=== PATIENT | female | born 1930 | race Caucasian/White ===

== ENCOUNTER 2019-03-13 03:08 | Emergency (ER) | payer MEDICARE, OTHER ==
[~2019-03-13] VITALS: Ht 165.1 cm; Wt 61.2 kg
[2019-03-13] MEDS ORDERED: PLAVIX75 MG ORAL ×2 (03:18→03:19)
[2019-03-13] MEDS ORDERED: ARICEPT10 MG ORAL (03:18)
[2019-03-13] MEDS ORDERED: AMLODIPINE BESY10 MG ORAL (03:18)
[2019-03-13] MEDS ORDERED: KLOR-CON 88 MEQ ORAL (03:19)
[2019-03-13] MEDS ORDERED: VITAMIN B-12500 MCG ORAL (03:19)
[2019-03-13] MEDS ORDERED: PANTOPRAZOLE SO40 MG ORAL (03:19)
[2019-03-13] MEDS ORDERED: PRAMIPEXOLE D0.25 MG ORAL (03:19)
[2019-03-13] MEDS ORDERED: DEPAKOTE250 MG PO (03:19)
[2019-03-13] MEDS ORDERED: ACIDOPHILUS1 EAC6 PO (03:19)
[2019-03-13] MEDS ORDERED: SYNTHROID25 MCG ORAL (03:19)
[2019-03-13] MEDS ORDERED: FUROSEMIDE20 M1 ORAL (03:19)
[2019-03-13] MEDS ORDERED: NAMENDA10 MG ORAL (03:19)
[2019-03-13] MEDS ORDERED: ROPINIROLE HCL2 MG PO (03:21)
[2019-03-13] MEDS ORDERED: ZOLPIDEM TARTRA10 MG ORAL (03:21)
[2019-03-13] MEDS ORDERED: VESICARE5 MG ORAL (03:21)
[2019-03-13] MEDS ORDERED: ACETAMINOPHEN325 M1 ORAL (03:21)
[2019-03-13] MEDS ORDERED: PROZAC20 MG ORAL (03:21)
[2019-03-13 03:25] VITALS: BP 150/80
[2019-03-13] MEDS ORDERED: Acetaminophen 500mg (ES) tab ORAL ONE (03:30)
--- NOTE | 2019-03-13 03:32 | Emergency Room Report ---
History of Present Illness General Chief Complaint: Multiple Trauma/Fall Source: Patient Present Illness HPI This is an 88-year-old female with multiple medical problems including CVA. She is unsteady on her feet. She presents with chief complaint of head injury. She says [facility] to go to [facility]. She slipped and fell forward hitting her face on the ground. She was wearing her glasses. She sustained a laceration to the right upper eyebrow. Also a laceration to the right upper lip and the right lower lip. No loss of consciousness. Pain is 7 out of 10. Denies any other complaint. Allergies: Coded Allergies: ASPIRIN (Verified Allergy, Unknown, 03/13/19) MORPHINE (Verified Allergy, Unknown, 03/13/19) TETANUS TOXOID, ADSORBED (Verified Allergy, Unknown, 03/13/19) Patient History Past Medical History: see triage record, old chart reviewed, HTN, CVA/TIA Past Surgical History: other Pertinent Family History: none Social History: Denies: smoking Now: No Immunizations: UTD Reviewed Nursing Documentation: PMH: Agreed; PSxH: Agreed Nursing Documentation-PMH Past Medical History: No History, Except For Hx Hypertension: Yes - ANEMIA, HYPERLIPIDEMIA, HYPOKALEMIA Hx COPD: Yes Hx Gastrointestinal Problems: Yes - GERD Review of Systems Eye: Denies: eye pain, blurred vision ENT: Denies: ear pain, nose congestion, throat swelling Respiratory: Denies: cough, shortness of breath Cardiovascular: Denies: chest pain, palpitations Gastrointestinal: Denies: abdominal pain, diarrhea, nausea, vomiting Musculoskeletal: Denies: back pain, joint pain Skin: Denies: rash Neurological: Denies: headache, numbness Endocrine: Denies: increased thirst, increased urine Hematologic/Lymphatic: Denies: easy bruising All Other Systems: negative except mentioned in HPI Physical Exam Vital Signs Date Time Temp Pulse Resp B/P (MAP) Pulse Ox O2 Delivery O2 Flow Rate FiO2 03/13/19 03:08 98.2 72 18 150/80 (103) 99 Vitals with high blood pressure Sp02 EP Interpretation: reviewed, normal General Appearance: well appearing, no apparent distress, alert Head: normocephalic, other - 2cm laceration to the right upper eyebrow. Well approximated. Eyes: bilateral eye PERRL, bilateral eye EOMI ENT: hearing grossly normal, normal pharynx, other - 1 cm laceration in the right upper lip. Well approximated. No foreign body. Not through and through. 3 mm laceration to the right lower lip. Well approximated. Not through and through. Neck: full range of motion, supple, no meningismus Respiratory: chest non-tender, lungs clear, normal breath sounds Cardiovascular #1: regular rate, rhythm, no murmur Gastrointestinal: normal bowel sounds, non tender, no mass, no organomegaly, no bruit, non-distended Musculoskeletal: back normal, gait/station normal, normal range of motion Psychiatric: mood/affect normal Procedures Laceration/Wound Repair Laceration/Wound Repair : Consent: Verbal Wound Location: face Wound's Depth, Shape: linear, contused tissue Wound Length (cm): 4 Wound Explored: clean Wound Repaired With: Dermabond Patient Tolerated: Well Complications: None Medical Decision Making Diagnostic Impression: Primary Impression: Head injury, acute Qualified Codes: S09.90XA - Unspecified injury of head, initial encounter Additional Impression: Facial laceration Qualified Codes: S01.81XA - Laceration without foreign body of other part of head, initial encounter ER Course Patient presents with head injury and laceration to the face. No evidence of any bleed. No fracture. Will discharge home. CT/MRI/US Diagnostic Results CT/MRI/US Diagnostic Results : Imaging Test Ordered: CT head Impression Negative per radiologist Last Vital Signs Date Time Temp Pulse Resp B/P (MAP) Pulse Ox O2 Delivery O2 Flow Rate FiO2 03/13/19 03:25 72 18 03/13/19 03:08 98.2 150/80 (103) 99 Status: improved Disposition: XFER SNF Condition: Stable Additional Instructions: Follow-up with your doctor in 7 days. Return if symptoms worsen. Sreedhar Graff MD Mar 13, 2019 03:32
--- NOTE | 2019-03-13 04:21 | Diagnostic Imaging Report ---
Indications: Fall, trauma Technique: Spiral acquisitions obtained through the brain. Angled axial and coronal 5 x 5 mm slices were reconstructed. Total dose length product 1436.13 mGycm. CTDI vol(s) 70.38 mGy. Dose reduction achieved using automated exposure control Comparison: None. Findings: There is some image degradation due to motion artifact. No acute intracranial hemorrhage or edema. No mass effect or midline shift. Normal for age ventricles and extra axial CSF spaces. There is minimal periventricular deep white matter low-attenuation consistent with chronic microvascular ischemic changes. 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 The mastoids are clear. Visualized orbits and sinuses are unremarkable. Impression: Mild senescent changes Somewhat limited exam Negative for acute intracranial bleed or mass effect This agrees with the preliminary interpretation provided overnight by [facility]. The CT scanner at [facility] is accredited by the [employer] and the scans are performed using protocols designed to limit radiation exposure to as low as reasonably achievable to attain images of sufficient resolution adequate for diagnostic evaluation.
[2019-03-13 05:06] VITALS: BP 129/76
== END 2019-03-13 05:16 ==
LOC: EDBD 03:08 → EMR 03:31
DX: S01.81XA Laceration without foreign body of other part of head, initial encounter (principal); S09.90XA Unspecified injury of head, initial encounter; E78.5 Hyperlipidemia, unspecified; J44.9 Chronic obstructive pulmonary disease, unspecified; K21.9 Gastro-esophageal reflux disease without esophagitis; I10 Essential (primary) hypertension; Z86.73 Personal history of transient ischemic attack (TIA), and cerebral infarction without residual deficits; Z88.6 Allergy status to analgesic agent; Z88.7 Allergy status to serum and vaccine; W01.0XXA Fall on same level from slipping, tripping and stumbling without subsequent striking against object, initial encounter; Y92.129 Unspecified place in nursing home as the place of occurrence of the external cause
CPT/HCPCS: 70450; 99284

== ENCOUNTER 2019-04-02 19:55 | Emergency (ER) | payer MEDICARE ==
[~2019-04-02] VITALS: Ht 165.1 cm; Wt 72.6 kg
[~2019-04-02 19:55] MED LIST: ACETAMINOPHEN325 M1 ORAL; ACIDOPHILUS1 EAC6 PO; AMLODIPINE BESY10 MG ORAL; ARICEPT10 MG ORAL; DEPAKOTE250 MG PO; FUROSEMIDE20 M1 ORAL; KLOR-CON 88 MEQ ORAL; NAMENDA10 MG ORAL; PANTOPRAZOLE SO40 MG ORAL; PLAVIX75 MG ORAL; PRAMIPEXOLE D0.25 MG ORAL; PROZAC20 MG ORAL; ROPINIROLE HCL2 MG PO; SYNTHROID25 MCG ORAL; VESICARE5 MG ORAL; VITAMIN B-12500 MCG ORAL; ZOLPIDEM TARTRA10 MG ORAL
--- NOTE | 2019-04-02 19:58 | NUR ---
ED Nurse Note: pt brought in by [facility] for cough for the last 2 days. pt was [facility]. pt is alert x3. ambulatory . VSS
[2019-04-02 19:59] VITALS: BP 112/64
[2019-04-02] MEDS ORDERED: Albuterol ud Inhalation HHN ONE ×2 (20:00→21:30)
[2019-04-02] MEDS ORDERED: Solu-MEDROL 125mg Inj IVP ONE (20:00)
[2019-04-02] MEDS ORDERED: Ipratropium 0.02% Inh Soln 2.5ml UD HHN ONE (20:00)
--- NOTE | 2019-04-02 20:30 | NUR ---
ED Nurse Note: urine and blood sample sent down to lab
[2019-04-02] MEDS: Sodium Chloride 550 ML IV SCH ×3 (20:36→23:52)
[2019-04-02 20:59] LABS: BASOPHILS % (AUTO) 2.4 % (0.0-2.0); HEMATOCRIT 39.1 % (37.0-47.0); HEMOGLOBIN 12.8 G/DL (12.0-16.0); LYMPHOCYTES % (AUTO) 12.8 % (20.0-45.0); MEAN CORPUSCULAR VOLUME 98 FL (80-99); MONOCYTES % (AUTO) 16.7 % (1.0-10.0); NEUTROPHILS % (AUTO) 66.2 % (45.0-75.0); PLATELET COUNT 188 K/UL (150-450); RED BLOOD COUNT 3.98 M/UL (4.20-5.40); RED CELL DISTRIBUTION WIDTH 12.7 % (11.6-14.8); WHITE BLOOD COUNT 5.2 K/UL (4.8-10.8)
[2019-04-02 21:13] LABS: ANION GAP 8 mmol/L (5-15); BLOOD UREA NITROGEN 21 mg/dL (7-18); CARBON DIOXIDE 28 MMOL/L (21-32); CHLORIDE 106 MMOL/L (98-107); POTASSIUM 3.6 MMOL/L (3.5-5.1); SODIUM 142 MMOL/L (136-145)
[2019-04-02 21:24] LABS: ALANINE AMINOTRANSFERASE 17 U/L (12-78); ALBUMIN 3.3 G/DL (3.4-5.0); ALKALINE PHOSPHATASE 84 U/L (46-116); ASPARTATE AMINO TRANSFERASE 16 U/L (15-37); BILIRUBIN,TOTAL 0.2 MG/DL (0.2-1.0); CREATINE KINASE 74 U/L (26-308)
[2019-04-02 21:29] LABS: APPEARANCE,URINE CLEAR; BILIRUBIN, URINE NEGATIVE (NEGATIVE); COLOR,URINE PALE YELLOW; GLUCOSE, URINE (UA) NEGATIVE (NEGATIVE); KETONES,URINE 1+ (NEGATIVE); LEUKOCYTE ESTERASE ,URINE 1+ (NEGATIVE); NITRITE,URINE NEGATIVE (NEGATIVE); PH,URINE 5 (4.5-8.0); PROTEIN,URINE 1+ (NEGATIVE); UROBILINOGEN,URINE NORMAL MG/DL (0.0-1.0)
[2019-04-02] MEDS ORDERED: Omnipaue 350mg/ml 100ml vial INJ PRN (21:30)
[2019-04-02] MEDS ORDERED: guaiFENesin w/Codeine 5ml Liq ud ORAL PRN (21:30)
[2019-04-02] MEDS ORDERED: Piperacillin/Tazobactam 3.375 GM in NS 110 ML IVPB ONE (21:30)
--- NOTE | 2019-04-02 21:32 | Emergency Room Report ---
History of Present Illness General Chief Complaint: Upper Respiratory Illness Source: Patient, Medical Record (Jemal Greene MD) Present Illness HPI Patient presents with dyspnea and cough. She also is complaining about chest pain radiating to her back. When she had this before she had pneumonia. She denies fevers or chills or productive cough at this time. There are times after cough that she cannot get her breath. She denies any vomiting. There is no diarrhea. Patient is never had pain radiating to her back like this in the past. Is not exertional. She denies asthma in the past and denies previous smoking although in her records there is a history of COPD. Seen here 03/13/19 post fall with facial laceration. (Jemal Greene MD) Allergies: Coded Allergies: ASPIRIN (Verified Allergy, Unknown, 03/13/19) MORPHINE (Verified Allergy, Unknown, 03/13/19) TETANUS TOXOID, ADSORBED (Verified Allergy, Unknown, 03/13/19) Uncoded Allergies: CODINE FROM ASPIRIN (Allergy, Unknown, 04/02/19) TETANOTOXOIDS (Allergy, Unknown, 04/02/19) Patient History Past Medical History: see triage record, old chart reviewed Social History: Denies: smoking Social History Narrative [facility] facility Last Menstrual Period: na Now: No Reviewed Nursing Documentation: PMH: Agreed; PSxH: Agreed (Jemal Greene MD) Nursing Documentation-PMH Past Medical History: No History, Except For Hx Hypertension: Yes - ANEMIA, HYPERLIPIDEMIA, HYPOKALEMIA Hx COPD: Yes Hx Gastrointestinal Problems: Yes - GERD (Jemal Greene MD) Review of Systems All Other Systems: negative except mentioned in HPI (Jemal Greene MD) Physical Exam Vital Signs Date Time Temp Pulse Resp B/P (MAP) Pulse Ox O2 Delivery O2 Flow Rate FiO2 04/02/19 19:50 98.8 79 18 104/64 (77) 94 Room Air 04/02/19 20:08 21 Sp02 EP Interpretation: reviewed, normal General Appearance: well appearing, no apparent distress, GCS 15 Head: normocephalic Eyes: bilateral eye normal inspection, bilateral eye PERRL, bilateral eye EOMI ENT: moist mucus membranes Neck: supple Respiratory: wheezing, expiration Cardiovascular #1: regular rate, rhythm Cardiovascular #2: 2+ radial (R) Gastrointestinal: normal inspection, normal bowel sounds, non tender, no mass, non-distended Musculoskeletal: back normal, normal range of motion, no calf tenderness Neurologic: alert, motor strength/tone normal, sensory intact, oriented - X2 Psychiatric: mood/affect normal Skin: no rash, other - Jimbo (Jemal Greene MD) Medical Decision Making Diagnostic Impression: Primary Impression: COPD exacerbation Additional Impressions: Dyspnea Qualified Codes: R06.09 - Other forms of dyspnea Elevated lactic acid level ER Course Patient presents with with chest pain. Differential includes acute myocardial infarction, COPD exacerbation, pneumonia, chest wall pain, osteoarthritis amongst others. Evaluation with EKG, chest x-ray labs. Patient treated with Solu-Medrol, breathing treatments and analgesia. 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 Chest x-ray with ectatic aorta no infiltrates. Normal CBC. BUN elevated. Glucose minimally elevated. BNP minimally elevated. Urinalysis clear. Because of the ectatic aorta and the history of back pain and has a CT angiogram of the chest ordered. Patient improved with breathing treatments but still has some expiratory wheezes. Albuterol repeated. Also Robitussin with codeine ordered. Because of a positive lactic acid a bolus of normal saline and Zosyn is ordered. Repeat lactic acid normal. Discussed with Dr. Jane. Await CTA. Calling [employer] for reading 22:55 No dissection. Discussed findings with patient. Patient's respiratory status improved. She is apprised of diagnosis of COPD which is in the medical record. Signed out to Dr. Jorge for final disposition. Laboratory Tests Test 04/02/19 20:20 04/02/19 20:55 White Blood Count 5.2 K/UL (4.8-10.8) Red Blood Count 3.98 M/UL (4.20-5.40) L Hemoglobin 12.8 G/DL (12.0-16.0) Hematocrit 39.1 % (37.0-47.0) Mean Corpuscular Volume 98 FL (80-99) Mean Corpuscular Hemoglobin 32.2 PG (27.0-31.0) H Mean Corpuscular Hemoglobin Concent 32.7 G/DL (32.0-36.0) Red Cell Distribution Width 12.7 % (11.6-14.8) Platelet Count 188 K/UL (150-450) Mean Platelet Volume 6.0 FL (6.5-10.1) L Neutrophils (%) (Auto) 66.2 % (45.0-75.0) Lymphocytes (%) (Auto) 12.8 % (20.0-45.0) L Monocytes (%) (Auto) 16.7 % (1.0-10.0) H Eosinophils (%) (Auto) 2.0 % (0.0-3.0) Basophils (%) (Auto) 2.4 % (0.0-2.0) H Prothrombin Time 11.1 SEC (9.30-11.50) Prothrombin Time INR 1.0 (0.9-1.1) PTT 24 SEC (23-33) Sodium Level 142 MMOL/L (136-145) Potassium Level 3.6 MMOL/L (3.5-5.1) Chloride Level 106 MMOL/L (98-107) Carbon Dioxide Level 28 MMOL/L (21-32) Anion Gap 8 mmol/L (5-15) Blood Urea Nitrogen 21 mg/dL (7-18) H Creatinine 1.0 MG/DL (0.55-1.30) Estimate Glomerular Filtration Rate mL/min (>60) Glucose Level 112 MG/DL (74-106) H Lactic Acid Level 2.50 mmol/L (0.4-2.0) H Calcium Level 9.0 MG/DL (8.5-10.1) Total Bilirubin 0.2 MG/DL (0.2-1.0) Aspartate Amino Transferase (AST) 16 U/L (15-37) Alanine Aminotransferase (ALT) 17 U/L (12-78) Alkaline Phosphatase 84 U/L (46-116) Total Creatine Kinase 74 U/L (26-308) Troponin I 0.007 ng/mL (0.000-0.056) Pro-B-Type Natriuretic Peptide 274 pg/mL (0-125) H Total Protein 6.7 G/DL (6.4-8.2) Albumin 3.3 G/DL (3.4-5.0) L Globulin 3.4 g/dL Albumin/Globulin Ratio 1.0 (1.0-2.7) Urine Color Pale yellow Urine Appearance Clear Urine pH 5 (4.5-8.0) Urine Specific Toutle 1.015 (1.005-1.035) Urine Protein 1+ (NEGATIVE) H Urine Glucose (UA) Negative (NEGATIVE) Urine Ketones 1+ (NEGATIVE) H Urine Blood Negative (NEGATIVE) Urine Nitrite Negative (NEGATIVE) Urine Bilirubin Negative (NEGATIVE) Urine Urobilinogen Normal MG/DL (0.0-1.0) Urine Leukocyte Esterase 1+ (NEGATIVE) H Urine RBC 0-2 /HPF (0 - 2) Urine WBC 2-4 /HPF (0 - 2) Urine Squamous Epithelial Cells Few /LPF (NONE/OCC) Urine Bacteria Few /HPF (NONE) Urine Yeast Few /HPF (NONE) H (Jemal Greene MD) ER Course [facility] the patient [facility] transfer to [facility]. Patient is currently improved. CT of the chest showed no evidence of aortic dissection. Patient be transferred for further treatments. (Stan Jorge MD) EKG Diagnostic Results Rate: normal Rhythm: NSR ST Segments: no acute changes (Jemal Greene MD) Rhythm Strip Diag. Results EP Interpretation: yes Rhythm: NSR, other - PVCs and rate of 79 (Jemal Greene MD) Chest X-Ray Diagnostic Results Chest X-Ray Diagnostic Results : Chest X-Ray Ordered: Yes # of Views/Limited/Complete: 1 View Indication: Other EP Interpretation: Yes Interpretation: no consolidation, no effusion, no pneumothorax, other - Ectatic aorta Impression: Other Electronically Signed by: Electronically signed by Jemal Greene MD (Jemal Greene MD) CT/MRI/US Diagnostic Results CT/MRI/US Diagnostic Results : Imaging Test Ordered: CT angiogram chest and abdomen Impression No dissection. See radiology report. (Jemal Greene MD) Last Vital Signs Date Time Temp Pulse Resp B/P (MAP) Pulse Ox O2 Delivery O2 Flow Rate FiO2 04/03/19 01:42 98.4 79 19 105/70 97 Room Air 04/02/19 22:31 21 Status: improved (Jemal Greene MD) Disposition: PLACE IN OBSERVATION Condition: Serious Referrals: Earle Whaley DO (PCP) Jemal Greene MD Apr 02, 2019 21:32 Stan Jorge MD Apr 03, 2019 00:10
[2019-04-02 22:05] VITALS: BP 108/70
--- NOTE | 2019-04-02 22:05 | NUR ---
ED Nurse Note: left for ct
--- NOTE | 2019-04-02 22:17 | NUR ---
ED Nurse Note: returbed back from CT
--- NOTE | 2019-04-02 22:54 | NUR ---
ED Nurse Note: 2nd lactic sent to lab
--- NOTE | 2019-04-02 23:10 | Diagnostic Imaging Report ---
Indication: Chest and abdominal pain Technique: Continuous helical transaxial imaging of the chest, abdomen and pelvis was obtained from the thoracic inlet to the pubic symphysis during rapid intravenous contrast administration. Arterial phase of enhancement obtained. Coronal 2-D reformats were also obtained and maximum intensity projection images in multiple planes. Study obtained in a Siemens sensation [address] Total Dose length Product (DLP): [address] Dose Index Volume (CTDIvol): 51.4 mGy Comparison: None Findings: CT CHEST: There is suboptimal opacification of the pulmonary artery. There is no filling defect appreciated. The pulmonary artery is mildly enlarged. The aorta is diffusely enlarged and tortuous with mural calcium. There is no dissection or aneurysm. The heart is prominent in size. No adenopathy seen. No pleural effusion identified. There is a cystic lesion measuring about 4.8 cm in the right upper lobe. There are few other smaller cystic lesions present in the right upper lobe as well. These are probably postinflammatory or pneumatoceles. There is mild bronchiectasis involving the lower lobes. Some linear densities likely represent mild fibrosis. There is a proximally 1 cm exophytic enhancing nodule projecting off the lower aspect of the thyroid gland. This resides just posterior to the sternum and may be difficult to see by ultrasound. CTA abdomen pelvis: There is low attenuation of the liver. The spleen is prominent in size measuring about 13 cm. The abdominal aorta is diffusely ectatic due to atherosclerotic disease. There is slight fusiform dilatation or aneurysm of the lower abdominal aorta having a maximum diameter of about 4.0 cm. Some calcification at the origins of the celiac artery and SMA demonstrated. These do not appear significant. Similarly the renal arteries show some arterial vascular calcium. The right side of the abdominal wall is not completely imaged on this study. There is suggestion of an umbilical hernia. Uterus is present and atrophic. There is no free fluid. Bowel gas pattern is nonobstructive. This partial resection of the the right hemicolon noted with suture line demonstrated. The appendix is absent. Hiatal hernia noted. There is prominence of the left adrenal gland. Gallbladder is not seen. Suture line noted in the area of the stomach consistent with previous surgery. Not clear the nature of the surgery. Pancreas is grossly unremarkable. There is narrowing of intervertebral discs and accompanying endplate osteophyte formation. Hypertrophied facet joints also demonstrated. IMPRESSION: Suboptimal opacification of the pulmonary artery. No obvious pulmonary embolus. No evidence of aortic dissection. Moderate atherosclerotic disease of the thoracic and abdominal aorta. 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 Prominence of the left adrenal gland nonspecific. Hepatosplenomegaly. Fatty infiltration of the liver noted. Degenerative changes of the spine. Hiatal hernia Suggestion of umbilical hernia containing fat. Bullous type changes in the right upper lobe noted focally likely postinflammatory pneumatoceles. Chronic lung disease at both lung bases with bronchiectasis and mild scarring. Thyroid nodule substernal in location may be difficult to see by ultrasound. [facility] has communicated the preliminary results to the Emergency Department. Their findings are largely concordant with this report. The CT scanner at [facility] is accredited by the [employer] and the scans are performed using dose optimization techniques as appropriate to a performed exam including Automatic Exposure control.
[2019-04-03 00:16] VITALS: BP 100/73
--- NOTE | 2019-04-03 01:08 | NUR ---
ED Nurse Note: pt in bed awake, No acute distress is noted VSS
--- NOTE | 2019-04-03 01:14 | NUR ---
ED Nurse Note: [facility]
[2019-04-03 01:42] VITALS: BP 105/70
--- NOTE | 2019-04-03 01:42 | NUR ---
ER DISCHARGE NOTE: [facility] arrived. pt was then transported to [facility] via [facility] in stable condition. Report given to Ambulance personnel. Pt VSS
--- NOTE | 2019-04-03 11:43 | Diagnostic Imaging Report ---
Indication: Dyspnea Comparison: None A single view chest radiograph was obtained. Findings: The heart is enlarged. The aorta is ectatic and tortuous likely accounting for a convex density over the left hilar region with the pulmonary artery contour still noted separate from this and not silhouetted out (Hilum overlay). The lungs are essentially clear. Bones are osteopenic. IMPRESSION: No acute cardiopulmonary disease. Moderate atherosclerotic disease of aorta. Cardiomegaly
--- NOTE | 2019-04-04 15:06 | Cardiology Report ---
APPROVED REPORT EKG Measurement Heart [id number] Sinus rhythm with occasional premature ventricular complexes Right bundle branch block Left anterior fascicular block Bifascicular block Abnormal ECG
== END 2019-04-03 01:42 | disposition short-term general hospital (02) ==
LOC: EDBD 19:55 → EMR 20:03
DX: J44.1 Chronic obstructive pulmonary disease with (acute) exacerbation (principal); R74.0 Nonspecific elevation of levels of transaminase and lactic acid dehydrogenase [LDH]; R06.09 Other forms of dyspnea; I77.819 Aortic ectasia, unspecified site; R07.9 Chest pain, unspecified; M54.9 Dorsalgia, unspecified; E78.5 Hyperlipidemia, unspecified; K21.9 Gastro-esophageal reflux disease without esophagitis; Z88.6 Allergy status to analgesic agent; Z88.7 Allergy status to serum and vaccine
CPT/HCPCS: 36415; 71045; 71275; 74174; 80053; 81003; 82550; 83605; 83880; 84484; 85025; 85610; 85730; 87040; 87086; 93005; 94640; 96361; 96365; 96375; 99284; J2543; J2930; J7040; Q9967

== ENCOUNTER 2019-08-28 19:42 | Inpatient (IN) | payer MEDICARE, MEDICAID ==
[~2019-08-28] VITALS: Ht 152.4 cm; Wt 112.5 kg
--- NOTE | 2019-08-28 20:15 | NUR ---
ED Nurse Note: Recieved pt BIBA from SNF with c/o right leg pain and swelling for about 1 month, leg is very red and swollen, pulses are present and has chronic deformity from old fracture, pt is awake, alert and oriented x 4, pain at 6/10 to area, no chest pain, sob, or labored breathing and pt denies any other complaitns or discomforts.
[2019-08-28 21:08] LABS: ANION GAP 9 mmol/L (5-15); BLOOD UREA NITROGEN 19 mg/dL (7-18); CALCIUM 9.5 MG/DL (8.5-10.1); CARBON DIOXIDE 26 MMOL/L (21-32); CHLORIDE 105 MMOL/L (98-107); CREATININE 0.8 MG/DL (0.55-1.30); POTASSIUM 4.3 MMOL/L (3.5-5.1); SODIUM 140 MMOL/L (136-145)
[2019-08-28 21:18] LABS: ALANINE AMINOTRANSFERASE 19 U/L (12-78); ALBUMIN 3.5 G/DL (3.4-5.0); ALKALINE PHOSPHATASE 91 U/L (46-116); ASPARTATE AMINO TRANSFERASE 19 U/L (15-37); BILIRUBIN,TOTAL 0.2 MG/DL (0.2-1.0)
[2019-08-28 21:30] VITALS: BP 136/61
[2019-08-28] MEDS ORDERED: Piperacillin/Tazobactam 3.375 GM in NS 110 ML IVPB ONE (21:30)
--- NOTE | 2019-08-28 21:35 | NUR ---
ED Nurse Note: Pt continues to rest in bed, awake and alert, denies any changes or increased distress, saline lock intact and patent, pt denies need for pain meds, waiting for room placement for hospital admission, will continue to closely monitor.
[2019-08-28 21:45] LABS: BASOPHILS % (AUTO) 0.5 % (0.0-2.0); EOSINOPHILS % (AUTO) 1.3 % (0.0-3.0); HEMATOCRIT 37.7 % (37.0-47.0); HEMOGLOBIN 12.4 G/DL (12.0-16.0); LYMPHOCYTES % (AUTO) 14.2 % (20.0-45.0); MEAN CORPUSCULAR VOLUME 93 FL (80-99); MONOCYTES % (AUTO) 7.2 % (1.0-10.0); NEUTROPHILS % (AUTO) 76.8 % (45.0-75.0); PLATELET COUNT 240 K/UL (150-450); RED BLOOD COUNT 4.06 M/UL (4.20-5.40); RED CELL DISTRIBUTION WIDTH 13.2 % (11.6-14.8); WHITE BLOOD COUNT 9.3 K/UL (4.8-10.8)
--- NOTE | 2019-08-28 21:53 | Diagnostic Imaging Report ---
Indication: Right leg pain Technique: Grayscale and duplex images of the right lower extremity veins Comparison: Findings: On the right, grayscale and duplex images demonstrate no evidence of intraluminal thrombus. Normal phasic Doppler waveforms, demonstrating normal augmentation response and no evidence of valvular insufficiency. Greater saphenous vein(s) and tibial veins are patent. Normal compressibility. There is edema of the subcutaneous fat distally Impression: Negative for evidence of lower extremity deep venous thrombosis on the right As agrees stat [facility]
--- NOTE | 2019-08-28 21:58 | Emergency Room Report ---
History of Present Illness General Chief Complaint: Lower Extremity Injury Source: Patient, Medical Record, EMS Present Illness HPI -year-old female presents ED for evaluation of right leg swelling. Noted by nursing staff today to be red and swollen. Patient is hemiplegic. Patient denies pain. Denies fevers or chills. Denies chest pain. No other aggravating relieving factors. Denies any other associated symptoms Allergies: Coded Allergies: ASPIRIN (Verified Allergy, Unknown, 03/13/19) MORPHINE (Verified Allergy, Unknown, 03/13/19) TETANUS TOXOID, ADSORBED (Verified Allergy, Unknown, 03/13/19) Uncoded Allergies: CODINE FROM ASPIRIN (Allergy, Unknown, 04/02/19) TETANOTOXOIDS (Allergy, Unknown, 04/02/19) Patient History Past Medical History: COPD, GERD, other - hemiplegia Past Surgical History: none Pertinent Family History: none Social History: Denies: smoking, alcohol use, drug use Now: No Immunizations: UTD Reviewed Nursing Documentation: PMH: Agreed; PSxH: Agreed Nursing Documentation-PMH Hx Cardiac Problems: Yes - PNA, MUSCLE WEAKNESS, HEMIPLEGIA, HYPOTHYROIDISM, CHF Hx Hypertension: Yes - ANEMIA, HYPERLIPIDEMIA, HYPOKALEMIA Hx COPD: Yes Hx Gastrointestinal Problems: Yes - GERD Review of Systems All Other Systems: negative except mentioned in HPI Physical Exam Vital Signs Date Time Temp Pulse Resp B/P (MAP) Pulse Ox O2 Delivery O2 Flow Rate FiO2 08/28/19 19:47 98.1 78 18 130/68 (88) 94 Room Air Sp02 EP Interpretation: reviewed, normal General Appearance: no apparent distress, alert, GCS 15, non-toxic, obese Head: normocephalic, atraumatic Eyes: bilateral eye normal inspection, bilateral eye PERRL ENT: hearing grossly normal, normal pharynx, no angioedema, normal voice Neck: full range of motion, supple/symm/no masses Respiratory: chest non-tender, lungs clear, normal breath sounds, speaking full sentences Cardiovascular #1: regular rate, rhythm, no edema Cardiovascular #2: 2+ carotid (R), 2+ carotid (L), 2+ radial (R), 2+ radial (L) , 2+ dorsalis pedis (R), 2+ dorsalis pedis (L) Gastrointestinal: normal bowel sounds, non tender, soft, non-distended, no guarding, no rebound Rectal: deferred Genitourinary: normal inspection, no CVA tenderness Musculoskeletal: back normal, swelling - RLE erythema/induration. no discharge Neurologic: alert, motor strength/tone normal, oriented x3, sensory intact, responsive, speech normal Psychiatric: judgement/insight normal, memory normal, mood/affect normal, no suicidal/homicidal ideation Reflexes: 3+ bicep (R), 3+ bicep (L), 3+ tricep (R), 3+ tricep (L), 3+ knee (R) , 3+ knee (L) Skin: other - see nursing skin notes Lymphatic: no adenopathy Medical Decision Making Diagnostic Impression: Primary Impression: Cellulitis of right lower extremity ER Course Hospital Course 89-year-old female presents to ED with redness, swelling to RLE Differential diagnoses include: Cellulitis, DVT, abscess, rash. Clinical course Patient placed on stretcher. After initial history and physical I ordered labs , blood Cx, UA, IVFs, doppler US of LLE labs reviewed - leukocytosis, Hb/Hct stable, no electrolyte abnormalities. Doppler US - no evidence of DVT, edema noted CXR - no focal consolidation antibiotics given. Case discussed with Dr Whaley and he agreed to accept the patient to his service for further care and support Diagnosis - cellulitis of right lower extremity Patient admitted to floor in serious condition Labs Test 08/28/19 20:15 White Blood Count 9.3 K/UL (4.8-10.8) Red Blood Count 4.06 M/UL (4.20-5.40) Hemoglobin 12.4 G/DL (12.0-16.0) Hematocrit 37.7 % (37.0-47.0) Mean Corpuscular Volume 93 FL (80-99) Mean Corpuscular Hemoglobin 30.5 PG (27.0-31.0) Mean Corpuscular Hemoglobin Concent 32.8 G/DL (32.0-36.0) Red Cell Distribution Width 13.2 % (11.6-14.8) Platelet Count 240 K/UL (150-450) Mean Platelet Volume 5.3 FL (6.5-10.1) Neutrophils (%) (Auto) 76.8 % (45.0-75.0) Lymphocytes (%) (Auto) 14.2 % (20.0-45.0) Monocytes (%) (Auto) 7.2 % (1.0-10.0) Eosinophils (%) (Auto) 1.3 % (0.0-3.0) Basophils (%) (Auto) 0.5 % (0.0-2.0) Sodium Level 140 MMOL/L (136-145) Potassium Level 4.3 MMOL/L (3.5-5.1) Chloride Level 105 MMOL/L (98-107) Carbon Dioxide Level 26 MMOL/L (21-32) Anion Gap 9 mmol/L (5-15) Blood Urea Nitrogen 19 mg/dL (7-18) Creatinine 0.8 MG/DL (0.55-1.30) Estimat Glomerular Filtration Rate > 60 mL/min (>60) Glucose Level 112 MG/DL (74-106) Calcium Level 9.5 MG/DL (8.5-10.1) Total Bilirubin 0.2 MG/DL (0.2-1.0) Aspartate Amino Transf (AST/SGOT) 19 U/L (15-37) Alanine Aminotransferase (ALT/SGPT) 19 U/L (12-78) Alkaline Phosphatase 91 U/L (46-116) Pro-B-Type Natriuretic Peptide 184 pg/mL (0-125) Total Protein 7.1 G/DL (6.4-8.2) Albumin 3.5 G/DL (3.4-5.0) Globulin 3.6 g/dL Albumin/Globulin Ratio 1.0 (1.0-2.7) Chest X-Ray Diagnostic Results Chest X-Ray Diagnostic Results : Chest X-Ray Ordered: Yes # of Views/Limited/Complete: 1 View Indication: Other EP Interpretation: Yes Interpretation: no consolidation, no effusion, no pneumothorax, no acute cardiopulmonary disease Impression: No acute disease Electronically Signed by: Electronically signed by Gustavo Araya MD CT/MRI/US Diagnostic Results CT/MRI/US Diagnostic Results : Imaging Test Ordered: Venous Duplex RLE Impression no evidence of DVT. edema noted Last Vital Signs Date Time Temp Pulse Resp B/P (MAP) Pulse Ox O2 Delivery O2 Flow Rate FiO2 08/28/19 19:47 98.1 78 18 130/68 (88) 94 Room Air Status: improved Disposition: ADMITTED INPATIENT Condition: Serious Referrals: Earle Whaley DO (PCP) Gustavo Araya MD Aug 28, 2019 21:58
--- NOTE | 2019-08-28 22:15 | NUR ---
ED Nurse Note: Pt has room for admission, report called to [place],RN on floor, pt in bed awake and alert, no changes or increased distress noted, pt denies pain med need, saline lock intact and patent, belongings list completed and with pt, pt being taken to unit via gurney with [facility] during pt tranwsport to floor bed.
--- NOTE | 2019-08-28 22:30 | NUR ---
NURSE NOTES: PATIENT WAS SAFELY TRANSFERRED TO UNIT VIA GURNEY. RECEIVED REPORT FROM DANILO COMER. PATIENT IS AWAKE, AAOX4, ON ROOM AIR, NO ACUTE DISTRESS NOTED. BELONGING LIST REVIEWED AND SIGNED WITH PATIENT. PATIENT IS A FALL RISK DUE TO HISTORY OF FALL. NO ROOM AVAILABLE NEAR NURSES STATION, COMMUNICATED WITH STAFF TO ASSIST WITH FREQUENT ROUNDING. ORIENTED PATIENT TO ROOM, CALL LIGHT IS WITHIN REACH, PATIENT RETURNED CALL LIGHT DEMONSTRATION. IV ON LEFT HAND INTACT AND PATENT. EDEMA NOTED ON BILATERAL LOWER EXTREMITY. RIGHT LEG IS RED AND SWOLLEN. PATIENT DENIES PAIN AT THE MOMENT. BED IS LOCKED AND LOW, BED ALARMS ACTIVE ON ZONE 1, SIDE RAILS UP X2. WILL CONTINUE TO MONITOR.
--- NOTE | 2019-08-28 23:00 | NUR ---
NURSE NOTES: CALL AND LEFT MESSAGE WITH DR. CARMONA FOR ADMISSION ORDERS.
[2019-08-29 04:00] VITALS: BP 149/81
[2019-08-29] MEDS: D5 1/2NS 1,000 ML IV SCH ×2 (06:56→23:06)
[2019-08-29] MEDS: Levothyroxine 25mcg tab ORAL SCH (07:03)
--- NOTE | 2019-08-29 07:15 | NUR ---
HAND-OFF: Report given to DANILO MENDEZ.
--- NOTE | 2019-08-29 07:52 | NUR ---
NURSE NOTES: Patient awake, alert x4; on room air, no sing of distress and shortness of breath; IV Left-Hand 22G D51/2NS 60cc; Commode at the bed side and within reach; patient's own walker at the bed side, within reach; side rails up x2, breaks engaged, bed at lowest position; call light within reach; will keep monitoring.
[2019-08-29 08:00] VITALS: BP 139/83
[2019-08-29 08:41] LABS: BASOPHILS % (AUTO) 0.7 % (0.0-2.0); EOSINOPHILS % (AUTO) 2.3 % (0.0-3.0); HEMOGLOBIN 11.6 G/DL (12.0-16.0); LYMPHOCYTES % (AUTO) 16.9 % (20.0-45.0); MEAN CORPUSCULAR VOLUME 94 FL (80-99); MONOCYTES % (AUTO) 6.1 % (1.0-10.0); NEUTROPHILS % (AUTO) 74.1 % (45.0-75.0); PLATELET COUNT 211 K/UL (150-450); RED BLOOD COUNT 3.74 M/UL (4.20-5.40); RED CELL DISTRIBUTION WIDTH 13.3 % (11.6-14.8); WHITE BLOOD COUNT 7.3 K/UL (4.8-10.8)
[2019-08-29 08:57] LABS: ANION GAP 12 mmol/L (5-15); BLOOD UREA NITROGEN 16 mg/dL (7-18); CALCIUM 9.4 MG/DL (8.5-10.1); CARBON DIOXIDE 24 MMOL/L (21-32); CHLORIDE 105 MMOL/L (98-107); CREATININE 0.8 MG/DL (0.55-1.30); POTASSIUM 3.8 MMOL/L (3.5-5.1); SODIUM 141 MMOL/L (136-145)
[2019-08-29] MEDS ORDERED: Pramipexole 0.5mg tab ORAL SCH (09:00)
[2019-08-29] MEDS: Heparin 5000 units/ml inj SUBQ SCH ×2 (09:12→21:42)
[2019-08-29] MEDS: Donepezil 10mg tab ORAL SCH (09:13)
[2019-08-29] MEDS: Vitamin B-12 500mcg tab ORAL SCH (09:13)
[2019-08-29] MEDS: Memantine 10mg tab ORAL SCH (09:14)
--- NOTE | 2019-08-29 09:25 | Diagnostic Imaging Report ---
Indication: Shortness of breath Technique: One view of the chest Comparison: 04/02/2019 Findings: Lungs and pleural spaces are clear. The heart size is normal. Soft tissue protruding to the left of the mediastinum is confirmed on prior CT angiogram of 04/02/2019 to represent a very tortuous aorta. There is no significant interim change Impression: No acute process
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
--- NOTE | 2019-08-29 11:39 | NUR ---
P.T Note: P.T evaluation completed. Pt is alert, O X 4 , peasant and cooperative. Pt reports c/o R Lower leg pain however agreeable to participate in P.T evaluation. Pt is currently functioning at baseline where skilled P.T service is not warranted at this time. Pt is independent/supervision for bed mobilities, transfers and gait ambulation within room distances using the FWW. Educated patient on importance of OOB activities VS bedrest during stay. Pt verbalized understanding. Recommend DC to prior living arrangement when medically stable. DC P.T services. Thank you for this referral.
[2019-08-29 12:00] VITALS: BP 136/77
[2019-08-29] MEDS: ceFAZolin sod 1 GM in D5W 55 ML IVPB SCH (14:55)
[2019-08-29] MEDS ORDERED: ceFAZolin sod 1 GM in D5W 55 ML IVPB SCH (15:00)
--- NOTE | 2019-08-29 15:00 | NUR ---
*-* INSURANCE *-* ALL CLINICALS HAVE BEEN FAXED TO: [employer] [facility] P: [phone] F: [phone] (FAX CLINICALS TO [employer] AND TO [employer] FAX [phone])
[2019-08-29 16:00] VITALS: BP 128/65
--- NOTE | 2019-08-29 16:00 | History and Physical Report ---
DATE OF ADMISSION: 08/28/2019 APPROXIMATE TIME SEEN: 8 a.m. CONSULTANTS: 1. Song Lobato M.D. 2. Jeannette Velasquez M.D. CHIEF COMPLAINT: Right lower extremity cellulitis. BRIEF HISTORY: The patient is an 89-year-old female from [facility], presents with right lower extremity cellulitis. It has been getting worse for the past month. Apparently it became swollen and painful and red and hot and came to [facility], diagnosed as above, admitted to medical floor for further treatment. Currently, calm, sitting in bed, slight right leg pain, no complaint. REVIEW OF SYSTEMS: No chest pain. No shortness of breath. No nausea, vomiting, or diarrhea. PAST MEDICAL HISTORY: Includes COPD, weakness, CVA with left hemiparesis, CHF, hypertension, hyperlipidemia, hypothyroid, anemia, GERD, Parkinson, Alzheimer's. PAST SURGICAL HISTORY: None. MEDICATIONS: Heparin, Norvasc, Plavix, Depakote, Aricept, Prozac, Lasix, Namenda, Mirapex, Vesicare, Synthroid, Tylenol, Zofran, and Zosyn. ALLERGIES: Aspirin, codeine, morphine, . SOCIAL HISTORY: No smoking. No alcohol. No intravenous drug abuse. FAMILY HISTORY: Noncontributory. PHYSICAL EXAMINATION: GENERAL: Calm in bed, oriented x2, in no acute distress. VITAL SIGNS: Temperature is 97 degrees, pulse 71, respiratory rate 17, blood pressure 149/81. CARDIOVASCULAR: No murmur. LUNGS: Distant and clear. ABDOMEN: Bowel sound positive. Nontender. Nondistended. EXTREMITIES: No cyanosis, clubbing, 1+ edema. Right leg up to mid castillo redness, slightly swollen. No open wound. NEUROLOGIC: The patient moves all extremities, slightly weak. LABORATORY AND DIAGNOSTIC DATA: Hemoglobin and hematocrit of 11.6 and 35, otherwise CBC is normal. BMP, yesterday BUN 19, glucose 112. BNP is 184. ASSESSMENT: 1. Right lower extremity cellulitis. 2. COPD. 3. Anemia. 4. Weakness. 5. CVA with left-sided hemiparesis. 6. CHF. 7. Hypertension. 8. Hyperlipidemia. 9. Hypothyroid . 10. Anemia. 11. GERD. 12. Parkinson. 13. Alzheimer's. PLAN: 1. PT/OT, dietary follow. 2. Wound care. 3. Antibiotic per Infectious Diseases. 4. Blood pressure and pain control. 5. Dietary followup. 6. Resume home medications. 7. CBC and BMP in the morning. Earle Whaley D.O. DR: Jossie JOB#: [id number] CC:
--- NOTE | 2019-08-29 18:44 | NUR ---
NURSE NOTES: Patient's IV is out, four different nurse's tried to get an IV on patient; however patient could let other staff to try an IV on her; Charge nurse Jemal is aware;
--- NOTE | 2019-08-29 19:33 | NUR ---
HAND-OFF: Report given to DANILO Liu.
[2019-08-29 20:00] VITALS: BP 120/59
--- NOTE | 2019-08-29 20:12 | NUR ---
NURSE NOTES: PATIENT IS AWAKE, AAOX4, ON ROOM AIR, NO ACUTE DISTRESS NOTED. PATIENT IS A FALL RISK DUE TO HISTORY OF FALL. NO ROOM AVAILABLE NEAR NURSES STATION, COMMUNICATED WITH STAFF TO ASSIST WITH FREQUENT ROUNDING. CALL LIGHT IS WITHIN REACH, PATIENT RETURNED CALL LIGHT DEMONSTRATION. COMMODE AT BEDSIDE. IV ON LEFT HAND NOTED LEAKING, WILL START NEW IV. EDEMA NOTED ON BILATERAL LOWER EXTREMITY. RIGHT LEG IS RED AND SWOLLEN. PATIENT DENIES PAIN AT THE MOMENT. BED IS LOCKED AND LOW, BED ALARMS ACTIVE ON ZONE 1, SIDE RAILS UP X2. WILL CONTINUE TO MONITOR.
[2019-08-29] MEDS ORDERED: OXYBUTYNIN CHLOR5 M1 ORAL (20:17)
[2019-08-29] MEDS ORDERED: FUROSEMIDE40 MG ORAL (20:17)
[2019-08-29] MEDS ORDERED: ZOLPIDEM TART12.5 MG ORAL (20:17)
[2019-08-29] MEDS ORDERED: NITRO0.4 SL (20:17)
[2019-08-29] MEDS ORDERED: DOCUSATE SODIU100 MG ORAL (20:17)
[2019-08-29] MEDS ORDERED: ZINC SULFATE220 M1 ORAL (20:17)
[2019-08-29] MEDS ORDERED: GUAIFENESI100 MG/5 M ORAL (20:17)
[2019-08-29] MEDS ORDERED: VITAMIN C500 M1 ORAL (20:17)
[2019-08-29] MEDS ORDERED: FLUOXETINE HCL10 MG ORAL (20:17)
[2019-08-29] MEDS ORDERED: ATORVASTATIN CA10 MG ORAL (20:17)
--- NOTE | 2019-08-29 20:25 | NUR ---
CASE MANAGEMENT: REVIEW 89 YEAR OLD FEMALE BIBA FROM [facility] CC: RIGHT LOWER LEG SWELLING . REDNESS . PAIN 6/10 SI: RIGHT LOWER EXTREMITY CELLULITIS T 98.1 HR 78 RR 18 BP 130/68 SAT 94% ROOM AIR NEUT 76.8 LYMPH 14.2 BNP 184 VENOUS DUPLEX -- NEGATIVE FOR DVT ON THE RIGHT IS: NS IVF BOLUS X1 ZOSYN IV X1 PATIENT ADMITTED TO MED/SURG UNIT 08/28/2019 DCP: PATIENT IS FROM [facility]
[2019-08-29] MEDS: Zolpidem 5mg tab ORAL PRN (21:43)
[2019-08-30] VITALS: BP 122/70
[2019-08-30] MEDS: ceFAZolin sod 1 GM in D5W 55 ML IVPB SCH ×2 (02:17→16:15)
[2019-08-30 04:00] VITALS: BP 119/78
[2019-08-30 06:15] LABS: ANION GAP 13 mmol/L (5-15); BLOOD UREA NITROGEN 17 mg/dL (7-18); CALCIUM 9.2 MG/DL (8.5-10.1); CARBON DIOXIDE 23 MMOL/L (21-32); CHLORIDE 106 MMOL/L (98-107); CREATININE 0.8 MG/DL (0.55-1.30); POTASSIUM 4.3 MMOL/L (3.5-5.1); SODIUM 142 MMOL/L (136-145)
[2019-08-30 06:16] LABS: BASOPHILS % (AUTO) 1.5 % (0.0-2.0); EOSINOPHILS % (AUTO) 2.2 % (0.0-3.0); HEMATOCRIT 35.7 % (37.0-47.0); HEMOGLOBIN 11.6 G/DL (12.0-16.0); LYMPHOCYTES % (AUTO) 16.5 % (20.0-45.0); MEAN CORPUSCULAR VOLUME 95 FL (80-99); MONOCYTES % (AUTO) 6.2 % (1.0-10.0); NEUTROPHILS % (AUTO) 73.6 % (45.0-75.0); PLATELET COUNT 198 K/UL (150-450); RED BLOOD COUNT 3.77 M/UL (4.20-5.40); RED CELL DISTRIBUTION WIDTH 13.8 % (11.6-14.8); WHITE BLOOD COUNT 6.8 K/UL (4.8-10.8)
[2019-08-30] MEDS: Levothyroxine 25mcg tab ORAL SCH (06:45)
--- NOTE | 2019-08-30 07:22 | NUR ---
HAND-OFF: Report given to DANILO MENDEZ.
--- NOTE | 2019-08-30 07:37 | NUR ---
NURSE NOTES: Patient awake, alert x4; on room air, no sing of distress and shortness of breath; no sing of chest pain; IV Right-Hand 24G D51/2NS 60cc running; bed side Commode within reach; side rails up x2, breaks engaged, bed at lowest position; call light within reach; will keep monitoring.
[2019-08-30 08:00] VITALS: BP 116/84
[2019-08-30] MEDS: Vitamin B-12 500mcg tab ORAL SCH (08:53)
[2019-08-30] MEDS: Memantine 10mg tab ORAL SCH (08:53)
[2019-08-30] MEDS: Donepezil 10mg tab ORAL SCH (08:54)
[2019-08-30] MEDS: Heparin 5000 units/ml inj SUBQ SCH ×2 (08:55→20:19)
--- NOTE | 2019-08-30 11:04 | Infectious Diseases Prog Note ---
Assessment/Plan Assessment/Plan Assessment: R leg cellulitis, in the setting of chronic edema/venous stasis -Bcx NTD Afebrile No leukocytosis COPD GERD hemiplegia hypothyroidism CHF anemia HLD Plan: -Cont Ancef #2 for cellulitis -08/28 SP Christianesyn x1 -f/u cx -Monitor CBC/CMP, temperatures Thank you for this consultation. Will continue to follow along with you. Discussed with RN Subjective Allergies: Coded Allergies: ASPIRIN (Verified Allergy, Unknown, 03/13/19) MORPHINE (Verified Allergy, Unknown, 03/13/19) TETANUS TOXOID, ADSORBED (Verified Allergy, Unknown, 03/13/19) Uncoded Allergies: CODINE FROM ASPIRIN (Allergy, Unknown, 04/02/19) TETANOTOXOIDS (Allergy, Unknown, 04/02/19) Subjective afebrile no leukocytosis Bcx NTD Objective Vital Signs Last 24 Hour Vital Signs Date Time Temp Pulse Resp B/P (MAP) Pulse Ox O2 Delivery O2 Flow Rate FiO2 08/30/19 08:54 74 116/84 08/30/19 08:00 97.4 74 20 116/84 (95) 94 08/30/19 04:00 97.7 75 18 119/78 (92) 95 08/30/19 00:00 97.8 94 18 122/70 (87) 95 08/29/19 21:00 Room Air 08/29/19 20:00 98.1 75 18 120/59 (79) 95 08/29/19 16:00 97.6 72 19 128/65 (86) 96 08/29/19 12:00 98.8 73 19 136/77 (96) 96 Height (Feet): 5 Height (Inches): 0.00 Weight (Pounds): 248 Objective General Appearance: no apparent distress, alert, obese Head: normocephalic, atraumatic Eyes: bilateral eye normal inspection, bilateral eye PERRL ENT: hearing grossly normal, normal pharynx, no angioedema, normal voice Neck: full range of motion, supple/symm/no masses Respiratory: chest non-tender, lungs clear, normal breath sounds, speaking full sentences Cardiovascular: regular rate, rhythm, no edema) Gastrointestinal: normal bowel sounds, non tender, soft, non-distended, no guarding, no rebound Musculoskeletal: back normal, swelling - RLE erythema/induration. no discharge Skin: other - see nursing skin notes Lymphatic: no adenopathy Microbiology Date/Time Source Procedure Growth Status 08/28/19 20:20 Blood Blood Culture - Preliminary NO GROWTH AFTER 24 HOURS Resulted 08/28/19 20:10 Blood Blood Culture - Preliminary NO GROWTH AFTER 24 HOURS Resulted 08/28/19 21:45 Rectum Received Laboratory Tests Test 08/30/19 05:15 White Blood Count 6.8 K/UL (4.8-10.8) Red Blood Count 3.77 M/UL (4.20-5.40) L Hemoglobin 11.6 G/DL (12.0-16.0) L Hematocrit 35.7 % (37.0-47.0) L Mean Corpuscular Volume 95 FL (80-99) Mean Corpuscular Hemoglobin 30.8 PG (27.0-31.0) Mean Corpuscular Hemoglobin Concent 32.5 G/DL (32.0-36.0) Red Cell Distribution Width 13.8 % (11.6-14.8) Platelet Count 198 K/UL (150-450) Mean Platelet Volume 4.8 FL (6.5-10.1) L Neutrophils (%) (Auto) 73.6 % (45.0-75.0) Lymphocytes (%) (Auto) 16.5 % (20.0-45.0) L Monocytes (%) (Auto) 6.2 % (1.0-10.0) Eosinophils (%) (Auto) 2.2 % (0.0-3.0) Basophils (%) (Auto) 1.5 % (0.0-2.0) Sodium Level 142 MMOL/L (136-145) Potassium Level 4.3 MMOL/L (3.5-5.1) Chloride Level 106 MMOL/L (98-107) Carbon Dioxide Level 23 MMOL/L (21-32) Anion Gap 13 mmol/L (5-15) Blood Urea Nitrogen 17 mg/dL (7-18) Creatinine 0.8 MG/DL (0.55-1.30) Estimat Glomerular Filtration Rate > 60 mL/min (>60) Glucose Level 118 MG/DL (74-106) H Calcium Level 9.2 MG/DL (8.5-10.1) Current Medications Medications (Trade) Dose Ordered Sig/Jerome Route PRN Reason Start Time Stop Time Status Last Admin Dose Admin Acetaminophen (Tylenol) 325 mg Q4H PRN ORAL For Pain 08/29/19 06:15 09/28/19 06:14 08/30/19 04:06 Amlodipine Besylate (Norvasc) 10 mg DAILY ORAL 08/29/19 09:00 09/28/19 08:59 08/30/19 08:54 Cefazolin Sodium 1 gm/Dextrose 55 ml @ 110 mls/hr Q12H IVPB 08/29/19 15:00 09/05/19 14:59 08/30/19 02:17 Clopidogrel Bisulfate (Plavix) 75 mg DAILY ORAL 08/29/19 09:00 09/28/19 08:59 08/30/19 08:54 Cyanocobalamin (Vitamin B-12) 1,000 mcg DAILY ORAL 08/29/19 09:00 09/28/19 08:59 08/30/19 08:53 Dextrose/Sodium Chloride 1,000 ml @ 60 mls/hr [id number] IV 08/29/19 06:15 09/28/19 06:14 08/29/19 23:06 Divalproex Sodium (Depakote) 250 mg Q12HR ORAL 08/29/19 09:00 09/28/19 08:59 08/30/19 08:52 Donepezil HCl (Aricept) 10 mg DAILY ORAL 08/29/19 09:00 09/28/19 08:59 08/30/19 08:54 Fluoxetine HCl (PROzac) 20 mg DAILY ORAL 08/29/19 09:00 09/28/19 08:59 08/30/19 08:54 Furosemide (Lasix) 20 mg DAILY ORAL 08/29/19 09:00 09/28/19 08:59 08/30/19 08:53 Heparin Sodium (Porcine) (Heparin 5000 units/ml) 5,000 units EVERY 12 HOURS SUBQ 08/29/19 09:00 09/28/19 08:59 08/30/19 08:55 Levothyroxine Sodium (Synthroid) 25 mcg 0630 ORAL 08/29/19 06:30 09/28/19 06:29 08/30/19 06:45 Memantine (Namenda) 10 mg DAILY ORAL 08/29/19 09:00 09/28/19 08:59 08/30/19 08:53 Ondansetron HCl (Zofran) 4 mg Q6HR PRN IVP Nausea & Vomiting 08/28/19 22:15 Pantoprazole (Protonix) 40 mg DAILY ORAL 08/29/19 09:00 09/28/19 08:59 08/30/19 08:54 Pramipexole (Mirapex) 0.5 mg THREE TIMES A DAY ORAL 08/29/19 09:00 09/28/19 08:59 08/30/19 08:53 Ropinirole HCl (Requip) 2 mg TID ORAL 08/29/19 09:00 09/28/19 08:59 08/30/19 08:53 Solifenacin (Vesicare) 5 mg DAILY ORAL 08/29/19 09:00 09/28/19 08:59 08/30/19 08:54 Zolpidem Tartrate (Ambien) 5 mg BEDTIME PRN ORAL Insomnia 08/29/19 06:15 09/05/19 06:14 08/29/19 21:43 Sandy Colin M.D. Aug 30, 2019 11:04
[2019-08-30 12:00] VITALS: BP 143/98
--- NOTE | 2019-08-30 14:05 | General Progress Note ---
Assessment/Plan Problem List: (1) COPD (chronic obstructive pulmonary disease) ICD Codes: J44.9 - Chronic obstructive pulmonary disease, unspecified SNOMED: 27033458 (2) Weak ICD Codes: R53.1 - Weakness SNOMED: 66964675 (3) CVA (cerebral vascular accident) ICD Codes: I63.9 - Cerebral infarction, unspecified SNOMED: 468990757 (4) HTN (hypertension) ICD Codes: I10 - Essential (primary) hypertension SNOMED: 75973833 (5) GERD (gastroesophageal reflux disease) ICD Codes: K21.9 - Gastro-esophageal reflux disease without esophagitis SNOMED: 845706080 (6) Parkinson disease ICD Codes: G20 - Parkinson's disease SNOMED: 15791104 (7) Alzheimer disease ICD Codes: G30.9 - Alzheimer's disease, unspecified; F02.80 - Dementia in other diseases classified elsewhere without behavioral disturbance SNOMED: 99743290 (8) Cellulitis of right lower extremity ICD Codes: L03.115 - Cellulitis of right lower limb SNOMED: 155565206 Status: unchanged Assessment/Plan: pt diet wound care abx heme eval cbc bmp am Subjective Constitutional: Reports: weakness Allergies: Coded Allergies: ASPIRIN (Verified Allergy, Unknown, 03/13/19) MORPHINE (Verified Allergy, Unknown, 03/13/19) TETANUS TOXOID, ADSORBED (Verified Allergy, Unknown, 03/13/19) Uncoded Allergies: CODINE FROM ASPIRIN (Allergy, Unknown, 04/02/19) TETANOTOXOIDS (Allergy, Unknown, 04/02/19) All Systems: reviewed and negative except above Subjective calm in bed Objective Last 24 Hour Vital Signs Date Time Temp Pulse Resp B/P (MAP) Pulse Ox O2 Delivery O2 Flow Rate FiO2 08/30/19 12:00 97.5 85 20 143/98 (113) 95 08/30/19 09:00 Room Air 08/30/19 08:54 74 116/84 08/30/19 08:00 97.4 74 20 116/84 (95) 94 08/30/19 04:00 97.7 75 18 119/78 (92) 95 08/30/19 00:00 97.8 94 18 122/70 (87) 95 08/29/19 21:00 Room Air 08/29/19 20:00 98.1 75 18 120/59 (79) 95 08/29/19 16:00 97.6 72 19 128/65 (86) 96 Intake and Output 08/29/19 08/30/19 19:00 07:00 Intake Total 1310 ml 1310 ml Output Total 500 ml Balance 1310 ml 810 ml Intake Oral 720 ml 480 ml IV Total 590 ml 830 ml Output Urine Total 500 ml # Voids 5 3 # Bowel Movements 1 1 Laboratory Tests 08/30/19 05:15: White Blood Count 6.8, Red Blood Count 3.77L, Hemoglobin 11.6L, Hematocrit 35.7L , Mean Corpuscular Volume 95, Mean Corpuscular Hemoglobin 30.8, Mean Corpuscular Hemoglobin Concent 32.5, Red Cell Distribution Width 13.8, Platelet Count 198, Mean Platelet Volume 4.8L, Neutrophils (%) (Auto) 73.6, Lymphocytes ( %) (Auto) 16.5L, Monocytes (%) (Auto) 6.2, Eosinophils (%) (Auto) 2.2, Basophils (%) (Auto) 1.5, Sodium Level 142, Potassium Level 4.3, Chloride Level 106, Carbon Dioxide Level 23, Anion Gap 13, Blood Urea Nitrogen 17, Creatinine 0.8, Estimat Glomerular Filtration Rate > 60, Glucose Level 118H, Calcium Level 9.2 Height (Feet): 5 Height (Inches): 0.00 Weight (Pounds): 248 General Appearance: alert EENT: normal ENT inspection Neck: normal alignment Cardiovascular: normal peripheral pulses, normal rate, regular rhythm Respiratory/Chest: chest wall non-tender, lungs clear, normal breath sounds Abdomen: normal bowel sounds, non tender, soft Extremities: normal inspection Edema: 1+ Arm (L), 1+ Arm (R), 1+ Leg (L), 1+ Leg (R), 1+ Pedal (L), 1+ Pedal ( R), 1+ Generalized Neurologic: responsive, motor weakness Skin: normal pigmentation, warm/dry Objective r foot sl red swollen, left wrist sl bruized 2' x 2' Earle Whaley ChiMaryDelmy Aug 30, 2019 14:05
[2019-08-30] MEDS: D5 1/2NS 1,000 ML IV SCH (15:35)
[2019-08-30 16:00] VITALS: BP 126/76
--- NOTE | 2019-08-30 16:16 | NUR ---
CASE MANAGEMENT:NOTE PATIENT HAS BEEN REFERRED TO ASHLEY APONTE P: [phone] F: [phone] EMAIL: [email or web address]
--- NOTE | 2019-08-30 16:18 | NUR ---
*-* INSURANCE *-* ALL CLINICALS HAVE BEEN FAXED TO: XIMENA DICKINSON P: [phone] F: [phone] (FAX CLINICALS TO [employer] AND TO [facility] [employer] FAX [phone])
--- NOTE | 2019-08-30 16:20 | NUR ---
CASE MANAGEMENT:REVIEW SI;RLE CELLULITIS. HTN. COPD. 98.1 94 20 143/98 94% ON RA NO LABS AVAILABLE IS;CEFAZOLIN IV Q12 HRS PROTONIX PO QD IVF D5NS @ 60 ML/HR LASIX PO QD DEPAKOTE PO Q12 HRS MED SURG STATUS DCP;FROM BEATRI[facility] SINCLAIR
[2019-08-30] MEDS: Pramipexole 0.5mg tab ORAL SCH (17:40)
--- NOTE | 2019-08-30 19:37 | NUR ---
NURSE NOTES: PATIENT IS AWAKE, AAOX4, ON ROOM AIR, NO ACUTE DISTRESS NOTED. PATIENT IS A FALL RISK DUE TO HISTORY OF FALL. NO ROOM AVAILABLE NEAR NURSES STATION, COMMUNICATED WITH STAFF TO ASSIST WITH FREQUENT ROUNDING. CALL LIGHT IS WITHIN REACH, PATIENT RETURNED CALL LIGHT DEMONSTRATION. COMMODE AT BEDSIDE. IV ON RIGHT HAND INTACT AND PATENT. EDEMA NOTED ON BILATERAL LOWER EXTREMITY. RIGHT LEG IS RED AND SWOLLEN. PATIENT DENIES PAIN AT THE MOMENT. BED IS LOCKED AND LOW, BED ALARMS ACTIVE ON ZONE 1, SIDE RAILS UP X2. WILL CONTINUE TO MONITOR.
[2019-08-30 20:00] VITALS: BP 130/66
[2019-08-30] MEDS: Zolpidem 5mg tab ORAL PRN (20:13)
[2019-08-31] VITALS: BP 134/69
[2019-08-31] MEDS: ceFAZolin sod 1 GM in D5W 55 ML IVPB SCH ×2 (03:53→14:36)
[2019-08-31] MEDS: D5 1/2NS 1,000 ML IV SCH (03:53)
[2019-08-31 04:00] VITALS: BP 142/80
[2019-08-31] MEDS: Levothyroxine 25mcg tab ORAL SCH (05:42)
--- NOTE | 2019-08-31 07:08 | NUR ---
HAND-OFF: Report given to DANILO MENDEZ.
[2019-08-31 07:26] LABS: BASOPHILS % (AUTO) 0.7 % (0.0-2.0); EOSINOPHILS % (AUTO) 2.9 % (0.0-3.0); HEMATOCRIT 33.2 % (37.0-47.0); LYMPHOCYTES % (AUTO) 20.3 % (20.0-45.0); MEAN CORPUSCULAR VOLUME 93 FL (80-99); NEUTROPHILS % (AUTO) 67.1 % (45.0-75.0); PLATELET COUNT 211 K/UL (150-450); RED BLOOD COUNT 3.57 M/UL (4.20-5.40); RED CELL DISTRIBUTION WIDTH 13.6 % (11.6-14.8)
--- NOTE | 2019-08-31 07:51 | NUR ---
NURSE NOTES: Patient alert x4; on room air, no sign of distress and shortness of breath; no sing of chest pain; IV Right-Hand 24G D51/2NS 60cc running; bed side Commode within reach; Right Lower foot cellulitis; side rails up x2, breaks engaged, bed at lowest position; call light within reach; will keep monitoring.
[2019-08-31 07:56] LABS: ANION GAP 13 mmol/L (5-15); BLOOD UREA NITROGEN 12 mg/dL (7-18); CALCIUM 8.8 MG/DL (8.5-10.1); CARBON DIOXIDE 23 MMOL/L (21-32); CHLORIDE 105 MMOL/L (98-107); CREATININE 0.7 MG/DL (0.55-1.30); POTASSIUM 3.7 MMOL/L (3.5-5.1); SODIUM 141 MMOL/L (136-145)
[2019-08-31 08:00] VITALS: BP 140/68
[2019-08-31] MEDS: Memantine 10mg tab ORAL SCH (08:56)
[2019-08-31] MEDS: Donepezil 10mg tab ORAL SCH (08:56)
[2019-08-31] MEDS: Pramipexole 0.5mg tab ORAL SCH ×3 (08:57→17:11)
[2019-08-31] MEDS: Vitamin B-12 500mcg tab ORAL SCH (08:57)
[2019-08-31] MEDS: Heparin 5000 units/ml inj SUBQ SCH ×2 (08:59→20:30)
--- NOTE | 2019-08-31 09:08 | NUR ---
NURSE NOTES: Patient complaining of some kind of allergic and MD Whaley gave the order; order carried out as order given; will keep monitoring.
--- NOTE | 2019-08-31 09:27 | General Progress Note ---
Assessment/Plan Problem List: (1) COPD (chronic obstructive pulmonary disease) ICD Codes: J44.9 - Chronic obstructive pulmonary disease, unspecified SNOMED: 08152744 (2) Weak ICD Codes: R53.1 - Weakness SNOMED: 97240446 (3) CVA (cerebral vascular accident) ICD Codes: I63.9 - Cerebral infarction, unspecified SNOMED: 726311572 (4) HTN (hypertension) ICD Codes: I10 - Essential (primary) hypertension SNOMED: 00555921 (5) GERD (gastroesophageal reflux disease) ICD Codes: K21.9 - Gastro-esophageal reflux disease without esophagitis SNOMED: 028592409 (6) Parkinson disease ICD Codes: G20 - Parkinson's disease SNOMED: 82846947 (7) Alzheimer disease ICD Codes: G30.9 - Alzheimer's disease, unspecified; F02.80 - Dementia in other diseases classified elsewhere without behavioral disturbance SNOMED: 93224239 (8) Cellulitis of right lower extremity ICD Codes: L03.115 - Cellulitis of right lower limb SNOMED: 656896324 Status: stable, progressing Assessment/Plan: pt diet wound care abx heme eval cbc bmp am aru eval transfer Subjective Constitutional: Reports: weakness Allergies: Coded Allergies: ASPIRIN (Verified Allergy, Unknown, 03/13/19) MORPHINE (Verified Allergy, Unknown, 03/13/19) TETANUS TOXOID, ADSORBED (Verified Allergy, Unknown, 03/13/19) Uncoded Allergies: CODINE FROM ASPIRIN (Allergy, Unknown, 04/02/19) TETANOTOXOIDS (Allergy, Unknown, 04/02/19) All Systems: reviewed and negative except above Subjective calm in bed Objective Last 24 Hour Vital Signs Date Time Temp Pulse Resp B/P (MAP) Pulse Ox O2 Delivery O2 Flow Rate FiO2 08/31/19 08:56 90 140/68 08/31/19 08:00 98.1 90 20 140/68 (92) 98 08/31/19 04:00 97.3 69 20 142/80 (100) 96 08/31/19 00:00 98.4 70 20 134/69 (90) 94 08/30/19 21:00 Room Air 08/30/19 20:00 98.4 71 19 130/66 (87) 95 08/30/19 16:00 97.6 74 20 126/76 (93) 95 08/30/19 12:00 97.5 85 20 143/98 (113) 95 Intake and Output 08/30/19 08/31/19 19:00 07:00 Intake Total 1370 ml 1083 ml Output Total 750 ml Balance 1370 ml 333 ml Intake Oral 720 ml IV Total 650 ml 1083 ml Output Urine Total 750 ml # Voids 3 # Bowel Movements 1 Laboratory Tests 08/31/19 06:15: White Blood Count 6.0, Red Blood Count 3.57L, Hemoglobin 11.0L, Hematocrit 33.2L , Mean Corpuscular Volume 93, Mean Corpuscular Hemoglobin 30.9, Mean Corpuscular Hemoglobin Concent 33.2, Red Cell Distribution Width 13.6, Platelet Count 211, Mean Platelet Volume 5.3L, Neutrophils (%) (Auto) 67.1, Lymphocytes ( %) (Auto) 20.3, Monocytes (%) (Auto) 9.0, Eosinophils (%) (Auto) 2.9, Basophils (%) (Auto) 0.7, Sodium Level 141, Potassium Level 3.7, Chloride Level 105, Carbon Dioxide Level 23, Anion Gap 13, Blood Urea Nitrogen 12, Creatinine 0.7, Estimat Glomerular Filtration Rate > 60, Glucose Level 92, Calcium Level 8.8 Height (Feet): 5 Height (Inches): 0.00 Weight (Pounds): 248 General Appearance: alert EENT: normal ENT inspection Neck: normal alignment Cardiovascular: normal peripheral pulses, normal rate, regular rhythm Respiratory/Chest: chest wall non-tender, lungs clear, normal breath sounds Abdomen: normal bowel sounds, non tender, soft Extremities: normal inspection Edema: 1+ Arm (L), 1+ Arm (R), 1+ Leg (L), 1+ Leg (R), 1+ Pedal (L), 1+ Pedal ( R), 1+ Generalized Edema: trace edema Neurologic: responsive, motor weakness Skin: normal pigmentation, warm/dry Objective r foot sl red swollen, left wrist sl bruized 2' x 2' Earle Whaleyg DO Aug 31, 2019 09:27
[2019-08-31 12:00] VITALS: BP 147/75
--- NOTE | 2019-08-31 12:26 | Infectious Diseases Prog Note ---
Assessment/Plan Assessment/Plan Assessment: R leg cellulitis, in the setting of chronic edema/venous stasis; improving -Bcx NTD Afebrile No leukocytosis COPD GERD hemiplegia hypothyroidism CHF anemia HLD Plan: -Cont Ancef #3/ for cellulitis -upon discharge, can transition to PO Keflex 500mg qid -08/28 SP Zosyn x1 -f/u cx -Monitor CBC/CMP, temperatures Thank you for this consultation. Will continue to follow along with you. Discussed with RN Subjective Allergies: Coded Allergies: ASPIRIN (Verified Allergy, Unknown, 03/13/19) MORPHINE (Verified Allergy, Unknown, 03/13/19) TETANUS TOXOID, ADSORBED (Verified Allergy, Unknown, 03/13/19) Uncoded Allergies: CODINE FROM ASPIRIN (Allergy, Unknown, 04/02/19) TETANOTOXOIDS (Allergy, Unknown, 04/02/19) Subjective afebrile no leukocytosis Bcx NTD Objective Vital Signs Last 24 Hour Vital Signs Date Time Temp Pulse Resp B/P (MAP) Pulse Ox O2 Delivery O2 Flow Rate FiO2 08/31/19 12:00 97.1 71 20 147/75 (99) 98 08/31/19 09:00 Room Air 08/31/19 08:56 90 140/68 08/31/19 08:00 98.1 90 20 140/68 (92) 98 08/31/19 04:00 97.3 69 20 142/80 (100) 96 08/31/19 00:00 98.4 70 20 134/69 (90) 94 08/30/19 21:00 Room Air 08/30/19 20:00 98.4 71 19 130/66 (87) 95 08/30/19 16:00 97.6 74 20 126/76 (93) 95 Height (Feet): 5 Height (Inches): 0.00 Weight (Pounds): 248 Objective General Appearance: no apparent distress, alert, obese Eyes: bilateral eye normal inspection, bilateral eye PERRL Neck: full range of motion, supple/symm/no masses Respiratory: chest non-tender, lungs clear, normal breath sounds, speaking full sentences Cardiovascular: regular rate, rhythm, no edema) Gastrointestinal: normal bowel sounds, non tender, soft, non-distended, no guarding, no rebound Musculoskeletal: back normal, swelling - RLE erythema/induration. no discharge ; swelling and erythema improving Microbiology Date/Time Source Procedure Growth Status 08/28/19 20:20 Blood Blood Culture - Preliminary NO GROWTH AFTER 48 HOURS Resulted 08/28/19 20:10 Blood Blood Culture - Preliminary NO GROWTH AFTER 48 HOURS Resulted 08/28/19 21:45 Nasal Nares MRSA Culture - Final NO METHICILLIN RESISTANT STAPH AUREUS... Complete 08/28/19 21:45 Rectum - Final NO CARBAPENEM-RESISTANT ENTEROBACTERI... Complete 08/28/19 21:45 Rectum VRE Culture - Final NO VANCOMYCIN RESISTANT ENTEROCOCCUS ... Complete Laboratory Tests Test 08/31/19 06:15 White Blood Count 6.0 K/UL (4.8-10.8) Red Blood Count 3.57 M/UL (4.20-5.40) L Hemoglobin 11.0 G/DL (12.0-16.0) L Hematocrit 33.2 % (37.0-47.0) L Mean Corpuscular Volume 93 FL (80-99) Mean Corpuscular Hemoglobin 30.9 PG (27.0-31.0) Mean Corpuscular Hemoglobin Concent 33.2 G/DL (32.0-36.0) Red Cell Distribution Width 13.6 % (11.6-14.8) Platelet Count 211 K/UL (150-450) Mean Platelet Volume 5.3 FL (6.5-10.1) L Neutrophils (%) (Auto) 67.1 % (45.0-75.0) Lymphocytes (%) (Auto) 20.3 % (20.0-45.0) Monocytes (%) (Auto) 9.0 % (1.0-10.0) Eosinophils (%) (Auto) 2.9 % (0.0-3.0) Basophils (%) (Auto) 0.7 % (0.0-2.0) Sodium Level 141 MMOL/L (136-145) Potassium Level 3.7 MMOL/L (3.5-5.1) Chloride Level 105 MMOL/L (98-107) Carbon Dioxide Level 23 MMOL/L (21-32) Anion Gap 13 mmol/L (5-15) Blood Urea Nitrogen 12 mg/dL (7-18) Creatinine 0.7 MG/DL (0.55-1.30) Estimat Glomerular Filtration Rate > 60 mL/min (>60) Glucose Level 92 MG/DL (74-106) Calcium Level 8.8 MG/DL (8.5-10.1) Current Medications Medications (Trade) Dose Ordered Sig/Jerome Route PRN Reason Start Time Stop Time Status Last Admin Dose Admin Acetaminophen (Tylenol) 325 mg Q4H PRN ORAL For Pain 08/29/19 06:15 09/28/19 06:14 08/31/19 01:45 Amlodipine Besylate (Norvasc) 10 mg DAILY ORAL 08/29/19 09:00 09/28/19 08:59 08/31/19 08:56 Cefazolin Sodium 1 gm/Dextrose 55 ml @ 110 mls/hr Q12H IVPB 08/29/19 15:00 09/05/19 14:59 08/31/19 03:53 Clopidogrel Bisulfate (Plavix) 75 mg DAILY ORAL 08/29/19 09:00 09/28/19 08:59 08/31/19 08:57 Cyanocobalamin (Vitamin B-12) 1,000 mcg DAILY ORAL 08/29/19 09:00 09/28/19 08:59 08/31/19 08:57 Dextrose/Sodium Chloride 1,000 ml @ 60 mls/hr [id number] IV 08/29/19 06:15 09/28/19 06:14 08/31/19 03:53 Diphenhydramine HCl (Benadryl) 50 mg Q6H PRN ORAL Itching 08/31/19 09:15 09/30/19 09:14 08/31/19 12:19 Divalproex Sodium (Depakote) 250 mg Q12HR ORAL 08/29/19 09:00 09/28/19 08:59 08/31/19 08:56 Donepezil HCl (Aricept) 10 mg DAILY ORAL 08/29/19 09:00 09/28/19 08:59 08/31/19 08:56 Fluoxetine HCl (PROzac) 20 mg DAILY ORAL 08/29/19 09:00 09/28/19 08:59 08/31/19 08:57 Furosemide (Lasix) 20 mg DAILY ORAL 08/29/19 09:00 09/28/19 08:59 08/31/19 08:56 Heparin Sodium (Porcine) (Heparin 5000 units/ml) 5,000 units EVERY 12 HOURS SUBQ 08/29/19 09:00 09/28/19 08:59 08/31/19 08:59 Levothyroxine Sodium (Synthroid) 25 mcg 0630 ORAL 08/29/19 06:30 09/28/19 06:29 08/31/19 05:42 Memantine (Namenda) 10 mg DAILY ORAL 08/29/19 09:00 09/28/19 08:59 08/31/19 08:56 Ondansetron HCl (Zofran) 4 mg Q6HR PRN IVP Nausea & Vomiting 08/28/19 22:15 Pantoprazole (Protonix) 40 mg DAILY ORAL 08/29/19 09:00 09/28/19 08:59 08/31/19 08:56 Pramipexole (Mirapex) 0.5 mg THREE TIMES A DAY ORAL 08/30/19 18:00 09/28/19 17:59 08/31/19 12:19 Ropinirole HCl (Requip) 2 mg TID ORAL 08/29/19 09:00 09/28/19 08:59 08/31/19 12:19 Solifenacin (Vesicare) 5 mg DAILY ORAL 08/29/19 09:00 09/28/19 08:59 08/31/19 08:56 Zolpidem Tartrate (Ambien) 5 mg BEDTIME PRN ORAL Insomnia 08/29/19 06:15 09/05/19 06:14 08/30/19 20:13 Sandy Colin M.D. Aug 31, 2019 12:26
--- NOTE | 2019-08-31 14:50 | NUR ---
NURSE NOTES: MD Whaley referred patient to Epi; Patient wanna go back to [facility]; I communicated MD Whaley regarding patient's preferred discharge location. Waiting for order.
[2019-08-31 16:00] VITALS: BP 149/73
--- NOTE | 2019-08-31 16:33 | NUR ---
CASE MANAGEMENT:REVIEW SI;COPD. RLE CELLULITIS. HTN. WEAKNESS. 98.1 90 20 147/75 94% ON RA IS;CEFAZOLIN IV Q12 HRS DEPAKOTE PO Q12 HRS LASIX PO QD IVF D5NS @ 60 ML/HR MED SURG STATUS PLAN;[facility] REFERRAL DCP;FROM BEATRI[facility] SINCLAIR
--- NOTE | 2019-08-31 16:44 | NUR ---
CM DISCHARGE PLANNING PATIENT STATED TO RN SHE DOES NOT WANT TO GO TO [facility]. PREFERS TO RETURN TO [facility]. PATIENT REFERRED BACK TO [facility]. PER DANILO TRONCOSO PYROGLAZER, BED AVAILABLE AND PATIENT WILL RETURN TO [facility] SKILLED PENDING OFFICIAL DC ORDER FROM ATTENDING RN TO [facility] UPON RECEIPT OF DC ORDER
--- NOTE | 2019-08-31 16:49 | Consultation ---
History of Present Illness General Chief Complaint: Lower Extremity Injury Present Illness Allergies: Coded Allergies: ASPIRIN (Verified Allergy, Unknown, 03/13/19) MORPHINE (Verified Allergy, Unknown, 03/13/19) TETANUS TOXOID, ADSORBED (Verified Allergy, Unknown, 03/13/19) Uncoded Allergies: CODINE FROM ASPIRIN (Allergy, Unknown, 04/02/19) TETANOTOXOIDS (Allergy, Unknown, 04/02/19) Medication History Scheduled Amlodipine Besylate* (Amlodipine Besylate*), 10 MG ORAL DAILY, (Reported) Ascorbic Acid* (Vitamin C*), 500 MG ORAL DAILY, (Reported) Atorvastatin Calcium* (Lipitor*), 10 MG ORAL QHS, (Reported) Clopidogrel Bisulfate* (Plavix*), 75 MG ORAL DAILY, (Reported) Docusate Sodium* (Docusate Sodium*), 100 MG ORAL TWICE A DAY, (Reported) Donepezil Hcl* (Aricept*), 10 MG ORAL QHS, (Reported) Fluoxetine Hcl* (Fluoxetine Hcl*), 30 MG ORAL DAILY, (Reported) Furosemide* (Lasix*), 40 MG ORAL DAILY, (Reported) Guaifenesin* (Guaifenesin*), 15 ML ORAL Q6H, (Reported) Levothyroxine Sodium* (Synthroid*), 25 MCG ORAL DAILY, (Reported) Memantine Hcl* (Namenda*), 10 MG ORAL BID, (Reported) Oxybutynin Chloride (Oxybutynin Chloride), 5 MG ORAL DAILY, (Reported) Pantoprazole* (Pantoprazole*), 40 MG ORAL ACBREAKFAST, (Reported) Pramipexole* (Mirapex*), 0.5 MG ORAL Q5PM, (Reported) Ropinirole Hcl* (Ropinirole Hcl*), 2 MG PO Q12HR, (Reported) Solifenacin Succinate* (Vesicare*), 5 MG ORAL DAILY, (Reported) Zinc Sulfate (Zinc Sulfate*), 220 MG ORAL DAILY, (Reported) Scheduled PRN Acetaminophen* (Acetaminophen 325MG Tablet*), 650 MG ORAL Q4H PRN for Prn Headache/Temp > 101, (Reported) Nitroglycerin 0.4MG table* (Nitroglycerin*), 0.4 MG SL .Q5MIN X 3 DOSES PRN for CHEST PAIN, (Reported) Zolpidem Tartrate (Zolpidem Tartrate Er), 12.5 MG ORAL BEDTIME PRN for Insomnia, (Reported) Discontinued Medications Cyanocobalamin (Vitamin B-12)* (Vitamin B-12*), 1,000 MCG ORAL DAILY, (Reported) Discontinued Reason: Therapy completed Divalproex Sodium* (Depakote*), 250 MG PO Q12HR, (Reported) Discontinued Reason: Therapy completed Fluoxetine Hcl* (Prozac*), 20 MG ORAL DAILY, (Reported) Discontinued Reason: Prescription changed Furosemide* (Lasix*), 20 MG ORAL DAILY, (Reported) Discontinued Reason: Prescription changed Lactobacillus Acidophilus (Acidophilus), 1 EACH PO, (Reported) Discontinued Reason: Therapy completed Potassium Chloride (Klor-Con 8), 8 MEQ ORAL DAILY, (Reported) Discontinued Reason: Therapy completed Zolpidem Tartrate* (Zolpidem Tartrate*), 12.5 MG ORAL BEDTIME PRN for Insomnia, (Reported) Discontinued Reason: Prescription changed Patient History Healthcare decision maker Resuscitation status Do Not Resuscitate Advanced Directive on File No Physical Exam Last 24 Hour Vital Signs Date Time Temp Pulse Resp B/P (MAP) Pulse Ox O2 Delivery O2 Flow Rate FiO2 08/31/19 12:00 97.1 71 20 147/75 (99) 98 08/31/19 09:00 Room Air 08/31/19 08:56 90 140/68 08/31/19 08:00 98.1 90 20 140/68 (92) 98 08/31/19 04:00 97.3 69 20 142/80 (100) 96 08/31/19 00:00 98.4 70 20 134/69 (90) 94 08/30/19 21:00 Room Air 08/30/19 20:00 98.4 71 19 130/66 (87) 95 Intake and Output 08/30/19 08/31/19 19:00 07:00 Intake Total 1370 ml 1143 ml Output Total 750 ml Balance 1370 ml 393 ml Intake Oral 720 ml IV Total 650 ml 1143 ml Output Urine Total 750 ml # Voids 3 # Bowel Movements 1 Laboratory Tests Test 08/31/19 06:15 White Blood Count 6.0 K/UL (4.8-10.8) Red Blood Count 3.57 M/UL (4.20-5.40) L Hemoglobin 11.0 G/DL (12.0-16.0) L Hematocrit 33.2 % (37.0-47.0) L Mean Corpuscular Volume 93 FL (80-99) Mean Corpuscular Hemoglobin 30.9 PG (27.0-31.0) Mean Corpuscular Hemoglobin Concent 33.2 G/DL (32.0-36.0) Red Cell Distribution Width 13.6 % (11.6-14.8) Platelet Count 211 K/UL (150-450) Mean Platelet Volume 5.3 FL (6.5-10.1) L Neutrophils (%) (Auto) 67.1 % (45.0-75.0) Lymphocytes (%) (Auto) 20.3 % (20.0-45.0) Monocytes (%) (Auto) 9.0 % (1.0-10.0) Eosinophils (%) (Auto) 2.9 % (0.0-3.0) Basophils (%) (Auto) 0.7 % (0.0-2.0) Sodium Level 141 MMOL/L (136-145) Potassium Level 3.7 MMOL/L (3.5-5.1) Chloride Level 105 MMOL/L (98-107) Carbon Dioxide Level 23 MMOL/L (21-32) Anion Gap 13 mmol/L (5-15) Blood Urea Nitrogen 12 mg/dL (7-18) Creatinine 0.7 MG/DL (0.55-1.30) Estimat Glomerular Filtration Rate > 60 mL/min (>60) Glucose Level 92 MG/DL (74-106) Calcium Level 8.8 MG/DL (8.5-10.1) Height (Feet): 5 Height (Inches): 0.00 Weight (Pounds): 248 Medications Current Medications Medications (Trade) Dose Ordered Sig/Jerome Route PRN Reason Start Time Stop Time Status Last Admin Dose Admin Acetaminophen (Tylenol) 325 mg Q4H PRN ORAL For Pain 08/29/19 06:15 09/28/19 06:14 08/31/19 01:45 Amlodipine Besylate (Norvasc) 10 mg DAILY ORAL 08/29/19 09:00 09/28/19 08:59 08/31/19 08:56 Cefazolin Sodium 1 gm/Dextrose 55 ml @ 110 mls/hr Q12H IVPB 08/29/19 15:00 09/05/19 14:59 08/31/19 14:36 Clopidogrel Bisulfate (Plavix) 75 mg DAILY ORAL 08/29/19 09:00 09/28/19 08:59 08/31/19 08:57 Cyanocobalamin (Vitamin B-12) 1,000 mcg DAILY ORAL 08/29/19 09:00 09/28/19 08:59 08/31/19 08:57 Dextrose/Sodium Chloride 1,000 ml @ 60 mls/hr [id number] IV 08/29/19 06:15 09/28/19 06:14 08/31/19 03:53 Diphenhydramine HCl (Benadryl) 50 mg Q6H PRN ORAL Itching 08/31/19 09:15 09/30/19 09:14 08/31/19 12:19 Divalproex Sodium (Depakote) 250 mg Q12HR ORAL 08/29/19 09:00 09/28/19 08:59 08/31/19 08:56 Donepezil HCl (Aricept) 10 mg DAILY ORAL 08/29/19 09:00 09/28/19 08:59 08/31/19 08:56 Fluoxetine HCl (PROzac) 20 mg DAILY ORAL 08/29/19 09:00 09/28/19 08:59 08/31/19 08:57 Furosemide (Lasix) 20 mg DAILY ORAL 08/29/19 09:00 09/28/19 08:59 08/31/19 08:56 Heparin Sodium (Porcine) (Heparin 5000 units/ml) 5,000 units EVERY 12 HOURS SUBQ 08/29/19 09:00 09/28/19 08:59 08/31/19 08:59 Levothyroxine Sodium (Synthroid) 25 mcg 0630 ORAL 08/29/19 06:30 09/28/19 06:29 08/31/19 05:42 Memantine (Namenda) 10 mg DAILY ORAL 08/29/19 09:00 09/28/19 08:59 08/31/19 08:56 Ondansetron HCl (Zofran) 4 mg Q6HR PRN IVP Nausea & Vomiting 08/28/19 22:15 Pantoprazole (Protonix) 40 mg DAILY ORAL 08/29/19 09:00 09/28/19 08:59 08/31/19 08:56 Pramipexole (Mirapex) 0.5 mg THREE TIMES A DAY ORAL 08/30/19 18:00 09/28/19 17:59 08/31/19 12:19 Ropinirole HCl (Requip) 2 mg TID ORAL 08/29/19 09:00 09/28/19 08:59 08/31/19 12:19 Solifenacin (Vesicare) 5 mg DAILY ORAL 08/29/19 09:00 09/28/19 08:59 08/31/19 08:56 Zolpidem Tartrate (Ambien) 5 mg BEDTIME PRN ORAL Insomnia 08/29/19 06:15 09/05/19 06:14 08/30/19 20:13 Assessment/Plan Assessment/Plan: Hematology Consultation REQ MD: Kenyatta Whaley DOS: 08/31/19 RFC: R LE cellulitis, swelling/ ro lymphedema Chief Complaint: Lower Extremity Injury Present Illness 89-year-old female presents ED for evaluation of right leg swelling. Noted by nursing staff today to be red and swollen. Patient is hemiplegic. Patient denies pain. Denies fevers or chills. Denies chest pain. No other aggravating relieving factors. Denies any other associated symptoms Duplex lower ext is negative for dvt, heme was consulted for fruther evaluation and rx , has been started on abx per id Allergies: ASPIRIN (Verified Allergy, Unknown, 03/13/19) MORPHINE (Verified Allergy, Unknown, 03/13/19) TETANUS TOXOID, ADSORBED (Verified Allergy, Unknown, 03/13/19) Uncoded Allergies: CODINE FROM ASPIRIN (Allergy, Unknown, 04/02/19) TETANOTOXOIDS (Allergy, Unknown, 04/02/19) Patient History Past Medical History: COPD, GERD, other - hemiplegia Past Surgical History: cholycstectomy Pertinent Family History: none Social History: Denies: smoking, alcohol use, drug use, , 3 daughters, is a licensed psychotherapist Now: No Immunizations: UTD Reviewed Nursing Documentation: PMH: Agreed; PSxH: Agreed Nursing Documentation-PMH Hx Cardiac Problems: Yes - PNA, MUSCLE WEAKNESS, HEMIPLEGIA, HYPOTHYROIDISM, CHF Hx Hypertension: Yes - ANEMIA, HYPERLIPIDEMIA, HYPOKALEMIA Hx COPD: Yes Hx Gastrointestinal Problems: Yes - GERD ROS (review of systems): Constitutional: No fever, no chills, no night sweats, no fatigue Skin: No rashes, lumps, itchiness, dryness HEENT: No POLANCO, ear ache, visual changes, double vision, nosebleeds Breasts: No lumps, pain, discharge Pulmonary: No cough, sputum, shortness of breath, coughing up blood Cardiovascular: No chest pain, tightness, palpitations, syncope, PND GI: No nausea, vomiting, diarrhea, melena, hematochezia, change in appetite, : No dysuria, frequency, urgency, urinary incontinence, foamy urine Musculoskeletal: No joint swelling or muscle pain, trauma, back pain Neurologic: No dizziness, fainting, seizures, changes in smell or taste Psychiatric: No nervousness, stress, or depression, anxiety, hallucinations Endocrine: No weight change, heat or cold intolerance, tremor, insomnia Physical Exam: Vitals: reviewed General: NAD HEENT: nc, at Neck: supple Chest: clear breath sounds bilaterally Cardiovascular: RRR, no s3, s4 Abdomen: soft, nontender, nd Extremities: no cce, normal range of motion++ rl3 cellulitis better Neuro: alert and oriented Labs: reviewed Imaging: noted Assessment and Recs: # Anemia of chronic disease due to underlying chronic medical issues, multifactorial v Gi bleed --> Anemia workup has been ordered, rule out gi bleed --> No evidence of hemolysis is noted, peripheral smear has been reviewed. --> Hgb goal >7. Transfuse prn. --> Epogen or iron at this time is not particularly indicated --> Medications have been reviewed --> low threshold for gi evaluation in case has occult + --> hgb trend 11 # Cellulitis of right lower extremity --> duplex lower ext neg --> as per id, on abx, cef, then keflex # Azotemia --> improved on ivf # Dvt ppx ambulation Appreciate consultation and dw Brian Landin MD Aug 31, 2019 16:49
--- NOTE | 2019-08-31 17:52 | NUR ---
NURSE NOTES: Per Becca, case management, bed is available for this patient at [facility]; I communicated MD Whaley to get a discharge order to [facility]; waiting for discharge order;
--- NOTE | 2019-08-31 18:05 | NUR ---
NURSE NOTES: MD Whaley communicated back, ordering Hold Discharge and will evaluate in am.
--- NOTE | 2019-08-31 19:11 | NUR ---
HAND-OFF: Report given to DANILO Campbell.
--- NOTE | 2019-08-31 19:36 | NUR ---
NURSE NOTES: Patient awake, alert, and oriented to her own abilities. Breathing unlabored on room air without distress. Denies pain or discomfort at this time. IV noted on right hand intact. Bed placed at the lowest with alarm, brake, and siderails up for safety. Call light placed within reach. Will continue to monitor and provide care as ordered.
[2019-08-31 20:00] VITALS: BP 114/71
[2019-08-31] MEDS: Zolpidem 5mg tab ORAL PRN (20:24)
[2019-09-01] MEDS: D5 1/2NS 1,000 ML IV SCH ×2 (00:55→03:16)
[2019-09-01] MEDS: ceFAZolin sod 1 GM in D5W 55 ML IVPB SCH (03:16)
[2019-09-01] MEDS: Levothyroxine 25mcg tab ORAL SCH (06:08)
--- NOTE | 2019-09-01 06:52 | NUR ---
NURSE NOTES: Patient refused to take 0000 & 0400 vital signs. Patient requested uninterrupted sleep during the night time. Patient a/a/o x 4, breathing unlabored on room air. No episode of distress. Patient in stable condition.
[2019-09-01 07:49] LABS: ANION GAP 11 mmol/L (5-15); BLOOD UREA NITROGEN 10 mg/dL (7-18); CALCIUM 8.9 MG/DL (8.5-10.1); CARBON DIOXIDE 25 MMOL/L (21-32); CHLORIDE 106 MMOL/L (98-107); CREATININE 0.7 MG/DL (0.55-1.30); POTASSIUM 3.3 MMOL/L (3.5-5.1); SODIUM 141 MMOL/L (136-145)
--- NOTE | 2019-09-01 07:52 | NUR ---
HAND-OFF: Report given to DANILO Linda. Plan of care endorsed.
[2019-09-01 08:00] VITALS: BP 135/73
--- NOTE | 2019-09-01 08:28 | NUR ---
RD ASSESSMENT & RECOMMENDATIONS SEE CARE ACTIVITY FOR COMPLETE ASSESSMENT DAILY ESTIMATED NEEDS: Needs based on Obesity, cardiac/ 59kg 25-28 kcals/kg 2131-8308 total kcals 1-1.5 g protein/kg 59-89 g total protein 20-25 mL/kg 8668-9924 total fluid mLs NUTRITION DIAGNOSIS: Morbid obesity R/T excessive energy intake? life style? as evidenced by BMI >40. CURRENT DIET:Regular, mech soft chopped PO DIET RECOMMENDATIONS: Cardiac, texture as tolerated ADDITIONAL RECOMMENDATIONS: * Standing wt for accurate CBW * Advance texture as tolerated -> pt on mech soft chopped texture diet, denies chewing/swallowing difficulty * Monitor lytes, replete as needed (low K) * Check A1C- mildly elev FBGs
[2019-09-01 08:32] LABS: BASOPHILS % (AUTO) 0.6 % (0.0-2.0); EOSINOPHILS % (AUTO) 4.5 % (0.0-3.0); HEMATOCRIT 32.4 % (37.0-47.0); HEMOGLOBIN 10.7 G/DL (12.0-16.0); LYMPHOCYTES % (AUTO) 14.9 % (20.0-45.0); MEAN CORPUSCULAR VOLUME 94 FL (80-99); PLATELET COUNT 183 K/UL (150-450); RED BLOOD COUNT 3.44 M/UL (4.20-5.40); RED CELL DISTRIBUTION WIDTH 13.5 % (11.6-14.8); WHITE BLOOD COUNT 6.7 K/UL (4.8-10.8)
[2019-09-01] MEDS: Heparin 5000 units/ml inj SUBQ SCH ×2 (09:00→21:39)
--- NOTE | 2019-09-01 09:07 | NUR ---
NURSE NOTES: Patient is awake and alert and oriented,respirations unlabored.IV fluids infusing as ordered.patient ate breakfast,resting at this time.Bed alarm is on,call light within reach.
[2019-09-01] MEDS: Donepezil 10mg tab ORAL SCH (09:12)
[2019-09-01] MEDS: Memantine 10mg tab ORAL SCH (09:13)
[2019-09-01] MEDS: Pramipexole 0.5mg tab ORAL SCH ×3 (09:13→18:56)
[2019-09-01] MEDS: Vitamin B-12 500mcg tab ORAL SCH (09:15)
--- NOTE | 2019-09-01 09:56 | General Progress Note ---
Assessment/Plan Problem List: (1) COPD (chronic obstructive pulmonary disease) ICD Codes: J44.9 - Chronic obstructive pulmonary disease, unspecified SNOMED: 04538173 (2) Weak ICD Codes: R53.1 - Weakness SNOMED: 47000526 (3) CVA (cerebral vascular accident) ICD Codes: I63.9 - Cerebral infarction, unspecified SNOMED: 720618320 (4) HTN (hypertension) ICD Codes: I10 - Essential (primary) hypertension SNOMED: 40539652 (5) GERD (gastroesophageal reflux disease) ICD Codes: K21.9 - Gastro-esophageal reflux disease without esophagitis SNOMED: 639267046 (6) Parkinson disease ICD Codes: G20 - Parkinson's disease SNOMED: 42970681 (7) Alzheimer disease ICD Codes: G30.9 - Alzheimer's disease, unspecified; F02.80 - Dementia in other diseases classified elsewhere without behavioral disturbance SNOMED: 78332315 (8) Cellulitis of right lower extremity ICD Codes: L03.115 - Cellulitis of right lower limb SNOMED: 891202475 Status: stable, progressing Assessment/Plan: pt diet wound care abx heme eval cbc bmp am aru eval transfer Subjective Constitutional: Reports: weakness Allergies: Coded Allergies: ASPIRIN (Verified Allergy, Unknown, 03/13/19) MORPHINE (Verified Allergy, Unknown, 03/13/19) TETANUS TOXOID, ADSORBED (Verified Allergy, Unknown, 03/13/19) Uncoded Allergies: CODINE FROM ASPIRIN (Allergy, Unknown, 04/02/19) TETANOTOXOIDS (Allergy, Unknown, 04/02/19) All Systems: reviewed and negative except above Subjective calm in bed Objective Last 24 Hour Vital Signs Date Time Temp Pulse Resp B/P (MAP) Pulse Ox O2 Delivery O2 Flow Rate FiO2 09/01/19 09:14 69 153/79 08/31/19 21:00 Room Air 08/31/19 20:00 98.5 73 20 114/71 (85) 95 08/31/19 16:00 97.4 69 20 149/73 (98) 96 08/31/19 12:00 97.1 71 20 147/75 (99) 98 Intake and Output 08/31/19 09/01/19 19:00 07:00 Intake Total 1430 ml 595 ml Output Total 800 ml Balance 630 ml 595 ml Intake Oral 720 ml IV Total 710 ml 595 ml Output Urine Total 800 ml # Voids 3 3 Laboratory Tests 09/01/19 06:00: White Blood Count 6.7, Red Blood Count 3.44L, Hemoglobin 10.7L, Hematocrit 32.4L , Mean Corpuscular Volume 94, Mean Corpuscular Hemoglobin 31.2H, Mean Corpuscular Hemoglobin Concent 33.2, Red Cell Distribution Width 13.5, Platelet Count 183, Mean Platelet Volume 5.3L, Neutrophils (%) (Auto) 72.0, Lymphocytes ( %) (Auto) 14.9L, Monocytes (%) (Auto) 8.0, Eosinophils (%) (Auto) 4.5H, Basophils (%) (Auto) 0.6, Sodium Level 141, Potassium Level 3.3L, Chloride Level 106, Carbon Dioxide Level 25, Anion Gap 11, Blood Urea Nitrogen 10, Creatinine 0.7, Estimat Glomerular Filtration Rate > 60, Glucose Level 123H, Calcium Level 8.9 Height (Feet): 5 Height (Inches): 0.00 Weight (Pounds): 248 General Appearance: lethargic EENT: normal ENT inspection Neck: normal alignment Cardiovascular: normal peripheral pulses, normal rate, regular rhythm Respiratory/Chest: chest wall non-tender, lungs clear, normal breath sounds Abdomen: normal bowel sounds, non tender, soft Edema: 1+ Arm (L), 1+ Arm (R), 1+ Leg (L), 1+ Leg (R), 1+ Pedal (L), 1+ Pedal ( R), 1+ Generalized Edema: trace edema Neurologic: responsive, motor weakness Skin: normal pigmentation, warm/dry Objective r foot sl red swollen, left wrist sl bruized 2' x 2' Earle Whaley DO Sep 01, 2019 09:56
--- NOTE | 2019-09-01 11:23 | Infectious Diseases Prog Note ---
Assessment/Plan Assessment/Plan Assessment: R leg cellulitis, in the setting of chronic edema/venous stasis; improving -Bcx NTD Afebrile No leukocytosis COPD GERD hemiplegia hypothyroidism CHF anemia HLD Plan: -Cont Ancef #4/7 for cellulitis -Upon discharge, can transition to PO Keflex 500mg qid -08/28 SP Zosyn x1 -f/u cx -Monitor CBC/CMP, temperatures Thank you for this consultation. Will continue to follow along with you. Discussed with RN Subjective Allergies: Coded Allergies: ASPIRIN (Verified Allergy, Unknown, 03/13/19) MORPHINE (Verified Allergy, Unknown, 03/13/19) TETANUS TOXOID, ADSORBED (Verified Allergy, Unknown, 03/13/19) Uncoded Allergies: CODINE FROM ASPIRIN (Allergy, Unknown, 04/02/19) TETANOTOXOIDS (Allergy, Unknown, 04/02/19) Subjective Afebrile On RA Objective Vital Signs Last 24 Hour Vital Signs Date Time Temp Pulse Resp B/P (MAP) Pulse Ox O2 Delivery O2 Flow Rate FiO2 09/01/19 09:14 69 153/79 08/31/19 21:00 Room Air 08/31/19 20:00 98.5 73 20 114/71 (85) 95 08/31/19 16:00 97.4 69 20 149/73 (98) 96 08/31/19 12:00 97.1 71 20 147/75 (99) 98 Height (Feet): 5 Height (Inches): 0.00 Weight (Pounds): 248 Objective General: no apparent distress HEENT: CTAB, MMM Respiratory: chest non-tender, lungs clear, normal breath sounds, Cardiovascular: regular rate, rhythm, no edema) Gastrointestinal: normal bowel sounds, non tender, soft, non-distended Laboratory Tests Test 09/01/19 06:00 White Blood Count 6.7 K/UL (4.8-10.8) Red Blood Count 3.44 M/UL (4.20-5.40) L Hemoglobin 10.7 G/DL (12.0-16.0) L Hematocrit 32.4 % (37.0-47.0) L Mean Corpuscular Volume 94 FL (80-99) Mean Corpuscular Hemoglobin 31.2 PG (27.0-31.0) H Mean Corpuscular Hemoglobin Concent 33.2 G/DL (32.0-36.0) Red Cell Distribution Width 13.5 % (11.6-14.8) Platelet Count 183 K/UL (150-450) Mean Platelet Volume 5.3 FL (6.5-10.1) L Neutrophils (%) (Auto) 72.0 % (45.0-75.0) Lymphocytes (%) (Auto) 14.9 % (20.0-45.0) L Monocytes (%) (Auto) 8.0 % (1.0-10.0) Eosinophils (%) (Auto) 4.5 % (0.0-3.0) H Basophils (%) (Auto) 0.6 % (0.0-2.0) Sodium Level 141 MMOL/L (136-145) Potassium Level 3.3 MMOL/L (3.5-5.1) L Chloride Level 106 MMOL/L (98-107) Carbon Dioxide Level 25 MMOL/L (21-32) Anion Gap 11 mmol/L (5-15) Blood Urea Nitrogen 10 mg/dL (7-18) Creatinine 0.7 MG/DL (0.55-1.30) Estimat Glomerular Filtration Rate > 60 mL/min (>60) Glucose Level 123 MG/DL (74-106) H Calcium Level 8.9 MG/DL (8.5-10.1) Current Medications Medications (Trade) Dose Ordered Sig/Jerome Route PRN Reason Start Time Stop Time Status Last Admin Dose Admin Acetaminophen (Tylenol) 325 mg Q4H PRN ORAL For Pain 08/29/19 06:15 09/28/19 06:14 08/31/19 20:59 Amlodipine Besylate (Norvasc) 10 mg DAILY ORAL 08/29/19 09:00 09/28/19 08:59 09/01/19 09:14 Cefazolin Sodium 1 gm/Dextrose 55 ml @ 110 mls/hr Q12H IVPB 08/29/19 15:00 09/05/19 14:59 09/01/19 03:16 Clopidogrel Bisulfate (Plavix) 75 mg DAILY ORAL 08/29/19 09:00 09/28/19 08:59 09/01/19 09:14 Cyanocobalamin (Vitamin B-12) 1,000 mcg DAILY ORAL 08/29/19 09:00 09/28/19 08:59 09/01/19 09:15 Dextrose/Sodium Chloride 1,000 ml @ 60 mls/hr [id number] IV 08/29/19 06:15 09/28/19 06:14 09/01/19 03:16 Diphenhydramine HCl (Benadryl) 50 mg Q6H PRN ORAL Itching 08/31/19 09:15 09/30/19 09:14 08/31/19 12:19 Divalproex Sodium (Depakote) 250 mg Q12HR ORAL 08/29/19 09:00 09/28/19 08:59 09/01/19 09:12 Donepezil HCl (Aricept) 10 mg DAILY ORAL 08/29/19 09:00 09/28/19 08:59 09/01/19 09:12 Fluoxetine HCl (PROzac) 20 mg DAILY ORAL 08/29/19 09:00 09/28/19 08:59 09/01/19 09:14 Furosemide (Lasix) 20 mg DAILY ORAL 08/29/19 09:00 09/28/19 08:59 09/01/19 09:13 Heparin Sodium (Porcine) (Heparin 5000 units/ml) 5,000 units EVERY 12 HOURS SUBQ 08/29/19 09:00 09/28/19 08:59 08/31/19 20:30 Levothyroxine Sodium (Synthroid) 25 mcg 0630 ORAL 08/29/19 06:30 09/28/19 06:29 09/01/19 06:08 Memantine (Namenda) 10 mg DAILY ORAL 08/29/19 09:00 09/28/19 08:59 09/01/19 09:13 Ondansetron HCl (Zofran) 4 mg Q6HR PRN IVP Nausea & Vomiting 08/28/19 22:15 Pantoprazole (Protonix) 40 mg DAILY ORAL 08/29/19 09:00 09/28/19 08:59 09/01/19 09:14 Pramipexole (Mirapex) 0.5 mg THREE TIMES A DAY ORAL 08/30/19 18:00 09/28/19 17:59 09/01/19 09:13 Ropinirole HCl (Requip) 2 mg TID ORAL 08/29/19 09:00 09/28/19 08:59 09/01/19 09:15 Solifenacin (Vesicare) 5 mg DAILY ORAL 08/29/19 09:00 09/28/19 08:59 09/01/19 09:15 Zolpidem Tartrate (Ambien) 5 mg BEDTIME PRN ORAL Insomnia 08/29/19 06:15 09/05/19 06:14 08/31/19 20:24 Jemal Huerta MD Sep 01, 2019 11:23
[2019-09-01 12:00] VITALS: BP_SYST 135; BP_SYST 153; BP_DIAS 73; BP_DIAS 87
--- NOTE | 2019-09-01 13:02 | Consultation ---
History of Present Illness General Date patient seen: Sep 01, 2019 Reason for Hospitalization: Lower Extremity Injury Present Illness HPI This is a very pleasant 89-year-old female with multiple medical comorbidities who years ago had a right foot and ankle trauma with comminuted fracture and repair that has since been identified to have intermittent episodes of edema but recently noted significant erythema and swelling with tenderness. She was admitted for cellulitis wound care and management. Upon admission she was managed medically and surgery was called to evaluate for potential abscess given duration of erythema and tenderness. Patient seen, patient evaluated, chart reviewed. On examination had 2 areas of small skin breakdown that were concerns for possible underlying abscess. States no drainage. States she is much improved. States edema and swelling and cellulitis are improving. States she is been amatory for some time and knows to keep the leg elevated. Allergies: Coded Allergies: ASPIRIN (Verified Allergy, Unknown, 03/13/19) MORPHINE (Verified Allergy, Unknown, 03/13/19) TETANUS TOXOID, ADSORBED (Verified Allergy, Unknown, 03/13/19) Uncoded Allergies: CODINE FROM ASPIRIN (Allergy, Unknown, 04/02/19) TETANOTOXOIDS (Allergy, Unknown, 04/02/19) Medication History Scheduled Amlodipine Besylate* (Amlodipine Besylate*), 10 MG ORAL DAILY, (Reported) Ascorbic Acid* (Vitamin C*), 500 MG ORAL DAILY, (Reported) Atorvastatin Calcium* (Lipitor*), 10 MG ORAL QHS, (Reported) Clopidogrel Bisulfate* (Plavix*), 75 MG ORAL DAILY, (Reported) Docusate Sodium* (Docusate Sodium*), 100 MG ORAL TWICE A DAY, (Reported) Donepezil Hcl* (Aricept*), 10 MG ORAL QHS, (Reported) Fluoxetine Hcl* (Fluoxetine Hcl*), 30 MG ORAL DAILY, (Reported) Furosemide* (Lasix*), 40 MG ORAL DAILY, (Reported) Guaifenesin* (Guaifenesin*), 15 ML ORAL Q6H, (Reported) Levothyroxine Sodium* (Synthroid*), 25 MCG ORAL DAILY, (Reported) Memantine Hcl* (Namenda*), 10 MG ORAL BID, (Reported) Oxybutynin Chloride (Oxybutynin Chloride), 5 MG ORAL DAILY, (Reported) Pantoprazole* (Pantoprazole*), 40 MG ORAL ACBREAKFAST, (Reported) Pramipexole* (Mirapex*), 0.5 MG ORAL Q5PM, (Reported) Ropinirole Hcl* (Ropinirole Hcl*), 2 MG PO Q12HR, (Reported) Solifenacin Succinate* (Vesicare*), 5 MG ORAL DAILY, (Reported) Zinc Sulfate (Zinc Sulfate*), 220 MG ORAL DAILY, (Reported) Scheduled PRN Acetaminophen* (Acetaminophen 325MG Tablet*), 650 MG ORAL Q4H PRN for Prn Headache/Temp > 101, (Reported) Nitroglycerin 0.4MG table* (Nitroglycerin*), 0.4 MG SL .Q5MIN X 3 DOSES PRN for CHEST PAIN, (Reported) Zolpidem Tartrate (Zolpidem Tartrate Er), 12.5 MG ORAL BEDTIME PRN for Insomnia, (Reported) Discontinued Medications Cyanocobalamin (Vitamin B-12)* (Vitamin B-12*), 1,000 MCG ORAL DAILY, (Reported) Discontinued Reason: Therapy completed Divalproex Sodium* (Depakote*), 250 MG PO Q12HR, (Reported) Discontinued Reason: Therapy completed Fluoxetine Hcl* (Prozac*), 20 MG ORAL DAILY, (Reported) Discontinued Reason: Prescription changed Furosemide* (Lasix*), 20 MG ORAL DAILY, (Reported) Discontinued Reason: Prescription changed Lactobacillus Acidophilus (Acidophilus), 1 EACH PO, (Reported) Discontinued Reason: Therapy completed Potassium Chloride (Klor-Con 8), 8 MEQ ORAL DAILY, (Reported) Discontinued Reason: Therapy completed Zolpidem Tartrate* (Zolpidem Tartrate*), 12.5 MG ORAL BEDTIME PRN for Insomnia, (Reported) Discontinued Reason: Prescription changed Patient History History Provided By: Patient, Medical Record, PMD Healthcare decision maker Resuscitation status Do Not Resuscitate Advanced Directive on File No Past Medical/Surgical History Past Medical/Surgical History: (1) COPD (chronic obstructive pulmonary disease) (2) Alzheimer disease (3) Parkinson disease (4) Weak (5) GERD (gastroesophageal reflux disease) (6) HTN (hypertension) (7) CVA (cerebral vascular accident) (8) Cellulitis of right lower extremity Review of Systems Review of Symptoms General ROS: no weight loss or fever Psychological ROS: no depression or mood changes, no memory loss Ophthalmic ROS: no visual changes or eye irritation ENT ROS: no nasal congestion, hearing loss, dizziness Allergy and Immunology ROS: no allergic symptoms or urticaria Hematological and Lymphatic ROS: no swollen glands, unusual bleeding or bruising Endocrine ROS: no polyuria, polydipsia, weight changes, temperature intolerance Respiratory ROS: no cough, shortness of breath, or wheezing Cardiovascular ROS: no chest pain or dyspnea on exertion Gastrointestinal ROS: denies abdominal pain, bright red blood in stool. Musculoskeletal ROS: no myalgias or arthralgias Neurological ROS: no TIA or stroke symptoms Dermatological ROS: no new or changing skin lesions, rashes or pruritis Physical Exam Physical Exam General appearance: alert, cooperative, no distress, appears stated age Head: Normocephalic, without obvious abnormality, atraumatic Eyes: conjunctivae/corneas clear. PERRL, EOM's intact. Fundi benign Throat: Lips, mucosa, and tongue normal. Teeth and gums normal Neck: supple, symmetrical, trachea midline, no adenopathy, thyroid: not enlarged, symmetric, no tenderness/mass/nodules, no carotid bruit and no JVD Lungs: clear to auscultation bilaterally Heart: regular rate and rhythm, S1, S2 normal, no murmur, click, rub or gallop Abdomen: soft, non-tender. Bowel sounds normal. No masses, no organomegaly Extremities: extremities right lower extremity to the ankle with edema erythema to 2 mm areas of skin ulceration breakdown without underlying abscess fluctuance nontender comminuted fracture healed surgical incisions healed right foot laterally deviated Pulses: 2+ and symmetric Skin: Skin color, texture, turgor normal. No rashes or lesions Neurologic: Grossly normal Last 24 Hour Vital Signs Date Time Temp Pulse Resp B/P (MAP) Pulse Ox O2 Delivery O2 Flow Rate FiO2 09/01/19 09:14 69 153/79 08/31/19 21:00 Room Air 08/31/19 20:00 98.5 73 20 114/71 (85) 95 08/31/19 16:00 97.4 69 20 149/73 (98) 96 Intake and Output 08/31/19 09/01/19 19:00 07:00 Intake Total 1430 ml 595 ml Output Total 800 ml Balance 630 ml 595 ml Intake Oral 720 ml IV Total 710 ml 595 ml Output Urine Total 800 ml # Voids 3 3 Laboratory Tests Test 09/01/19 06:00 White Blood Count 6.7 K/UL (4.8-10.8) Red Blood Count 3.44 M/UL (4.20-5.40) L Hemoglobin 10.7 G/DL (12.0-16.0) L Hematocrit 32.4 % (37.0-47.0) L Mean Corpuscular Volume 94 FL (80-99) Mean Corpuscular Hemoglobin 31.2 PG (27.0-31.0) H Mean Corpuscular Hemoglobin Concent 33.2 G/DL (32.0-36.0) Red Cell Distribution Width 13.5 % (11.6-14.8) Platelet Count 183 K/UL (150-450) Mean Platelet Volume 5.3 FL (6.5-10.1) L Neutrophils (%) (Auto) 72.0 % (45.0-75.0) Lymphocytes (%) (Auto) 14.9 % (20.0-45.0) L Monocytes (%) (Auto) 8.0 % (1.0-10.0) Eosinophils (%) (Auto) 4.5 % (0.0-3.0) H Basophils (%) (Auto) 0.6 % (0.0-2.0) Sodium Level 141 MMOL/L (136-145) Potassium Level 3.3 MMOL/L (3.5-5.1) L Chloride Level 106 MMOL/L (98-107) Carbon Dioxide Level 25 MMOL/L (21-32) Anion Gap 11 mmol/L (5-15) Blood Urea Nitrogen 10 mg/dL (7-18) Creatinine 0.7 MG/DL (0.55-1.30) Estimat Glomerular Filtration Rate > 60 mL/min (>60) Glucose Level 123 MG/DL (74-106) H Calcium Level 8.9 MG/DL (8.5-10.1) Height (Feet): 5 Height (Inches): 0.00 Weight (Pounds): 248 Medications Current Medications Medications (Trade) Dose Ordered Sig/Jerome Route PRN Reason Start Time Stop Time Status Last Admin Dose Admin Acetaminophen (Tylenol) 325 mg Q4H PRN ORAL For Pain 08/29/19 06:15 09/28/19 06:14 08/31/19 20:59 Amlodipine Besylate (Norvasc) 10 mg DAILY ORAL 08/29/19 09:00 09/28/19 08:59 09/01/19 09:14 Cephalexin (Keflex) 500 mg FOUR TIMES A DAY ORAL 09/01/19 13:00 09/08/19 12:59 Clopidogrel Bisulfate (Plavix) 75 mg DAILY ORAL 08/29/19 09:00 09/28/19 08:59 09/01/19 09:14 Cyanocobalamin (Vitamin B-12) 1,000 mcg DAILY ORAL 08/29/19 09:00 09/28/19 08:59 09/01/19 09:15 Dextrose/Sodium Chloride 1,000 ml @ 60 mls/hr [id number] IV 08/29/19 06:15 09/28/19 06:14 09/01/19 03:16 Diphenhydramine HCl (Benadryl) 50 mg Q6H PRN ORAL Itching 08/31/19 09:15 09/30/19 09:14 08/31/19 12:19 Divalproex Sodium (Depakote) 250 mg Q12HR ORAL 08/29/19 09:00 09/28/19 08:59 09/01/19 09:12 Donepezil HCl (Aricept) 10 mg DAILY ORAL 08/29/19 09:00 09/28/19 08:59 09/01/19 09:12 Fluoxetine HCl (PROzac) 20 mg DAILY ORAL 08/29/19 09:00 09/28/19 08:59 09/01/19 09:14 Furosemide (Lasix) 20 mg DAILY ORAL 08/29/19 09:00 09/28/19 08:59 09/01/19 09:13 Heparin Sodium (Porcine) (Heparin 5000 units/ml) 5,000 units EVERY 12 HOURS SUBQ 08/29/19 09:00 09/28/19 08:59 08/31/19 20:30 Levothyroxine Sodium (Synthroid) 25 mcg 0630 ORAL 08/29/19 06:30 09/28/19 06:29 09/01/19 06:08 Memantine (Namenda) 10 mg DAILY ORAL 08/29/19 09:00 09/28/19 08:59 09/01/19 09:13 Ondansetron HCl (Zofran) 4 mg Q6HR PRN IVP Nausea & Vomiting 08/28/19 22:15 Pantoprazole (Protonix) 40 mg DAILY ORAL 08/29/19 09:00 09/28/19 08:59 09/01/19 09:14 Pramipexole (Mirapex) 0.5 mg THREE TIMES A DAY ORAL 08/30/19 18:00 09/28/19 17:59 09/01/19 09:13 Ropinirole HCl (Requip) 2 mg TID ORAL 08/29/19 09:00 09/28/19 08:59 09/01/19 09:15 Solifenacin (Vesicare) 5 mg DAILY ORAL 08/29/19 09:00 09/28/19 08:59 09/01/19 09:15 Zolpidem Tartrate (Ambien) 5 mg BEDTIME PRN ORAL Insomnia 08/29/19 06:15 09/05/19 06:14 08/31/19 20:24 Assessment/Plan Problem List: (1) Cellulitis of right lower extremity Assessment & Plan: extremities right lower extremity to the ankle with edema erythema to 2 mm areas of skin ulceration breakdown without underlying abscess fluctuance nontender comminuted fracture healed surgical incisions healed right foot laterally deviated On the right, grayscale and duplex images demonstrate no evidence of intraluminal thrombus. Normal phasic Doppler waveforms, demonstrating normal augmentation response and no evidence of valvular insufficiency. Greater saphenous vein(s) and tibial veins are patent. Normal compressibility. There is edema of the subcutaneous fat distally Negative for evidence of lower extremity deep venous thrombosis on the right No acute surgical intervention indicated recommended. No abscess noted. Cellulitis improving. Likely skin breakdown causing generalized is an area which is responding well to medical management. Had a long discussion with patient at the bedside regards to her care and plan. Recommend keeping leg elevated when not ambulatory. Elevate above the level of the heart. Compression stockings necessary. Moisturizer as necessary. Thank you will follow with recommendations discharge planning ICD Codes: L03.115 - Cellulitis of right lower limb SNOMED: 936962371 Thad Moore Sep 01, 2019 13:02
--- NOTE | 2019-09-01 13:15 | NUR ---
CHARGE NURSE NOTE: K3.3. notified.
[2019-09-01] MEDS: Cephalexin 500mg cap ORAL SCH ×3 (13:18→21:31)
[2019-09-01 16:00] VITALS: BP 157/81
[2019-09-01] MEDS ORDERED: Tubing IV Secondary IV ONE (16:03)
--- NOTE | 2019-09-01 18:00 | NUR ---
NURSE NOTES: Patient tolerating meals no complaints at this time.Patient taking liquids, IV heplock.
--- NOTE | 2019-09-01 19:48 | NUR ---
HAND-OFF: Report given to ARABELLAU RN.
--- NOTE | 2019-09-01 19:50 | NUR ---
NURSE NOTES: Patient awake, alert, and verbally responsive to let her needs known. Breathing unlabored on room air without distress. Denies pain or discomfort at this time. IV intact on right hand, saline locked. Bed placed at the lowest with alarm, brake, and siderails up for safety. Call light placed within reach. Will continue to monitor and provide care as ordered.
[2019-09-01 20:00] VITALS: BP 114/57
[2019-09-01] MEDS: Zolpidem 5mg tab ORAL PRN (22:11)
[2019-09-02] MEDS: Levothyroxine 25mcg tab ORAL SCH (05:58)
[2019-09-02 06:05] VITALS: BP 131/73
--- NOTE | 2019-09-02 06:05 | NUR ---
HAND-OFF: Report given to DANILO Dang. Plan of care endorsed. Addendum: 09/02/19 at 0736 by Anny Campbell RN Report given at [id number]
[2019-09-02 07:11] LABS: ANION GAP 7 mmol/L (5-15); BLOOD UREA NITROGEN 14 mg/dL (7-18); CALCIUM 8.8 MG/DL (8.5-10.1); CARBON DIOXIDE 29 MMOL/L (21-32); CHLORIDE 107 MMOL/L (98-107); CREATININE 0.7 MG/DL (0.55-1.30); SODIUM 143 MMOL/L (136-145)
[2019-09-02 07:24] LABS: BASOPHILS % (AUTO) 0.7 % (0.0-2.0); EOSINOPHILS % (AUTO) 4.1 % (0.0-3.0); HEMATOCRIT 32.4 % (37.0-47.0); HEMOGLOBIN 10.8 G/DL (12.0-16.0); LYMPHOCYTES % (AUTO) 21.2 % (20.0-45.0); MEAN CORPUSCULAR VOLUME 93 FL (80-99); MONOCYTES % (AUTO) 10.6 % (1.0-10.0); NEUTROPHILS % (AUTO) 63.5 % (45.0-75.0); PLATELET COUNT 198 K/UL (150-450); RED BLOOD COUNT 3.48 M/UL (4.20-5.40); RED CELL DISTRIBUTION WIDTH 13.7 % (11.6-14.8); WHITE BLOOD COUNT 5.6 K/UL (4.8-10.8)
--- NOTE | 2019-09-02 07:30 | NUR ---
NURSE NOTES: Patient awake, alert, and oriented x4. Able to make things known. On BSC. Breathing unlabored on room air without distress. Denies pain or discomfort at this time. IV intact on right hand, patent and intact. instructed to keep BLE elevated and with pillows lengthwise. Bed placed at the lowest with alarm, brake engaged and siderails up x3 for safety. Call light placed within reach. Will continue to monitor and provide care as ordered.
[2019-09-02 08:00] VITALS: BP 137/76
[2019-09-02] MEDS: Cephalexin 500mg cap ORAL SCH ×2 (08:29→13:18)
[2019-09-02] MEDS: Memantine 10mg tab ORAL SCH (08:30)
[2019-09-02] MEDS: Vitamin B-12 500mcg tab ORAL SCH (08:30)
[2019-09-02] MEDS: Pramipexole 0.5mg tab ORAL SCH ×2 (08:30→13:18)
[2019-09-02] MEDS: Donepezil 10mg tab ORAL SCH (08:30)
[2019-09-02] MEDS: Heparin 5000 units/ml inj SUBQ SCH (08:32)
--- NOTE | 2019-09-02 08:40 | Hematology/Onc Progress Note ---
Assessment/Plan Assessment/Plan Assessment and Recs: # Anemia of chronic disease due to underlying chronic medical issues, multifactorial v Gi bleed --> Anemia workup has been ordered, rule out gi bleed --> No evidence of hemolysis is noted, peripheral smear has been reviewed. --> Hgb goal >7. Transfuse prn. --> Epogen or iron at this time is not particularly indicated --> Medications have been reviewed --> low threshold for gi evaluation in case has occult + --> hgb trend 11-->10.8 # Cellulitis of right lower extremity --> duplex lower ext neg --> as per id, on abx, cef, then keflex --> id recs noted --> surg recs noted # Azotemia --> improved on ivf # Dvt ppx ambulation Appreciate consultation and dw Rn Subjective Constitutional: Denies: no symptoms, chills, fever, malaise, weakness, other HEENT: Denies: no symptoms, eye pain, blurred vision, tearing, double vision, ear pain, ear discharge, nose pain, nose congestion, throat pain, throat swelling, mouth pain, mouth swelling, other Cardiovascular: Denies: no symptoms, chest pain, edema, irregular heart rate, lightheadedness, palpitations, syncope, other Respiratory: Denies: no symptoms, cough, shortness of breath, SOB with excertion, SOB at rest, sputum, wheezing, other Gastrointestinal/Abdominal: Denies: no symptoms, abdomen distended, abdominal pain, black stools, tarry stools, blood in stool, constipated, diarrhea, difficulty swallowing, nausea, poor appetite, poor fluid intake, rectal bleeding , vomiting, other Genitourinary: Denies: no symptoms, burning, discharge, frequency, flank pain, hematuria, incontinence, pain, urgency, other Neurologic/Psychiatric: Denies: no symptoms, anxiety, depressed, emotional problems, headache, numbness, paresthesia, pre-existing deficit, seizure, tingling, tremors, weakness, other Endocrine: Denies: no symptoms, excessive sweating, flushing, intolerance to cold, intolerance to heat, increased hunger, increased thirst, increased urine, unexplained weight gain, unexplained weight loss, other Hematologic/Lymphatic: Denies: no symptoms, anemia, easy bleeding, easy bruising, adenopathy, other Allergies: Coded Allergies: ASPIRIN (Verified Allergy, Unknown, 03/13/19) MORPHINE (Verified Allergy, Unknown, 03/13/19) TETANUS TOXOID, ADSORBED (Verified Allergy, Unknown, 03/13/19) Uncoded Allergies: CODINE FROM ASPIRIN (Allergy, Unknown, 04/02/19) TETANOTOXOIDS (Allergy, Unknown, 04/02/19) Subjective 09/02: no major changes, awake, alert, no bleeding, cbc noted Objective Objective Current Medications Medications (Trade) Dose Ordered Sig/Jerome Route PRN Reason Start Time Stop Time Status Last Admin Dose Admin Acetaminophen (Tylenol) 325 mg Q4H PRN ORAL For Pain 08/29/19 06:15 09/28/19 06:14 09/01/19 22:11 Amlodipine Besylate (Norvasc) 10 mg DAILY ORAL 08/29/19 09:00 09/28/19 08:59 09/02/19 08:32 Cephalexin (Keflex) 500 mg FOUR TIMES A DAY ORAL 09/01/19 13:00 09/08/19 12:59 09/02/19 08:29 Clopidogrel Bisulfate (Plavix) 75 mg DAILY ORAL 08/29/19 09:00 09/28/19 08:59 09/02/19 08:30 Cyanocobalamin (Vitamin B-12) 1,000 mcg DAILY ORAL 08/29/19 09:00 09/28/19 08:59 09/02/19 08:30 Diphenhydramine HCl (Benadryl) 50 mg Q6H PRN ORAL Itching 08/31/19 09:15 09/30/19 09:14 08/31/19 12:19 Divalproex Sodium (Depakote) 250 mg Q12HR ORAL 08/29/19 09:00 09/28/19 08:59 09/02/19 08:30 Donepezil HCl (Aricept) 10 mg DAILY ORAL 08/29/19 09:00 09/28/19 08:59 09/02/19 08:30 Fluoxetine HCl (PROzac) 20 mg DAILY ORAL 08/29/19 09:00 09/28/19 08:59 09/02/19 08:29 Furosemide (Lasix) 20 mg DAILY ORAL 08/29/19 09:00 09/28/19 08:59 09/02/19 08:32 Heparin Sodium (Porcine) (Heparin 5000 units/ml) 5,000 units EVERY 12 HOURS SUBQ 08/29/19 09:00 09/28/19 08:59 09/01/19 21:39 Levothyroxine Sodium (Synthroid) 25 mcg 0630 ORAL 08/29/19 06:30 09/28/19 06:29 09/02/19 05:58 Memantine (Namenda) 10 mg DAILY ORAL 08/29/19 09:00 09/28/19 08:59 09/02/19 08:30 Ondansetron HCl (Zofran) 4 mg Q6HR PRN IVP Nausea & Vomiting 08/28/19 22:15 Pantoprazole (Protonix) 40 mg DAILY ORAL 08/29/19 09:00 09/28/19 08:59 09/02/19 08:29 Pramipexole (Mirapex) 0.5 mg THREE TIMES A DAY ORAL 08/30/19 18:00 09/28/19 17:59 09/02/19 08:30 Ropinirole HCl (Requip) 2 mg TID ORAL 08/29/19 09:00 09/28/19 08:59 09/02/19 08:30 Solifenacin (Vesicare) 5 mg DAILY ORAL 08/29/19 09:00 09/28/19 08:59 09/02/19 08:30 Zolpidem Tartrate (Ambien) 5 mg BEDTIME PRN ORAL Insomnia 08/29/19 06:15 09/05/19 06:14 09/01/19 22:11 Last 24 Hour Vital Signs Date Time Temp Pulse Resp B/P (MAP) Pulse Ox O2 Delivery O2 Flow Rate FiO2 09/02/19 08:32 75 137/76 09/02/19 08:00 96.6 75 20 137/76 (96) 97 09/02/19 06:05 97.7 71 18 131/73 (92) 96 09/01/19 21:00 Room Air 09/01/19 20:00 97.7 63 20 114/57 (76) 98 09/01/19 16:00 97.8 69 20 157/81 (106) 95 09/01/19 12:00 97.9 77 20 153/87 (109) 95 09/01/19 09:14 69 153/79 09/01/19 09:00 Room Air 09/01/19 08:00 97.8 75 20 135/73 (93) 95 08/31/19 21:00 Room Air 08/31/19 20:00 98.5 73 20 114/71 (85) 95 08/31/19 16:00 97.4 69 20 149/73 (98) 96 08/31/19 12:00 97.1 71 20 147/75 (99) 98 08/31/19 09:00 Room Air 08/31/19 08:56 90 140/68 Intake and Output 09/01/19 09/02/19 19:00 07:00 Intake Total 1080 ml 600 ml Balance 1080 ml 600 ml Intake Oral 1080 ml 600 ml # Voids 6 2 # Bowel Movements 1 Labs Test 08/31/19 06:15 09/01/19 06:00 09/02/19 05:30 White Blood Count 6.0 K/UL (4.8-10.8) 6.7 K/UL (4.8-10.8) 5.6 K/UL (4.8-10.8) Red Blood Count 3.57 M/UL (4.20-5.40) 3.44 M/UL (4.20-5.40) 3.48 M/UL (4.20-5.40) Hemoglobin 11.0 G/DL (12.0-16.0) 10.7 G/DL (12.0-16.0) 10.8 G/DL (12.0-16.0) Hematocrit 33.2 % (37.0-47.0) 32.4 % (37.0-47.0) 32.4 % (37.0-47.0) Mean Corpuscular Volume 93 FL (80-99) 94 FL (80-99) 93 FL (80-99) Mean Corpuscular Hemoglobin 30.9 PG (27.0-31.0) 31.2 PG (27.0-31.0) 30.9 PG (27.0-31.0) Mean Corpuscular Hemoglobin Concent 33.2 G/DL (32.0-36.0) 33.2 G/DL (32.0-36.0) 33.2 G/DL (32.0-36.0) Red Cell Distribution Width 13.6 % (11.6-14.8) 13.5 % (11.6-14.8) 13.7 % (11.6-14.8) Platelet Count 211 K/UL (150-450) 183 K/UL (150-450) 198 K/UL (150-450) Mean Platelet Volume 5.3 FL (6.5-10.1) 5.3 FL (6.5-10.1) 5.3 FL (6.5-10.1) Neutrophils (%) (Auto) 67.1 % (45.0-75.0) 72.0 % (45.0-75.0) 63.5 % (45.0-75.0) Lymphocytes (%) (Auto) 20.3 % (20.0-45.0) 14.9 % (20.0-45.0) 21.2 % (20.0-45.0) Monocytes (%) (Auto) 9.0 % (1.0-10.0) 8.0 % (1.0-10.0) 10.6 % (1.0-10.0) Eosinophils (%) (Auto) 2.9 % (0.0-3.0) 4.5 % (0.0-3.0) 4.1 % (0.0-3.0) Basophils (%) (Auto) 0.7 % (0.0-2.0) 0.6 % (0.0-2.0) 0.7 % (0.0-2.0) Sodium Level 141 MMOL/L (136-145) 141 MMOL/L (136-145) 143 MMOL/L (136-145) Potassium Level 3.7 MMOL/L (3.5-5.1) 3.3 MMOL/L (3.5-5.1) 4.0 MMOL/L (3.5-5.1) Chloride Level 105 MMOL/L (98-107) 106 MMOL/L (98-107) 107 MMOL/L (98-107) Carbon Dioxide Level 23 MMOL/L (21-32) 25 MMOL/L (21-32) 29 MMOL/L (21-32) Anion Gap 13 mmol/L (5-15) 11 mmol/L (5-15) 7 mmol/L (5-15) Blood Urea Nitrogen 12 mg/dL (7-18) 10 mg/dL (7-18) 14 mg/dL (7-18) Creatinine 0.7 MG/DL (0.55-1.30) 0.7 MG/DL (0.55-1.30) 0.7 MG/DL (0.55-1.30) Estimat Glomerular Filtration Rate > 60 mL/min (>60) > 60 mL/min (>60) > 60 mL/min (>60) Glucose Level 92 MG/DL (74-106) 123 MG/DL (74-106) 84 MG/DL (74-106) Calcium Level 8.8 MG/DL (8.5-10.1) 8.9 MG/DL (8.5-10.1) 8.8 MG/DL (8.5-10.1) Height (Feet): 5 Height (Inches): 0.00 Weight (Pounds): 248 Objective General: NAD HEENT: nc, at Neck: supple Chest: clear breath sounds bilaterally Cardiovascular: RRR, no s3, s4 Abdomen: soft, nontender, nd Extremities: no cce, normal range of motion++ rl3 cellulitis better Neuro: alert and oriented Brian Dyson MD Sep 02, 2019 08:40
--- NOTE | 2019-09-02 09:05 | General Progress Note ---
Assessment/Plan Problem List: (1) COPD (chronic obstructive pulmonary disease) ICD Codes: J44.9 - Chronic obstructive pulmonary disease, unspecified SNOMED: 38378432 (2) Weak ICD Codes: R53.1 - Weakness SNOMED: 14725383 (3) CVA (cerebral vascular accident) ICD Codes: I63.9 - Cerebral infarction, unspecified SNOMED: 709209143 (4) HTN (hypertension) ICD Codes: I10 - Essential (primary) hypertension SNOMED: 25170476 (5) GERD (gastroesophageal reflux disease) ICD Codes: K21.9 - Gastro-esophageal reflux disease without esophagitis SNOMED: 178345314 (6) Parkinson disease ICD Codes: G20 - Parkinson's disease SNOMED: 29273241 (7) Alzheimer disease ICD Codes: G30.9 - Alzheimer's disease, unspecified; F02.80 - Dementia in other diseases classified elsewhere without behavioral disturbance SNOMED: 31920602 (8) Cellulitis of right lower extremity ICD Codes: L03.115 - Cellulitis of right lower limb SNOMED: 943330974 Status: stable, progressing Assessment/Plan: pt diet wound care abx heme eval cbc bmp am dc to snf if clear Subjective Constitutional: Reports: weakness Allergies: Coded Allergies: ASPIRIN (Verified Allergy, Unknown, 03/13/19) MORPHINE (Verified Allergy, Unknown, 03/13/19) TETANUS TOXOID, ADSORBED (Verified Allergy, Unknown, 03/13/19) Uncoded Allergies: CODINE FROM ASPIRIN (Allergy, Unknown, 04/02/19) TETANOTOXOIDS (Allergy, Unknown, 04/02/19) All Systems: reviewed and negative except above Subjective calm in bed Objective Last 24 Hour Vital Signs Date Time Temp Pulse Resp B/P (MAP) Pulse Ox O2 Delivery O2 Flow Rate FiO2 09/02/19 08:32 75 137/76 09/02/19 08:00 96.6 75 20 137/76 (96) 97 09/02/19 06:05 97.7 71 18 131/73 (92) 96 09/01/19 21:00 Room Air 09/01/19 20:00 97.7 63 20 114/57 (76) 98 09/01/19 16:00 97.8 69 20 157/81 (106) 95 09/01/19 12:00 97.9 77 20 153/87 (109) 95 09/01/19 09:14 69 153/79 Intake and Output 09/01/19 09/02/19 19:00 07:00 Intake Total 1080 ml 600 ml Balance 1080 ml 600 ml Intake Oral 1080 ml 600 ml # Voids 6 2 # Bowel Movements 1 Laboratory Tests 09/02/19 05:30: White Blood Count 5.6, Red Blood Count 3.48L, Hemoglobin 10.8L, Hematocrit 32.4L , Mean Corpuscular Volume 93, Mean Corpuscular Hemoglobin 30.9, Mean Corpuscular Hemoglobin Concent 33.2, Red Cell Distribution Width 13.7, Platelet Count 198, Mean Platelet Volume 5.3L, Neutrophils (%) (Auto) 63.5, Lymphocytes ( %) (Auto) 21.2, Monocytes (%) (Auto) 10.6H, Eosinophils (%) (Auto) 4.1H, Basophils (%) (Auto) 0.7, Sodium Level 143, Potassium Level 4.0, Chloride Level 107, Carbon Dioxide Level 29, Anion Gap 7, Blood Urea Nitrogen 14, Creatinine 0.7, Estimat Glomerular Filtration Rate > 60, Glucose Level 84, Calcium Level 8.8 Height (Feet): 5 Height (Inches): 0.00 Weight (Pounds): 248 General Appearance: lethargic EENT: normal ENT inspection Neck: normal alignment Cardiovascular: normal peripheral pulses, normal rate, regular rhythm Respiratory/Chest: chest wall non-tender, lungs clear, normal breath sounds Abdomen: normal bowel sounds, non tender, soft Extremities: normal inspection Edema: no edema noted Arm (L), no edema noted Arm (R), no edema noted Leg (L), no edema noted Leg (R), no edema noted Pedal (L), no edema noted Pedal (R), no edema noted Generalized Neurologic: responsive, motor weakness Skin: normal pigmentation, warm/dry Objective r foot sl red swollen, left wrist sl bruized 2' x 2' Earle Whaley DO Sep 02, 2019 09:05
--- NOTE | 2019-09-02 09:59 | NUR ---
NURSE NOTES: called Dr Huerta's office and spoke with Jose Juan elizabeth; clearance for discharge. awaiting for a callback.
[2019-09-02] MEDS ORDERED: CEPHALEXIN500 MG ORAL (10:15)
[2019-09-02] MEDS ORDERED: VITAMIN B-12100 MCG ORAL (10:16)
[2019-09-02] MEDS ORDERED: BENADRYL25 MG ORAL (10:17)
[2019-09-02] MEDS ORDERED: DEPAKOTE250 MG PO (10:19)
[2019-09-02] MEDS ORDERED: ARICEPT10 MG ORAL (10:21)
[2019-09-02] MEDS ORDERED: PROZAC20 MG ORAL (10:21)
[2019-09-02] MEDS ORDERED: NAMENDA10 MG ORAL (10:23)
[2019-09-02] MEDS ORDERED: AMBIEN10 M1 ORAL (10:23)
[2019-09-02] MEDS ORDERED: FUROSEMIDE20 M1 ORAL (10:23)
--- NOTE | 2019-09-02 11:03 | NUR ---
NURSE NOTES: patient will be discharged to [facility]. spoke with the daughter, Mami for notification and report given to Tomasa @ [facility]. Verified patient's allergies. Personal belongings noted. arrange transportation @ 1330 via ambulance. will cont to monitor.
[2019-09-02 12:00] VITALS: BP 138/79
--- NOTE | 2019-09-02 13:51 | Surgery Progress Note ---
Surgery Progress Note Subjective Symptoms: improved, tolerating diet, voiding well, passing flatus Objective Last 24 Hour Vital Signs Date Time Temp Pulse Resp B/P (MAP) Pulse Ox O2 Delivery O2 Flow Rate FiO2 09/02/19 12:00 98.3 71 19 138/79 (98) 98 09/02/19 09:00 Room Air 09/02/19 08:32 75 137/76 09/02/19 08:00 96.6 75 20 137/76 (96) 97 09/02/19 06:05 97.7 71 18 131/73 (92) 96 09/01/19 21:00 Room Air 09/01/19 20:00 97.7 63 20 114/57 (76) 98 09/01/19 16:00 97.8 69 20 157/81 (106) 95 I&O Intake and Output 09/01/19 09/02/19 19:00 07:00 Intake Total 1080 ml 600 ml Balance 1080 ml 600 ml Intake Oral 1080 ml 600 ml # Voids 6 2 # Bowel Movements 1 Dressing: dry Wound: clean Cardiovascular: RSR Respiratory: clear Abdomen: soft, flat, non-tender, present bowel sounds Extremities: edema, no tenderness, no cyanosis, other Laboratory Tests Test 09/02/19 05:30 White Blood Count 5.6 K/UL (4.8-10.8) Red Blood Count 3.48 M/UL (4.20-5.40) L Hemoglobin 10.8 G/DL (12.0-16.0) L Hematocrit 32.4 % (37.0-47.0) L Mean Corpuscular Volume 93 FL (80-99) Mean Corpuscular Hemoglobin 30.9 PG (27.0-31.0) Mean Corpuscular Hemoglobin Concent 33.2 G/DL (32.0-36.0) Red Cell Distribution Width 13.7 % (11.6-14.8) Platelet Count 198 K/UL (150-450) Mean Platelet Volume 5.3 FL (6.5-10.1) L Neutrophils (%) (Auto) 63.5 % (45.0-75.0) Lymphocytes (%) (Auto) 21.2 % (20.0-45.0) Monocytes (%) (Auto) 10.6 % (1.0-10.0) H Eosinophils (%) (Auto) 4.1 % (0.0-3.0) H Basophils (%) (Auto) 0.7 % (0.0-2.0) Sodium Level 143 MMOL/L (136-145) Potassium Level 4.0 MMOL/L (3.5-5.1) Chloride Level 107 MMOL/L (98-107) Carbon Dioxide Level 29 MMOL/L (21-32) Anion Gap 7 mmol/L (5-15) Blood Urea Nitrogen 14 mg/dL (7-18) Creatinine 0.7 MG/DL (0.55-1.30) Estimat Glomerular Filtration Rate > 60 mL/min (>60) Glucose Level 84 MG/DL (74-106) Calcium Level 8.8 MG/DL (8.5-10.1) Plan Problems: (1) Cellulitis of right lower extremity Assessment & Plan: extremities right lower extremity to the ankle with edema erythema to 2 mm areas of skin ulceration breakdown without underlying abscess fluctuance nontender comminuted fracture healed surgical incisions healed right foot laterally deviated On the right, grayscale and duplex images demonstrate no evidence of intraluminal thrombus. Normal phasic Doppler waveforms, demonstrating normal augmentation response and no evidence of valvular insufficiency. Greater saphenous vein(s) and tibial veins are patent. Normal compressibility. There is edema of the subcutaneous fat distally Negative for evidence of lower extremity deep venous thrombosis on the right No acute surgical intervention indicated recommended. No abscess noted. Cellulitis improving. Likely skin breakdown causing generalized is an area which is responding well to medical management. Had a long discussion with patient at the bedside regards to her care and plan. Recommend keeping leg elevated when not ambulatory. Elevate above the level of the heart. Compression stockings necessary. Moisturizer as necessary. Thank you will follow with recommendations discharge planning Thad Moore Sep 02, 2019 13:51
--- NOTE | 2019-09-02 13:52 | NUR ---
NURSE NOTES: Discharged to [facility] via ambulance. removed IV heplock. VSS. In stable condition. No acute resp distress noted.
--- NOTE | 2019-09-03 16:33 | Diagnostic Imaging Report ---
Indication: Pain Technique: 2 views of the right ankle Comparison: none Findings: There is surgical hardware reducing old healed distal fibular and medial malleolar fractures. There is bony fusion of the distal tibia and fibula. There is marked deformity of the talus and possibly the calcaneus. There is also extensive deformity of the midfoot. No definite acute fractures. No dislocations. Extensive soft tissue calcifications are seen in the posterior medial subcutaneous fat. Impression: Postsurgical and posttraumatic changes, as described No definite acute bony trauma Marked deformity of the talus, suspect chronic Soft tissue calcifications, may indicate old thermal trauma with fat necrosis or sequela of collagen vascular disease
--- NOTE | 2019-09-03 16:37 | Discharge Summary ---
Discharge Summary Discharge Summary _ DATE OF ADMISSION: 08/28/2019 DATE OF DISCHARGE: 09/02/2019 DISCHARGED BY: REASON FOR ADMISSION: 89 years old female with past medical history of COPD, CVA with hemiplegia, venous stasis, Parkinson disease, hypothyroidism, GERD, presented with right leg swelling and redness. Patient denied pain. No fevers or chills. No chest pain. Upon evaluation vital signs were stable . Laboratory work-up revealed no leukocytosis , stable hemoglobin , hematocrit and platelet count. Stable electrolytes and renal parameters . Glucose 112. Stable LFT. Albumin 3.5. Lactic acid 1.3. pro BNP 184. Chest x-ray revealed no acute cardiopulmonary pathology. Venous duplex right lower extremity revealed no evidence of acute DVT. Patient started on antibiotics and admitted for further management. CONSULTANTS: ID specialist Dr. Colin import/export administrator/oncologist Dr. Dyson surgery Dr. Moore [facility] COURSE: Patient admitted to medical surgical floor. Patient started on empiric antibiotic as per ID specialist recommendation. Blood cultures were negative. Patient remained afebrile , no leukocytosis . Antibiotics continued as per ID recommendation. Patient was on IV antibiotic while in the hospital and was transitioned to oral antibiotics upon discharge to complete the course. Pain management was addressed as needed. DVT prophylaxis provided. SNF medication resumed. Antiplatelet therapy Plavix continued/patient allergic to aspirin . Blood pressure was managed with calcium channel alena . Maintenance dose of Lasix continued. No evidence of CHF exacerbation. Parkinson medications were continued. Potassium was replaced. Surgeon seen and evaluated patient. No evidence of abscess. Cellulitis was improving with IV antibiotics. No acute surgical intervention was recommended at this time. Hemoglobin and hematocrit were closely monitored with goal to keep hemoglobin above 7. No evidence of hemolysis noted. Hemoglobin and hematocrit remained at baseline , and prior to discharge hemoglobin 10.8, hematocrit 32.4. Fall precaution maintained. Patient was working with physical therapist. Patient clinically stabilized and was ready for discharge back to the assisted facility for continuation of care. FINAL DIAGNOSES: Right leg cellulitis Chronic edema/venous stasis COPD History of CVA with hemiplegia Parkinson disease Anemia Hyperlipidemia Hypothyroidism DISCHARGE MEDICATIONS: See Medication Reconciliation list. DISCHARGE INSTRUCTIONS: Patient was discharged to the assisted facility. Follow up with medical doctor at the facility. I have been assigned to dictate discharge summary for this account. I was not involved in the patient's management. Nita Whitley NPb 24, 2020 16:37
== END 2019-09-02 13:57 | DRG 603 ==
LOC: EDUNIT# 19:42 → EDBD 19:42 → EMR 20:00 → 4E 21:21 → EDBEDREQ 21:39
DX: L03.115 Cellulitis of right lower limb (principal); I69.354 Hemiplegia and hemiparesis following cerebral infarction affecting left non-dominant side; G20 Parkinson's disease; G30.9 Alzheimer's disease, unspecified; F02.80 Dementia in other diseases classified elsewhere, unspecified severity, without behavioral disturbance, psychotic disturbance, mood disturbance, and anxiety; I11.0 Hypertensive heart disease with heart failure; I50.9 Heart failure, unspecified; I87.8 Other specified disorders of veins; J44.9 Chronic obstructive pulmonary disease, unspecified; D64.9 Anemia, unspecified; K21.9 Gastro-esophageal reflux disease without esophagitis; E03.9 Hypothyroidism, unspecified; Z88.6 Allergy status to analgesic agent; Z88.7 Allergy status to serum and vaccine
CPT/HCPCS: 36415; 71045; 80048; 80053; 83605; 83880; 85025; 87040; 87081; 93971; 96361; 96365; 99285; J7030; J8499

== ENCOUNTER 2019-10-14 17:01 | Inpatient (IN) | payer MEDICARE, MEDICAID ==
[~2019-10-14] VITALS: Ht 167.6 cm; Wt 81.6 kg
[~2019-10-14 17:01] MED LIST changes: +AMBIEN10 M1 ORAL; +ATORVASTATIN CA10 MG ORAL; +BENADRYL25 MG ORAL; +CEPHALEXIN500 MG ORAL; +DOCUSATE SODIU100 MG ORAL; +FLUOXETINE HCL10 MG ORAL; +FUROSEMIDE40 MG ORAL; +GUAIFENESI100 MG/5 M ORAL; +NITRO0.4 SL; +OXYBUTYNIN CHLOR5 M1 ORAL; +VITAMIN B-12100 MCG ORAL; +VITAMIN C500 M1 ORAL; +ZINC SULFATE220 M1 ORAL; +ZOLPIDEM TART12.5 MG ORAL
[2019-10-14] MEDS ORDERED: ATORVASTATIN CA20 MG ORAL (17:28)
[2019-10-14] MEDS ORDERED: DOCUSATE SODIU100 M2 ORAL (17:28)
[2019-10-14] MEDS ORDERED: VITAMIN B-12500 MCG ORAL (17:32)
[2019-10-14] MEDS ORDERED: VITAMIN C500 M1 ORAL (17:32)
[2019-10-14] MEDS ORDERED: ZINC SULFATE220 M1 ORAL (17:32)
[2019-10-14 17:53] VITALS: BP 112/74
--- NOTE | 2019-10-14 17:54 | Emergency Room Report ---
History of Present Illness General Chief Complaint: Skin Rash/Abscess Source: Medical Record Present Illness HPI Disclaimer: Please note that this report is being documented using DRAGON technology. This can lead to erroneous entry secondary to incorrect interpretation by the dictating instrument. HPI: This is an 89-year-old female with multiple medical problems including cellulitis of the right lower extremity who presents with cellulitis to the right lower extremity. She is had increased redness and pain to the right lower extremity for the past few days. She denies any fevers nausea or vomiting. Pain currently 6 out of 10 worse with palpation. Patient admitted approximately 2 months ago for the same seen by infectious disease started on Ancef and discharged back to her alf facility. She denies any cough or shortness of breath. PMH: COPD, weakness, CVA with left hemiparesis, CHF, hypertension, hyperlipidemia, hypothyroid, anemia, GERD, Parkinson, Alzheimer's. PSH: Reviewed Social Hx: Patient denies any smoking drinking or illicit drug use t Allergies: Coded Allergies: ASPIRIN (Verified Allergy, Intermediate, Rash, 09/02/19) coating MORPHINE (Verified Allergy, Unknown, 10/14/19) Uncoded Allergies: TETANUS TOXOID (Allergy, Unknown, 10/14/19) COVID-19 Screening Contact w/high risk pt: No Recent Travel to affected area: No Experienced COVID-19 symptoms?: No Nursing Documentation-PMH Past Medical History: No History, Except For Hx Cardiac Problems: Yes - PNA, MUSCLE WEAKNESS, HEMIPLEGIA, HYPOTHYROIDISM, CHF Hx Hypertension: Yes - ANEMIA, HYPERLIPIDEMIA, HYPOKALEMIA Hx COPD: Yes Hx Gastrointestinal Problems: Yes - GERD Review of Systems All Other Systems: negative except mentioned in HPI Physical Exam Vital Signs Date Time Temp Pulse Resp B/P (MAP) Pulse Ox O2 Delivery O2 Flow Rate FiO2 10/14/19 17:18 98.1 74 14 112/74 (87) 95 Room Air Sp02 EP Interpretation: reviewed, normal General Appearance: well appearing, no apparent distress Head: normocephalic, atraumatic Eyes: bilateral eye PERRL, bilateral eye EOMI ENT: hearing grossly normal, moist mucus membranes Neck: full range of motion, supple Respiratory: lungs clear, normal breath sounds, no rhonchi, no respiratory distress, no retraction, no wheezing Cardiovascular #1: normal peripheral pulses, regular rate, rhythm, no murmur Gastrointestinal: non tender, soft, non-distended, no guarding Musculoskeletal: swelling - Bilateral lower extremity edema noted 3+ up to the knees Neurologic: alert, oriented x3, no focal defects Skin: warm/dry, other - Erythema and cellulitic changes noted to right lower extremity. Mild erythema of left lower extremity. No calf tenderness noted bilaterally Medical Decision Making Diagnostic Impression: Primary Impression: Cellulitis of right lower extremity ER Course MDM: This is an 89-year-old female presents with increased redness and pain to the right lower extremity. She has a history of chronic cellulitis differential diagnosis: Cellulitis, venous stasis, less likely DVT. Clinical course Patient placed on stretcher. On telemetry monitor. After initial history and physical I ordered labs, blood cultures and IV antibiotics. Previous admission was reviewed seen by infectious disease and started on Ancef. Will give Ancef today in the ER. Labs -no leukocytosis On reevaluation: Patient in no distress Diagnosis -acute on chronic right lower extremity cellulitis Patient will be admitted to the hospital for IV antibiotics. Rhythm Strip Diag. Results Rate: 75 Rhythm: NSR, no PVC's Last Vital Signs Date Time Temp Pulse Resp B/P (MAP) Pulse Ox O2 Delivery O2 Flow Rate FiO2 //20 17:18 98.1 74 14 112/74 (87) 95 Room Air Disposition: ADMITTED INPATIENT Condition: Serious Referrals: Earle Whaley DO (PCP) Bandar Ojeda M.D. Oct 14, 2019 17:54
[2019-10-14 17:55] LABS: BASOPHILS % (AUTO) 1.2 % (0.0-2.0); EOSINOPHILS % (AUTO) 1.6 % (0.0-3.0); HEMATOCRIT 38.5 % (37.0-47.0); HEMOGLOBIN 11.7 G/DL (12.0-16.0); LYMPHOCYTES % (AUTO) 15.7 % (20.0-45.0); MEAN CORPUSCULAR VOLUME 97 FL (80-99); MONOCYTES % (AUTO) 8.1 % (1.0-10.0); NEUTROPHILS % (AUTO) 73.4 % (45.0-75.0); PLATELET COUNT 227 K/UL (150-450); RED BLOOD COUNT 3.98 M/UL (4.20-5.40); RED CELL DISTRIBUTION WIDTH 14.8 % (11.6-14.8); WHITE BLOOD COUNT 7.3 K/UL (4.8-10.8)
[2019-10-14 17:59] LABS: ANION GAP 10 mmol/L (5-15); BLOOD UREA NITROGEN 16 mg/dL (7-18); CALCIUM 9.4 MG/DL (8.5-10.1); CARBON DIOXIDE 26 MMOL/L (21-32); CHLORIDE 104 MMOL/L (98-107); CREATININE 0.8 MG/DL (0.55-1.30); POTASSIUM 4.3 MMOL/L (3.5-5.1); SODIUM 140 MMOL/L (136-145)
[2019-10-14 18:04] LABS: ALANINE AMINOTRANSFERASE 21 U/L (12-78); ALBUMIN 3.4 G/DL (3.4-5.0); ALBUMIN/GLOBULIN RATIO 0.9 (1.0-2.7); ALKALINE PHOSPHATASE 91 U/L (46-116); ASPARTATE AMINO TRANSFERASE 13 U/L (15-37); BILIRUBIN,TOTAL 0.2 MG/DL (0.2-1.0)
[2019-10-14 20:00] VITALS: BP 132/78
[2019-10-14] MEDS ORDERED: DiphenhydrAMINE 25mg Tab ORAL PRN (21:00)
[2019-10-14] MEDS ORDERED: Albuterol ud Inhalation HHN PRN (21:00)
[2019-10-14 22:16] VITALS: BP 124/68
[2019-10-15] VITALS (7 sets, daily range): BP systolic 121–146; BP diastolic 54–78
[2019-10-15] MEDS ORDERED: Pramipexole 0.5mg tab ORAL SCH (06:30)
[2019-10-15] MEDS: Enoxaparin 40mg Inj SUBQ SCH (08:23)
[2019-10-15] MEDS ORDERED: Morphine Sulfate 2mg/ml Inj(IV/IM USE ONLY) IVP PRN (09:00)
--- NOTE | 2019-10-15 10:31 | Consultation ---
History of Present Illness General Chief Complaint: Skin Rash/Abscess Present Illness Allergies: Coded Allergies: ASPIRIN (Verified Allergy, Intermediate, Rash, 09/02/19) coating MORPHINE (Verified Allergy, Unknown, 10/14/19) Uncoded Allergies: TETANUS TOXOID (Allergy, Unknown, 10/14/19) Medication History Scheduled Amlodipine Besylate* (Amlodipine Besylate*), 10 MG ORAL DAILY, (Reported) Ascorbic Acid* (Vitamin C*), 500 MG ORAL DAILY, (Reported) Atorvastatin Calcium* (Atorvastatin Calcium*), 10 MG ORAL BEDTIME, (Reported) Cephalexin* (Keflex*), 500 MG ORAL FOUR TIMES A DAY, (Reported) Clopidogrel Bisulfate* (Plavix*), 75 MG ORAL DAILY, (Reported) Cyanocobalamin (Vitamin B-12), 1,000 MCG ORAL DAILY, (Reported) Cyanocobalamin (Vitamin B-12)* (Vitamin B-12*), 1,000 MCG ORAL DAILY, (Reported) Divalproex Sodium* (Depakote*), 250 MG PO Q12HR, (Reported) Docusate Sodium (Docusate Sodium), 100 MG ORAL TWICE A DAY, (Reported) Donepezil Hcl* (Aricept*), 10 MG ORAL QHS, (Reported) Donepezil Hcl* (Aricept*), 10 MG ORAL DAILY, (Reported) Fluoxetine Hcl* (Prozac*), 20 MG ORAL DAILY, (Reported) Furosemide* (Lasix*), 20 MG ORAL DAILY, (Reported) Levothyroxine Sodium* (Synthroid*), 25 MCG ORAL DAILY, (Reported) Memantine Hcl* (Namenda*), 10 MG ORAL BID, (Reported) Pantoprazole* (Pantoprazole*), 40 MG ORAL ACBREAKFAST, (Reported) Pramipexole* (Mirapex*), 0.5 MG ORAL Q5PM, (Reported) Ropinirole Hcl* (Ropinirole Hcl*), 2 MG PO Q12HR, (Reported) Solifenacin Succinate* (Vesicare*), 5 MG ORAL DAILY, (Reported) Zinc Sulfate (Zinc Sulfate*), 220 MG ORAL DAILY, (Reported) Scheduled PRN Acetaminophen* (Acetaminophen 325MG Tablet*), 650 MG ORAL Q4H PRN for Prn Headache/Temp > 101, (Reported) Diphenhydramine Hcl* (Benadryl*), 50 MG ORAL Q6H PRN for Itching, (Reported) Zolpidem Tartrate* (Ambien*), 10 MG ORAL HS PRN for Insomnia, (Reported) Patient History Healthcare decision maker Resuscitation status Full Code Advanced Directive on File No Physical Exam Last 24 Hour Vital Signs Date Time Temp Pulse Resp B/P (MAP) Pulse Ox O2 Delivery O2 Flow Rate FiO2 10/15/19 08:00 98.6 80 18 130/62 (84) 98 10/15/19 04:00 97.4 77 20 127/54 (78) 95 10/15/19 02:19 Room Air 10/15/19 00:30 97.7 76 14 126/70 96 Room Air 10/15/19 00:30 97.7 14 126/70 96 Room Air 10/15/19 00:00 97.5 75 18 140/76 (97) 95 10/14/19 22:16 97.7 75 15 124/68 97 Room Air 10/14/19 20:00 98.4 78 14 132/78 96 Room Air 10/14/19 17:53 98.1 77 14 112/74 95 Room Air 10/14/19 17:18 98.1 74 14 112/74 (87) 95 Room Air Intake and Output 10/14/19 10/15/19 19:00 07:00 Intake Total 125 ml Balance 125 ml Intake Oral 75 ml IV Total 50 ml # Voids 3 # Bowel Movements 1 Laboratory Tests Test 10/14/19 17:40 White Blood Count 7.3 K/UL (4.8-10.8) Red Blood Count 3.98 M/UL (4.20-5.40) L Hemoglobin 11.7 G/DL (12.0-16.0) L Hematocrit 38.5 % (37.0-47.0) Mean Corpuscular Volume 97 FL (80-99) Mean Corpuscular Hemoglobin 29.5 PG (27.0-31.0) Mean Corpuscular Hemoglobin Concent 30.5 G/DL (32.0-36.0) L Red Cell Distribution Width 14.8 % (11.6-14.8) Platelet Count 227 K/UL (150-450) Mean Platelet Volume 5.9 FL (6.5-10.1) L Neutrophils (%) (Auto) 73.4 % (45.0-75.0) Lymphocytes (%) (Auto) 15.7 % (20.0-45.0) L Monocytes (%) (Auto) 8.1 % (1.0-10.0) Eosinophils (%) (Auto) 1.6 % (0.0-3.0) Basophils (%) (Auto) 1.2 % (0.0-2.0) Sodium Level 140 MMOL/L (136-145) Potassium Level 4.3 MMOL/L (3.5-5.1) Chloride Level 104 MMOL/L (98-107) Carbon Dioxide Level 26 MMOL/L (21-32) Anion Gap 10 mmol/L (5-15) Blood Urea Nitrogen 16 mg/dL (7-18) Creatinine 0.8 MG/DL (0.55-1.30) Estimat Glomerular Filtration Rate > 60 mL/min (>60) Glucose Level 99 MG/DL (74-106) Calcium Level 9.4 MG/DL (8.5-10.1) Total Bilirubin 0.2 MG/DL (0.2-1.0) Aspartate Amino Transf (AST/SGOT) 13 U/L (15-37) L Alanine Aminotransferase (ALT/SGPT) 21 U/L (12-78) Alkaline Phosphatase 91 U/L (46-116) Total Protein 7.1 G/DL (6.4-8.2) Albumin 3.4 G/DL (3.4-5.0) Globulin 3.7 g/dL Albumin/Globulin Ratio 0.9 (1.0-2.7) L Microbiology Date/Time Source Procedure Growth Status 10/14/19 18:45 Rectum Received Height (Feet): 5 Height (Inches): 6.00 Weight (Pounds): 180 Medications Current Medications Medications (Trade) Dose Ordered Sig/Jerome Route PRN Reason Start Time Stop Time Status Last Admin Dose Admin Acetaminophen (Tylenol) 650 mg Q4H PRN ORAL Mild Pain (Pain Scale 1-3) 10/15/19 10:15 11/14/19 10:14 Albuterol Sulfate (Proventil) 2.5 mg Q6HR PRN HHN Shortness of Breath 10/14/19 21:00 10/19/19 20:59 Dextrose (Dextrose 50%) 25 ml Q30M PRN IV Hypoglycemia 10/14/19 21:00 01/12/20 20:59 Dextrose (Dextrose 50%) 50 ml Q30M PRN IV Hypoglycemia 10/14/19 21:00 01/12/20 20:59 Diphenhydramine HCl (Benadryl) 25 mg Q6H PRN ORAL Itching/Pruritis 10/14/19 21:00 11/13/19 20:59 10/15/19 03:28 Enoxaparin Sodium (Lovenox) 40 mg DAILY SUBQ 10/15/19 09:00 01/13/20 08:59 10/15/19 08:23 Famotidine (Pepcid I.v.) 20 mg DAILY IVP 10/15/19 09:00 11/14/19 08:59 10/15/19 08:23 Pramipexole (Mirapex) 0.5 mg DAILY@1700 ORAL 10/15/19 17:00 11/14/19 16:59 Ropinirole HCl (Requip) 2 mg BID ORAL 10/15/19 07:00 11/14/19 06:59 10/15/19 06:47 Sodium Chloride 1,000 ml @ 75 mls/hr [id number] 10/15/19 00:45 11/14/19 00:44 10/15/19 01:07 Assessment/Plan Assessment/Plan: ematology Consultation REShannan MD: Kenyatta Whaley DOS: 10/15/2019 RFC: R LE cellulitis, swelling/ ro lymphedema Chief Complaint: Lower Extremity Injury Present Illness 89-year-old female well known to me, presents ED for evaluation of right leg swelling. Noted by nursing staff today to be red and swollen. Patient is hemiplegic. Patient denies pain. Denies fevers or chills. Denies chest pain. No other aggravating relieving factors. Denies any other associated symptoms Duplex lower ext is negative for dvt, heme was consulted for fruther evaluation and rx, has been started on abx per id Allergies: ASPIRIN (Verified Allergy, Unknown, 03/13/19) MORPHINE (Verified Allergy, Unknown, 03/13/19) TETANUS TOXOID, ADSORBED (Verified Allergy, Unknown, 03/13/19) Uncoded Allergies: CODINE FROM ASPIRIN (Allergy, Unknown, 04/02/19) TETANOTOXOIDS (Allergy, Unknown, 04/02/19) Patient History Past Medical History: COPD, GERD, other - hemiplegia Past Surgical History: cholycstectomy Pertinent Family History: none Social History: Denies: smoking, alcohol use, drug use, , 3 daughters, is a licensed psychotherapist Now: No Immunizations: UTD Reviewed Nursing Documentation: PMH: Agreed; PSxH: Agreed Nursing Documentation-PMH Hx Cardiac Problems: Yes - PNA, MUSCLE WEAKNESS, HEMIPLEGIA, HYPOTHYROIDISM, CHF Hx Hypertension: Yes - ANEMIA, HYPERLIPIDEMIA, HYPOKALEMIA Hx COPD: Yes Hx Gastrointestinal Problems: Yes - GERD ROS (review of systems): Constitutional: No fever, no chills, no night sweats, no fatigue Skin: No rashes, lumps, itchiness, dryness HEENT: No POLANCO, ear ache, visual changes, double vision, nosebleeds Breasts: No lumps, pain, discharge Pulmonary: No cough, sputum, shortness of breath, coughing up blood Cardiovascular: No chest pain, tightness, palpitations, syncope, PND GI: No nausea, vomiting, diarrhea, melena, hematochezia, change in appetite, : No dysuria, frequency, urgency, urinary incontinence, foamy urine Musculoskeletal: No joint swelling or muscle pain, trauma, back pain Neurologic: No dizziness, fainting, seizures, changes in smell or taste Psychiatric: No nervousness, stress, or depression, anxiety, hallucinations Endocrine: No weight change, heat or cold intolerance, tremor, insomnia Physical Exam: Vitals: reviewed General: NAD HEENT: nc, at Neck: supple Chest: clear breath sounds bilaterally Cardiovascular: RRR, no s3, s4 Abdomen: soft, nontender, nd Extremities: no cce, normal range of motion++ rl3 cellulitis better Neuro: alert and oriented Labs: reviewed Imaging: noted Assessment and Recs: # Anemia of chronic disease due to underlying chronic medical issues, multifactorial v Gi bleed --> Anemia workup has been ordered, rule out gi bleed --> No evidence of hemolysis is noted, peripheral smear has been reviewed. --> Hgb goal >7. Transfuse prn. --> Epogen or iron at this time is not particularly indicated --> Medications have been reviewed --> low threshold for gi evaluation in case has occult + --> hgb trend 11 # Cellulitis of right lower extremity --> duplex lower ext neg --> as per id, on abx, ceftriaxone # Azotemia --> improved on ivf # Dvt ppx lovenox Appreciate consultation and dw Brian Landin MD Oct 15, 2019 10:31
--- NOTE | 2019-10-15 10:55 | Diagnostic Imaging Report ---
Indication: Right leg pain and cellulitis Technique: Grayscale and duplex images of the bilateral lower extremity veins Comparison: 08/28/2019 unilateral right leg exam Findings: Bilaterally, grayscale and duplex images demonstrate no evidence of intraluminal thrombus. Normal phasic Doppler waveforms, demonstrating normal augmentation response and no evidence of valvular insufficiency. Greater saphenous vein(s) and tibial veins are patent. Normal compressibility. No significant interim change from the prior right leg exam Impression: Negative for evidence of lower extremity deep venous thrombosis bilaterally
[2019-10-15 11:08] LABS: BASOPHILS % (AUTO) 0.7 % (0.0-2.0); EOSINOPHILS % (AUTO) 2.7 % (0.0-3.0); HEMATOCRIT 34.9 % (37.0-47.0); HEMOGLOBIN 11.5 G/DL (12.0-16.0); LYMPHOCYTES % (AUTO) 14.4 % (20.0-45.0); MEAN CORPUSCULAR VOLUME 93 FL (80-99); MONOCYTES % (AUTO) 10.3 % (1.0-10.0); PLATELET COUNT 205 K/UL (150-450); RED BLOOD COUNT 3.77 M/UL (4.20-5.40); WHITE BLOOD COUNT 7.4 K/UL (4.8-10.8)
[2019-10-15 11:10] LABS: ANION GAP 8 mmol/L (5-15); BLOOD UREA NITROGEN 13 mg/dL (7-18); CALCIUM 9.1 MG/DL (8.5-10.1); CARBON DIOXIDE 30 MMOL/L (21-32); CHLORIDE 105 MMOL/L (98-107); CREATININE 0.7 MG/DL (0.55-1.30); POTASSIUM 3.6 MMOL/L (3.5-5.1); SODIUM 142 MMOL/L (136-145)
[2019-10-15 11:24] LABS: INR 1.1 (0.9-1.1)
--- NOTE | 2019-10-15 11:29 | History and Physical Report ---
DATE OF ADMISSION: 10/14/2019 DATE AND TIME SEEN: 10/15/2019, approximate time is 9 a.m. CONSULTANTS: 1. Song Lobato M.D. 2. Brian Dyson M.D. 3. Parth Wang M.D. 4. Thad Moore M.D. CHIEF COMPLAINT: Right lower extremity cellulitis, edema, and wound. BRIEF HISTORY: This is an 89-year-old female from [facility] with four days increased right lower extremity cellulitis and wound, came up to mid castillo. Skin became swollen and the patient came to [facility], diagnosed as above, admitted to medical floor. Currently, calm in bed. Complaining 9/10 right ankle pain and otherwise no chest pain, no shortness of breath. No nausea, vomiting, or diarrhea. PAST MEDICAL HISTORY: Hypertension, obesity, COPD, neuropathy, Alzheimer's, CVA, GERD. PAST SURGICAL HISTORY: Right ankle. MEDICATIONS: Include , enoxaparin, famotidine, , albuterol, diphenhydramine, cefazolin. ALLERGIES: Morphine. SOCIAL HISTORY: No smoking. No alcohol. No intravenous drug abuse. FAMILY HISTORY: Noncontributory. PHYSICAL EXAMINATION: GENERAL: Calm in bed, oriented x2, in no acute distress. VITAL SIGNS: Temperature is 98 degrees, pulse 80, respirations 18, and blood pressure 130/62. CARDIOVASCULAR: No murmur. LUNGS: Distant and clear. ABDOMEN: Positive bowel sounds. Soft, nontender, nondistended. EXTREMITIES: No cyanosis, clubbing. A 1 to 2+ edema right lower extremity and swelling and redness up to mid castillo. NEUROLOGIC: The patient moves all extremities, slightly weak. LABORATORY DATA: Labs at this time show hematocrit and hematocrit 11/38, platelets 227,000. BMP shows AST 13, otherwise BMP is normal. ASSESSMENT: 1. Right lower extremity cellulitis, edema, wound. 2. Hypertension. 3. Obesity. 4. COPD. 5. Alzheimer's. 6. CVA. 7. GERD. 8. Neuropathy. PLAN: 1. Wound care. 2. Antibiotics per Infectious Disease. 3. Blood pressure and pain control. 4. Dietary followup. 5. Resume home medications. 6. CBC and BMP in the morning. Earle Whaley D.O. DR: MAXIMINO JOB#: [id number] CC:
--- NOTE | 2019-10-15 15:31 | Consultation ---
Consult Note Consult Note HPI: 89yo woman with PMH below presents from [facility] with RLE pain. Pt states that she had this episode a few weeks and received antibiotics. With antibiotics, her pain/redness resolved. Now presents with 3 days of RLE erythema and pain. Pt states her legs are swollen at baseline but the swellnig is slightly worse. Denies fever, chills, night sweats, cough, sob, sore throat, congestion, chest pain, diarrhea, dysuria. Pt is not aware of any sick people at her long-term. ROS: per above PMH: COPD CVA CHF HTN Dyslipidemia GERd Parkinson alzheimer's Hypothyroidism Anemia FHx: noncontributory SHx: long-term resident Meds: reviewed NKDA VS: reviewed Gen: NAD. well nourished. well hydrated HEENT: anicteric sclera. MMM. CV: RRR. S1+S2. No thrill Resp: RRR. no wheezes or crackles. unlabored. equal chest rise Abd: soft. no TTP. no rebound. no guarding. Ext: b/l chronic venous stasis changes. tenderness/warmth/erythema RLE. LLE slight erythema Neuro: AAO. follows commands. answers questios appropriately. Psych: nonlabile. no hallucinations. Labs: reviewed Imaging: reviewed Assessment: Afebrile No leukocytosis B/L cellulitis R worse than L US: no DVT COVID case at pt's long-term COPD CVA CHF HTN Dyslipidemia GERd Parkinson alzheimer's Hypothyroidism Anemia Plan: Ancef #1 f/u Bcx f/u MRSA screen obtain COVID swab isolation precaution monitor temp and CBC DW RN Thank you for this consult. [facility] will continue to follow the patient with you. Malika Donovan MD Oct 15, 2019 15:31
--- NOTE | 2019-10-15 16:04 | Consultation ---
History of Present Illness General Date patient seen: Oct 15, 2019 Present Illness Allergies: Coded Allergies: ASPIRIN (Verified Allergy, Intermediate, Rash, 09/02/19) coating MORPHINE (Verified Allergy, Unknown, 10/14/19) Uncoded Allergies: TETANUS TOXOID (Allergy, Unknown, 10/14/19) Medication History Scheduled Amlodipine Besylate* (Amlodipine Besylate*), 10 MG ORAL DAILY, (Reported) Ascorbic Acid* (Vitamin C*), 500 MG ORAL DAILY, (Reported) Atorvastatin Calcium* (Atorvastatin Calcium*), 10 MG ORAL BEDTIME, (Reported) Cephalexin* (Keflex*), 500 MG ORAL FOUR TIMES A DAY, (Reported) Clopidogrel Bisulfate* (Plavix*), 75 MG ORAL DAILY, (Reported) Cyanocobalamin (Vitamin B-12), 1,000 MCG ORAL DAILY, (Reported) Cyanocobalamin (Vitamin B-12)* (Vitamin B-12*), 1,000 MCG ORAL DAILY, (Reported) Divalproex Sodium* (Depakote*), 250 MG PO Q12HR, (Reported) Docusate Sodium (Docusate Sodium), 100 MG ORAL TWICE A DAY, (Reported) Donepezil Hcl* (Aricept*), 10 MG ORAL QHS, (Reported) Donepezil Hcl* (Aricept*), 10 MG ORAL DAILY, (Reported) Fluoxetine Hcl* (Prozac*), 20 MG ORAL DAILY, (Reported) Furosemide* (Lasix*), 20 MG ORAL DAILY, (Reported) Levothyroxine Sodium* (Synthroid*), 25 MCG ORAL DAILY, (Reported) Memantine Hcl* (Namenda*), 10 MG ORAL BID, (Reported) Pantoprazole* (Pantoprazole*), 40 MG ORAL ACBREAKFAST, (Reported) Pramipexole* (Mirapex*), 0.5 MG ORAL Q5PM, (Reported) Ropinirole Hcl* (Ropinirole Hcl*), 2 MG PO Q12HR, (Reported) Solifenacin Succinate* (Vesicare*), 5 MG ORAL DAILY, (Reported) Zinc Sulfate (Zinc Sulfate*), 220 MG ORAL DAILY, (Reported) Scheduled PRN Acetaminophen* (Acetaminophen 325MG Tablet*), 650 MG ORAL Q4H PRN for Prn Headache/Temp > 101, (Reported) Diphenhydramine Hcl* (Benadryl*), 50 MG ORAL Q6H PRN for Itching, (Reported) Zolpidem Tartrate* (Ambien*), 10 MG ORAL HS PRN for Insomnia, (Reported) Patient History Healthcare decision maker Resuscitation status Full Code Advanced Directive on File No Physical Exam Last 24 Hour Vital Signs Date Time Temp Pulse Resp B/P (MAP) Pulse Ox O2 Delivery O2 Flow Rate FiO2 10/15/19 15:01 98.4 10/15/19 12:00 98.4 73 18 146/78 (100) 99 10/15/19 09:00 Room Air 10/15/19 08:00 98.6 80 18 130/62 (84) 98 10/15/19 04:00 97.4 77 20 127/54 (78) 95 10/15/19 02:19 Room Air 10/15/19 00:30 97.7 76 14 126/70 96 Room Air 10/15/19 00:30 97.7 14 126/70 96 Room Air 10/15/19 00:00 97.5 75 18 140/76 (97) 95 10/14/19 22:16 97.7 75 15 124/68 97 Room Air 10/14/19 20:00 98.4 78 14 132/78 96 Room Air 10/14/19 17:53 98.1 77 14 112/74 95 Room Air 10/14/19 17:18 98.1 74 14 112/74 (87) 95 Room Air Intake and Output 10/14/19 10/15/19 19:00 07:00 Intake Total 200 ml Balance 200 ml Intake Oral 75 ml IV Total 125 ml # Voids 3 # Bowel Movements 1 Laboratory Tests Test 10/14/19 17:40 10/15/19 09:40 White Blood Count 7.3 K/UL (4.8-10.8) 7.4 K/UL (4.8-10.8) Red Blood Count 3.98 M/UL (4.20-5.40) L 3.77 M/UL (4.20-5.40) L Hemoglobin 11.7 G/DL (12.0-16.0) L 11.5 G/DL (12.0-16.0) L Hematocrit 38.5 % (37.0-47.0) 34.9 % (37.0-47.0) L Mean Corpuscular Volume 97 FL (80-99) 93 FL (80-99) Mean Corpuscular Hemoglobin 29.5 PG (27.0-31.0) 30.5 PG (27.0-31.0) Mean Corpuscular Hemoglobin Concent 30.5 G/DL (32.0-36.0) L 32.8 G/DL (32.0-36.0) Red Cell Distribution Width 14.8 % (11.6-14.8) 14.0 % (11.6-14.8) Platelet Count 227 K/UL (150-450) 205 K/UL (150-450) Mean Platelet Volume 5.9 FL (6.5-10.1) L 5.3 FL (6.5-10.1) L Neutrophils (%) (Auto) 73.4 % (45.0-75.0) 72.0 % (45.0-75.0) Lymphocytes (%) (Auto) 15.7 % (20.0-45.0) L 14.4 % (20.0-45.0) L Monocytes (%) (Auto) 8.1 % (1.0-10.0) 10.3 % (1.0-10.0) H Eosinophils (%) (Auto) 1.6 % (0.0-3.0) 2.7 % (0.0-3.0) Basophils (%) (Auto) 1.2 % (0.0-2.0) 0.7 % (0.0-2.0) Sodium Level 140 MMOL/L (136-145) 142 MMOL/L (136-145) Potassium Level 4.3 MMOL/L (3.5-5.1) 3.6 MMOL/L (3.5-5.1) Chloride Level 104 MMOL/L (98-107) 105 MMOL/L (98-107) Carbon Dioxide Level 26 MMOL/L (21-32) 30 MMOL/L (21-32) Anion Gap 10 mmol/L (5-15) 8 mmol/L (5-15) Blood Urea Nitrogen 16 mg/dL (7-18) 13 mg/dL (7-18) Creatinine 0.8 MG/DL (0.55-1.30) 0.7 MG/DL (0.55-1.30) Estimat Glomerular Filtration Rate > 60 mL/min (>60) > 60 mL/min (>60) Glucose Level 99 MG/DL (74-106) 85 MG/DL (74-106) Calcium Level 9.4 MG/DL (8.5-10.1) 9.1 MG/DL (8.5-10.1) Total Bilirubin 0.2 MG/DL (0.2-1.0) Aspartate Amino Transf (AST/SGOT) 13 U/L (15-37) L Alanine Aminotransferase (ALT/SGPT) 21 U/L (12-78) Alkaline Phosphatase 91 U/L (46-116) Total Protein 7.1 G/DL (6.4-8.2) Albumin 3.4 G/DL (3.4-5.0) Globulin 3.7 g/dL Albumin/Globulin Ratio 0.9 (1.0-2.7) L Prothrombin Time 11.4 SEC (9.30-11.50) Prothromb Time International Ratio 1.1 (0.9-1.1) Microbiology Date/Time Source Procedure Growth Status 10/14/19 18:45 Rectum Received Height (Feet): 5 Height (Inches): 6.00 Weight (Pounds): 180 Medications Current Medications Medications (Trade) Dose Ordered Sig/Jerome Route PRN Reason Start Time Stop Time Status Last Admin Dose Admin Acetaminophen (Tylenol) 650 mg Q4H PRN ORAL Mild Pain (Pain Scale 1-3) 10/15/19 10:15 11/14/19 10:14 10/15/19 14:31 Albuterol Sulfate (Proventil) 2.5 mg Q6HR PRN HHN Shortness of Breath 10/14/19 21:00 10/19/19 20:59 Dextrose (Dextrose 50%) 25 ml Q30M PRN IV Hypoglycemia 10/14/19 21:00 01/12/20 20:59 Dextrose (Dextrose 50%) 50 ml Q30M PRN IV Hypoglycemia 10/14/19 21:00 01/12/20 20:59 Diphenhydramine HCl (Benadryl) 25 mg Q6H PRN ORAL Itching/Pruritis 10/14/19 21:00 11/13/19 20:59 10/15/19 03:28 Enoxaparin Sodium (Lovenox) 40 mg DAILY SUBQ 10/15/19 09:00 01/13/20 08:59 10/15/19 08:23 Famotidine (Pepcid I.v.) 20 mg DAILY IVP 10/15/19 09:00 11/14/19 08:59 10/15/19 08:23 Pramipexole (Mirapex) 0.5 mg DAILY@1700 ORAL 10/15/19 17:00 11/14/19 16:59 Ropinirole HCl (Requip) 2 mg BID ORAL 10/15/19 07:00 11/14/19 06:59 10/15/19 06:47 Sodium Chloride 1,000 ml @ 75 mls/hr [id number] IVLG 10/15/19 00:45 11/14/19 00:44 10/15/19 14:30 Assessment/Plan Assessment/Plan: (1) Right LE pain (2) Cellulitis seen dictated Kwesi Betancourt Oct 15, 2019 16:04
--- NOTE | 2019-10-15 16:45 | Consultation ---
DATE OF CONSULTATION: 10/15/2019 PAIN MANAGEMENT CONSULTATION CONSULTING PHYSICIAN: Shelly Duque M.D. REFERRING PHYSICIAN: Earle Whaley D.O. PHYSICIAN CIGAR ROLLER: Chepe Bronson CHIEF COMPLAINT: Right lower extremity pain HISTORY OF PRESENT ILLNESS: This is an 89-year-old female who is being seen on the medical/surgical floor of [facility] for initial pain management consultation. The patient was admitted under the care of Dr. Whaley due to right lower extremity pain, found to have cellulitis and was started on antibiotics as per the Infectious diseases doctor due to cellulitis, has been having complaints of pain, taking Tylenol in the nursing facility, was started on morphine 2 mg IV every 4 hours as needed which the patient is allergic to and this was discontinued which was started by the aerotriangulation specialist. At this time, we were consulted so the patient would have adequate pain control while here in the hospital. PAST MEDICAL HISTORY: Hypertension, obesity, COPD, neuropathy, Alzheimer's, CVA, GERD. PAST SURGICAL HISTORY: Ankle surgery. SOCIAL HISTORY: Denies smoking tobacco, drinking alcohol, or IV drug abuse. ALLERGIES: Morphine, aspirin, tetanus toxoid. REVIEW OF SYSTEMS: Denies rash, fever, chills, sweating, dizziness, drowsiness, blurred vision, no chest pain. No nausea, vomiting, diarrhea, or blood in stool or urine. No dysuria. PHYSICAL EXAMINATION: GENERAL: Alert, awake, and oriented. VITAL SIGNS: Blood pressure 146/78, heart rate 72, oxygen saturation 99%, respiratory rate 18, temperature 98.4 degrees Fahrenheit. HEENT: PERRLA. NECK: Range of motion is full in all directions. No tenderness to paracervical muscles. No adenopathy. LUNGS: Decreased breath sounds bilaterally. HEART: Regular. ABDOMEN: Obese. BACK: Range of motion is decreased in flexion and extension. EXTREMITIES: Upper extremity range of motion is decreased due to the patient's condition. No cyanosis. No clubbing. No edema. Sensory is intact. Reflexes are not obtainable. No adenopathy. Right lower extremity redness noted. Tenderness to palpation with edema seen. ASSESSMENT AND PLAN: This is a 89-year-old female with right lower extremity pain and cellulitis. The patient will be continued on Tylenol as needed. The patient was discussed with Dr. Duque and Dr. Duque concurred. We will follow up with the patient. Thank you very much for the courtesy of this consultation. Shelly Duque M.D. ALEM Bronson DR: Ruddy JOB#: [id number] CC: MAXIM
[2019-10-15] MEDS: Pramipexole 0.5mg tab ORAL SCH (17:24)
[2019-10-15] MEDS: ceFAZolin sod 1 GM in D5W 55 ML IVPB SCH (20:16)
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
[2019-10-16 04:00] VITALS: BP 146/79
[2019-10-16] MEDS: ceFAZolin sod 1 GM in D5W 55 ML IVPB SCH ×3 (05:11→21:28)
[2019-10-16 08:00] VITALS: BP 135/69
[2019-10-16] MEDS: Enoxaparin 40mg Inj SUBQ SCH (09:17)
[2019-10-16 12:00] VITALS: BP 152/75
--- NOTE | 2019-10-16 12:26 | General Progress Note ---
Assessment/Plan Problem List: (1) COPD (chronic obstructive pulmonary disease) ICD Codes: J44.9 - Chronic obstructive pulmonary disease, unspecified SNOMED: 74863509 (2) Alzheimer disease ICD Codes: G30.9 - Alzheimer's disease, unspecified; F02.80 - Dementia in other diseases classified elsewhere without behavioral disturbance SNOMED: 05713428 (3) Weak ICD Codes: R53.1 - Weakness SNOMED: 11796429 (4) GERD (gastroesophageal reflux disease) ICD Codes: K21.9 - Gastro-esophageal reflux disease without esophagitis SNOMED: 104198766 (5) HTN (hypertension) ICD Codes: I10 - Essential (primary) hypertension SNOMED: 87157518 (6) CVA (cerebral vascular accident) ICD Codes: I63.9 - Cerebral infarction, unspecified SNOMED: 871157382 (7) Cellulitis of right lower extremity ICD Codes: L03.115 - Cellulitis of right lower limb SNOMED: 073109335 Status: unchanged Assessment/Plan: wound care abx pain control cbc bmp am Subjective Constitutional: Reports: weakness Allergies: Coded Allergies: ASPIRIN (Verified Allergy, Intermediate, Rash, 09/02/19) coating MORPHINE (Verified Allergy, Unknown, 10/14/19) Uncoded Allergies: TETANUS TOXOID (Allergy, Unknown, 10/14/19) All Systems: reviewed and negative except above Subjective sleepy calm Objective Last 24 Hour Vital Signs Date Time Temp Pulse Resp B/P (MAP) Pulse Ox O2 Delivery O2 Flow Rate FiO2 10/16/19 09:00 Room Air 10/16/19 09:00 Room Air 10/16/19 09:00 Room Air 10/16/19 08:00 96.3 74 18 135/69 (91) 95 10/16/19 04:00 97.9 70 18 146/79 (101) 92 10/15/19 20:53 Room Air 10/15/19 20:38 97.0 73 18 121/62 (81) 95 10/15/19 16:00 98.6 76 19 142/76 (98) 98 10/15/19 15:01 98.4 Intake and Output 10/15/19 10/16/19 19:00 07:00 Intake Total 1695 ml 1610 ml Balance 1695 ml 1610 ml Intake Oral 200 ml 640 ml IV Total 1495 ml 970 ml # Voids 4 4 # Bowel Movements 1 Height (Feet): 5 Height (Inches): 6.00 Weight (Pounds): 180 General Appearance: lethargic EENT: normal ENT inspection Neck: normal alignment Cardiovascular: normal rate, regular rhythm Respiratory/Chest: no respiratory distress Extremities: normal inspection Skin: normal pigmentation Earle Whaley DO Oct 16, 2019 12:26
--- NOTE | 2019-10-16 13:03 | Consultation ---
History of Present Illness General Date patient seen: Oct 16, 2019 Reason for Hospitalization: Skin Rash/Abscess Present Illness HPI 89-year-old female with multiple medical comorbidities who is a senior living resident presented to [facility] [place] [facility] for evaluation of right leg swelling. Noted by nursing staff at facility to be red and swollen. Patient is hemiplegic. Patient denies pain. Denies fevers or chills. Denies chest pain. No other aggravating relieving factors. Denies any other associated symptoms Duplex lower ext is negative for dvt, Surgery was consulted to evaluate and assist with care. patient seen, chart reviewed, patient examined. patient has been started on abx per id Allergies: Coded Allergies: ASPIRIN (Verified Allergy, Intermediate, Rash, 09/02/19) coating MORPHINE (Verified Allergy, Unknown, 10/14/19) Uncoded Allergies: TETANUS TOXOID (Allergy, Unknown, 10/14/19) COVID-19 Screening Contact w/high risk pt: No Recent Travel to affected area: No Experienced COVID-19 symptoms?: No Medication History Scheduled Amlodipine Besylate* (Amlodipine Besylate*), 10 MG ORAL DAILY, (Reported) Ascorbic Acid* (Vitamin C*), 500 MG ORAL DAILY, (Reported) Atorvastatin Calcium* (Atorvastatin Calcium*), 10 MG ORAL BEDTIME, (Reported) Cephalexin* (Keflex*), 500 MG ORAL FOUR TIMES A DAY, (Reported) Clopidogrel Bisulfate* (Plavix*), 75 MG ORAL DAILY, (Reported) Cyanocobalamin (Vitamin B-12), 1,000 MCG ORAL DAILY, (Reported) Cyanocobalamin (Vitamin B-12)* (Vitamin B-12*), 1,000 MCG ORAL DAILY, (Reported) Divalproex Sodium* (Depakote*), 250 MG PO Q12HR, (Reported) Docusate Sodium (Docusate Sodium), 100 MG ORAL TWICE A DAY, (Reported) Donepezil Hcl* (Aricept*), 10 MG ORAL QHS, (Reported) Donepezil Hcl* (Aricept*), 10 MG ORAL DAILY, (Reported) Fluoxetine Hcl* (Prozac*), 20 MG ORAL DAILY, (Reported) Furosemide* (Lasix*), 20 MG ORAL DAILY, (Reported) Levothyroxine Sodium* (Synthroid*), 25 MCG ORAL DAILY, (Reported) Memantine Hcl* (Namenda*), 10 MG ORAL BID, (Reported) Pantoprazole* (Pantoprazole*), 40 MG ORAL ACBREAKFAST, (Reported) Pramipexole* (Mirapex*), 0.5 MG ORAL Q5PM, (Reported) Ropinirole Hcl* (Ropinirole Hcl*), 2 MG PO Q12HR, (Reported) Solifenacin Succinate* (Vesicare*), 5 MG ORAL DAILY, (Reported) Zinc Sulfate (Zinc Sulfate*), 220 MG ORAL DAILY, (Reported) Scheduled PRN Acetaminophen* (Acetaminophen 325MG Tablet*), 650 MG ORAL Q4H PRN for Prn Headache/Temp > 101, (Reported) Diphenhydramine Hcl* (Benadryl*), 50 MG ORAL Q6H PRN for Itching, (Reported) Zolpidem Tartrate* (Ambien*), 10 MG ORAL HS PRN for Insomnia, (Reported) Patient History Limited by: medical condition History Provided By: Medical Record, PMD Healthcare decision maker Resuscitation status Full Code Advanced Directive on File No Past Medical/Surgical History Past Medical/Surgical History: (1) Parkinson disease (2) COPD (chronic obstructive pulmonary disease) (3) Alzheimer disease (4) Weak (5) GERD (gastroesophageal reflux disease) (6) HTN (hypertension) (7) CVA (cerebral vascular accident) (8) Cellulitis of right lower extremity Review of Systems Review of Symptoms General ROS: no weight loss or fever Psychological ROS: no depression or mood changes, no memory loss Ophthalmic ROS: no visual changes or eye irritation ENT ROS: no nasal congestion, hearing loss, dizziness Allergy and Immunology ROS: no allergic symptoms or urticaria Hematological and Lymphatic ROS: no swollen glands, unusual bleeding or bruising Endocrine ROS: no polyuria, polydipsia, weight changes, temperature intolerance Respiratory ROS: no cough, shortness of breath, or wheezing Cardiovascular ROS: no chest pain or dyspnea on exertion Gastrointestinal ROS: denies abdominal pain, bright red blood in stool. Musculoskeletal ROS: no myalgias or arthralgias Neurological ROS: no TIA or stroke symptoms Dermatological ROS: no new or changing skin lesions, rashes or pruritis Physical Exam Physical Exam General appearance: alert, cooperative, no distress, appears stated age Head: Normocephalic, without obvious abnormality, atraumatic Eyes: conjunctivae/corneas clear. PERRL, EOM's intact. Fundi benign Throat: Lips, mucosa, and tongue normal. Teeth and gums normal Neck: supple, symmetrical, trachea midline, no adenopathy, thyroid: not enlarged, symmetric, no tenderness/mass/nodules, no carotid bruit and no JVD Lungs: clear to auscultation bilaterally Heart: regular rate and rhythm, S1, S2 normal, no murmur, click, rub or gallop Abdomen: soft, non-tender. Bowel sounds normal. No masses, no organomegaly Extremities: extremities right edema no abscess Pulses: 2+ and symmetric Skin: Skin color, texture, turgor normal. No rashes or lesions Neurologic: Grossly normal Last 24 Hour Vital Signs Date Time Temp Pulse Resp B/P (MAP) Pulse Ox O2 Delivery O2 Flow Rate FiO2 10/16/19 09:00 Room Air 10/16/19 09:00 Room Air 10/16/19 09:00 Room Air 10/16/19 08:00 96.3 74 18 135/69 (91) 95 10/16/19 04:00 97.9 70 18 146/79 (101) 92 10/15/19 20:53 Room Air 10/15/19 20:38 97.0 73 18 121/62 (81) 95 10/15/19 16:00 98.6 76 19 142/76 (98) 98 10/15/19 15:01 98.4 Intake and Output 10/15/19 10/16/19 19:00 07:00 Intake Total 1695 ml 1610 ml Balance 1695 ml 1610 ml Intake Oral 200 ml 640 ml IV Total 1495 ml 970 ml # Voids 4 4 # Bowel Movements 1 Height (Feet): 5 Height (Inches): 6.00 Weight (Pounds): 180 Medications Current Medications Medications (Trade) Dose Ordered Sig/Jerome Route PRN Reason Start Time Stop Time Status Last Admin Dose Admin Acetaminophen (Tylenol) 650 mg Q4H PRN ORAL Mild Pain (Pain Scale 1-3) 10/15/19 10:15 11/14/19 10:14 10/15/19 14:31 Albuterol Sulfate (Proventil) 2.5 mg Q6HR PRN HHN Shortness of Breath 10/14/19 21:00 10/19/19 20:59 Cefazolin Sodium 1 gm/Dextrose 55 ml @ 110 mls/hr Q8HR IVPB 10/15/19 19:30 10/22/19 19:29 10/16/19 05:11 Dextrose (Dextrose 50%) 25 ml Q30M PRN IV Hypoglycemia 10/14/19 21:00 01/12/20 20:59 Dextrose (Dextrose 50%) 50 ml Q30M PRN IV Hypoglycemia 10/14/19 21:00 01/12/20 20:59 Diphenhydramine HCl (Benadryl) 25 mg Q6H PRN ORAL Itching/Pruritis 10/14/19 21:00 11/13/19 20:59 10/15/19 03:28 Enoxaparin Sodium (Lovenox) 40 mg DAILY SUBQ 10/15/19 09:00 01/13/20 08:59 10/16/19 09:17 Famotidine (Pepcid I.v.) 20 mg DAILY IVP 10/15/19 09:00 11/14/19 08:59 10/16/19 09:09 Pramipexole (Mirapex) 0.5 mg DAILY@1700 ORAL 10/15/19 17:00 11/14/19 16:59 10/15/19 17:24 Ropinirole HCl (Requip) 2 mg BID ORAL 10/15/19 07:00 11/14/19 06:59 10/16/19 09:09 Sodium Chloride 1,000 ml @ 75 mls/hr [id number] IVLG 10/15/19 00:45 11/14/19 00:44 10/16/19 01:33 Assessment/Plan Problem List: (1) Parkinson disease ICD Codes: G20 - Parkinson's disease SNOMED: 40940558 (2) COPD (chronic obstructive pulmonary disease) ICD Codes: J44.9 - Chronic obstructive pulmonary disease, unspecified SNOMED: 66942183 (3) Alzheimer disease ICD Codes: G30.9 - Alzheimer's disease, unspecified; F02.80 - Dementia in other diseases classified elsewhere without behavioral disturbance SNOMED: 55975680 (4) Weak ICD Codes: R53.1 - Weakness SNOMED: 28916912 (5) GERD (gastroesophageal reflux disease) ICD Codes: K21.9 - Gastro-esophageal reflux disease without esophagitis SNOMED: 113507115 (6) HTN (hypertension) ICD Codes: I10 - Essential (primary) hypertension SNOMED: 10296455 (7) CVA (cerebral vascular accident) ICD Codes: I63.9 - Cerebral infarction, unspecified SNOMED: 727934000 (8) Cellulitis of right lower extremity Assessment & Plan: venous duplex negative Findings: Bilaterally, grayscale and duplex images demonstrate no evidence of intraluminal thrombus. Normal phasic Doppler waveforms, demonstrating normal augmentation response and no evidence of valvular insufficiency. Greater saphenous vein(s) and tibial veins are patent. Normal compressibility. No significant interim change from the prior right leg exam Impression: Negative for evidence of lower extremity deep venous thrombosis bilaterally no abscess on exam cellulitis but no fluctuance b/l edema needs to keep elevated anfec iv as per ID, agree covid testing trend labs keep leg elevated will follow with recs than you ICD Codes: L03.115 - Cellulitis of right lower limb SNOMED: 374287138 Thad Moore Oct 16, 2019 13:02
--- NOTE | 2019-10-16 13:41 | Hematology/Onc Progress Note ---
Assessment/Plan Assessment/Plan Assessment and Recs: # Anemia of chronic disease due to underlying chronic medical issues, multifactorial v Gi bleed --> Anemia workup has been ordered, rule out gi bleed - results pending --> No evidence of hemolysis is noted, peripheral smear has been reviewed. --> Hgb goal >7. Transfuse prn. --> Epogen or iron at this time is not particularly indicated --> Medications have been reviewed --> low threshold for gi evaluation in case has occult + --> hgb trend 11 # Cellulitis of right lower extremity --> duplex lower ext neg --> as per id, on abx, ceftriaxone # Azotemia --> improved on ivf # Dvt ppx lovenox Appreciate consultation and carlos Rn Subjective Allergies: Coded Allergies: ASPIRIN (Verified Allergy, Intermediate, Rash, 09/02/19) coating MORPHINE (Verified Allergy, Unknown, 10/14/19) Uncoded Allergies: TETANUS TOXOID (Allergy, Unknown, 10/14/19) Subjective 10/15 awake, on room air, flor duplex negative, on cefazolin Objective Objective Current Medications Medications (Trade) Dose Ordered Sig/Jerome Route PRN Reason Start Time Stop Time Status Last Admin Dose Admin Acetaminophen (Tylenol) 650 mg Q4H PRN ORAL Mild Pain (Pain Scale 1-3) 10/15/19 10:15 11/14/19 10:14 10/15/19 14:31 Albuterol Sulfate (Proventil) 2.5 mg Q6HR PRN HHN Shortness of Breath 10/14/19 21:00 10/19/19 20:59 Cefazolin Sodium 1 gm/Dextrose 55 ml @ 110 mls/hr Q8HR IVPB 10/15/19 19:30 10/22/19 19:29 10/16/19 13:25 Dextrose (Dextrose 50%) 25 ml Q30M PRN IV Hypoglycemia 10/14/19 21:00 01/12/20 20:59 Dextrose (Dextrose 50%) 50 ml Q30M PRN IV Hypoglycemia 10/14/19 21:00 01/12/20 20:59 Diphenhydramine HCl (Benadryl) 25 mg Q6H PRN ORAL Itching/Pruritis 10/14/19 21:00 11/13/19 20:59 10/15/19 03:28 Enoxaparin Sodium (Lovenox) 40 mg DAILY SUBQ 10/15/19 09:00 01/13/20 08:59 10/16/19 09:17 Famotidine (Pepcid I.v.) 20 mg DAILY IVP 10/15/19 09:00 11/14/19 08:59 10/16/19 09:09 Pramipexole (Mirapex) 0.5 mg DAILY@1700 ORAL 10/15/19 17:00 11/14/19 16:59 10/15/19 17:24 Ropinirole HCl (Requip) 2 mg BID ORAL 10/15/19 07:00 11/14/19 06:59 10/16/19 09:09 Sodium Chloride 1,000 ml @ 75 mls/hr [id number] IVLG 10/15/19 00:45 11/14/19 00:44 10/16/19 01:33 Last 24 Hour Vital Signs Date Time Temp Pulse Resp B/P (MAP) Pulse Ox O2 Delivery O2 Flow Rate FiO2 10/16/19 12:00 97.7 79 18 152/75 (100) 93 10/16/19 09:00 Room Air 10/16/19 09:00 Room Air 10/16/19 09:00 Room Air 10/16/19 08:00 96.3 74 18 135/69 (91) 95 10/16/19 04:00 97.9 70 18 146/79 (101) 92 10/15/19 20:53 Room Air 10/15/19 20:38 97.0 73 18 121/62 (81) 95 10/15/19 16:00 98.6 76 19 142/76 (98) 98 10/15/19 15:01 98.4 10/15/19 12:00 98.4 73 18 146/78 (100) 99 10/15/19 09:00 Room Air 10/15/19 08:00 98.6 80 18 130/62 (84) 98 10/15/19 04:00 97.4 77 20 127/54 (78) 95 10/15/19 02:19 Room Air 10/15/19 00:30 97.7 76 14 126/70 96 Room Air 10/15/19 00:30 97.7 14 126/70 96 Room Air 10/15/19 00:00 97.5 75 18 140/76 (97) 95 10/14/19 22:16 97.7 75 15 124/68 97 Room Air 10/14/19 20:00 98.4 78 14 132/78 96 Room Air 10/14/19 17:53 98.1 77 14 112/74 95 Room Air 10/14/19 17:18 98.1 74 14 112/74 (87) 95 Room Air Intake and Output 10/15/19 10/16/19 19:00 07:00 Intake Total 1695 ml 1610 ml Balance 1695 ml 1610 ml Intake Oral 200 ml 640 ml IV Total 1495 ml 970 ml # Voids 4 4 # Bowel Movements 1 Labs Test 10/14/19 17:40 10/15/19 09:40 White Blood Count 7.3 K/UL (4.8-10.8) 7.4 K/UL (4.8-10.8) Red Blood Count 3.98 M/UL (4.20-5.40) 3.77 M/UL (4.20-5.40) Hemoglobin 11.7 G/DL (12.0-16.0) 11.5 G/DL (12.0-16.0) Hematocrit 38.5 % (37.0-47.0) 34.9 % (37.0-47.0) Mean Corpuscular Volume 97 FL (80-99) 93 FL (80-99) Mean Corpuscular Hemoglobin 29.5 PG (27.0-31.0) 30.5 PG (27.0-31.0) Mean Corpuscular Hemoglobin Concent 30.5 G/DL (32.0-36.0) 32.8 G/DL (32.0-36.0) Red Cell Distribution Width 14.8 % (11.6-14.8) 14.0 % (11.6-14.8) Platelet Count 227 K/UL (150-450) 205 K/UL (150-450) Mean Platelet Volume 5.9 FL (6.5-10.1) 5.3 FL (6.5-10.1) Neutrophils (%) (Auto) 73.4 % (45.0-75.0) 72.0 % (45.0-75.0) Lymphocytes (%) (Auto) 15.7 % (20.0-45.0) 14.4 % (20.0-45.0) Monocytes (%) (Auto) 8.1 % (1.0-10.0) 10.3 % (1.0-10.0) Eosinophils (%) (Auto) 1.6 % (0.0-3.0) 2.7 % (0.0-3.0) Basophils (%) (Auto) 1.2 % (0.0-2.0) 0.7 % (0.0-2.0) Sodium Level 140 MMOL/L (136-145) 142 MMOL/L (136-145) Potassium Level 4.3 MMOL/L (3.5-5.1) 3.6 MMOL/L (3.5-5.1) Chloride Level 104 MMOL/L (98-107) 105 MMOL/L (98-107) Carbon Dioxide Level 26 MMOL/L (21-32) 30 MMOL/L (21-32) Anion Gap 10 mmol/L (5-15) 8 mmol/L (5-15) Blood Urea Nitrogen 16 mg/dL (7-18) 13 mg/dL (7-18) Creatinine 0.8 MG/DL (0.55-1.30) 0.7 MG/DL (0.55-1.30) Estimat Glomerular Filtration Rate > 60 mL/min (>60) > 60 mL/min (>60) Glucose Level 99 MG/DL (74-106) 85 MG/DL (74-106) Calcium Level 9.4 MG/DL (8.5-10.1) 9.1 MG/DL (8.5-10.1) Total Bilirubin 0.2 MG/DL (0.2-1.0) Aspartate Amino Transf (AST/SGOT) 13 U/L (15-37) Alanine Aminotransferase (ALT/SGPT) 21 U/L (12-78) Alkaline Phosphatase 91 U/L (46-116) Total Protein 7.1 G/DL (6.4-8.2) Albumin 3.4 G/DL (3.4-5.0) Globulin 3.7 g/dL Albumin/Globulin Ratio 0.9 (1.0-2.7) Prothrombin Time 11.4 SEC (9.30-11.50) Prothromb Time International Ratio 1.1 (0.9-1.1) Height (Feet): 5 Height (Inches): 6.00 Weight (Pounds): 180 Objective ROS (review of systems): Constitutional: No fever, no chills, no night sweats, no fatigue Skin: No rashes, lumps, itchiness, dryness HEENT: No [place], ear ache, visual changes, double vision, nosebleeds Breasts: No lumps, pain, discharge Pulmonary: No cough, sputum, shortness of breath, coughing up blood Cardiovascular: No chest pain, tightness, palpitations, syncope, PND GI: No nausea, vomiting, diarrhea, melena, hematochezia, change in appetite, : No dysuria, frequency, urgency, urinary incontinence, foamy urine Musculoskeletal: No joint swelling or muscle pain, trauma, back pain Neurologic: No dizziness, fainting, seizures, changes in smell or taste Psychiatric: No nervousness, stress, or depression, anxiety, hallucinations Endocrine: No weight change, heat or cold intolerance, tremor, insomnia Physical Exam: Vitals: reviewed General: NAD HEENT: nc, at Neck: supple Chest: clear breath sounds bilaterally Cardiovascular: RRR, no s3, s4 Abdomen: soft, nontender, nd Extremities: no cce, normal range of motion++ rl3 cellulitis better Neuro: alert and oriented Brian Dyson MD Oct 16, 2019 13:41
[2019-10-16 15:51] VITALS: BP 144/83
[2019-10-16 16:00] VITALS: BP 144/83
[2019-10-16] MEDS: Pramipexole 0.5mg tab ORAL SCH (16:02)
--- NOTE | 2019-10-16 16:30 | General Progress Note ---
Assessment/Plan Assessment/Plan: (1) Right LE pain (2) Cellulitis Patient to be continued on Tylenol D/w Dr. Duque and he concurred. Subjective Date patient seen: Oct 16, 2019 Time patient seen: 03:30 - pm Constitutional: Reports: no symptoms HEENT: Reports: no symptoms Cardiovascular: Reports: no symptoms Respiratory: Reports: no symptoms Gastrointestinal/Abdominal: Reports: no symptoms Genitourinary: Reports: no symptoms Neurologic/Psychiatric: Reports: no symptoms Endocrine: Reports: no symptoms Hematologic/Lymphatic: Reports: no symptoms Allergies: Coded Allergies: ASPIRIN (Verified Allergy, Intermediate, Rash, 09/02/19) coating MORPHINE (Verified Allergy, Unknown, 10/14/19) Uncoded Allergies: TETANUS TOXOID (Allergy, Unknown, 10/14/19) Subjective Pain is tolerated on the medications. No new complaints at this time. Objective Last 24 Hour Vital Signs Date Time Temp Pulse Resp B/P (MAP) Pulse Ox O2 Delivery O2 Flow Rate FiO2 10/16/19 15:51 98.1 71 18 144/83 (103) 95 10/16/19 12:00 97.7 79 18 152/75 (100) 93 10/16/19 09:00 Room Air 10/16/19 09:00 Room Air 10/16/19 09:00 Room Air 10/16/19 08:00 96.3 74 18 135/69 (91) 95 10/16/19 04:00 97.9 70 18 146/79 (101) 92 10/15/19 20:53 Room Air 10/15/19 20:38 97.0 73 18 121/62 (81) 95 Intake and Output 10/15/19 10/16/19 19:00 07:00 Intake Total 1695 ml 1610 ml Balance 1695 ml 1610 ml Intake Oral 200 ml 640 ml IV Total 1495 ml 970 ml # Voids 4 4 # Bowel Movements 1 Height (Feet): 5 Height (Inches): 6.00 Weight (Pounds): 180 General Appearance: no apparent distress, alert EENT: PERRL/EOMI, normal ENT inspection Neck: non-tender, normal alignment Cardiovascular: normal rate, regular rhythm Respiratory/Chest: decreased breath sounds Abdomen: non tender, soft Extremities: swelling Edema: trace edema Neurologic: alert, oriented x 3 Kwesi Betancourt Oct 16, 2019 16:30
[2019-10-16] MEDS: Donepezil 5mg Tab ORAL SCH (17:32)
[2019-10-16 20:00] VITALS: BP 143/74
--- NOTE | 2019-10-16 21:29 | Infectious Diseases Prog Note ---
Assessment/Plan Assessment/Plan Afebrile No leukocytosis B/L cellulitis R worse than L US: no DVT COVID case at pt's halfway COPD CVA CHF HTN Dyslipidemia GERd Parkinson alzheimer's Hypothyroidism Anemia Plan: Ancef #2 f/u Bcx f/u MRSA screen obtain COVID swab isolation precaution monitor temp and CBC DW RN Thank you for this consult. [facility] will continue to follow the patient with you. Subjective Allergies: Coded Allergies: ASPIRIN (Verified Allergy, Intermediate, Rash, 09/02/19) coating MORPHINE (Verified Allergy, Unknown, 10/14/19) Uncoded Allergies: TETANUS TOXOID (Allergy, Unknown, 10/14/19) Subjective Afebrile. Pain and erythema better. Objective Vital Signs Last 24 Hour Vital Signs Date Time Temp Pulse Resp B/P (MAP) Pulse Ox O2 Delivery O2 Flow Rate FiO2 10/16/19 20:00 98.9 75 19 143/74 (97) 98 10/16/19 17:00 Room Air 10/16/19 15:51 98.1 71 18 144/83 (103) 95 10/16/19 12:00 97.7 79 18 152/75 (100) 93 10/16/19 09:00 Room Air 10/16/19 09:00 Room Air 10/16/19 09:00 Room Air 10/16/19 08:00 96.3 74 18 135/69 (91) 95 10/16/19 04:00 97.9 70 18 146/79 (101) 92 Height (Feet): 5 Height (Inches): 6.00 Weight (Pounds): 180 Objective Gen: NAD. well nourished. well hydrated CV: RRR. S1+S2. No thrill Resp: RRR. no wheezes or crackles. unlabored. equal chest rise Abd: soft. no TTP. no rebound. no guarding. Ext: b/l chronic venous stasis changes. tenderness/warmth/erythema RLE improved Microbiology Date/Time Source Procedure Growth Status 10/14/19 17:40 Blood Blood Culture - Preliminary NO GROWTH AFTER 24 HOURS Resulted 10/14/19 17:25 Blood Blood Culture - Preliminary NO GROWTH AFTER 24 HOURS Resulted 10/14/19 18:45 Nasal Nares MRSA Culture - Final NO METHICILLIN RESISTANT STAPH AUREUS... Complete 10/14/19 18:45 Rectum VRE Culture - Final NO VANCOMYCIN RESISTANT ENTEROCOCCUS ... Complete 10/14/19 18:45 Rectum - Final NO CARBAPENEM-RESISTANT ENTEROBACTERI... Complete Current Medications Medications (Trade) Dose Ordered Sig/Jerome Route PRN Reason Start Time Stop Time Status Last Admin Dose Admin Acetaminophen (Tylenol) 650 mg Q4H PRN ORAL Mild Pain (Pain Scale 1-3) 10/15/19 10:15 11/14/19 10:14 10/15/19 14:31 Albuterol Sulfate (Proventil) 2.5 mg Q6HR PRN HHN Shortness of Breath 10/14/19 21:00 10/19/19 20:59 Cefazolin Sodium 1 gm/Dextrose 55 ml @ 110 mls/hr Q8HR IVPB 10/15/19 19:30 10/22/19 19:29 10/16/19 13:25 Dextrose (Dextrose 50%) 25 ml Q30M PRN IV Hypoglycemia 10/14/19 21:00 01/12/20 20:59 Dextrose (Dextrose 50%) 50 ml Q30M PRN IV Hypoglycemia 10/14/19 21:00 01/12/20 20:59 Diphenhydramine HCl (Benadryl) 25 mg Q6H PRN ORAL Itching/Pruritis 10/14/19 21:00 11/13/19 20:59 10/15/19 03:28 Donepezil HCl (Aricept) 5 mg BID ORAL 10/16/19 18:00 11/15/19 17:59 10/16/19 17:32 Enoxaparin Sodium (Lovenox) 40 mg DAILY SUBQ 10/15/19 09:00 01/13/20 08:59 10/16/19 09:17 Famotidine (Pepcid I.v.) 20 mg DAILY IVP 10/15/19 09:00 11/14/19 08:59 10/16/19 09:09 Fluoxetine HCl (PROzac) 10 mg DAILY ORAL 10/17/19 09:00 11/16/19 08:59 Pramipexole (Mirapex) 0.5 mg DAILY@1700 ORAL 10/15/19 17:00 11/14/19 16:59 10/16/19 16:02 Ropinirole HCl (Requip) 2 mg BID ORAL 10/15/19 07:00 11/14/19 06:59 10/16/19 17:32 Sodium Chloride 1,000 ml @ 75 mls/hr [id number] IVLG 10/15/19 00:45 11/14/19 00:44 10/16/19 15:57 Malika Donovan MD Oct 16, 2019 21:29
[2019-10-17] VITALS: BP 134/67
[2019-10-17 04:59] VITALS: BP 124/74
[2019-10-17] MEDS: ceFAZolin sod 1 GM in D5W 55 ML IVPB SCH ×3 (05:38→21:08)
[2019-10-17 07:04] LABS: HEMOGLOBIN 12.1 G/DL (12.0-16.0); MEAN CORPUSCULAR VOLUME 92 FL (80-99); PLATELET COUNT 211 K/UL (150-450); RED BLOOD COUNT 4.01 M/UL (4.20-5.40); RED CELL DISTRIBUTION WIDTH 13.6 % (11.6-14.8); WHITE BLOOD COUNT 5.8 K/UL (4.8-10.8)
[2019-10-17 07:30] LABS: ANION GAP 7 mmol/L (5-15); BLOOD UREA NITROGEN 10 mg/dL (7-18); CALCIUM 8.9 MG/DL (8.5-10.1); CARBON DIOXIDE 29 MMOL/L (21-32); CHLORIDE 106 MMOL/L (98-107); CREATININE 0.6 MG/DL (0.55-1.30); POTASSIUM 3.3 MMOL/L (3.5-5.1); SODIUM 142 MMOL/L (136-145)
[2019-10-17 08:00] VITALS: BP 137/74
--- NOTE | 2019-10-17 08:24 | Infectious Diseases Prog Note ---
Assessment/Plan Assessment/Plan Afebrile No leukocytosis B/L cellulitis MRSA screen neg R worse than L US: no DVT COVID case at pt's fdc COPD CVA CHF HTN Dyslipidemia GERD Parkinson alzheimer's Hypothyroidism Anemia Plan: Ancef #3/7 f/u Bcx obtain COVID swab isolation precaution monitor temp and CBC DW RN Thank you for this consult. [facility] will continue to follow the patient with you. Subjective Allergies: Coded Allergies: ASPIRIN (Verified Allergy, Intermediate, Rash, 09/02/19) coating MORPHINE (Verified Allergy, Unknown, 10/14/19) Uncoded Allergies: TETANUS TOXOID (Allergy, Unknown, 10/14/19) Subjective Afebrile. no leukocytosis Leg is better Objective Vital Signs Last 24 Hour Vital Signs Date Time Temp Pulse Resp B/P (MAP) Pulse Ox O2 Delivery O2 Flow Rate FiO2 10/17/19 08:00 97.3 68 18 137/74 (95) 96 10/17/19 04:59 98.3 78 18 124/74 (91) 98 10/17/19 00:00 97.8 74 18 134/67 (89) 98 10/16/19 22:23 Room Air 10/16/19 20:00 98.9 75 19 143/74 (97) 98 10/16/19 17:00 Room Air 10/16/19 15:51 98.1 71 18 144/83 (103) 95 10/16/19 12:00 97.7 79 18 152/75 (100) 93 10/16/19 09:00 Room Air 10/16/19 09:00 Room Air 10/16/19 09:00 Room Air Height (Feet): 5 Height (Inches): 6.00 Weight (Pounds): 180 Objective Gen: NAD. well nourished. well hydrated CV: RRR. S1+S2. No thrill Resp: RRR. no wheezes or crackles. unlabored. equal chest rise Abd: soft. no TTP. no rebound. no guarding. Ext: b/l chronic venous stasis changes. tenderness/warmth/erythema RLE improving Microbiology Date/Time Source Procedure Growth Status 10/14/19 17:40 Blood Blood Culture - Preliminary NO GROWTH AFTER 48 HOURS Resulted 10/14/19 17:25 Blood Blood Culture - Preliminary NO GROWTH AFTER 48 HOURS Resulted 10/14/19 18:45 Nasal Nares MRSA Culture - Final NO METHICILLIN RESISTANT STAPH AUREUS... Complete 10/14/19 18:45 Rectum VRE Culture - Final NO VANCOMYCIN RESISTANT ENTEROCOCCUS ... Complete 10/14/19 18:45 Rectum - Final NO CARBAPENEM-RESISTANT ENTEROBACTERI... Complete Laboratory Tests Test 10/17/19 06:49 White Blood Count 5.8 K/UL (4.8-10.8) Red Blood Count 4.01 M/UL (4.20-5.40) L Hemoglobin 12.1 G/DL (12.0-16.0) Hematocrit 37.0 % (37.0-47.0) Mean Corpuscular Volume 92 FL (80-99) Mean Corpuscular Hemoglobin 30.0 PG (27.0-31.0) Mean Corpuscular Hemoglobin Concent 32.6 G/DL (32.0-36.0) Red Cell Distribution Width 13.6 % (11.6-14.8) Platelet Count 211 K/UL (150-450) Mean Platelet Volume 4.9 FL (6.5-10.1) L Neutrophils (%) (Auto) % (45.0-75.0) Lymphocytes (%) (Auto) % (20.0-45.0) Monocytes (%) (Auto) % (1.0-10.0) Eosinophils (%) (Auto) % (0.0-3.0) Basophils (%) (Auto) % (0.0-2.0) Neutrophils % (Manual) Pending Lymphocytes % (Manual) Pending Platelet Estimate Pending Platelet Morphology Pending Sodium Level 142 MMOL/L (136-145) Potassium Level 3.3 MMOL/L (3.5-5.1) L Chloride Level 106 MMOL/L (98-107) Carbon Dioxide Level 29 MMOL/L (21-32) Anion Gap 7 mmol/L (5-15) Blood Urea Nitrogen 10 mg/dL (7-18) Creatinine 0.6 MG/DL (0.55-1.30) Estimat Glomerular Filtration Rate > 60 mL/min (>60) Glucose Level 85 MG/DL (74-106) Calcium Level 8.9 MG/DL (8.5-10.1) Current Medications Medications (Trade) Dose Ordered Sig/Jerome Route PRN Reason Start Time Stop Time Status Last Admin Dose Admin Acetaminophen (Tylenol) 650 mg Q4H PRN ORAL Mild Pain (Pain Scale 1-3) 10/15/19 10:15 11/14/19 10:14 10/15/19 14:31 Albuterol Sulfate (Proventil) 2.5 mg Q6HR PRN HHN Shortness of Breath 10/14/19 21:00 10/19/19 20:59 Cefazolin Sodium 1 gm/Dextrose 55 ml @ 110 mls/hr Q8HR IVPB 10/15/19 19:30 10/22/19 19:29 10/17/19 05:38 Dextrose (Dextrose 50%) 25 ml Q30M PRN IV Hypoglycemia 10/14/19 21:00 01/12/20 20:59 Dextrose (Dextrose 50%) 50 ml Q30M PRN IV Hypoglycemia 10/14/19 21:00 01/12/20 20:59 Diphenhydramine HCl (Benadryl) 25 mg Q6H PRN ORAL Itching/Pruritis 10/14/19 21:00 11/13/19 20:59 10/15/19 03:28 Donepezil HCl (Aricept) 5 mg BID ORAL 10/16/19 18:00 11/15/19 17:59 10/16/19 17:32 Enoxaparin Sodium (Lovenox) 40 mg DAILY SUBQ 10/15/19 09:00 01/13/20 08:59 10/16/19 09:17 Famotidine (Pepcid I.v.) 20 mg DAILY IVP 10/15/19 09:00 11/14/19 08:59 10/16/19 09:09 Fluoxetine HCl (PROzac) 10 mg DAILY ORAL 10/17/19 09:00 11/16/19 08:59 Pramipexole (Mirapex) 0.5 mg DAILY@1700 ORAL 10/15/19 17:00 11/14/19 16:59 10/16/19 16:02 Ropinirole HCl (Requip) 2 mg BID ORAL 10/15/19 07:00 11/14/19 06:59 10/16/19 17:32 Sodium Chloride 1,000 ml @ 75 mls/hr [id number] IVLG 10/15/19 00:45 11/14/19 00:44 10/17/19 05:38 Malika Donovan MD Oct 17, 2019 08:24
[2019-10-17] MEDS ORDERED: Zolpidem 5mg tab ORAL PRN (09:00)
--- NOTE | 2019-10-17 09:14 | General Progress Note ---
Assessment/Plan Problem List: (1) COPD (chronic obstructive pulmonary disease) ICD Codes: J44.9 - Chronic obstructive pulmonary disease, unspecified SNOMED: 12054551 (2) Alzheimer disease ICD Codes: G30.9 - Alzheimer's disease, unspecified; F02.80 - Dementia in other diseases classified elsewhere without behavioral disturbance SNOMED: 98767736 (3) Weak ICD Codes: R53.1 - Weakness SNOMED: 24627693 (4) GERD (gastroesophageal reflux disease) ICD Codes: K21.9 - Gastro-esophageal reflux disease without esophagitis SNOMED: 431408612 (5) HTN (hypertension) ICD Codes: I10 - Essential (primary) hypertension SNOMED: 59282137 (6) CVA (cerebral vascular accident) ICD Codes: I63.9 - Cerebral infarction, unspecified SNOMED: 671731916 (7) Cellulitis of right lower extremity ICD Codes: L03.115 - Cellulitis of right lower limb SNOMED: 444484798 (8) Suspected COVID-19 virus infection ICD Codes: R68.89 - Other general symptoms and signs SNOMED: 558305146 Status: unchanged Assessment/Plan: wound care abx pain control cbc bmp am Subjective Constitutional: Reports: weakness Allergies: Coded Allergies: ASPIRIN (Verified Allergy, Intermediate, Rash, 09/02/19) coating MORPHINE (Verified Allergy, Unknown, 10/14/19) Uncoded Allergies: TETANUS TOXOID (Allergy, Unknown, 10/14/19) All Systems: reviewed and negative except above Subjective sleepy calm Objective Last 24 Hour Vital Signs Date Time Temp Pulse Resp B/P (MAP) Pulse Ox O2 Delivery O2 Flow Rate FiO2 10/17/19 08:00 97.3 68 18 137/74 (95) 96 10/17/19 04:59 98.3 78 18 124/74 (91) 98 10/17/19 00:00 97.8 74 18 134/67 (89) 98 10/16/19 22:23 Room Air 10/16/19 20:00 98.9 75 19 143/74 (97) 98 10/16/19 17:00 Room Air 10/16/19 15:51 98.1 71 18 144/83 (103) 95 10/16/19 12:00 97.7 79 18 152/75 (100) 93 Intake and Output 10/16/19 10/17/19 19:00 07:00 Intake Total 1350 ml Balance 1350 ml Intake Oral 600 ml IV Total 750 ml # Bowel Movements 4 Laboratory Tests 10/17/19 06:49: White Blood Count 5.8, Red Blood Count 4.01L, Hemoglobin 12.1, Hematocrit 37.0, Mean Corpuscular Volume 92, Mean Corpuscular Hemoglobin 30.0, Mean Corpuscular Hemoglobin Concent 32.6, Red Cell Distribution Width 13.6, Platelet Count 211, Mean Platelet Volume 4.9L, Neutrophils (%) (Auto) , Lymphocytes (%) (Auto) , Monocytes (%) (Auto) , Eosinophils (%) (Auto) , Basophils (%) (Auto) , Neutrophils % (Manual) [Pending], Lymphocytes % (Manual) [Pending], Platelet Estimate [Pending], Platelet Morphology [Pending], Sodium Level 142, Potassium Level 3.3L, Chloride Level 106, Carbon Dioxide Level 29, Anion Gap 7, Blood Urea Nitrogen 10, Creatinine 0.6, Estimat Glomerular Filtration Rate > 60, Glucose Level 85, Calcium Level 8.9 Height (Feet): 5 Height (Inches): 6.00 Weight (Pounds): 180 General Appearance: lethargic EENT: normal ENT inspection Neck: normal alignment Cardiovascular: normal rate, regular rhythm Respiratory/Chest: no accessory muscle use Skin: normal pigmentation Earle Whaley DO Oct 17, 2019 09:14
[2019-10-17] MEDS: Enoxaparin 40mg Inj SUBQ SCH (09:36)
[2019-10-17] MEDS: Donepezil 5mg Tab ORAL SCH ×2 (09:38→17:08)
[2019-10-17] MEDS: FLUoxetine 10mg cap ORAL SCH (09:38)
--- NOTE | 2019-10-17 09:55 | Hematology/Onc Progress Note ---
Assessment/Plan Assessment/Plan Assessment and Recs: # Anemia of chronic disease due to underlying chronic medical issues, multifactorial v Gi bleed --> Anemia workup has been ordered, rule out gi bleed - results pending --> No evidence of hemolysis is noted, peripheral smear has been reviewed. --> Hgb goal >7. Transfuse prn. --> Epogen or iron at this time is not particularly indicated --> Medications have been reviewed --> low threshold for gi evaluation in case has occult + --> hgb trend 11->12 # Cellulitis of right lower extremity --> duplex lower ext neg --> as per id, on abx, ceftriaxone # Azotemia --> improved on ivf # Dvt ppx lovenox Appreciate consultation and carlos Rn Subjective Constitutional: Denies: no symptoms, chills, fever, malaise, weakness, other HEENT: Denies: no symptoms, eye pain, blurred vision, tearing, double vision, ear pain, ear discharge, nose pain, nose congestion, throat pain, throat swelling, mouth pain, mouth swelling, other Cardiovascular: Denies: no symptoms, chest pain, edema, irregular heart rate, lightheadedness, palpitations, syncope, other Gastrointestinal/Abdominal: Denies: no symptoms, abdomen distended, abdominal pain, black stools, tarry stools, blood in stool, constipated, diarrhea, difficulty swallowing, nausea, poor appetite, poor fluid intake, rectal bleeding , vomiting, other Genitourinary: Denies: no symptoms, burning, discharge, frequency, flank pain, hematuria, incontinence, pain, urgency, other Neurologic/Psychiatric: Denies: no symptoms, anxiety, depressed, emotional problems, headache, numbness, paresthesia, pre-existing deficit, seizure, tingling, tremors, weakness, other Endocrine: Denies: no symptoms, excessive sweating, flushing, intolerance to cold, intolerance to heat, increased hunger, increased thirst, increased urine, unexplained weight gain, unexplained weight loss, other Allergies: Coded Allergies: ASPIRIN (Verified Allergy, Intermediate, Rash, 09/02/19) coating MORPHINE (Verified Allergy, Unknown, 10/14/19) Uncoded Allergies: TETANUS TOXOID (Allergy, Unknown, 10/14/19) Subjective 10/15 awake, on room air, flor duplex negative, on cefazolin 10/16 no events, no bleeding, no night sweats, labs reviewed Objective Objective Current Medications Medications (Trade) Dose Ordered Sig/Jerome Route PRN Reason Start Time Stop Time Status Last Admin Dose Admin Acetaminophen (Tylenol) 650 mg Q4H PRN ORAL Mild Pain (Pain Scale 1-3) 10/15/19 10:15 11/14/19 10:14 10/15/19 14:31 Albuterol Sulfate (Proventil) 2.5 mg Q6HR PRN HHN Shortness of Breath 10/14/19 21:00 10/19/19 20:59 Cefazolin Sodium 1 gm/Dextrose 55 ml @ 110 mls/hr Q8HR IVPB 10/15/19 19:30 10/22/19 19:29 10/17/19 05:38 Dextrose (Dextrose 50%) 25 ml Q30M PRN IV Hypoglycemia 10/14/19 21:00 01/12/20 20:59 Dextrose (Dextrose 50%) 50 ml Q30M PRN IV Hypoglycemia 10/14/19 21:00 01/12/20 20:59 Diphenhydramine HCl (Benadryl) 25 mg Q6H PRN ORAL Itching/Pruritis 10/14/19 21:00 11/13/19 20:59 10/15/19 03:28 Donepezil HCl (Aricept) 5 mg BID ORAL 10/16/19 18:00 11/15/19 17:59 10/16/19 17:32 Enoxaparin Sodium (Lovenox) 40 mg DAILY SUBQ 10/15/19 09:00 01/13/20 08:59 10/16/19 09:17 Famotidine (Pepcid I.v.) 20 mg DAILY IVP 10/15/19 09:00 11/14/19 08:59 10/16/19 09:09 Fluoxetine HCl (PROzac) 10 mg DAILY ORAL 10/17/19 09:00 11/16/19 08:59 Pramipexole (Mirapex) 0.5 mg DAILY@1700 ORAL 10/15/19 17:00 11/14/19 16:59 10/16/19 16:02 Ropinirole HCl (Requip) 2 mg BID ORAL 10/15/19 07:00 11/14/19 06:59 10/16/19 17:32 Sodium Chloride 1,000 ml @ 75 mls/hr [id number] IVLG 10/15/19 00:45 11/14/19 00:44 10/17/19 05:38 Zolpidem Tartrate (Ambien) 5 mg HSPRN PRN ORAL Insomnia 10/17/19 09:00 10/24/19 08:59 Last 24 Hour Vital Signs Date Time Temp Pulse Resp B/P (MAP) Pulse Ox O2 Delivery O2 Flow Rate FiO2 10/17/19 08:00 97.3 68 18 137/74 (95) 96 10/17/19 04:59 98.3 78 18 124/74 (91) 98 10/17/19 00:00 97.8 74 18 134/67 (89) 98 10/16/19 22:23 Room Air 10/16/19 20:00 98.9 75 19 143/74 (97) 98 10/16/19 17:00 Room Air 10/16/19 15:51 98.1 71 18 144/83 (103) 95 10/16/19 12:00 97.7 79 18 152/75 (100) 93 10/16/19 09:00 Room Air 10/16/19 09:00 Room Air 10/16/19 09:00 Room Air 10/16/19 08:00 96.3 74 18 135/69 (91) 95 10/16/19 04:00 97.9 70 18 146/79 (101) 92 10/15/19 20:53 Room Air 10/15/19 20:38 97.0 73 18 121/62 (81) 95 10/15/19 16:00 98.6 76 19 142/76 (98) 98 10/15/19 15:01 98.4 10/15/19 12:00 98.4 73 18 146/78 (100) 99 Intake and Output 10/16/19 10/17/19 19:00 07:00 Intake Total 1350 ml Balance 1350 ml Intake Oral 600 ml IV Total 750 ml # Bowel Movements 4 Labs Test 10/14/19 17:40 10/15/19 09:40 10/17/19 06:49 White Blood Count 7.3 K/UL (4.8-10.8) 7.4 K/UL (4.8-10.8) 5.8 K/UL (4.8-10.8) Red Blood Count 3.98 M/UL (4.20-5.40) 3.77 M/UL (4.20-5.40) 4.01 M/UL (4.20-5.40) Hemoglobin 11.7 G/DL (12.0-16.0) 11.5 G/DL (12.0-16.0) 12.1 G/DL (12.0-16.0) Hematocrit 38.5 % (37.0-47.0) 34.9 % (37.0-47.0) 37.0 % (37.0-47.0) Mean Corpuscular Volume 97 FL (80-99) 93 FL (80-99) 92 FL (80-99) Mean Corpuscular Hemoglobin 29.5 PG (27.0-31.0) 30.5 PG (27.0-31.0) 30.0 PG (27.0-31.0) Mean Corpuscular Hemoglobin Concent 30.5 G/DL (32.0-36.0) 32.8 G/DL (32.0-36.0) 32.6 G/DL (32.0-36.0) Red Cell Distribution Width 14.8 % (11.6-14.8) 14.0 % (11.6-14.8) 13.6 % (11.6-14.8) Platelet Count 227 K/UL (150-450) 205 K/UL (150-450) 211 K/UL (150-450) Mean Platelet Volume 5.9 FL (6.5-10.1) 5.3 FL (6.5-10.1) 4.9 FL (6.5-10.1) Neutrophils (%) (Auto) 73.4 % (45.0-75.0) 72.0 % (45.0-75.0) % (45.0-75.0) Lymphocytes (%) (Auto) 15.7 % (20.0-45.0) 14.4 % (20.0-45.0) % (20.0-45.0) Monocytes (%) (Auto) 8.1 % (1.0-10.0) 10.3 % (1.0-10.0) % (1.0-10.0) Eosinophils (%) (Auto) 1.6 % (0.0-3.0) 2.7 % (0.0-3.0) % (0.0-3.0) Basophils (%) (Auto) 1.2 % (0.0-2.0) 0.7 % (0.0-2.0) % (0.0-2.0) Sodium Level 140 MMOL/L (136-145) 142 MMOL/L (136-145) 142 MMOL/L (136-145) Potassium Level 4.3 MMOL/L (3.5-5.1) 3.6 MMOL/L (3.5-5.1) 3.3 MMOL/L (3.5-5.1) Chloride Level 104 MMOL/L (98-107) 105 MMOL/L (98-107) 106 MMOL/L (98-107) Carbon Dioxide Level 26 MMOL/L (21-32) 30 MMOL/L (21-32) 29 MMOL/L (21-32) Anion Gap 10 mmol/L (5-15) 8 mmol/L (5-15) 7 mmol/L (5-15) Blood Urea Nitrogen 16 mg/dL (7-18) 13 mg/dL (7-18) 10 mg/dL (7-18) Creatinine 0.8 MG/DL (0.55-1.30) 0.7 MG/DL (0.55-1.30) 0.6 MG/DL (0.55-1.30) Estimat Glomerular Filtration Rate > 60 mL/min (>60) > 60 mL/min (>60) > 60 mL/min (>60) Glucose Level 99 MG/DL (74-106) 85 MG/DL (74-106) 85 MG/DL (74-106) Calcium Level 9.4 MG/DL (8.5-10.1) 9.1 MG/DL (8.5-10.1) 8.9 MG/DL (8.5-10.1) Total Bilirubin 0.2 MG/DL (0.2-1.0) Aspartate Amino Transf (AST/SGOT) 13 U/L (15-37) Alanine Aminotransferase (ALT/SGPT) 21 U/L (12-78) Alkaline Phosphatase 91 U/L (46-116) Total Protein 7.1 G/DL (6.4-8.2) Albumin 3.4 G/DL (3.4-5.0) Globulin 3.7 g/dL Albumin/Globulin Ratio 0.9 (1.0-2.7) Prothrombin Time 11.4 SEC (9.30-11.50) Prothromb Time International Ratio 1.1 (0.9-1.1) Height (Feet): 5 Height (Inches): 6.00 Weight (Pounds): 180 Objective ROS (review of systems): Constitutional: No fever, no chills, no night sweats, no fatigue Skin: No rashes, lumps, itchiness, dryness HEENT: No POLANCO, ear ache, visual changes, double vision, nosebleeds Breasts: No lumps, pain, discharge Pulmonary: No cough, sputum, shortness of breath, coughing up blood Cardiovascular: No chest pain, tightness, palpitations, syncope, PND GI: No nausea, vomiting, diarrhea, melena, hematochezia, change in appetite, : No dysuria, frequency, urgency, urinary incontinence, foamy urine Musculoskeletal: No joint swelling or muscle pain, trauma, back pain Neurologic: No dizziness, fainting, seizures, changes in smell or taste Psychiatric: No nervousness, stress, or depression, anxiety, hallucinations Endocrine: No weight change, heat or cold intolerance, tremor, insomnia Physical Exam: Vitals: reviewed General: NAD HEENT: nc, at Neck: supple Chest: clear breath sounds bilaterally Cardiovascular: RRR, no s3, s4 Abdomen: soft, nontender, nd Extremities: no cce, normal range of motion++ rl3 cellulitis better Neuro: alert and oriented Brian Dyson MD Oct 17, 2019 09:55
[2019-10-17 12:00] VITALS: BP 131/72
--- NOTE | 2019-10-17 13:22 | General Progress Note ---
Assessment/Plan Assessment/Plan: (1) Right LE pain (2) Cellulitis Patient to be continued on Tylenol D/w Dr. Duque and he concurred. Subjective Date patient seen: Oct 17, 2019 Time patient seen: 12:30 - pm Allergies: Coded Allergies: ASPIRIN (Verified Allergy, Intermediate, Rash, 09/02/19) coating MORPHINE (Verified Allergy, Unknown, 10/14/19) Uncoded Allergies: TETANUS TOXOID (Allergy, Unknown, 10/14/19) Subjective Constitutional: Reports: no symptoms HEENT: Reports: no symptoms Cardiovascular: Reports: no symptoms Respiratory: Reports: no symptoms Gastrointestinal/Abdominal: Reports: no symptoms Genitourinary: Reports: no symptoms Neurologic/Psychiatric: Reports: no symptoms Endocrine: Reports: no symptoms Hematologic/Lymphatic: Reports: no symptoms Subjective Pt is in bed and shows no signs of pain. Taking the Tylenol as needed. No new complaints at this time. Objective Last 24 Hour Vital Signs Date Time Temp Pulse Resp B/P (MAP) Pulse Ox O2 Delivery O2 Flow Rate FiO2 10/17/19 12:00 98.6 82 18 131/72 (91) 93 10/17/19 09:00 Room Air 10/17/19 08:56 68 18 96 Room Air 21 10/17/19 08:00 97.3 68 18 137/74 (95) 96 10/17/19 04:59 98.3 78 18 124/74 (91) 98 10/17/19 00:00 97.8 74 18 134/67 (89) 98 10/16/19 22:23 Room Air 10/16/19 20:00 98.9 75 19 143/74 (97) 98 10/16/19 17:00 Room Air 10/16/19 15:51 98.1 71 18 144/83 (103) 95 Intake and Output 10/16/19 10/17/19 19:00 07:00 Intake Total 1350 ml 75 ml Balance 1350 ml 75 ml Intake Oral 600 ml IV Total 750 ml 75 ml # Bowel Movements 4 Laboratory Tests 10/17/19 06:49: White Blood Count 5.8, Red Blood Count 4.01L, Hemoglobin 12.1, Hematocrit 37.0, Mean Corpuscular Volume 92, Mean Corpuscular Hemoglobin 30.0, Mean Corpuscular Hemoglobin Concent 32.6, Red Cell Distribution Width 13.6, Platelet Count 211, Mean Platelet Volume 4.9L, Neutrophils (%) (Auto) , Lymphocytes (%) (Auto) , Monocytes (%) (Auto) , Eosinophils (%) (Auto) , Basophils (%) (Auto) , Differential Total Cells Counted 100, Neutrophils % (Manual) 76H, Lymphocytes % (Manual) 14L, Monocytes % (Manual) 8, Eosinophils % (Manual) 2, Basophils % ( Manual) 0, Band Neutrophils 0, Platelet Estimate Adequate, Platelet Morphology Normal, Red Blood Cell Morphology Normal, Sodium Level 142, Potassium Level 3.3L , Chloride Level 106, Carbon Dioxide Level 29, Anion Gap 7, Blood Urea Nitrogen 10, Creatinine 0.6, Estimat Glomerular Filtration Rate > 60, Glucose Level 85, Calcium Level 8.9 Height (Feet): 5 Height (Inches): 6.00 Weight (Pounds): 180 Objective General Appearance: no apparent distress, alert EENT: PERRL/EOMI, normal ENT inspection Neck: non-tender, normal alignment Cardiovascular: normal rate, regular rhythm Respiratory/Chest: decreased breath sounds Abdomen: non tender, soft Extremities: swelling Edema: trace edema Neurologic: alert, oriented x 3 Kwesi Betancourt Oct 17, 2019 13:21
--- NOTE | 2019-10-17 15:28 | Surgery Progress Note ---
Surgery Progress Note Subjective Additional Comments No acute events states that she feels better cellulitis somewhat improved did notice posterior ulcer on the right leg today which pointed out. No nausea vomiting fever chills. Objective Last 24 Hour Vital Signs Date Time Temp Pulse Resp B/P (MAP) Pulse Ox O2 Delivery O2 Flow Rate FiO2 10/17/19 12:00 98.6 82 18 131/72 (91) 93 10/17/19 09:00 Room Air 10/17/19 08:56 68 18 96 Room Air 21 10/17/19 08:00 97.3 68 18 137/74 (95) 96 10/17/19 04:59 98.3 78 18 124/74 (91) 98 10/17/19 00:00 97.8 74 18 134/67 (89) 98 10/16/19 22:23 Room Air 10/16/19 20:00 98.9 75 19 143/74 (97) 98 10/16/19 17:00 Room Air 10/16/19 15:51 98.1 71 18 144/83 (103) 95 I&O Intake and Output 10/16/19 10/17/19 19:00 07:00 Intake Total 1350 ml 75 ml Balance 1350 ml 75 ml Intake Oral 600 ml IV Total 750 ml 75 ml # Bowel Movements 4 Dressing: dry Wound: clean Cardiovascular: RSR Respiratory: clear Abdomen: soft, non-tender, present bowel sounds Extremities: edema, no tenderness, no cyanosis, other Laboratory Tests Test 10/17/19 06:49 White Blood Count 5.8 K/UL (4.8-10.8) Red Blood Count 4.01 M/UL (4.20-5.40) L Hemoglobin 12.1 G/DL (12.0-16.0) Hematocrit 37.0 % (37.0-47.0) Mean Corpuscular Volume 92 FL (80-99) Mean Corpuscular Hemoglobin 30.0 PG (27.0-31.0) Mean Corpuscular Hemoglobin Concent 32.6 G/DL (32.0-36.0) Red Cell Distribution Width 13.6 % (11.6-14.8) Platelet Count 211 K/UL (150-450) Mean Platelet Volume 4.9 FL (6.5-10.1) L Neutrophils (%) (Auto) % (45.0-75.0) Lymphocytes (%) (Auto) % (20.0-45.0) Monocytes (%) (Auto) % (1.0-10.0) Eosinophils (%) (Auto) % (0.0-3.0) Basophils (%) (Auto) % (0.0-2.0) Differential Total Cells Counted 100 Neutrophils % (Manual) 76 % (45-75) H Lymphocytes % (Manual) 14 % (20-45) L Monocytes % (Manual) 8 % (1-10) Eosinophils % (Manual) 2 % (0-3) Basophils % (Manual) 0 % (0-2) Band Neutrophils 0 % (0-8) Platelet Estimate Adequate Platelet Morphology Normal Red Blood Cell Morphology Normal Sodium Level 142 MMOL/L (136-145) Potassium Level 3.3 MMOL/L (3.5-5.1) L Chloride Level 106 MMOL/L (98-107) Carbon Dioxide Level 29 MMOL/L (21-32) Anion Gap 7 mmol/L (5-15) Blood Urea Nitrogen 10 mg/dL (7-18) Creatinine 0.6 MG/DL (0.55-1.30) Estimat Glomerular Filtration Rate > 60 mL/min (>60) Glucose Level 85 MG/DL (74-106) Calcium Level 8.9 MG/DL (8.5-10.1) Plan Problems: (1) Parkinson disease (2) COPD (chronic obstructive pulmonary disease) (3) Alzheimer disease (4) Weak (5) GERD (gastroesophageal reflux disease) (6) HTN (hypertension) (7) CVA (cerebral vascular accident) (8) Cellulitis of right lower extremity Assessment & Plan: venous duplex negative Findings: Bilaterally, grayscale and duplex images demonstrate no evidence of intraluminal thrombus. Normal phasic Doppler waveforms, demonstrating normal augmentation response and no evidence of valvular insufficiency. Greater saphenous vein(s) and tibial veins are patent. Normal compressibility. No significant interim change from the prior right leg exam Impression: Negative for evidence of lower extremity deep venous thrombosis bilaterally no abscess on exam cellulitis but no fluctuance b/l edema needs to keep elevated anfec iv as per ID, agree covid testing trend labs keep leg elevated wash daily with soap and water in shower apply skin protectant will follow with recs than you Thad Moore Oct 17, 2019 15:28
[2019-10-17 16:00] VITALS: BP 146/87
--- NOTE | 2019-10-17 16:00 | Progress Note ---
DATE: 10/17/2019 SUBJECTIVE: This patient is still very confused, disorganized, right lower extremity problems. That is why, this patient is admitted to the hospital from [facility] because of right lower extremity cellulitis, but this patient continues to have some confusion, disorganized thought process, mood lability, and decline in cognition below the baseline. That is why, her attending has requested daily psychiatric consultation. MENTAL STATUS EXAMINATION: This is an 89-year-old female. Appearance is disheveled. Attitude, irritable and agitated. Affect is labile. Intellect poor because she does not know current events, does not know last four presidents. Mood, depressed and anxious. Motor activity, psychomotor agitation. Attention span is poor. Orientation x2. Speech is low volume and slurred. Thought process, disorganized and illogical. Insight and judgment is poor. DIAGNOSIS: Paranoid schizophrenia acute exacerbation. PLAN: Continue to treat this patient with medication to stabilize the mood. Twenty minutes of cognitive behavioral therapy to help her identify automatic negative thoughts, help her convert negative thoughts to more positive thoughts to reduce depression, anxiety, and mood lability. Chart reviewed. Discussed with staff. Seen and assessed at bedside. Jeannette Velasquez M.D. DR: MARTINEZ JOB#: [id number] CC:
[2019-10-17] MEDS: Pramipexole 0.5mg tab ORAL SCH (17:08)
[2019-10-17 19:52] VITALS: BP 135/82
[2019-10-18 00:27] VITALS: BP 136/98
--- NOTE | 2019-10-18 00:29 | Progress Note ---
DATE: 10/17/2019 SUBJECTIVE: This is an 89-year-old female altered mental status, confusion, disorganized thoughts, decline in cognition below the baseline. That is why her attending has requested daily psychiatric consultation. MENTAL STATUS EXAMINATION: This is an 89-year-old female. Appearance is disheveled. Attitude, irritable and agitated. Affect, guarded and restricted. Intellect poor. Mood, depressed and anxious. Motor activity, psychomotor agitation. Attention span is poor. Orientation x2. Speech is low volume, slurred. Thought process, disorganized and illogical. Insight and judgment is poor. DIAGNOSIS: Major depressive disorder, mild, recurrent with psychotic features. PLAN: Continue titrating up on her medications to stabilize her mood. Twenty minutes of reality-based supportive psychotherapy provided. . Twenty minutes of cognitive behavioral therapy to help identify automatic negative thoughts, help her convert negative thoughts to more positive thoughts to reduce depression, anxiety, and mood lability. Chart reviewed. Discussed with staff. Seen and assessed at bedside. Jeannette Velasquez M.D. DR: MARTINEZ JOB#: [id number] CC:
[2019-10-18] MEDS: ceFAZolin sod 1 GM in D5W 55 ML IVPB SCH (05:06)
[2019-10-18 06:12] LABS: HEMATOCRIT 31.5 % (37.0-47.0); HEMOGLOBIN 10.5 G/DL (12.0-16.0); MEAN CORPUSCULAR VOLUME 92 FL (80-99); PLATELET COUNT 172 K/UL (150-450); RED BLOOD COUNT 3.43 M/UL (4.20-5.40); RED CELL DISTRIBUTION WIDTH 13.4 % (11.6-14.8); WHITE BLOOD COUNT 4.3 K/UL (4.8-10.8)
[2019-10-18 06:27] LABS: ANION GAP 9 mmol/L (5-15); BLOOD UREA NITROGEN 11 mg/dL (7-18); CALCIUM 8.5 MG/DL (8.5-10.1); CARBON DIOXIDE 26 MMOL/L (21-32); CHLORIDE 107 MMOL/L (98-107); CREATININE 0.6 MG/DL (0.55-1.30); POTASSIUM 3.5 MMOL/L (3.5-5.1); SODIUM 142 MMOL/L (136-145)
[2019-10-18 08:00] VITALS: BP 140/73
--- NOTE | 2019-10-18 08:11 | Infectious Diseases Prog Note ---
Assessment/Plan Assessment/Plan Afebrile No leukocytosis B/L cellulitis Recurrent due to underlying lymphedema MRSA screen neg R worse than L US: no DVT COVID case at pt's residential ELLIS-CoV PCR negative COPD CVA CHF HTN Dyslipidemia GERD Parkinson alzheimer's Hypothyroidism Anemia Plan: Ancef #4/. can switch to keflex 500mg q6H when ready to DC back to SNF. f/u Bcx ELLIS-CoV PCR neg. PR states that Ms Ulrich was in a single room and was never near the positive pt at the PR. DC COVID isolation. monitor temp and CBC DW Dr. Moore. continue skin protectant, elevate leg as much possible( ideally above heart) and soft wrap daily DW pt and nurse that a longer duration of abx is not the solution to her problem (will only increase adverse reactions) and she needs to manage her chronic edema. DW RN Thank you for this consult. [facility] will continue to follow the patient with you. Subjective Allergies: Coded Allergies: ASPIRIN (Verified Allergy, Intermediate, Rash, 09/02/19) coating MORPHINE (Verified Allergy, Unknown, 10/14/19) Uncoded Allergies: TETANUS TOXOID (Allergy, Unknown, 10/14/19) Subjective Afebrile. no leukocytosis States that the pain and erythema better Objective Vital Signs Last 24 Hour Vital Signs Date Time Temp Pulse Resp B/P (MAP) Pulse Ox O2 Delivery O2 Flow Rate FiO2 10/18/19 07:24 98.6 10/18/19 00:27 98.6 69 20 136/98 (111) 95 10/17/19 20:48 Room Air 10/17/19 19:52 97.7 70 20 135/82 (99) 99 10/17/19 16:00 98.2 74 18 146/87 (106) 94 10/17/19 12:00 98.6 82 18 131/72 (91) 93 10/17/19 09:00 Room Air 10/17/19 08:56 68 18 96 Room Air 21 Height (Feet): 5 Height (Inches): 6.00 Weight (Pounds): 180 Objective Gen: NAD. well nourished. well hydrated CV: RRR. S1+S2. No thrill Resp: RRR. no wheezes or crackles. unlabored. equal chest rise Abd: soft. no TTP. no rebound. no guarding. Ext: b/l chronic venous stasis changes. tenderness/warmth/erythema RLE improving Neuro: AAO. follows commands. Microbiology Date/Time Source Procedure Growth Status 10/15/19 16:11 Nasopharynx Coronavirus COVID-19 PCR (INDY) - Final Complete Laboratory Tests Test 10/18/19 05:30 White Blood Count 4.3 K/UL (4.8-10.8) L Red Blood Count 3.43 M/UL (4.20-5.40) L Hemoglobin 10.5 G/DL (12.0-16.0) L Hematocrit 31.5 % (37.0-47.0) L Mean Corpuscular Volume 92 FL (80-99) Mean Corpuscular Hemoglobin 30.6 PG (27.0-31.0) Mean Corpuscular Hemoglobin Concent 33.3 G/DL (32.0-36.0) Red Cell Distribution Width 13.4 % (11.6-14.8) Platelet Count 172 K/UL (150-450) Mean Platelet Volume 5.1 FL (6.5-10.1) L Neutrophils (%) (Auto) % (45.0-75.0) Lymphocytes (%) (Auto) % (20.0-45.0) Monocytes (%) (Auto) % (1.0-10.0) Eosinophils (%) (Auto) % (0.0-3.0) Basophils (%) (Auto) % (0.0-2.0) Neutrophils % (Manual) Pending Lymphocytes % (Manual) Pending Platelet Estimate Pending Platelet Morphology Pending Sodium Level 142 MMOL/L (136-145) Potassium Level 3.5 MMOL/L (3.5-5.1) Chloride Level 107 MMOL/L (98-107) Carbon Dioxide Level 26 MMOL/L (21-32) Anion Gap 9 mmol/L (5-15) Blood Urea Nitrogen 11 mg/dL (7-18) Creatinine 0.6 MG/DL (0.55-1.30) Estimat Glomerular Filtration Rate > 60 mL/min (>60) Glucose Level 91 MG/DL (74-106) Calcium Level 8.5 MG/DL (8.5-10.1) Current Medications Medications (Trade) Dose Ordered Sig/Jerome Route PRN Reason Start Time Stop Time Status Last Admin Dose Admin Acetaminophen (Tylenol) 650 mg Q4H PRN ORAL Mild Pain (Pain Scale 1-3) 10/15/19 10:15 11/14/19 10:14 10/18/19 06:57 Albuterol Sulfate (Proventil) 2.5 mg Q6HR PRN HHN Shortness of Breath 10/14/19 21:00 10/19/19 20:59 Cefazolin Sodium 1 gm/Dextrose 55 ml @ 110 mls/hr Q8HR IVPB 10/15/19 19:30 10/22/19 19:29 10/18/19 05:06 Dextrose (Dextrose 50%) 25 ml Q30M PRN IV Hypoglycemia 10/14/19 21:00 01/12/20 20:59 Dextrose (Dextrose 50%) 50 ml Q30M PRN IV Hypoglycemia 10/14/19 21:00 01/12/20 20:59 Diphenhydramine HCl (Benadryl) 25 mg Q6H PRN ORAL Itching/Pruritis 10/14/19 21:00 11/13/19 20:59 10/15/19 03:28 Donepezil HCl (Aricept) 5 mg BID ORAL 10/16/19 18:00 11/15/19 17:59 10/17/19 17:08 Enoxaparin Sodium (Lovenox) 40 mg DAILY SUBQ 10/15/19 09:00 01/13/20 08:59 10/17/19 09:36 Famotidine (Pepcid I.v.) 20 mg DAILY IVP 10/15/19 09:00 11/14/19 08:59 10/17/19 09:38 Fluoxetine HCl (PROzac) 10 mg DAILY ORAL 10/17/19 09:00 11/16/19 08:59 10/17/19 09:38 Pramipexole (Mirapex) 0.5 mg DAILY@1700 ORAL 10/15/19 17:00 11/14/19 16:59 10/17/19 17:08 Ropinirole HCl (Requip) 2 mg BID ORAL 10/15/19 07:00 11/14/19 06:59 10/17/19 17:08 Sodium Chloride 1,000 ml @ 75 mls/hr [id number] IVLG 10/15/19 00:45 11/14/19 00:44 10/17/19 21:09 Zolpidem Tartrate (Ambien) 5 mg HSPRN PRN ORAL Insomnia 10/17/19 09:00 10/24/19 08:59 10/17/19 21:52 Malika Donovan MD Oct 18, 2019 08:11
[2019-10-18] MEDS: Enoxaparin 40mg Inj SUBQ SCH (09:11)
[2019-10-18] MEDS: Donepezil 5mg Tab ORAL SCH (09:12)
[2019-10-18] MEDS: FLUoxetine 10mg cap ORAL SCH (09:12)
--- NOTE | 2019-10-18 10:08 | Hematology/Onc Progress Note ---
Assessment/Plan Assessment/Plan Assessment and Recs: # Anemia of chronic disease due to underlying chronic medical issues, multifactorial v Gi bleed --> Anemia workup has been ordered, rule out gi bleed - results pending --> No evidence of hemolysis is noted, peripheral smear has been reviewed. --> Hgb goal >7. Transfuse prn. --> Epogen or iron at this time is not particularly indicated --> Medications have been reviewed --> low threshold for gi evaluation in case has occult + --> hgb trend 11->12 # Leukopenia is likely related to infection --> cellulitis noted and on abx as per id # Cellulitis of right lower extremity and bilateral cellulitis --> duplex lower ext neg --> as per id, on abx, ceftriaxone # Azotemia --> improved on ivf # Dvt ppx lovenox Appreciate consultation and dw Rn Subjective Constitutional: Denies: no symptoms, chills, fever, malaise, weakness, other HEENT: Denies: no symptoms, eye pain, blurred vision, tearing, double vision, ear pain, ear discharge, nose pain, nose congestion, throat pain, throat swelling, mouth pain, mouth swelling, other Cardiovascular: Denies: no symptoms, chest pain, edema, irregular heart rate, lightheadedness, palpitations, syncope, other Respiratory: Denies: no symptoms, cough, shortness of breath, SOB with excertion, SOB at rest, sputum, wheezing, other Gastrointestinal/Abdominal: Denies: no symptoms, abdomen distended, abdominal pain, black stools, tarry stools, blood in stool, constipated, diarrhea, difficulty swallowing, nausea, poor appetite, poor fluid intake, rectal bleeding , vomiting, other Genitourinary: Denies: no symptoms, burning, discharge, frequency, flank pain, hematuria, incontinence, pain, urgency, other Hematologic/Lymphatic: Denies: no symptoms, anemia, easy bleeding, easy bruising, adenopathy, other Allergies: Coded Allergies: ASPIRIN (Verified Allergy, Intermediate, Rash, 09/02/19) coating MORPHINE (Verified Allergy, Unknown, 10/14/19) Uncoded Allergies: TETANUS TOXOID (Allergy, Unknown, 10/14/19) Subjective 10/15 awake, on room air, flor duplex negative, on cefazolin 10/16 no events, no bleeding, no night sweats, labs reviewed 10/17 no night swearts, no bleeding, labs noted, no fc Objective Objective Current Medications Medications (Trade) Dose Ordered Sig/Jerome Route PRN Reason Start Time Stop Time Status Last Admin Dose Admin Acetaminophen (Tylenol) 650 mg Q4H PRN ORAL Mild Pain (Pain Scale 1-3) 10/15/19 10:15 11/14/19 10:14 10/18/19 06:57 Albuterol Sulfate (Proventil) 2.5 mg Q6HR PRN HHN Shortness of Breath 10/14/19 21:00 10/19/19 20:59 Cefazolin Sodium 1 gm/Dextrose 55 ml @ 110 mls/hr Q8HR IVPB 10/15/19 19:30 10/22/19 19:29 10/18/19 05:06 Dextrose (Dextrose 50%) 25 ml Q30M PRN IV Hypoglycemia 10/14/19 21:00 01/12/20 20:59 Dextrose (Dextrose 50%) 50 ml Q30M PRN IV Hypoglycemia 10/14/19 21:00 01/12/20 20:59 Diphenhydramine HCl (Benadryl) 25 mg Q6H PRN ORAL Itching/Pruritis 10/14/19 21:00 11/13/19 20:59 10/15/19 03:28 Donepezil HCl (Aricept) 5 mg BID ORAL 10/16/19 18:00 11/15/19 17:59 10/18/19 09:12 Enoxaparin Sodium (Lovenox) 40 mg DAILY SUBQ 10/15/19 09:00 01/13/20 08:59 10/18/19 09:11 Famotidine (Pepcid I.v.) 20 mg DAILY IVP 10/15/19 09:00 11/14/19 08:59 10/18/19 09:12 Fluoxetine HCl (PROzac) 10 mg DAILY ORAL 10/17/19 09:00 11/16/19 08:59 10/18/19 09:12 Pramipexole (Mirapex) 0.5 mg DAILY@1700 ORAL 10/15/19 17:00 11/14/19 16:59 10/17/19 17:08 Ropinirole HCl (Requip) 2 mg BID ORAL 10/15/19 07:00 11/14/19 06:59 10/18/19 09:12 Sodium Chloride 1,000 ml @ 75 mls/hr [id number] IVLG 10/15/19 00:45 11/14/19 00:44 10/17/19 21:09 Zolpidem Tartrate (Ambien) 5 mg HSPRN PRN ORAL Insomnia 10/17/19 09:00 10/24/19 08:59 10/17/19 21:52 Last 24 Hour Vital Signs Date Time Temp Pulse Resp B/P (MAP) Pulse Ox O2 Delivery O2 Flow Rate FiO2 10/18/19 08:00 98.1 77 20 140/73 (95) 95 10/18/19 07:24 98.6 10/18/19 00:27 98.6 69 20 136/98 (111) 95 10/17/19 20:48 Room Air 10/17/19 19:52 97.7 70 20 135/82 (99) 99 10/17/19 16:00 98.2 74 18 146/87 (106) 94 10/17/19 12:00 98.6 82 18 131/72 (91) 93 10/17/19 09:00 Room Air 10/17/19 08:56 68 18 96 Room Air 21 10/17/19 08:00 97.3 68 18 137/74 (95) 96 10/17/19 04:59 98.3 78 18 124/74 (91) 98 10/17/19 00:00 97.8 74 18 134/67 (89) 98 10/16/19 22:23 Room Air 10/16/19 20:00 98.9 75 19 143/74 (97) 98 10/16/19 17:00 Room Air 10/16/19 15:51 98.1 71 18 144/83 (103) 95 10/16/19 12:00 97.7 79 18 152/75 (100) 93 Intake and Output 10/17/19 10/18/19 19:00 07:00 Intake Total 1455 ml 975 ml Output Total 500 ml Balance 1455 ml 475 ml Intake Oral 500 ml 240 ml IV Total 955 ml 735 ml Output Urine Total 500 ml # Voids 2 # Bowel Movements 2 Labs Test 10/17/19 06:49 10/18/19 05:30 White Blood Count 5.8 K/UL (4.8-10.8) 4.3 K/UL (4.8-10.8) Red Blood Count 4.01 M/UL (4.20-5.40) 3.43 M/UL (4.20-5.40) Hemoglobin 12.1 G/DL (12.0-16.0) 10.5 G/DL (12.0-16.0) Hematocrit 37.0 % (37.0-47.0) 31.5 % (37.0-47.0) Mean Corpuscular Volume 92 FL (80-99) 92 FL (80-99) Mean Corpuscular Hemoglobin 30.0 PG (27.0-31.0) 30.6 PG (27.0-31.0) Mean Corpuscular Hemoglobin Concent 32.6 G/DL (32.0-36.0) 33.3 G/DL (32.0-36.0) Red Cell Distribution Width 13.6 % (11.6-14.8) 13.4 % (11.6-14.8) Platelet Count 211 K/UL (150-450) 172 K/UL (150-450) Mean Platelet Volume 4.9 FL (6.5-10.1) 5.1 FL (6.5-10.1) Neutrophils (%) (Auto) % (45.0-75.0) % (45.0-75.0) Lymphocytes (%) (Auto) % (20.0-45.0) % (20.0-45.0) Monocytes (%) (Auto) % (1.0-10.0) % (1.0-10.0) Eosinophils (%) (Auto) % (0.0-3.0) % (0.0-3.0) Basophils (%) (Auto) % (0.0-2.0) % (0.0-2.0) Differential Total Cells Counted 100 100 Neutrophils % (Manual) 76 % (45-75) 66 % (45-75) Lymphocytes % (Manual) 14 % (20-45) 12 % (20-45) Monocytes % (Manual) 8 % (1-10) 18 % (1-10) Eosinophils % (Manual) 2 % (0-3) 2 % (0-3) Basophils % (Manual) 0 % (0-2) 2 % (0-2) Band Neutrophils 0 % (0-8) 0 % (0-8) Platelet Estimate Adequate Adequate Platelet Morphology Normal Normal Red Blood Cell Morphology Normal Sodium Level 142 MMOL/L (136-145) 142 MMOL/L (136-145) Potassium Level 3.3 MMOL/L (3.5-5.1) 3.5 MMOL/L (3.5-5.1) Chloride Level 106 MMOL/L (98-107) 107 MMOL/L (98-107) Carbon Dioxide Level 29 MMOL/L (21-32) 26 MMOL/L (21-32) Anion Gap 7 mmol/L (5-15) 9 mmol/L (5-15) Blood Urea Nitrogen 10 mg/dL (7-18) 11 mg/dL (7-18) Creatinine 0.6 MG/DL (0.55-1.30) 0.6 MG/DL (0.55-1.30) Estimat Glomerular Filtration Rate > 60 mL/min (>60) > 60 mL/min (>60) Glucose Level 85 MG/DL (74-106) 91 MG/DL (74-106) Calcium Level 8.9 MG/DL (8.5-10.1) 8.5 MG/DL (8.5-10.1) Hypochromasia 1+ Anisocytosis 1+ Height (Feet): 5 Height (Inches): 6.00 Weight (Pounds): 180 Objective ROS (review of systems): Constitutional: No fever, no chills, no night sweats, no fatigue Skin: No rashes, lumps, itchiness, dryness HEENT: No POLANCO, ear ache, visual changes, double vision, nosebleeds Breasts: No lumps, pain, discharge Pulmonary: No cough, sputum, shortness of breath, coughing up blood Cardiovascular: No chest pain, tightness, palpitations, syncope, PND GI: No nausea, vomiting, diarrhea, melena, hematochezia, change in appetite, : No dysuria, frequency, urgency, urinary incontinence, foamy urine Musculoskeletal: No joint swelling or muscle pain, trauma, back pain Neurologic: No dizziness, fainting, seizures, changes in smell or taste Psychiatric: No nervousness, stress, or depression, anxiety, hallucinations Endocrine: No weight change, heat or cold intolerance, tremor, insomnia Physical Exam: Vitals: reviewed General: NAD HEENT: nc, at Neck: supple Chest: clear breath sounds bilaterally Cardiovascular: RRR, no s3, s4 Abdomen: soft, nontender, nd Extremities: no cce, normal range of motion++ rl3 cellulitis better Neuro: alert and oriented Brian Dyson MD Oct 18, 2019 10:08
--- NOTE | 2019-10-18 10:45 | Consultation ---
DATE OF CONSULTATION: 10/16/2019 HISTORY OF PRESENT ILLNESS: This is a 89-year-old patient who came to the hospital. This patient was admitted to the hospital. He is still confused, disorganized, mood labile, male patient. He was admitted to the hospital because he has COPD, GERD, CVA but he also has altered mental status and Alzheimer disease with depression. He has a history of taking Prozac 20 mg daily and Aricept at a dose of 10 mg every morning and at bedtime. There was daily psychiatric consultation requested to help stabilize this patient's mood, help manage his psychotropic medications. He came in with right extremity cellulitis and edema. He is from [facility]. He is very confused, disorganized. He has altered mental status, confusion. Apparently his cognition has declined below his baseline. PAST MEDICAL HISTORY: Hypertension, obesity, COPD, neuropathy, Alzheimer's, CVA, and GERD. ALLERGIES: To aspirin, morphine, tetanus toxid. MEDICATIONS: Psychotropic medications on admission, he is normally on medication regimen Aricept 5 twice a day, Prozac at a dose 20 mg daily per chart. FAMILY PSYCHIATRIC HISTORY: Denies. PAIN ASSESSMENT: 0/10 pain. DEVELOPMENTAL PROBLEMS: Denies. SUBSTANCE ABUSE HISTORY: Denies. No drug or alcohol use. SOCIAL HISTORY: The patient lives in [facility]. Financially supported by [facility] and Medicare. STRENGTHS: He is motivated to get better and has a place to live. WEAKNESSES: He is impulsive with minimal support system. MENTAL STATUS EXAMINATION: This is a 89-year-old male. Appearance is disheveled. Attitude, irritable and agitated. Affect, guarded and restricted. Intellect is poor. Mood, depressed and anxious. Motor activity, psychomotor agitation. Attention span is poor. Orientation x2. Speech is low volume and slurred. Thought process, disorganized and illogical. Insight and judgment. DIAGNOSIS: Major depressive disorder, mild, recurrent with psychotic features rule out dementia with psychosis. PLAN: Treat the patient with Prozac 10 mg today, Aricept 5 mg today. A 20 minutes of cognitive behavioral therapy to help him identify his automatic negative thoughts and help him convert his negative thoughts to more positive thoughts to reduce depression, anxiety, mood lability. A 20 minutes of cognitive behavioral therapy provided. Chart reviewed. Discussed with staff. The patient was seen and assessed at bedside. Jeannette Velasquez M.D. DR: Aubrey JOB#: [id number] CC:
--- NOTE | 2019-10-18 12:30 | General Progress Note ---
Assessment/Plan Problem List: (1) COPD (chronic obstructive pulmonary disease) ICD Codes: J44.9 - Chronic obstructive pulmonary disease, unspecified SNOMED: 61370916 (2) Alzheimer disease ICD Codes: G30.9 - Alzheimer's disease, unspecified; F02.80 - Dementia in other diseases classified elsewhere without behavioral disturbance SNOMED: 20346452 (3) Weak ICD Codes: R53.1 - Weakness SNOMED: 32537057 (4) GERD (gastroesophageal reflux disease) ICD Codes: K21.9 - Gastro-esophageal reflux disease without esophagitis SNOMED: 549692319 (5) HTN (hypertension) ICD Codes: I10 - Essential (primary) hypertension SNOMED: 74076430 (6) CVA (cerebral vascular accident) ICD Codes: I63.9 - Cerebral infarction, unspecified SNOMED: 712884463 (7) Cellulitis of right lower extremity ICD Codes: L03.115 - Cellulitis of right lower limb SNOMED: 673779667 (8) Suspected COVID-19 virus infection ICD Codes: R68.89 - Other general symptoms and signs SNOMED: 636312991 Status: stable, progressing Assessment/Plan: wound care abx pain control cbc bmp am dc plan if clear Subjective Constitutional: Reports: weakness Allergies: Coded Allergies: ASPIRIN (Verified Allergy, Intermediate, Rash, 09/02/19) coating MORPHINE (Verified Allergy, Unknown, 10/14/19) Uncoded Allergies: TETANUS TOXOID (Allergy, Unknown, 10/14/19) All Systems: reviewed and negative except above Subjective sl ankle pain Objective Last 24 Hour Vital Signs Date Time Temp Pulse Resp B/P (MAP) Pulse Ox O2 Delivery O2 Flow Rate FiO2 10/18/19 08:00 98.1 77 20 140/73 (95) 95 10/18/19 07:24 98.6 10/18/19 00:27 98.6 69 20 136/98 (111) 95 10/17/19 20:48 Room Air 10/17/19 19:52 97.7 70 20 135/82 (99) 99 10/17/19 16:00 98.2 74 18 146/87 (106) 94 Intake and Output 10/17/19 10/18/19 19:00 07:00 Intake Total 1455 ml 975 ml Output Total 500 ml Balance 1455 ml 475 ml Intake Oral 500 ml 240 ml IV Total 955 ml 735 ml Output Urine Total 500 ml # Voids 2 # Bowel Movements 2 Laboratory Tests 10/18/19 05:30: White Blood Count 4.3L, Red Blood Count 3.43L, Hemoglobin 10.5L, Hematocrit 31.5L, Mean Corpuscular Volume 92, Mean Corpuscular Hemoglobin 30.6, Mean Corpuscular Hemoglobin Concent 33.3, Red Cell Distribution Width 13.4, Platelet Count 172, Mean Platelet Volume 5.1L, Neutrophils (%) (Auto) , Lymphocytes (%) ( Auto) , Monocytes (%) (Auto) , Eosinophils (%) (Auto) , Basophils (%) (Auto) , Differential Total Cells Counted 100, Neutrophils % (Manual) 66, Lymphocytes % ( Manual) 12L, Monocytes % (Manual) 18H, Eosinophils % (Manual) 2, Basophils % ( Manual) 2, Band Neutrophils 0, Platelet Estimate Adequate, Platelet Morphology Normal, Hypochromasia 1+, Anisocytosis 1+, Sodium Level 142, Potassium Level 3.5 , Chloride Level 107, Carbon Dioxide Level 26, Anion Gap 9, Blood Urea Nitrogen 11, Creatinine 0.6, Estimat Glomerular Filtration Rate > 60, Glucose Level 91, Calcium Level 8.5 Height (Feet): 5 Height (Inches): 6.00 Weight (Pounds): 180 General Appearance: alert EENT: normal ENT inspection Neck: normal alignment Cardiovascular: normal peripheral pulses, normal rate, regular rhythm Respiratory/Chest: chest wall non-tender, lungs clear, normal breath sounds Abdomen: normal bowel sounds, non tender, soft Extremities: normal inspection Edema: 1+ Arm (L), 1+ Arm (R), 1+ Leg (L), 1+ Leg (R), 1+ Pedal (L), 1+ Pedal ( R), 1+ Generalized Neurologic: responsive, motor weakness Skin: normal pigmentation, warm/dry Objective r ankle sl red and swollen Earle Whaley DO Oct 18, 2019 12:30
--- NOTE | 2019-10-18 13:00 | Progress Note ---
DATE: 10/18/2019 SUBJECTIVE: This is an 89-year-old female. The patient has right lower extremity edema. The patient has confusion, some disorganized thought process, and mood lability. The patient has got no plan for self care, has lower extremity edema, confusion, disorganized thought process, and mood lability. That is why, she does require daily psychiatric consultation. MENTAL STATUS EXAMINATION: This is an 89-year-old female. Appearance is disheveled. Attitude, irritable and agitated. Affect, guarded and restricted. Intellect poor. Mood, depressed and anxious. Motor activity, psychomotor agitation. Attention span is poor. Orientation x2. Speech is low volume and slurred. Thought process, disorganized and illogical. Insight and judgment is poor. DIAGNOSIS: Major depressive disorder, mild, recurrent with psychotic features. PLAN: Continue treatment with psychotropic medications to stabilize the mood. Clinically, disorganized thought process and further decline in cognition. Provided with 20 minutes of cognitive behavioral therapy to help identify automatic negative thoughts, help her convert negative thoughts to more positive thoughts to reduce depression, anxiety, and mood lability. Chart reviewed. Discussed with staff. The patient was seen and assessed in her room. A 20 minutes of cognitive behavioral therapy provided. Jeannette Velasquez M.D. DR: OVIDIO JOB#: [id number] CC:
--- NOTE | 2019-10-18 14:45 | Surgery Progress Note ---
Surgery Progress Note Subjective Symptoms: improved, tolerating diet, passing flatus Objective Last 24 Hour Vital Signs Date Time Temp Pulse Resp B/P (MAP) Pulse Ox O2 Delivery O2 Flow Rate FiO2 10/18/19 08:00 98.1 77 20 140/73 (95) 95 10/18/19 07:24 98.6 10/18/19 00:27 98.6 69 20 136/98 (111) 95 10/17/19 20:48 Room Air 10/17/19 19:52 97.7 70 20 135/82 (99) 99 10/17/19 16:00 98.2 74 18 146/87 (106) 94 I&O Intake and Output 10/17/19 10/18/19 19:00 07:00 Intake Total 1455 ml 975 ml Output Total 500 ml Balance 1455 ml 475 ml Intake Oral 500 ml 240 ml IV Total 955 ml 735 ml Output Urine Total 500 ml # Voids 2 # Bowel Movements 2 Dressing: dry Wound: clean Cardiovascular: RSR Respiratory: clear Abdomen: soft, non-tender Extremities: edema, no tenderness, no cyanosis, other Laboratory Tests Test 10/18/19 05:30 White Blood Count 4.3 K/UL (4.8-10.8) L Red Blood Count 3.43 M/UL (4.20-5.40) L Hemoglobin 10.5 G/DL (12.0-16.0) L Hematocrit 31.5 % (37.0-47.0) L Mean Corpuscular Volume 92 FL (80-99) Mean Corpuscular Hemoglobin 30.6 PG (27.0-31.0) Mean Corpuscular Hemoglobin Concent 33.3 G/DL (32.0-36.0) Red Cell Distribution Width 13.4 % (11.6-14.8) Platelet Count 172 K/UL (150-450) Mean Platelet Volume 5.1 FL (6.5-10.1) L Neutrophils (%) (Auto) % (45.0-75.0) Lymphocytes (%) (Auto) % (20.0-45.0) Monocytes (%) (Auto) % (1.0-10.0) Eosinophils (%) (Auto) % (0.0-3.0) Basophils (%) (Auto) % (0.0-2.0) Differential Total Cells Counted 100 Neutrophils % (Manual) 66 % (45-75) Lymphocytes % (Manual) 12 % (20-45) L Monocytes % (Manual) 18 % (1-10) H Eosinophils % (Manual) 2 % (0-3) Basophils % (Manual) 2 % (0-2) Band Neutrophils 0 % (0-8) Platelet Estimate Adequate Platelet Morphology Normal Hypochromasia 1+ Anisocytosis 1+ Sodium Level 142 MMOL/L (136-145) Potassium Level 3.5 MMOL/L (3.5-5.1) Chloride Level 107 MMOL/L (98-107) Carbon Dioxide Level 26 MMOL/L (21-32) Anion Gap 9 mmol/L (5-15) Blood Urea Nitrogen 11 mg/dL (7-18) Creatinine 0.6 MG/DL (0.55-1.30) Estimat Glomerular Filtration Rate > 60 mL/min (>60) Glucose Level 91 MG/DL (74-106) Calcium Level 8.5 MG/DL (8.5-10.1) Plan Problems: (1) Parkinson disease (2) COPD (chronic obstructive pulmonary disease) (3) Alzheimer disease (4) Weak (5) GERD (gastroesophageal reflux disease) (6) HTN (hypertension) (7) CVA (cerebral vascular accident) (8) Cellulitis of right lower extremity Assessment & Plan: venous duplex negative Findings: Bilaterally, grayscale and duplex images demonstrate no evidence of intraluminal thrombus. Normal phasic Doppler waveforms, demonstrating normal augmentation response and no evidence of valvular insufficiency. Greater saphenous vein(s) and tibial veins are patent. Normal compressibility. No significant interim change from the prior right leg exam Impression: Negative for evidence of lower extremity deep venous thrombosis bilaterally no abscess on exam cellulitis but no fluctuance b/l edema needs to keep elevated anfec iv as per ID, agree covid testing trend labs keep leg elevated wash daily with soap and water in shower apply skin protectant will follow with recs than you Thad Moore Oct 18, 2019 14:45
--- NOTE | 2019-10-20 17:34 | Discharge Summary ---
Discharge Summary Discharge Summary _ DATE OF ADMISSION: 10/14/2019 DATE OF DISCHARGE: 10/18/2019 DISCHARGED BY: Dr. Whaley REASON FOR ADMISSION: 89 years old female with past medical history of hyperlipidemia, history of CVA , congestive heart failure, GERD, COPD, hypothyroidism, anemia, presented with cellulitis of lower extremity. She denied any fever. Pain reported 6 out of 10 , worse with palpation. She denied cough or shortness of breath. Upon evaluation vital signs were stable. Laboratory work-up revealed no leukocytosis ,hemoglobin 11.7 ,hematocrit 38.5. Stable electrolytes and renal parameters. Venous duplex bilateral lower extremity revealed no evidence of acute DVT. Patient admitted for further management. CONSULTANTS: neurologist Dr. Wang ID specialist Dr. Donovan office nurse/oncologist Dr. Dyson surgery Dr. Moore psychiatrist Dr. Velasquez Pain specialist Dr. Duque HOSPITAL COURSE: Patient admitted to medical surgical floor and started on antibiotic as per ID specialist recommendation. Blood cultures were negative. Patient was tested for coronavirus because there were cases at the [facility]. COVID 19 came back negative. Pulse oximetry remained stable on room air. No evidence of respiratory distress. IV antibiotic changed to oral upon discharge to complete the course. Surgeon followed. No evidence of abscess or fluctuance on exam. Surgeon recommended to elevate lower extremity and complete antibiotic as per ID specialist recommendation. Neurologist seen and evaluated patient , and diagnosed patient with mild neuropathy. He recommended treatment with tricyclic antidepressant, gabapentin or duloxetine. Nerve conduction study was recommended to be done as outpatient. Pain management was provided as per pain specialist recommendation. SNF medication continued . DVT and GI prophylaxis provided. Hemoglobin and hematocrit were closely monitored with goal to keep hemoglobin above 7. No evidence of hemolysis. Prior to discharge hemoglobin at 10.5, hematocrit 31.5. Psychiatric medication regimen was optimized per psychiatrist. Cognitive behavioral therapy provided. Patient clinically stabilized and was ready for transfer back to senior care facility for continuation of care. FINAL DIAGNOSES: Cellulitis bilateral lower extremity, recurrent, due to underlying lymphedema Neuropathy COPD Suspected COVID 19 infection - ruled out History of CVA Hypertension Alzheimer's dementia Hypothyroidism Anemia of chronic disease Dyslipidemia GERD Parkinson disease Major depressive disorder, mild, recurrent with psychotic features DISCHARGE MEDICATIONS: See Medication Reconciliation list. DISCHARGE INSTRUCTIONS: Patient was discharged to the senior care facility. Follow up with medical doctor at the facility. I have been assigned to dictate discharge summary for this account. I was not involved in the patient's management. Nita Whitley NP Oct 20, 2019 17:34
== END 2019-10-18 17:29 | DRG 603 ==
LOC: EDBD 17:01 → EMR 17:26 → 4E 19:58 → EDBEDREQ 10-15 00:17 → 4E 10-15 02:19
DX: L03.115 Cellulitis of right lower limb (principal); I69.354 Hemiplegia and hemiparesis following cerebral infarction affecting left non-dominant side; F33.0 Major depressive disorder, recurrent, mild; F20.0 Paranoid schizophrenia; J44.9 Chronic obstructive pulmonary disease, unspecified; K21.9 Gastro-esophageal reflux disease without esophagitis; G30.9 Alzheimer's disease, unspecified; F02.80 Dementia in other diseases classified elsewhere, unspecified severity, without behavioral disturbance, psychotic disturbance, mood disturbance, and anxiety; Z88.6 Allergy status to analgesic agent; Z88.7 Allergy status to serum and vaccine; I10 Essential (primary) hypertension; E66.9 Obesity, unspecified; G62.9 Polyneuropathy, unspecified; E78.5 Hyperlipidemia, unspecified; E03.9 Hypothyroidism, unspecified; I89.0 Lymphedema, not elsewhere classified; D63.8 Anemia in other chronic diseases classified elsewhere; G20 Parkinson's disease
CPT/HCPCS: 36415; 80048; 80053; 85007; 85025; 85610; 87040; 87081; 87635; 93970; 94664; 96374; 99285; J8499

== ENCOUNTER 2019-10-28 09:24 | Inpatient (IN) | payer MEDICARE, MEDICAID ==
[~2019-10-28] VITALS: Ht 172.7 cm; Wt 80.7 kg
[~2019-10-28 09:24] MED LIST changes: +ATORVASTATIN CA20 MG ORAL; +DOCUSATE SODIU100 M2 ORAL
--- NOTE | 2019-10-28 09:35 | NUR ---
ED Nurse Note: patient brought into ED from [facility] by [facility] due to fever and cough since last night. 100.7F at the SNF, tylenol 650mg given at 0845am. upon arrival, oral temp was 98.0 F. patient changed into a hospital gown, patient on a rv mechanic. patient on a 4L fluctuating between 93% to 98%, respirations 24. patient is alert awake x3 able to follow directions. upon belongings check, patient did not have any dentures, but does have 1 pair of hearing aids which patien wishes to keep in her ear and 1 glasses, 1 laptop, and 1 smartphones. patient has 2 bags of knitting materials.
--- NOTE | 2019-10-28 10:02 | Emergency Room Report ---
History of Present Illness General Chief Complaint: Fever Source: Patient, Medical Record, EMS Present Illness HPI 89-year-old female presents to ED for reported fever, cough x1 day. Coming from snf facility. Afebrile in triage. Denies chest pain or shortness of breath. No other aggravating relieving factors. Denies any other associated symptoms Allergies: Coded Allergies: ASPIRIN (Verified Allergy, Intermediate, Rash, 09/02/19) coating MORPHINE (Verified Allergy, Unknown, 10/14/19) Uncoded Allergies: TETANUS TOXOID (Allergy, Unknown, 10/14/19) COVID-19 Screening Contact w/high risk pt: No Recent Travel to affected area: No Experienced COVID-19 symptoms?: Yes COVID-19 symptoms experienced: Fever (T>100.4F or >38C), Cough Patient History Past Medical History: CHF, COPD Pertinent Family History: none Social History: Denies: smoking, alcohol use, drug use Now: No Immunizations: UTD Reviewed Nursing Documentation: PMH: Agreed; PSxH: Agreed Nursing Documentation-PMH Hx Cardiac Problems: Yes - PNA, MUSCLE WEAKNESS, HEMIPLEGIA, HYPOTHYROIDISM, CHF Hx Hypertension: Yes - ANEMIA, HYPERLIPIDEMIA, HYPOKALEMIA Hx COPD: Yes Hx Gastrointestinal Problems: Yes - GERD Review of Systems All Other Systems: negative except mentioned in HPI Physical Exam Vital Signs Date Time Temp Pulse Resp B/P (MAP) Pulse Ox O2 Delivery O2 Flow Rate FiO2 10/28/19 09:30 98.8 86 28 116/61 (79) 93 Nasal Cannula 4.0 Sp02 EP Interpretation: reviewed, normal General Appearance: no apparent distress, alert, GCS 15, non-toxic Head: normocephalic, atraumatic Eyes: bilateral eye normal inspection, bilateral eye PERRL ENT: hearing grossly normal, normal pharynx, no angioedema, normal voice Neck: full range of motion, supple/symm/no masses Respiratory: chest non-tender, lungs clear, normal breath sounds, speaking full sentences Cardiovascular #1: regular rate, rhythm, no edema Cardiovascular #2: 2+ carotid (R), 2+ carotid (L), 2+ radial (R), 2+ radial (L) , 2+ dorsalis pedis (R), 2+ dorsalis pedis (L) Gastrointestinal: normal bowel sounds, non tender, soft, non-distended, no guarding, no rebound Rectal: deferred Genitourinary: normal inspection, no CVA tenderness Musculoskeletal: back normal, normal range of motion, gait/station normal, non- tender Neurologic: alert, motor strength/tone normal, oriented x3, sensory intact, responsive, speech normal Psychiatric: judgement/insight normal, memory normal, mood/affect normal, no suicidal/homicidal ideation Reflexes: 3+ bicep (R), 3+ bicep (L), 3+ tricep (R), 3+ tricep (L), 3+ knee (R) , 3+ knee (L) Skin: other - see nursing skin notes Lymphatic: no adenopathy Medical Decision Making Diagnostic Impression: Primary Impression: Fever Qualified Codes: R50.9 - Fever, unspecified Additional Impressions: Pneumonia Qualified Codes: J18.9 - Pneumonia, unspecified organism Suspected COVID-19 virus infection ER Course Hospital Course 89 yo F presents with reported fever, cough from SNF Differential diagnoses include: Pneumonia, CHF exacerbation, pneumothorax, fluid overload Clinical course Patient placed on stretcher. In isolation. I wore full PPE. On secured entrance monitor After initial history and physical, I ordered labs, IV fluids, EKG, chest x-ray, blood cultures, UA. Labs - no leukocytosis, hemoglobin/hematocrit stable, electrolytes okay, lactate okay EKG - bisaciular block, no acute ischemic changes interpreted by me CXR - bialteral infiltrates COVID swab sent. Antibiotics given. resting comfortably with nasal cannula Case discussed with Dr. Whaley and he agreed to the patient to his service for further care and support I feel this is a highly complex case requiring extensive working including EKG/ Rhythm strip, Xray/CT/US, Blood/urine lab work, repeat exams while in ED, and administration of strong opiates/narcotics for pain control, admission to hospital or close patient follow up. Diagnosis - pneumonia, fever, suspect COVID-19 infection Patient admitted to telemetry in serious condition Labs Test 10/28/19 10:00 White Blood Count 5.6 K/UL (4.8-10.8) Red Blood Count 3.67 M/UL (4.20-5.40) Hemoglobin 11.0 G/DL (12.0-16.0) Hematocrit 32.9 % (37.0-47.0) Mean Corpuscular Volume 90 FL (80-99) Mean Corpuscular Hemoglobin 29.9 PG (27.0-31.0) Mean Corpuscular Hemoglobin Concent 33.3 G/DL (32.0-36.0) Red Cell Distribution Width 13.4 % (11.6-14.8) Platelet Count 128 K/UL (150-450) Mean Platelet Volume 6.2 FL (6.5-10.1) Neutrophils (%) (Auto) % (45.0-75.0) Lymphocytes (%) (Auto) % (20.0-45.0) Monocytes (%) (Auto) % (1.0-10.0) Eosinophils (%) (Auto) % (0.0-3.0) Basophils (%) (Auto) % (0.0-2.0) Differential Total Cells Counted 100 Neutrophils % (Manual) 91 % (45-75) Lymphocytes % (Manual) 7 % (20-45) Monocytes % (Manual) 2 % (1-10) Eosinophils % (Manual) 0 % (0-3) Basophils % (Manual) 0 % (0-2) Band Neutrophils 0 % (0-8) Platelet Estimate Decreased Platelet Morphology Normal Hypochromasia 1+ Urine Color Yellow Urine Appearance Clear Urine pH 6 (4.5-8.0) Urine Specific [place] 1.015 (1.005-1.035) Urine Protein 2+ (NEGATIVE) Urine Glucose (UA) Negative (NEGATIVE) Urine Ketones 1+ (NEGATIVE) Urine Blood 1+ (NEGATIVE) Urine Nitrite Negative (NEGATIVE) Urine Bilirubin Negative (NEGATIVE) Urine Urobilinogen Normal MG/DL (0.0-1.0) Urine Leukocyte Esterase 1+ (NEGATIVE) Urine RBC 0-2 /HPF (0 - 2) Urine WBC 2-4 /HPF (0 - 2) Urine Squamous Epithelial Cells Few /LPF (NONE/OCC) Urine Bacteria Few /HPF (NONE) Sodium Level 142 MMOL/L (136-145) Potassium Level 3.6 MMOL/L (3.5-5.1) Chloride Level 103 MMOL/L (98-107) Carbon Dioxide Level 29 MMOL/L (21-32) Anion Gap 11 mmol/L (5-15) Blood Urea Nitrogen 18 mg/dL (7-18) Creatinine 1.0 MG/DL (0.55-1.30) Estimat Glomerular Filtration Rate 52.5 mL/min (>60) Glucose Level 94 MG/DL (74-106) Lactic Acid Level 1.20 mmol/L (0.4-2.0) Calcium Level 8.2 MG/DL (8.5-10.1) Total Bilirubin 0.3 MG/DL (0.2-1.0) Aspartate Amino Transf (AST/SGOT) 30 U/L (15-37) Alanine Aminotransferase (ALT/SGPT) 22 U/L (12-78) Alkaline Phosphatase 56 U/L (46-116) Pro-B-Type Natriuretic Peptide 767 pg/mL (0-125) Total Protein 6.6 G/DL (6.4-8.2) Albumin 2.9 G/DL (3.4-5.0) Globulin 3.7 g/dL Albumin/Globulin Ratio 0.8 (1.0-2.7) EKG Diagnostic Results Rate: normal Rhythm: NSR ST Segments: no acute changes ASA given to the pt in ED: No Rhythm Strip Diag. Results EP Interpretation: yes Rhythm: NSR, no PVC's, no ectopy Chest X-Ray Diagnostic Results Chest X-Ray Diagnostic Results : Chest X-Ray Ordered: Yes # of Views/Limited/Complete: 1 View Indication: Shortness of Breath EP Interpretation: Yes Interpretation: no pneumothorax, other - pneumonia Impression: Other - pneumonia Electronically Signed by: Electronically signed by Gustavo Araya MD Last Vital Signs Date Time Temp Pulse Resp B/P (MAP) Pulse Ox O2 Delivery O2 Flow Rate FiO2 10/28/19 09:30 98.8 86 28 116/61 (79) 93 Nasal Cannula 4.0 Status: improved Disposition: ADMITTED INPATIENT Condition: Serious Gustavo Araya MD Oct 28, 2019 10:02
[2019-10-28 10:23] VITALS: BP 98/40
--- NOTE | 2019-10-28 10:30 | NUR ---
ED Nurse Note: cxr done at bedside.
[2019-10-28 10:44] LABS: HEMATOCRIT 32.9 % (37.0-47.0); MEAN CORPUSCULAR VOLUME 90 FL (80-99); PLATELET COUNT 128 K/UL (150-450); RED BLOOD COUNT 3.67 M/UL (4.20-5.40); RED CELL DISTRIBUTION WIDTH 13.4 % (11.6-14.8); WHITE BLOOD COUNT 5.6 K/UL (4.8-10.8)
[2019-10-28 10:55] LABS: ANION GAP 11 mmol/L (5-15); BLOOD UREA NITROGEN 18 mg/dL (7-18); CALCIUM 8.2 MG/DL (8.5-10.1); CARBON DIOXIDE 29 MMOL/L (21-32); CHLORIDE 103 MMOL/L (98-107); POTASSIUM 3.6 MMOL/L (3.5-5.1); SODIUM 142 MMOL/L (136-145)
[2019-10-28 10:58] VITALS: BP 109/70
[2019-10-28 11:09] LABS: ALANINE AMINOTRANSFERASE 22 U/L (12-78); ALBUMIN 2.9 G/DL (3.4-5.0); ALBUMIN/GLOBULIN RATIO 0.8 (1.0-2.7); ALKALINE PHOSPHATASE 56 U/L (46-116); ASPARTATE AMINO TRANSFERASE 30 U/L (15-37); BILIRUBIN,TOTAL 0.3 MG/DL (0.2-1.0)
[2019-10-28 11:16] LABS: APPEARANCE,URINE CLEAR; BILIRUBIN, URINE NEGATIVE (NEGATIVE); GLUCOSE, URINE (UA) NEGATIVE (NEGATIVE); KETONES,URINE 1+ (NEGATIVE); LEUKOCYTE ESTERASE ,URINE 1+ (NEGATIVE); NITRITE,URINE NEGATIVE (NEGATIVE); PH,URINE 6 (4.5-8.0); PROTEIN,URINE 2+ (NEGATIVE); UROBILINOGEN,URINE NORMAL MG/DL (0.0-1.0)
[2019-10-28 11:17] LABS: COLOR,URINE YELLOW
--- NOTE | 2019-10-28 11:43 | Diagnostic Imaging Report ---
EXAM: XR Chest, 1 View CLINICAL HISTORY: COUGH TECHNIQUE: Frontal view of the chest. COMPARISON: Chest x-ray dated 08/28/19 FINDINGS: Lungs: Pulmonary vascular congestion. Patchy perihilar opacities which may represent pulmonary edema versus pneumonia. No significant change in prominent left hilar shadow previously characterized as tortuous ectatic descending aorta. Linear markings in the right midlung region, possibly atelectasis versus infiltrate. Pleural space: Unremarkable. The costophrenic angles are sharp. No visible pneumothorax. Heart: Unremarkable. No cardiomegaly. Mediastinum: Unremarkable. Bones/joints: Degenerative changes throughout the visualized spine and shoulder joints. Tubes, lines and devices: Telemetry leads overlie the thorax. IMPRESSION: 1. Pulmonary vascular congestion. 2. Patchy perihilar opacities which may represent pulmonary edema versus pneumonia. 3. No significant change in prominent left hilar shadow previously characterized as tortuous ectatic descending aorta. 4. Linear markings in the right midlung region, possibly atelectasis versus infiltrate.
[2019-10-28] MEDS ORDERED: Azithromycin 500 MG in NS 275 ML IV ONE (12:00)
[2019-10-28] MEDS ORDERED: Cefepime HCl 1 GM in D5W 55 ML IVPB ONE (12:00)
[2019-10-28 13:25] VITALS: BP 106/64
--- NOTE | 2019-10-28 15:00 | NUR ---
ED Nurse Note: patient voided x1, able to use bedside commode with assistance.
[2019-10-28 15:55] VITALS: BP 118/72
--- NOTE | 2019-10-28 16:01 | NUR ---
ED Nurse Note: report given to Macy GAY, endorsed all plan of care to Macy Gay.
--- NOTE | 2019-10-28 16:10 | NUR ---
NURSE NOTES: Telephone report received from Victor Hugo Gutiérrez. Awaiting patients arrival to the unit.
--- NOTE | 2019-10-28 16:14 | History and Physical Report ---
DATE OF ADMISSION: 10/28/2019 APPROXIMATE TIME: 9 a.m. CONSULTANTS: 1. Yonny Ware MD. 2. Song Lobato MD. 3. Robin Layne MD. CHIEF COMPLAINT: Weakness, low blood pressure, hypoxia. BRIEF HISTORY: This is an 89-year-old female from [facility], presented with above-mentioned diagnoses since midnight, slightly weak, confused, sent to [facility], currently in the ER gurney, slight short of breath, slightly weak, slightly confused. PAST MEDICAL HISTORY: Includes COPD, GERD, hypertension, Alzheimer's, CVA. PAST SURGICAL HISTORY: Unknown. MEDICATIONS: We will obtain list shortly. ALLERGIES: Aspirin, morphine, tetanus toxoid. SOCIAL HISTORY: No smoking. No alcohol. No intravenous drug abuse. FAMILY HISTORY: Noncontributory. PHYSICAL EXAMINATION: GENERAL: Lethargic in bed, oriented x1, slight distress secondary to shortness of breath. VITAL SIGNS: Temperature is 98 degrees, pulse 86, respirations 28, blood pressure 116/61. HEENT: Normocephalic and atraumatic. NECK: Trachea midline. CARDIOVASCULAR: A 1 to 2+ peripheral edema. PULMONARY: Slight short of breath on room air. ABDOMEN: . EXTREMITIES: No cyanosis, clubbing. LABORATORY DATA: Labs are pending. ASSESSMENT: 1. Weakness. 2. Hypoxia. 3. Low blood pressure. 4. Edema. 5. Rule out COVID. 6. COPD. 7. GERD. 8. Hypertension. 9. Alzheimer's. 10. CVA. PLAN: 1. O2, pulmonary treatment, antibiotics per Infectious Diseases. 2. Blood pressure, blood sugar, pain control. 3. Dietary followup. 4. 5. We will continue to follow the patient. Earle Whaley D.O. DR: Jossie JOB#: [id number] CC:
--- NOTE | 2019-10-28 16:20 | NUR ---
ED Nurse Note: patient transferred to 2E on ACLS protocol with all of her belongings, endorsed to Macy CARRASCO. patient transferred with her hearing aids, laptop and ethanol operator, cellphone and ethanol operator, and her purse as well.
--- NOTE | 2019-10-28 16:30 | NUR ---
NURSE NOTES: Patient arrived to the floor at 1628. Transported via gurney X 2 staff assist. Patient is Awake, alert and alert. VSS. Oxygen @ 4 L/min via nasal cannula O2 sat 95%. Left Ac #20 Saline lock CDI. Noted with redness on the sacral area. Patient oriented to room. Fall precautions in place. Call chowdhury within patients reached will follow.
--- NOTE | 2019-10-28 17:00 | NUR ---
NURSE NOTES: CAll out to Dr. Whaley for admission orders awaiting callback
--- NOTE | 2019-10-28 17:30 | NUR ---
NURSE NOTES: Spoke with Dr. Whaley per MD instructions to call Dr. Ware for admission orders.
--- NOTE | 2019-10-28 17:50 | NUR ---
NURSE NOTES: Spoke with Dr. Ware he will call back after 45 mins for orders.
--- NOTE | 2019-10-28 19:05 | NUR ---
NURSE NOTES: Admission orders received from Dr. Ware.
--- NOTE | 2019-10-28 19:37 | NUR ---
HAND-OFF: Report given to Victor Hugo Driscoll. Plan of care endorsed.
[2019-10-28 20:00] VITALS: BP 129/68
--- NOTE | 2019-10-28 20:15 | Consultation ---
DATE OF CONSULTATION: PULMONARY CONSULTATION HISTORY OF PRESENT ILLNESS: This is an 89-year-old male who is a [facility] resident. He was brought to the hospital with cough, fever, and chest congestion. He is currently afebrile. He denies any shortness of breath at this time PAST MEDICAL HISTORY: Notable for CHF, COPD, history of CVA, hypothyroidism, anemia, hyperlipidemia, and GERD. SOCIAL HISTORY: prison resident. No history of alcohol or tobacco usage. ALLERGIES: To aspirin, morphine, and tetanus. MEDICATIONS: Reviewed reconciled in chart. REVIEW OF SYSTEMS: He admits to having fever and generalized weakness. PHYSICAL EXAMINATION: GENERAL: Reveals a 89-year-old male. VITAL SIGNS: Blood pressure is 98/40, heart rate 82, respirations 24, O2 saturation 96% on 4 liters of oxygen. HEENT: Unremarkable. CHEST: Decreased breath sounds bilaterally with normal heart sounds. ABDOMEN: Soft. EXTREMITIES: There is no edema. NEUROLOGIC: Nonfocal. LABORATORY DATA: Lab testing shows hemoglobin 11, otherwise normal CBC. Chemistries are pending. Urinalysis pending. X-ray chest reviewed in the ER which shows enlarged cardiac silhouette, this is a hint of mild peripheral densities, however, this is a underpenetrated film, likely and is rotated as well. IMPRESSION: 1. Suspect pulmonary edema. 2. CHF. 3. COPD. 4. Rule out COVID-19. DISCUSSION: Admitted to the hospital. Continue home medications. We will follow carefully. Order oxygen and pulmonary hygiene. Broad-spectrum antibiotics. Yonny Ware M.D. DR: Fanta JOB#: [id number] CC:
[2019-10-28] MEDS: Zolpidem 5mg tab ORAL PRN (21:14)
[2019-10-29] VITALS: BP 107/60
[2019-10-29 04:00] VITALS: BP 127/71
[2019-10-29] MEDS: Levothyroxine 25mcg tab ORAL SCH (05:59)
[2019-10-29 07:28] LABS: HEMATOCRIT 32.2 % (37.0-47.0); HEMOGLOBIN 10.7 G/DL (12.0-16.0); MEAN CORPUSCULAR VOLUME 90 FL (80-99); PLATELET COUNT 136 K/UL (150-450); RED CELL DISTRIBUTION WIDTH 13.3 % (11.6-14.8); WHITE BLOOD COUNT 5.3 K/UL (4.8-10.8)
--- NOTE | 2019-10-29 07:30 | NUR ---
HAND-OFF: Report given to Lakhwinder CARRASCO.
--- NOTE | 2019-10-29 07:30 | NUR ---
NURSE NOTES: AOx4. On 2L NC. RR 22, denies pain. IV patent. Bed on lowest position, side rails upx2, brakes engaged. Front wheel walker and bedside commode at bedside. Educted Pt. to use call light before attempting to get out of bed. Bed on lowest position, side rails upx2, brakes engaged, call light within easy reach. Room made free of clutter. Trash cans emptied.
[2019-10-29 07:36] LABS: ANION GAP 9 mmol/L (5-15); BLOOD UREA NITROGEN 17 mg/dL (7-18); CALCIUM 8.2 MG/DL (8.5-10.1); CARBON DIOXIDE 28 MMOL/L (21-32); CHLORIDE 106 MMOL/L (98-107); CREATININE 0.8 MG/DL (0.55-1.30); POTASSIUM 3.8 MMOL/L (3.5-5.1); SODIUM 143 MMOL/L (136-145)
[2019-10-29 08:00] VITALS: BP 134/70
--- NOTE | 2019-10-29 09:02 | General Progress Note ---
Assessment/Plan Problem List: (1) UTI (urinary tract infection) ICD Codes: N39.0 - Urinary tract infection, site not specified SNOMED: 64617367 (2) Hypoxia ICD Codes: R09.02 - Hypoxemia SNOMED: 022277927 (3) Edema ICD Codes: R60.9 - Edema, unspecified SNOMED: 326456268, 089763560 (4) COPD (chronic obstructive pulmonary disease) ICD Codes: J44.9 - Chronic obstructive pulmonary disease, unspecified SNOMED: 19534649 (5) Alzheimer disease ICD Codes: G30.9 - Alzheimer's disease, unspecified; F02.80 - Dementia in other diseases classified elsewhere without behavioral disturbance SNOMED: 13142936 (6) Weak ICD Codes: R53.1 - Weakness SNOMED: 68257322 (7) GERD (gastroesophageal reflux disease) ICD Codes: K21.9 - Gastro-esophageal reflux disease without esophagitis SNOMED: 274934189 (8) HTN (hypertension) ICD Codes: I10 - Essential (primary) hypertension SNOMED: 46163467 (9) CVA (cerebral vascular accident) ICD Codes: I63.9 - Cerebral infarction, unspecified SNOMED: 690112343 (10) Suspected COVID-19 virus infection ICD Codes: R68.89 - Other general symptoms and signs SNOMED: 310874723 Status: unchanged Assessment/Plan: o2 pulm tx abx cbc bmp am Subjective Constitutional: Reports: weakness Allergies: Coded Allergies: ASPIRIN (Verified Allergy, Intermediate, Rash, 09/02/19) coating MORPHINE (Verified Allergy, Unknown, 10/14/19) Uncoded Allergies: TETANUS TOXOID (Allergy, Unknown, 10/14/19) All Systems: reviewed and negative except above Subjective o2nc calm Objective Last 24 Hour Vital Signs Date Time Temp Pulse Resp B/P (MAP) Pulse Ox O2 Delivery O2 Flow Rate FiO2 10/29/19 08:00 100.3 89 20 134/70 (91) 96 10/29/19 04:00 98.8 89 22 127/71 (89) 90 10/29/19 04:00 85 10/29/19 00:00 96 10/29/19 00:00 98.2 90 24 107/60 (76) 98 10/28/19 21:00 Nasal Cannula 3.0 4/19/20 20:00 93 10/28/19 20:00 99.3 92 20 129/68 (88) 93 10/28/19 16:30 Nasal Cannula 4.0 10/28/19 16:20 98.0 87 21 118/72 97 Nasal Cannula 4.0 10/28/19 15:55 98.0 87 21 118/72 97 Nasal Cannula 4.0 10/28/19 13:25 98.0 82 21 106/64 92 Nasal Cannula 4.0 10/28/19 10:58 98.0 76 21 109/70 96 Nasal Cannula 4.0 10/28/19 10:25 81 24 Nasal Cannula 4.0 10/28/19 10:23 98.0 81 24 98/40 95 Nasal Cannula 4.0 10/28/19 09:30 98.8 86 28 116/61 (79) 93 Nasal Cannula 4.0 Laboratory Tests 10/28/19 10:00: White Blood Count 5.6, Red Blood Count 3.67L, Hemoglobin 11.0L, Hematocrit 32.9L , Mean Corpuscular Volume 90, Mean Corpuscular Hemoglobin 29.9, Mean Corpuscular Hemoglobin Concent 33.3, Red Cell Distribution Width 13.4, Platelet Count 128L, Mean Platelet Volume 6.2L, Neutrophils (%) (Auto) , Lymphocytes (%) (Auto) , Monocytes (%) (Auto) , Eosinophils (%) (Auto) , Basophils (%) (Auto) , Differential Total Cells Counted 100, Neutrophils % (Manual) 91H, Lymphocytes % (Manual) 7L, Monocytes % (Manual) 2, Eosinophils % (Manual) 0, Basophils % ( Manual) 0, Band Neutrophils 0, Platelet Estimate DecreasedL, Platelet Morphology Normal, Hypochromasia 1+, Urine Color Yellow, Urine Appearance Clear , Urine pH 6, Urine Specific Starbuck 1.015, Urine Protein 2+H, Urine Glucose (UA ) Negative, Urine Ketones 1+H, Urine Blood 1+H, Urine Nitrite Negative, Urine Bilirubin Negative, Urine Urobilinogen Normal, Urine Leukocyte Esterase 1+H, Urine RBC 0-2, Urine WBC 2-4, Urine Squamous Epithelial Cells Few, Urine Bacteria Few, Sodium Level 142, Potassium Level 3.6, Chloride Level 103, Carbon Dioxide Level 29, Anion Gap 11, Blood Urea Nitrogen 18, Creatinine 1.0, Estimat Glomerular Filtration Rate 52.5, Glucose Level 94, Lactic Acid Level 1.20, Calcium Level 8.2L, Total Bilirubin 0.3, Aspartate Amino Transf (AST/SGOT) 30, Alanine Aminotransferase (ALT/SGPT) 22, Alkaline Phosphatase 56, Pro-B-Type Natriuretic Peptide 767H, Total Protein 6.6, Albumin 2.9L, Globulin 3.7, Albumin /Globulin Ratio 0.8L 10/29/19 06:43: White Blood Count 5.3, Red Blood Count 3.60L, Hemoglobin 10.7L, Hematocrit 32.2L , Mean Corpuscular Volume 90, Mean Corpuscular Hemoglobin 29.8, Mean Corpuscular Hemoglobin Concent 33.3, Red Cell Distribution Width 13.3, Platelet Count 136L, Mean Platelet Volume 6.3L, Neutrophils (%) (Auto) , Lymphocytes (%) (Auto) , Monocytes (%) (Auto) , Eosinophils (%) (Auto) , Basophils (%) (Auto) , Neutrophils % (Manual) [Pending], Lymphocytes % (Manual) [Pending], Platelet Estimate [Pending], Platelet Morphology [Pending], Sodium Level 143, Potassium Level 3.8, Chloride Level 106, Carbon Dioxide Level 28, Anion Gap 9, Blood Urea Nitrogen 17, Creatinine 0.8, Estimat Glomerular Filtration Rate > 60, Glucose Level 111H, Calcium Level 8.2L Height (Feet): 5 Height (Inches): 8.00 Weight (Pounds): 180 General Appearance: lethargic EENT: normal ENT inspection Neck: normal alignment Cardiovascular: normal rate, regular rhythm Respiratory/Chest: no respiratory distress, no accessory muscle use Extremities: normal inspection Skin: normal pigmentation Earle Whaley DO Oct 29, 2019 09:02
[2019-10-29] MEDS: Memantine 10mg tab ORAL SCH ×2 (09:25→18:00)
[2019-10-29] MEDS: Vitamin B-12 500mcg tab ORAL SCH (09:26)
--- NOTE | 2019-10-29 09:49 | NUR ---
CASE MANAGEMENT:REVIEW 89YR OLD FEMALE BIBA FROM [facility] CC; COUGH AND FEVER OF 100.7 (TYLENOL GIVEN) SI: SUSPECTED COVID 19 PNEUMONIA 98.7 86 28 98/40 93% ON 4L/NC H/H-11.0/32.9 PLT-128 IS: 500CC NS BOLUS CHEST XRAY BLOOD CX COVID 19 : TO TELEMETRY DCP: FROM [facility] PLAN: ISOLATION PENDING COVID RESULTS
--- NOTE | 2019-10-29 10:14 | NUR ---
*-* INSURANCE *-* ALL CLINICALS AND REVIEWS HAVE BEEN FAXED TO: [facility] / [facility] P: [phone] F: [phone] (FAX ALL CLINICALS)
--- NOTE | 2019-10-29 10:30 | Pulmonology Progress Note ---
Assessment/Plan Assessment/Plan IMPRESSION: 1. Suspect pulmonary edema. 2. CHF. 3. COPD. 4. Rule out COVID-19. DISCUSSION: Continue home medications. I will follow carefully. Ordered oxygen and pulmonary hygiene. Broad-spectrum antibiotics. Await lab results and COVID 19 pcr Yonny Ware M.D. Subjective Interval Events: None new; on 3L/min O2 Constitutional: Reports: no symptoms HEENT: Repors: no symptoms Respiratory: Reports: no symptoms Cardiovascular: Reports: no symptoms Gastrointestinal/Abdominal: Reports: no symptoms Allergies: Coded Allergies: ASPIRIN (Verified Allergy, Intermediate, Rash, 09/02/19) coating MORPHINE (Verified Allergy, Unknown, 10/14/19) Uncoded Allergies: TETANUS TOXOID (Allergy, Unknown, 10/14/19) Objective Last 24 Hour Vital Signs Date Time Temp Pulse Resp B/P (MAP) Pulse Ox O2 Delivery O2 Flow Rate FiO2 10/29/19 08:00 100.3 89 20 134/70 (91) 96 10/29/19 04:00 98.8 89 22 127/71 (89) 90 10/29/19 04:00 85 10/29/19 00:00 96 10/29/19 00:00 98.2 90 24 107/60 (76) 98 10/28/19 21:00 Nasal Cannula 3.0 10/28/19 20:00 93 10/28/19 20:00 99.3 92 20 129/68 (88) 93 10/28/19 16:30 Nasal Cannula 4.0 10/28/19 16:20 98.0 87 21 118/72 97 Nasal Cannula 4.0 10/28/19 15:55 98.0 87 21 118/72 97 Nasal Cannula 4.0 10/28/19 13:25 98.0 82 21 106/64 92 Nasal Cannula 4.0 10/28/19 10:58 98.0 76 21 109/70 96 Nasal Cannula 4.0 Intake and Output 10/28/19 10/29/19 19:00 07:00 # Voids 1 4 # Bowel Movements 1 3 General Appearance: no acute distress HEENT: normocephalic Respiratory/Chest: chest wall non-tender, decreased breath sounds Cardiovascular: normal peripheral pulses Abdomen: normal bowel sounds Microbiology Date/Time Source Procedure Growth Status 10/28/19 10:00 Rectum Received Laboratory Tests 10/29/19 06:43: White Blood Count 5.3, Red Blood Count 3.60L, Hemoglobin 10.7L, Hematocrit 32.2L , Mean Corpuscular Volume 90, Mean Corpuscular Hemoglobin 29.8, Mean Corpuscular Hemoglobin Concent 33.3, Red Cell Distribution Width 13.3, Platelet Count 136L, Mean Platelet Volume 6.3L, Neutrophils (%) (Auto) , Lymphocytes (%) (Auto) , Monocytes (%) (Auto) , Eosinophils (%) (Auto) , Basophils (%) (Auto) , Differential Total Cells Counted 100, Neutrophils % (Manual) 87H, Lymphocytes % (Manual) 9L, Monocytes % (Manual) 4, Eosinophils % (Manual) 0, Basophils % ( Manual) 0, Band Neutrophils 0, Platelet Estimate DecreasedL, Platelet Morphology Normal, Hypochromasia 1+, Anisocytosis 1+, Sodium Level 143, Potassium Level 3.8, Chloride Level 106, Carbon Dioxide Level 28, Anion Gap 9, Blood Urea Nitrogen 17, Creatinine 0.8, Estimat Glomerular Filtration Rate > 60 , Glucose Level 111H, Calcium Level 8.2L Current Medications Medications (Trade) Dose Ordered Sig/Jerome Route PRN Reason Start Time Stop Time Status Last Admin Dose Admin Acetaminophen (Tylenol) 650 mg Q6H PRN ORAL Temp >100.5 10/29/19 08:30 11/28/19 08:29 Clopidogrel Bisulfate (Plavix) 75 mg DAILY ORAL 10/29/19 09:00 11/28/19 08:59 10/29/19 09:25 Cyanocobalamin (Vitamin B-12) 1,000 mcg DAILY ORAL 10/29/19 09:00 11/28/19 08:59 10/29/19 09:26 Furosemide (Lasix) 20 mg DAILY ORAL 10/29/19 09:00 11/28/19 08:59 10/29/19 09:26 Levothyroxine Sodium (Synthroid) 25 mcg DAILY@0630 ORAL 10/29/19 06:30 11/28/19 06:29 10/29/19 05:59 Lorazepam (Ativan) 0.5 mg Q6H PRN ORAL For Anxiety 10/29/19 06:00 11/05/19 05:59 Memantine (Namenda) 10 mg BID ORAL 10/29/19 09:00 11/28/19 08:59 10/29/19 09:25 Pantoprazole (Protonix) 40 mg ACBREAKFAST ORAL 10/29/19 06:30 11/28/19 06:29 10/29/19 05:59 Pramipexole (Mirapex) 0.5 mg DAILY@1700 ORAL 10/29/19 17:00 11/28/19 16:59 Risperidone (RisperDAL) 0.5 mg BID ORAL 10/29/19 09:00 12/13/19 08:59 10/29/19 09:26 Ropinirole HCl (Requip) 2 mg Q12HR ORAL 10/28/19 21:00 11/27/19 20:59 10/29/19 09:25 Solifenacin (Vesicare) 5 mg DAILY ORAL 10/29/19 09:00 11/28/19 08:59 10/29/19 09:26 Zolpidem Tartrate (Ambien) 5 mg HSPRN PRN ORAL Insomnia 10/28/19 21:00 11/04/19 20:59 10/28/19 21:14 Yonny Ware MD Oct 29, 2019 10:30
[2019-10-29 12:00] VITALS: BP 127/73
--- NOTE | 2019-10-29 12:14 | Consultation ---
History of Present Illness General Date patient seen: Oct 29, 2019 Chief Complaint: Fever Present Illness HPI 89 y/o M ith hx of COPD, CHF, CVA, Alzheimer's Dementia, Lymphedema, hypothyroidism, HLD, anemia, GERD, [place] resident presented to ED on 10/27 with cough,f ever, chest congestion Denied SOB upon admission Of note, patient was admitted here from 10/14-10/17 with B/l L LE cellulitis (R >L) . Was tested fro COVID x1 at the time and was negative. Did not had respiratory symptoms at that time. Allergies: Coded Allergies: ASPIRIN (Verified Allergy, Intermediate, Rash, 09/02/19) coating MORPHINE (Verified Allergy, Unknown, 10/14/19) Uncoded Allergies: TETANUS TOXOID (Allergy, Unknown, 10/14/19) Medication History Scheduled Amlodipine Besylate* (Amlodipine Besylate*), 10 MG ORAL DAILY, (Reported) Atorvastatin Calcium* (Atorvastatin Calcium*), 10 MG ORAL BEDTIME, (Reported) Clopidogrel Bisulfate* (Plavix*), 75 MG ORAL DAILY, (Reported) Cyanocobalamin (Vitamin B-12), 1,000 MCG ORAL DAILY, (Reported) Divalproex Sodium* (Depakote*), 250 MG PO Q12HR, (Reported) Docusate Sodium (Docusate Sodium), 100 MG ORAL TWICE A DAY, (Reported) Donepezil Hcl* (Aricept*), 10 MG ORAL QHS, (Reported) Fluoxetine Hcl* (Prozac*), 20 MG ORAL DAILY, (Reported) Furosemide* (Lasix*), 20 MG ORAL DAILY, (Reported) Levothyroxine Sodium* (Synthroid*), 25 MCG ORAL DAILY, (Reported) Memantine Hcl* (Namenda*), 10 MG ORAL BID, (Reported) Pantoprazole* (Pantoprazole*), 40 MG ORAL ACBREAKFAST, (Reported) Pramipexole* (Mirapex*), 0.5 MG ORAL Q5PM, (Reported) Ropinirole Hcl* (Ropinirole Hcl*), 2 MG PO Q12HR, (Reported) Solifenacin Succinate* (Vesicare*), 5 MG ORAL DAILY, (Reported) Zinc Sulfate (Zinc Sulfate*), 220 MG ORAL DAILY, (Reported) Scheduled PRN Diphenhydramine Hcl* (Benadryl*), 50 MG ORAL Q8HR PRN for Itching, (Reported) Zolpidem Tartrate* (Ambien*), 10 MG ORAL HS PRN for Insomnia, (Reported) Discontinued Medications Acetaminophen* (Acetaminophen 325MG Tablet*), 650 MG ORAL Q4H PRN for Prn Headache/Temp > 101, (Reported) Discontinued Reason: Therapy completed Ascorbic Acid* (Vitamin C*), 500 MG ORAL DAILY, (Reported) Discontinued Reason: Therapy completed Cephalexin* (Keflex*), 500 MG ORAL FOUR TIMES A DAY, (Reported) Discontinued Reason: Therapy completed Cyanocobalamin (Vitamin B-12)* (Vitamin B-12*), 1,000 MCG ORAL DAILY, (Reported) Discontinued Reason: Therapy completed Donepezil Hcl* (Aricept*), 10 MG ORAL DAILY, (Reported) Discontinued Reason: Therapy completed Patient History Healthcare decision maker Resuscitation status Advanced Directive on File Patient History Narrative Pmhx: as above SHx: group home resident. No history of alcohol or tobacco usage. Fhx: non contributory Review of Systems All Other Systems: negative except mentioned in HPI Physical Exam Physical Exam Narrative GENERAL: Lethargic in bed, oriented x1, slight distress secondary to shortness of breath. HEENT: Normocephalic and atraumatic. NECK: Trachea midline. CARDIOVASCULAR: A 1 to 2+ peripheral edema. PULMONARY: Slight short of breath on room air.. EXTREMITIES: No cyanosis, clubbing. Last 24 Hour Vital Signs Date Time Temp Pulse Resp B/P (MAP) Pulse Ox O2 Delivery O2 Flow Rate FiO2 10/29/19 08:00 100.3 89 20 134/70 (91) 96 10/29/19 04:00 98.8 89 22 127/71 (89) 90 10/29/19 04:00 85 10/29/19 00:00 96 10/29/19 00:00 98.2 90 24 107/60 (76) 98 10/28/19 21:00 Nasal Cannula 3.0 10/28/19 20:00 93 10/28/19 20:00 99.3 92 20 129/68 (88) 93 10/28/19 16:30 Nasal Cannula 4.0 10/28/19 16:20 98.0 87 21 118/72 97 Nasal Cannula 4.0 10/28/19 15:55 98.0 87 21 118/72 97 Nasal Cannula 4.0 10/28/19 13:25 98.0 82 21 106/64 92 Nasal Cannula 4.0 Intake and Output 10/28/19 10/29/19 19:00 07:00 # Voids 1 4 # Bowel Movements 1 3 Laboratory Tests Test 10/29/19 06:43 White Blood Count 5.3 K/UL (4.8-10.8) Red Blood Count 3.60 M/UL (4.20-5.40) L Hemoglobin 10.7 G/DL (12.0-16.0) L Hematocrit 32.2 % (37.0-47.0) L Mean Corpuscular Volume 90 FL (80-99) Mean Corpuscular Hemoglobin 29.8 PG (27.0-31.0) Mean Corpuscular Hemoglobin Concent 33.3 G/DL (32.0-36.0) Red Cell Distribution Width 13.3 % (11.6-14.8) Platelet Count 136 K/UL (150-450) L Mean Platelet Volume 6.3 FL (6.5-10.1) L Neutrophils (%) (Auto) % (45.0-75.0) Lymphocytes (%) (Auto) % (20.0-45.0) Monocytes (%) (Auto) % (1.0-10.0) Eosinophils (%) (Auto) % (0.0-3.0) Basophils (%) (Auto) % (0.0-2.0) Differential Total Cells Counted 100 Neutrophils % (Manual) 87 % (45-75) H Lymphocytes % (Manual) 9 % (20-45) L Monocytes % (Manual) 4 % (1-10) Eosinophils % (Manual) 0 % (0-3) Basophils % (Manual) 0 % (0-2) Band Neutrophils 0 % (0-8) Platelet Estimate Decreased L Platelet Morphology Normal Hypochromasia 1+ Anisocytosis 1+ Sodium Level 143 MMOL/L (136-145) Potassium Level 3.8 MMOL/L (3.5-5.1) Chloride Level 106 MMOL/L (98-107) Carbon Dioxide Level 28 MMOL/L (21-32) Anion Gap 9 mmol/L (5-15) Blood Urea Nitrogen 17 mg/dL (7-18) Creatinine 0.8 MG/DL (0.55-1.30) Estimat Glomerular Filtration Rate > 60 mL/min (>60) Glucose Level 111 MG/DL (74-106) H Calcium Level 8.2 MG/DL (8.5-10.1) L Height (Feet): 5 Height (Inches): 8.00 Weight (Pounds): 180 Medications Current Medications Medications (Trade) Dose Ordered Sig/Jerome Route PRN Reason Start Time Stop Time Status Last Admin Dose Admin Acetaminophen (Tylenol) 650 mg Q6H PRN ORAL Temp >100.5 10/29/19 08:30 11/28/19 08:29 Clopidogrel Bisulfate (Plavix) 75 mg DAILY ORAL 10/29/19 09:00 11/28/19 08:59 10/29/19 09:25 Cyanocobalamin (Vitamin B-12) 1,000 mcg DAILY ORAL 10/29/19 09:00 11/28/19 08:59 10/29/19 09:26 Furosemide (Lasix) 20 mg DAILY ORAL 10/29/19 09:00 11/28/19 08:59 10/29/19 09:26 Levothyroxine Sodium (Synthroid) 25 mcg DAILY@0630 ORAL 10/29/19 06:30 11/28/19 06:29 10/29/19 05:59 Lorazepam (Ativan) 0.5 mg Q6H PRN ORAL For Anxiety 10/29/19 06:00 11/05/19 05:59 Memantine (Namenda) 10 mg BID ORAL 10/29/19 09:00 11/28/19 08:59 10/29/19 09:25 Pantoprazole (Protonix) 40 mg ACBREAKFAST ORAL 10/29/19 06:30 11/28/19 06:29 10/29/19 05:59 Pramipexole (Mirapex) 0.5 mg DAILY@1700 ORAL 10/29/19 17:00 11/28/19 16:59 Risperidone (RisperDAL) 0.5 mg BID ORAL 10/29/19 09:00 12/13/19 08:59 10/29/19 09:26 Ropinirole HCl (Requip) 2 mg Q12HR ORAL 10/28/19 21:00 11/27/19 20:59 10/29/19 09:25 Solifenacin (Vesicare) 5 mg DAILY ORAL 10/29/19 09:00 11/28/19 08:59 10/29/19 09:26 Zolpidem Tartrate (Ambien) 5 mg HSPRN PRN ORAL Insomnia 10/28/19 21:00 11/04/19 20:59 10/28/19 21:14 Assessment/Plan Assessment/Plan: Abx: Cefepime x1 10/27 Azithromycin x1 10/27 Assessment: R/o COVID19 (resident of [facility] with confirmed cases per [facility] website); high suspicion for COVID19 Pulmonary edema vs PNA-on 3l NC -CXR: Pulmonary vascular congestion.Patchy perihilar opacities which may represent pulmonary edema versus pneumonia. No significant change in prominent left hilar shadow previously characterized as tortuous ectatic descending aorta. Linear markings in the right midlung region, possibly atelectasis versus infiltrate. Fever No leukocytosis Lymphopenia Thrombocytopenia -u/a neg Recent R>L LE cellulitis in the setting of lymphedema COPD CHF CVA Alzheimer's Dementia hypothyroidism HLD anemia GERD [place] resident ([facility] Plan: -Continue empiric Cefepime and Azithromycin #2 -f/u cx -Monitor CBC/CMP, temperature -COVID19 isolation -f/u SARS-COV2 PCR -aspiration precautions -EKG am Thank you for consulting [facility]. Will continue to follow along with you. Sandy Colin M.D. Oct 29, 2019 12:13
[2019-10-29] MEDS ORDERED: Cefepime HCl 1 GM in D5W 55 ML IVPB ONE (12:15)
[2019-10-29] MEDS: Azithromycin 250mg tab ORAL SCH (13:00)
--- NOTE | 2019-10-29 13:00 | NUR ---
NURSE NOTES: Temp 100.7f. Med with 650 Tylenol. Pt. denies any discomfort. Removed clothing. Will continue to monitor.
--- NOTE | 2019-10-29 14:00 | NUR ---
NURSE NOTES: Rechecked temp 100.1. MD aware. Pt denies any discomfort, playing with laptop at bedside.
--- NOTE | 2019-10-29 14:55 | Cardiac Electrophysiology PN ---
Subjective Subjective [id number] Objective Last 24 Hour Vital Signs Date Time Temp Pulse Resp B/P (MAP) Pulse Ox O2 Delivery O2 Flow Rate FiO2 10/29/19 13:33 100.4 10/29/19 12:00 87 10/29/19 09:00 Nasal Cannula 3.0 10/29/19 08:00 100.3 89 20 134/70 (91) 96 10/29/19 08:00 94 10/29/19 04:00 98.8 89 22 127/71 (89) 90 10/29/19 04:00 85 10/29/19 00:00 96 10/29/19 00:00 98.2 90 24 107/60 (76) 98 10/28/19 21:00 Nasal Cannula 3.0 10/28/19 20:00 93 10/28/19 20:00 99.3 92 20 129/68 (88) 93 10/28/19 16:30 Nasal Cannula 4.0 10/28/19 16:20 98.0 87 21 118/72 97 Nasal Cannula 4.0 10/28/19 15:55 98.0 87 21 118/72 97 Nasal Cannula 4.0 Intake and Output 10/28/19 10/29/19 19:00 07:00 # Voids 1 4 # Bowel Movements 1 3 Laboratory Tests Test 10/29/19 06:43 White Blood Count 5.3 K/UL (4.8-10.8) Red Blood Count 3.60 M/UL (4.20-5.40) L Hemoglobin 10.7 G/DL (12.0-16.0) L Hematocrit 32.2 % (37.0-47.0) L Mean Corpuscular Volume 90 FL (80-99) Mean Corpuscular Hemoglobin 29.8 PG (27.0-31.0) Mean Corpuscular Hemoglobin Concent 33.3 G/DL (32.0-36.0) Red Cell Distribution Width 13.3 % (11.6-14.8) Platelet Count 136 K/UL (150-450) L Mean Platelet Volume 6.3 FL (6.5-10.1) L Neutrophils (%) (Auto) % (45.0-75.0) Lymphocytes (%) (Auto) % (20.0-45.0) Monocytes (%) (Auto) % (1.0-10.0) Eosinophils (%) (Auto) % (0.0-3.0) Basophils (%) (Auto) % (0.0-2.0) Differential Total Cells Counted 100 Neutrophils % (Manual) 87 % (45-75) H Lymphocytes % (Manual) 9 % (20-45) L Monocytes % (Manual) 4 % (1-10) Eosinophils % (Manual) 0 % (0-3) Basophils % (Manual) 0 % (0-2) Band Neutrophils 0 % (0-8) Platelet Estimate Decreased L Platelet Morphology Normal Hypochromasia 1+ Anisocytosis 1+ Sodium Level 143 MMOL/L (136-145) Potassium Level 3.8 MMOL/L (3.5-5.1) Chloride Level 106 MMOL/L (98-107) Carbon Dioxide Level 28 MMOL/L (21-32) Anion Gap 9 mmol/L (5-15) Blood Urea Nitrogen 17 mg/dL (7-18) Creatinine 0.8 MG/DL (0.55-1.30) Estimat Glomerular Filtration Rate > 60 mL/min (>60) Glucose Level 111 MG/DL (74-106) H Calcium Level 8.2 MG/DL (8.5-10.1) L Microbiology Date/Time Source Procedure Growth Status 10/28/19 10:00 Rectum Received Robin Layne MD Oct 29, 2019 14:55
[2019-10-29 16:00] VITALS: BP 108/56
[2019-10-29] MEDS: Pramipexole 0.5mg tab ORAL SCH (17:00)
--- NOTE | 2019-10-29 17:15 | Consultation ---
DATE OF CONSULTATION: 10/29/2019 HISTORY OF PRESENT ILLNESS: This is an 89-year-old female patient. She was admitted to the hospital at [facility] secondary to cough, fever, rule out COVID-19. She also has altered mental status and confusion. She is extremely mood labile, tearful on interview, and she does have some depression, anxiety, and mood lability worsened by stress of her medical illness that is why her attending physician has requested daily psychiatric consultation. When I saw her, she states "I am doing terrible, I feel depressed, I feel anxious, and also " that was chief complaint. She is very confused on interview. She initially seemed as though she has linear thought process, but upon talking to her she seemed to be progressively more confused with conversation . She is a very poor historian. She is oriented to person and place, not time or situation. PAST MEDICAL HISTORY: Medical problems, the patient has a history of COPD, respiratory insufficiency, hypertension, status post CVA, Parkinson disease, fever, pneumonia, rule out COVID-19. ALLERGIES: To aspirin, morphine, tetanus toxin. MEDICATIONS: Psychotropic medications on admission, she is on Namenda 10 mg twice a day. SUBSTANCE ABUSE HISTORY: Denies drug and alcohol use. FAMILY PSYCHIATRIC HISTORY: Denies. PAIN ASSESSMENT: 09/17 pain. DEVELOPMENTAL PROBLEMS: Denies. SOCIAL HISTORY: The patient lives in a fpc. Financially supported by [employer] and Medicare. STRENGTHS: She is motivated to get better and has place to live. WEAKNESSES: She is impulsive with minimal support system. PSYCHIATRIC HISTORY: History of major depressive disorder, severe, recurrent with psychotic features, rule out dementia with psychosis. MENTAL STATUS EXAMINATION: This is an 89-year-old female. Her appearance is disheveled. Attitude, irritable and agitated. Affect guarded and restricted. Intellect is poor because she does not know current events and does not know last four presidents. Mood, depressed and anxious. Motor activity, psychomotor agitation. Attention span is poor. Orientation x2. Speech is low volume, slurred. Thought process, disorganized and illogical. Insight and judgment is poor. Short-term memory 2/3 word recall after 5 minutes delay with poor short-term memory but long-term memory is better. DIAGNOSES: 1. Major depressive disorder, mild, recurrent with psychotic features. 2. No secondary. 3. Medical, respiratory insufficiency, COPD, rule out COVID positivity. 4. Psychosocial stressors, financial. 5. Functional impairment is severe. PLAN: Treat the patient with Risperdal 0.5 twice a day. Continue Namenda at a dose of 10 mg twice a day and then also I am also going to start this patient on Ativan at a dose of 0.5 mg every 6 hours p.r.n. anxiety and agitation. A 20 minutes of cognitive behavioral therapy is provided to help her identify automatic negative thoughts and help her convert negative thoughts to more positive thoughts to reduce depression, anxiety, and mood lability. She will continued to be followed by Psychiatry throughout her hospital course. A 20 minutes of cognitive behavioral therapy. Chart reviewed and discussed with staff. Seen and assessed at bedside. Jeannette Velasquez M.D. DR: OVIDIO JOB#: [id number] CC:
[2019-10-29] MEDS ORDERED: AMLODIPINE BESY10 MG ORAL (18:59)
[2019-10-29] MEDS ORDERED: PROZAC20 MG ORAL (19:11)
[2019-10-29] MEDS ORDERED: ARICEPT10 MG ORAL (19:11)
[2019-10-29] MEDS ORDERED: DEPAKOTE250 MG PO (19:11)
[2019-10-29] MEDS ORDERED: DOCUSATE SODIU100 M2 ORAL (19:11)
[2019-10-29] MEDS ORDERED: ZINC SULFATE220 M1 ORAL (19:11)
[2019-10-29] MEDS ORDERED: ATORVASTATIN CA20 MG ORAL (19:11)
[2019-10-29] MEDS ORDERED: BENADRYL25 MG ORAL (19:11)
--- NOTE | 2019-10-29 19:51 | NUR ---
HAND-OFF: Report given to DANILO Luciano. Plan of care endorsed.
--- NOTE | 2019-10-29 19:52 | NUR ---
NURSE NOTES: received pt from DANILO Keane. pt awake, alert, and talkative. Bed in lowest position. Call light within reach. Will continue to monitor.
[2019-10-29 20:00] VITALS: BP 125/83
--- NOTE | 2019-10-29 22:49 | NUR ---
NURSE NOTES: Called and left a message with Dr. Whaley regarding pts request for cough meds. Awaiting call back.
[2019-10-29] MEDS: Zolpidem 5mg tab ORAL PRN (22:52)
[2019-10-30] VITALS: BP 121/79
[2019-10-30] MEDS ORDERED: Cefepime HCl 1 GM in D5W 55 ML IVPB SCH (00:30)
--- NOTE | 2019-10-30 00:44 | Consultation ---
DATE OF CONSULTATION: 10/29/2019 CARDIOLOGY CONSULTATION CONSULTING PHYSICIAN: Robin Layne MD REFERRING PHYSICIAN: Earle Whaley DO REASON FOR CONSULTATION: Management of hypertension, shortness of breath. The patient has a history of congestive heart failure. The patient also reportedly had ventricular tachycardia. HISTORY OF PRESENT ILLNESS: The patient is an 89-year-old lady with a history of hypertension, congestive heart failure, COPD, history of CVA, anemia, hyperlipidemia, hypothyroidism, and gastroesophageal reflux disease, who [facility] for cough, fever, and shortness of breath. The patient has some peripheral densities on the chest x-ray. The patient was admitted to be ruled out for COVID-19 and Cardiology consultation was obtained for further management. REVIEW OF SYSTEMS: Negative other than what was mentioned in the history of present illness. PAST MEDICAL HISTORY: As mentioned above. FAMILY HISTORY: Noncontributory. SOCIAL HISTORY: She is a prison resident. Does not smoke or drink alcohol. PHYSICAL EXAMINATION: VITAL SIGNS: Blood pressure 134/70, pulse 94, respirations 20, and temperature 100.4. HEAD AND NECK: Showed no JVD. LUNGS: Coarse rhonchi. CARDIOVASCULAR: Shows regular S1 and S2 with no gallop. ABDOMEN: Soft. EXTREMITIES: No pitting edema. LABORATORY DATA: Labs show white count of 5.3, hematocrit of 10.7, hematocrit 32.2, and platelet count 136. Sodium 142, potassium 3.8, BUN of 17, creatinine 0.8, and glucose of 111. Her BNP is 767. ASSESSMENT AND PLAN: 1. Shortness of breath. The patient has a history of congestive heart failure. BNP is almost 800. Echocardiogram is pending at the time of this dictation. The patient is also being ruled out for COVID-19, is already on IV antibiotic with cefepime and azithromycin as well. 2. Hypertension. Changed the Lasix to 40 mg IV daily. 3. Dementia. 4. Hypothyroidism, on Synthroid. 5. Nonsustained ventricular tachycardia based on review of looked like artifact. However, the echocardiogram is pending. 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 Thank you very much for allowing me to participate in the care of this patient. Please do not hesitate to contact me for any questions regarding my evaluation. Robin Layne M.D. DR: YOU JOB#: [id number] CC:
[2019-10-30 04:00] VITALS: BP 130/72
[2019-10-30] MEDS: Guaifenesin/DM 10ml syrup ORAL PRN ×2 (04:26→22:15)
[2019-10-30] MEDS: Levothyroxine 25mcg tab ORAL SCH (06:07)
[2019-10-30 06:45] LABS: BASOPHILS % (AUTO) 0.8 % (0.0-2.0); EOSINOPHILS % (AUTO) 0.1 % (0.0-3.0); HEMATOCRIT 37.2 % (37.0-47.0); HEMOGLOBIN 12.3 G/DL (12.0-16.0); MEAN CORPUSCULAR VOLUME 90 FL (80-99); MONOCYTES % (AUTO) 6.7 % (1.0-10.0); NEUTROPHILS % (AUTO) 84.4 % (45.0-75.0); PLATELET COUNT 183 K/UL (150-450); RED BLOOD COUNT 4.15 M/UL (4.20-5.40); RED CELL DISTRIBUTION WIDTH 13.6 % (11.6-14.8); WHITE BLOOD COUNT 5.5 K/UL (4.8-10.8)
--- NOTE | 2019-10-30 07:18 | NUR ---
P.T Note: Late entry 10/29/19 1045 AM P.T evaluation completed and tx initiated. Please refer to P.T evaluation for full report. Pt received in supine position. Pt is alert, O x 4 pleasant and cooperative. NO c/o pain. Pt presented generalized weakness, coughing and SOB with minimal exertion resulting to difficulty with her mobility requiring extended time. Pt currently require MIN A x 1 for Bed mobilities and transfers and gait/ambulation activities. Pt was appeared exhausted after ambulating 10 ft with increased SOB and coughing. O2 sat 80-88% room air post ambulation. It took 3 mins to recover to 92-94% after 3 L/min of O2 was given. Skilled P.T service is warranted for education on energy conservation, increase her strength and activity tolerance for increased mobility independence and safety. Recommend return to SNF with continued rehab intervention at [facility].
--- NOTE | 2019-10-30 07:34 | NUR ---
HAND-OFF: Report given to DANILO Colin. Pt stable.
[2019-10-30 07:36] LABS: ANION GAP 11 mmol/L (5-15); BLOOD UREA NITROGEN 15 mg/dL (7-18); CALCIUM 9.1 MG/DL (8.5-10.1); CARBON DIOXIDE 28 MMOL/L (21-32); CHLORIDE 102 MMOL/L (98-107); CREATININE 1.1 MG/DL (0.55-1.30); POTASSIUM 3.7 MMOL/L (3.5-5.1); SODIUM 141 MMOL/L (136-145)
[2019-10-30 08:00] VITALS: BP 116/92
--- NOTE | 2019-10-30 08:00 | NUR ---
NURSE NOTES: Recvd pt. Pt is AOX3, PT is on NC @3L, no distress noted. Pt is on quality assurance monitor chassis. IV is c/d/i, will continue with plan of care.
[2019-10-30] MEDS: Azithromycin 250mg tab ORAL SCH (08:32)
[2019-10-30] MEDS: Vitamin B-12 500mcg tab ORAL SCH (08:33)
[2019-10-30] MEDS: Memantine 10mg tab ORAL SCH ×2 (08:33→16:57)
--- NOTE | 2019-10-30 09:42 | NUR ---
CASE MANAGEMENT:REVIEW 10/30/19 SI: COVID 19 PNEUMONIA 101.9 89 22 116/92 96% ON 3L/NC BNP+1126 IS: IV CEFEPIME Q24 AZITHROMYCIN PO QD PRAMIPEXOLE PO QD PLAVIX PO QD B12 PO QD NAMENDA PO BID VESICARE PO QD RISPERDAL PO BID SYNTHROID PO QD PROTONIX PO QAM REQUIP PO Q12 : TELEMETRY STATUS [facility]: [facility] PER HEALTH DEPARTMENT GUIDELINES ~ PATIENT WILL NEED TO REMAIN IN HOSPITAL FOR A MINIMUM OF 10 DAYS
--- NOTE | 2019-10-30 09:52 | NUR ---
DISCHARGE PLANNING PATIENT IS FROM [facility] POSITIVE FOR COVID 19 PER HEALTH DEPARTMENT GUIDELINES ~ PATIENT WILL NEED TO REMAIN IN HOSPITAL FOR A MINIMUM OF 10 DAYS POSSIBLE ANTICIPATED DISCHARGE DATE IS 11/08/19
--- NOTE | 2019-10-30 11:06 | Cardiac Electrophysiology PN ---
Assessment/Plan Assessment/Plan 1. Shortness of breath. The patient has a history of congestive heart failure. BNP is almost 800. Echocardiogram is pending The patient is also being ruled out for COVID-19, is already on IV antibiotic with cefepime and azithromycin as well. 2. Hypertension. On Lasix 40 mg IV daily. 3. Dementia. 4. Hypothyroidism, on Synthroid. 5. Nonsustained ventricular tachycardia looked like artifact. However, the echocardiogram is pending. 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 Subjective Subjective Alert in NAD in isolation Objective Last 24 Hour Vital Signs Date Time Temp Pulse Resp B/P (MAP) Pulse Ox O2 Delivery O2 Flow Rate FiO2 10/30/19 08:00 101.9 89 22 116/92 (100) 96 10/30/19 04:00 98.2 96 24 130/72 (91) 89 10/30/19 04:00 97 10/30/19 00:00 98.5 109 24 121/79 (93) 94 10/30/19 00:00 104 10/29/19 21:00 Nasal Cannula 3.0 10/29/19 20:00 98.4 114 26 125/83 (97) 88 10/29/19 20:00 85 10/29/19 16:00 98.7 86 20 108/56 (73) 95 10/29/19 16:00 71 10/29/19 13:33 100.4 10/29/19 12:00 100.5 95 20 127/73 (91) 94 10/29/19 12:00 87 Intake and Output 10/29/19 10/30/19 19:00 07:00 Intake Total 1040 ml 240 ml Balance 1040 ml 240 ml Intake Oral 1040 ml 240 ml # Voids 3 4 # Bowel Movements 6 3 Laboratory Tests Test 10/30/19 06:24 White Blood Count 5.5 K/UL (4.8-10.8) Red Blood Count 4.15 M/UL (4.20-5.40) L Hemoglobin 12.3 G/DL (12.0-16.0) Hematocrit 37.2 % (37.0-47.0) Mean Corpuscular Volume 90 FL (80-99) Mean Corpuscular Hemoglobin 29.7 PG (27.0-31.0) Mean Corpuscular Hemoglobin Concent 33.1 G/DL (32.0-36.0) Red Cell Distribution Width 13.6 % (11.6-14.8) Platelet Count 183 K/UL (150-450) Mean Platelet Volume 5.4 FL (6.5-10.1) L Neutrophils (%) (Auto) 84.4 % (45.0-75.0) H Lymphocytes (%) (Auto) 8.0 % (20.0-45.0) L Monocytes (%) (Auto) 6.7 % (1.0-10.0) Eosinophils (%) (Auto) 0.1 % (0.0-3.0) Basophils (%) (Auto) 0.8 % (0.0-2.0) Sodium Level 141 MMOL/L (136-145) Potassium Level 3.7 MMOL/L (3.5-5.1) Chloride Level 102 MMOL/L (98-107) Carbon Dioxide Level 28 MMOL/L (21-32) Anion Gap 11 mmol/L (5-15) Blood Urea Nitrogen 15 mg/dL (7-18) Creatinine 1.1 MG/DL (0.55-1.30) Estimat Glomerular Filtration Rate 47.0 mL/min (>60) Glucose Level 100 MG/DL (74-106) Calcium Level 9.1 MG/DL (8.5-10.1) Pro-B-Type Natriuretic Peptide 1126 pg/mL (0-125) H Microbiology Date/Time Source Procedure Growth Status 10/28/19 10:00 Blood Blood Culture - Preliminary NO GROWTH AFTER 24 HOURS Resulted 10/28/19 09:50 Blood Blood Culture - Preliminary NO GROWTH AFTER 24 HOURS Resulted 10/28/19 10:00 Nasal Nares MRSA Culture - Final NO METHICILLIN RESISTANT STAPH AUREUS... Complete 10/28/19 10:00 Nasopharynx Coronavirus COVID-19 PCR (INDY) - Final Complete 10/29/19 23:00 Stool Clostridium difficile Toxin Assay - Final Complete 10/28/19 10:00 Rectum - Final NO CARBAPENEM-RESISTANT ENTEROBACTERI... Complete 10/28/19 10:00 Rectum VRE Culture - Final NO VANCOMYCIN RESISTANT ENTEROCOCCUS ... Complete Objective HEAD AND NECK: Showed no JVD. LUNGS: Coarse rhonchi. CARDIOVASCULAR: Shows regular S1 and S2 with no gallop. ABDOMEN: Soft. EXTREMITIES: No pitting edema. Robin Layne MD Oct 30, 2019 11:06
--- NOTE | 2019-10-30 11:20 | Pulmonology Progress Note ---
Assessment/Plan Assessment/Plan IMPRESSION: 1. Suspect pulmonary edema. 2. CHF. 3. COPD. 4. Positive COVID-19. DISCUSSION: Continue home medications. I will follow carefully. Ordered oxygen and pulmonary hygiene. Broad-spectrum antibiotics. Yonny Ware M.D. Subjective Interval Events: None new reproted Constitutional: Reports: no symptoms HEENT: Repors: no symptoms Respiratory: Reports: no symptoms Cardiovascular: Reports: no symptoms Gastrointestinal/Abdominal: Reports: no symptoms Allergies: Coded Allergies: ASPIRIN (Verified Allergy, Intermediate, Rash, 09/02/19) coating MORPHINE (Verified Allergy, Unknown, 10/14/19) Uncoded Allergies: TETANUS TOXOID (Allergy, Unknown, 10/14/19) Objective Last 24 Hour Vital Signs Date Time Temp Pulse Resp B/P (MAP) Pulse Ox O2 Delivery O2 Flow Rate FiO2 10/30/19 08:00 101.9 89 22 116/92 (100) 96 10/30/19 04:00 98.2 96 24 130/72 (91) 89 10/30/19 04:00 97 10/30/19 00:00 98.5 109 24 121/79 (93) 94 10/30/19 00:00 104 10/29/19 21:00 Nasal Cannula 3.0 10/29/19 20:00 98.4 114 26 125/83 (97) 88 10/29/19 20:00 85 10/29/19 16:00 98.7 86 20 108/56 (73) 95 10/29/19 16:00 71 10/29/19 13:33 100.4 10/29/19 12:00 100.5 95 20 127/73 (91) 94 10/29/19 12:00 87 Intake and Output 10/29/19 10/30/19 19:00 07:00 Intake Total 1040 ml 240 ml Balance 1040 ml 240 ml Intake Oral 1040 ml 240 ml # Voids 3 4 # Bowel Movements 6 3 General Appearance: no acute distress HEENT: normocephalic Respiratory/Chest: chest wall non-tender, lungs clear Cardiovascular: normal peripheral pulses Abdomen: normal bowel sounds Microbiology Date/Time Source Procedure Growth Status 10/28/19 10:00 Blood Blood Culture - Preliminary NO GROWTH AFTER 24 HOURS Resulted 10/28/19 09:50 Blood Blood Culture - Preliminary NO GROWTH AFTER 24 HOURS Resulted 10/28/19 10:00 Nasal Nares MRSA Culture - Final NO METHICILLIN RESISTANT STAPH AUREUS... Complete 10/28/19 10:00 Nasopharynx Coronavirus COVID-19 PCR (INDY) - Final Complete 10/29/19 23:00 Stool Clostridium difficile Toxin Assay - Final Complete 10/28/19 10:00 Rectum - Final NO CARBAPENEM-RESISTANT ENTEROBACTERI... Complete 10/28/19 10:00 Rectum VRE Culture - Final NO VANCOMYCIN RESISTANT ENTEROCOCCUS ... Complete Laboratory Tests 10/30/19 06:24: White Blood Count 5.5, Red Blood Count 4.15L, Hemoglobin 12.3, Hematocrit 37.2, Mean Corpuscular Volume 90, Mean Corpuscular Hemoglobin 29.7, Mean Corpuscular Hemoglobin Concent 33.1, Red Cell Distribution Width 13.6, Platelet Count 183, Mean Platelet Volume 5.4L, Neutrophils (%) (Auto) 84.4H, Lymphocytes (%) (Auto) 8.0L, Monocytes (%) (Auto) 6.7, Eosinophils (%) (Auto) 0.1, Basophils (%) (Auto ) 0.8, Sodium Level 141, Potassium Level 3.7, Chloride Level 102, Carbon Dioxide Level 28, Anion Gap 11, Blood Urea Nitrogen 15, Creatinine 1.1, Estimat Glomerular Filtration Rate 47.0, Glucose Level 100, Calcium Level 9.1, Pro-B- Type Natriuretic Peptide 1126H Current Medications Medications (Trade) Dose Ordered Sig/Jerome Route PRN Reason Start Time Stop Time Status Last Admin Dose Admin Acetaminophen (Tylenol) 650 mg Q6H PRN ORAL Temp >100.5 10/29/19 08:30 11/28/19 08:29 10/29/19 13:03 Azithromycin (Zithromax) 500 mg DAILY ORAL 10/29/19 12:15 11/05/19 12:14 10/30/19 08:32 Cefepime HCl 1 gm/ Dextrose 55 ml @ 110 mls/hr Q24H IVPB 10/30/19 00:30 11/06/19 00:29 10/30/19 00:55 Clopidogrel Bisulfate (Plavix) 75 mg DAILY ORAL 10/29/19 09:00 11/28/19 08:59 10/30/19 08:32 Cyanocobalamin (Vitamin B-12) 1,000 mcg DAILY ORAL 10/29/19 09:00 11/28/19 08:59 10/30/19 08:33 Furosemide (Lasix) 40 mg DAILY IV 10/30/19 09:00 11/29/19 08:59 10/30/19 08:32 Guaifenesin/ Dextromethorphan (Robitussin DM Syrup) 15 ml Q6H PRN ORAL For Cough 10/30/19 01:45 01/28/20 01:44 10/30/19 04:26 Levothyroxine Sodium (Synthroid) 25 mcg DAILY@0630 ORAL 10/29/19 06:30 11/28/19 06:29 10/30/19 06:07 Lorazepam (Ativan) 0.5 mg Q6H PRN ORAL For Anxiety 10/29/19 06:00 11/05/19 05:59 Memantine (Namenda) 10 mg BID ORAL 10/29/19 09:00 11/28/19 08:59 10/30/19 08:33 Pantoprazole (Protonix) 40 mg ACBREAKFAST ORAL 10/29/19 06:30 11/28/19 06:29 10/30/19 06:07 Pramipexole (Mirapex) 0.5 mg DAILY@1700 ORAL 10/29/19 17:00 11/28/19 16:59 10/29/19 17:00 Risperidone (RisperDAL) 0.5 mg BID ORAL 10/29/19 09:00 12/13/19 08:59 10/30/19 08:33 Ropinirole HCl (Requip) 2 mg Q12HR ORAL 10/28/19 21:00 11/27/19 20:59 10/30/19 08:33 Solifenacin (Vesicare) 5 mg DAILY ORAL 10/29/19 09:00 11/28/19 08:59 10/30/19 08:32 Zolpidem Tartrate (Ambien) 5 mg HSPRN PRN ORAL Insomnia 10/28/19 21:00 4/26/20 20:59 10/29/19 22:52 Yonny Ware MD Oct 30, 2019 11:20
--- NOTE | 2019-10-30 11:27 | Infectious Diseases Prog Note ---
Assessment/Plan Assessment/Plan Assessment: Confirmed COVID19 (resident of SNF with confirmed cases per [facility] website) Pulmonary edema vs PNA-on 3l NC -CXR: Pulmonary vascular congestion.Patchy perihilar opacities which may represent pulmonary edema versus pneumonia. No significant change in prominent left hilar shadow previously characterized as tortuous ectatic descending aorta. Linear markings in the right midlung region, possibly atelectasis versus infiltrate. -SARS-COV2 PCR + Fever No leukocytosis Lymphopenia Thrombocytopenia -u/a neg -Bcx NTD Recent R>L LE cellulitis in the setting of lymphedema COPD CHF CVA Alzheimer's Dementia hypothyroidism HLD anemia GERD NH resident ([facility].) Plan: -Dc empiric Cefepime #3 -Azithromycin #3/5 -Will hold off on Plaquenil as unclear benefit (not recommended by IDSA) and risk for increased seizures when combined with risperidone -f/u cx -Monitor CBC/CMP, temperature -COVID19 isolation -aspiration precautions -f/u EKG am Thank you for consulting [facility]. Will continue to follow along with you Subjective Allergies: Coded Allergies: ASPIRIN (Verified Allergy, Intermediate, Rash, 09/02/19) coating MORPHINE (Verified Allergy, Unknown, 10/14/19) Uncoded Allergies: TETANUS TOXOID (Allergy, Unknown, 10/14/19) Subjective Tm101.9 at 3L NC COvid positive bcx NTD Objective Vital Signs Last 24 Hour Vital Signs Date Time Temp Pulse Resp B/P (MAP) Pulse Ox O2 Delivery O2 Flow Rate FiO2 10/30/19 08:00 101.9 89 22 116/92 (100) 96 10/30/19 04:00 98.2 96 24 130/72 (91) 89 10/30/19 04:00 97 10/30/19 00:00 98.5 109 24 121/79 (93) 94 10/30/19 00:00 104 10/29/19 21:00 Nasal Cannula 3.0 10/29/19 20:00 98.4 114 26 125/83 (97) 88 10/29/19 20:00 85 10/29/19 16:00 98.7 86 20 108/56 (73) 95 10/29/19 16:00 71 10/29/19 13:33 100.4 10/29/19 12:00 100.5 95 20 127/73 (91) 94 10/29/19 12:00 87 Height (Feet): 5 Height (Inches): 8.00 Weight (Pounds): 180 Objective not examined to limit COVID 19 exposure Microbiology Date/Time Source Procedure Growth Status 10/28/19 10:00 Blood Blood Culture - Preliminary NO GROWTH AFTER 24 HOURS Resulted 10/28/19 09:50 Blood Blood Culture - Preliminary NO GROWTH AFTER 24 HOURS Resulted 10/28/19 10:00 Nasal Nares MRSA Culture - Final NO METHICILLIN RESISTANT STAPH AUREUS... Complete 10/28/19 10:00 Nasopharynx Coronavirus COVID-19 PCR (INDY) - Final Complete 10/29/19 23:00 Stool Clostridium difficile Toxin Assay - Final Complete 10/28/19 10:00 Rectum - Final NO CARBAPENEM-RESISTANT ENTEROBACTERI... Complete 10/28/19 10:00 Rectum VRE Culture - Final NO VANCOMYCIN RESISTANT ENTEROCOCCUS ... Complete Laboratory Tests Test 10/30/19 06:24 White Blood Count 5.5 K/UL (4.8-10.8) Red Blood Count 4.15 M/UL (4.20-5.40) L Hemoglobin 12.3 G/DL (12.0-16.0) Hematocrit 37.2 % (37.0-47.0) Mean Corpuscular Volume 90 FL (80-99) Mean Corpuscular Hemoglobin 29.7 PG (27.0-31.0) Mean Corpuscular Hemoglobin Concent 33.1 G/DL (32.0-36.0) Red Cell Distribution Width 13.6 % (11.6-14.8) Platelet Count 183 K/UL (150-450) Mean Platelet Volume 5.4 FL (6.5-10.1) L Neutrophils (%) (Auto) 84.4 % (45.0-75.0) H Lymphocytes (%) (Auto) 8.0 % (20.0-45.0) L Monocytes (%) (Auto) 6.7 % (1.0-10.0) Eosinophils (%) (Auto) 0.1 % (0.0-3.0) Basophils (%) (Auto) 0.8 % (0.0-2.0) Sodium Level 141 MMOL/L (136-145) Potassium Level 3.7 MMOL/L (3.5-5.1) Chloride Level 102 MMOL/L (98-107) Carbon Dioxide Level 28 MMOL/L (21-32) Anion Gap 11 mmol/L (5-15) Blood Urea Nitrogen 15 mg/dL (7-18) Creatinine 1.1 MG/DL (0.55-1.30) Estimat Glomerular Filtration Rate 47.0 mL/min (>60) Glucose Level 100 MG/DL (74-106) Calcium Level 9.1 MG/DL (8.5-10.1) Pro-B-Type Natriuretic Peptide 1126 pg/mL (0-125) H Current Medications Medications (Trade) Dose Ordered Sig/Jerome Route PRN Reason Start Time Stop Time Status Last Admin Dose Admin Acetaminophen (Tylenol) 650 mg Q6H PRN ORAL Temp >100.5 10/29/19 08:30 11/28/19 08:29 10/29/19 13:03 Azithromycin (Zithromax) 500 mg DAILY ORAL 10/29/19 12:15 11/05/19 12:14 10/30/19 08:32 Cefepime HCl 1 gm/ Dextrose 55 ml @ 110 mls/hr Q24H IVPB 10/30/19 00:30 11/06/19 00:29 10/30/19 00:55 Clopidogrel Bisulfate (Plavix) 75 mg DAILY ORAL 10/29/19 09:00 11/28/19 08:59 10/30/19 08:32 Cyanocobalamin (Vitamin B-12) 1,000 mcg DAILY ORAL 10/29/19 09:00 11/28/19 08:59 10/30/19 08:33 Furosemide (Lasix) 40 mg DAILY IV 10/30/19 09:00 11/29/19 08:59 10/30/19 08:32 Guaifenesin/ Dextromethorphan (Robitussin DM Syrup) 15 ml Q6H PRN ORAL For Cough 10/30/19 01:45 01/28/20 01:44 10/30/19 04:26 Levothyroxine Sodium (Synthroid) 25 mcg DAILY@0630 ORAL 10/29/19 06:30 11/28/19 06:29 10/30/19 06:07 Lorazepam (Ativan) 0.5 mg Q6H PRN ORAL For Anxiety 10/29/19 06:00 11/05/19 05:59 Memantine (Namenda) 10 mg BID ORAL 10/29/19 09:00 11/28/19 08:59 10/30/19 08:33 Pantoprazole (Protonix) 40 mg ACBREAKFAST ORAL 10/29/19 06:30 11/28/19 06:29 10/30/19 06:07 Pramipexole (Mirapex) 0.5 mg DAILY@1700 ORAL 10/29/19 17:00 11/28/19 16:59 10/29/19 17:00 Risperidone (RisperDAL) 0.5 mg BID ORAL 10/29/19 09:00 12/13/19 08:59 10/30/19 08:33 Ropinirole HCl (Requip) 2 mg Q12HR ORAL 10/28/19 21:00 11/27/19 20:59 10/30/19 08:33 Solifenacin (Vesicare) 5 mg DAILY ORAL 10/29/19 09:00 11/28/19 08:59 10/30/19 08:32 Zolpidem Tartrate (Ambien) 5 mg HSPRN PRN ORAL Insomnia 10/28/19 21:00 11/04/19 20:59 10/29/19 22:52 Sandy Colin M.D. Oct 30, 2019 11:27
[2019-10-30 12:00] VITALS: BP 118/96
--- NOTE | 2019-10-30 12:45 | General Progress Note ---
Assessment/Plan Problem List: (1) UTI (urinary tract infection) ICD Codes: N39.0 - Urinary tract infection, site not specified SNOMED: 14869907 (2) Hypoxia ICD Codes: R09.02 - Hypoxemia SNOMED: 109294850 (3) Edema ICD Codes: R60.9 - Edema, unspecified SNOMED: 349693828, 873914751 (4) COPD (chronic obstructive pulmonary disease) ICD Codes: J44.9 - Chronic obstructive pulmonary disease, unspecified SNOMED: 50058141 (5) Alzheimer disease ICD Codes: G30.9 - Alzheimer's disease, unspecified; F02.80 - Dementia in other diseases classified elsewhere without behavioral disturbance SNOMED: 05604150 (6) Weak ICD Codes: R53.1 - Weakness SNOMED: 32376837 (7) GERD (gastroesophageal reflux disease) ICD Codes: K21.9 - Gastro-esophageal reflux disease without esophagitis SNOMED: 268852285 (8) HTN (hypertension) ICD Codes: I10 - Essential (primary) hypertension SNOMED: 38540211 (9) CVA (cerebral vascular accident) ICD Codes: I63.9 - Cerebral infarction, unspecified SNOMED: 883818290 (10) Suspected COVID-19 virus infection ICD Codes: R68.89 - Other general symptoms and signs SNOMED: 655363568 Status: unchanged Assessment/Plan: o2 pulm tx abx cbc bmp am Subjective Allergies: Coded Allergies: ASPIRIN (Verified Allergy, Intermediate, Rash, 09/02/19) coating MORPHINE (Verified Allergy, Unknown, 10/14/19) Uncoded Allergies: TETANUS TOXOID (Allergy, Unknown, 10/14/19) All Systems: reviewed and negative except above Subjective o2nc calm Objective Last 24 Hour Vital Signs Date Time Temp Pulse Resp B/P (MAP) Pulse Ox O2 Delivery O2 Flow Rate FiO2 10/30/19 08:00 101.9 89 22 116/92 (100) 96 10/30/19 04:00 98.2 96 24 130/72 (91) 89 10/30/19 04:00 97 10/30/19 00:00 98.5 109 24 121/79 (93) 94 10/30/19 00:00 104 10/29/19 21:00 Nasal Cannula 3.0 10/29/19 20:00 98.4 114 26 125/83 (97) 88 10/29/19 20:00 85 10/29/19 16:00 98.7 86 20 108/56 (73) 95 10/29/19 16:00 71 10/29/19 13:33 100.4 Intake and Output 10/29/19 10/30/19 19:00 07:00 Intake Total 1040 ml 240 ml Balance 1040 ml 240 ml Intake Oral 1040 ml 240 ml # Voids 3 4 # Bowel Movements 6 3 Laboratory Tests 10/30/19 06:24: White Blood Count 5.5, Red Blood Count 4.15L, Hemoglobin 12.3, Hematocrit 37.2, Mean Corpuscular Volume 90, Mean Corpuscular Hemoglobin 29.7, Mean Corpuscular Hemoglobin Concent 33.1, Red Cell Distribution Width 13.6, Platelet Count 183, Mean Platelet Volume 5.4L, Neutrophils (%) (Auto) 84.4H, Lymphocytes (%) (Auto) 8.0L, Monocytes (%) (Auto) 6.7, Eosinophils (%) (Auto) 0.1, Basophils (%) (Auto ) 0.8, Sodium Level 141, Potassium Level 3.7, Chloride Level 102, Carbon Dioxide Level 28, Anion Gap 11, Blood Urea Nitrogen 15, Creatinine 1.1, Estimat Glomerular Filtration Rate 47.0, Glucose Level 100, Calcium Level 9.1, Pro-B- Type Natriuretic Peptide 1126H Height (Feet): 5 Height (Inches): 8.00 Weight (Pounds): 180 General Appearance: lethargic EENT: normal ENT inspection Neck: normal alignment Cardiovascular: normal rate, regular rhythm Respiratory/Chest: no respiratory distress, no accessory muscle use Skin: normal pigmentation Earle Whaley DO Oct 30, 2019 12:45
[2019-10-30 16:00] VITALS: BP 126/52
[2019-10-30] MEDS: Pramipexole 0.5mg tab ORAL SCH (16:57)
--- NOTE | 2019-10-30 17:00 | NUR ---
NURSE NOTES: Called Dr Colin regarding pt positive for covid, awaiting call back. called dr Ware to notify of results
--- NOTE | 2019-10-30 19:50 | NUR ---
NURSE NOTES: Received pt from DANILO Colin. Pt asleep. Bed in lowest position. Call light within reach. Will continue to monitor.
[2019-10-30 20:00] VITALS: BP 141/67
--- NOTE | 2019-10-30 20:42 | NUR ---
NURSE NOTES: Daughter of pt called, Mami Moralez: [phone]. She is requesting for a call from the MD with any changes to pts condition. Will alert MD and will continue to monitor.
[2019-10-30] MEDS: Zolpidem 5mg tab ORAL PRN (22:16)
[2019-10-31] VITALS (7 sets, daily range): BP systolic 99–140; BP diastolic 58–74
[2019-10-31] MEDS: Levothyroxine 25mcg tab ORAL SCH (06:52)
[2019-10-31] MEDS: Guaifenesin/DM 10ml syrup ORAL PRN ×2 (06:58→21:16)
[2019-10-31 07:07] LABS: ANION GAP 7 mmol/L (5-15); BLOOD UREA NITROGEN 17 mg/dL (7-18); CALCIUM 8.3 MG/DL (8.5-10.1); CARBON DIOXIDE 30 MMOL/L (21-32); CHLORIDE 106 MMOL/L (98-107); CREATININE 0.8 MG/DL (0.55-1.30); POTASSIUM 3.5 MMOL/L (3.5-5.1); SODIUM 143 MMOL/L (136-145)
[2019-10-31 07:18] LABS: HEMATOCRIT 29.8 % (37.0-47.0); HEMOGLOBIN 9.9 G/DL (12.0-16.0); MEAN CORPUSCULAR VOLUME 90 FL (80-99); PLATELET COUNT 161 K/UL (150-450); RED CELL DISTRIBUTION WIDTH 13.7 % (11.6-14.8); WHITE BLOOD COUNT 5.2 K/UL (4.8-10.8)
--- NOTE | 2019-10-31 08:32 | NUR ---
HAND-OFF: Report given to DANILO Cardoza. Pt stable.
--- NOTE | 2019-10-31 08:32 | NUR ---
NURSE NOTES: pt in bed keeps taking off non deepbreather mask. pt on media monitor no signs of cardiac or respiratory distress. bed locked and in lowest position. bed alarm on side rails up x2. pt is not complaining of any pain at this time. will continue to monitor pt.
--- NOTE | 2019-10-31 08:56 | General Progress Note ---
Assessment/Plan Problem List: (1) UTI (urinary tract infection) ICD Codes: N39.0 - Urinary tract infection, site not specified SNOMED: 07627388 (2) Hypoxia ICD Codes: R09.02 - Hypoxemia SNOMED: 903026093 (3) Edema ICD Codes: R60.9 - Edema, unspecified SNOMED: 478811297, 474530105 (4) COPD (chronic obstructive pulmonary disease) ICD Codes: J44.9 - Chronic obstructive pulmonary disease, unspecified SNOMED: 00411728 (5) Alzheimer disease ICD Codes: G30.9 - Alzheimer's disease, unspecified; F02.80 - Dementia in other diseases classified elsewhere without behavioral disturbance SNOMED: 91463514 (6) Weak ICD Codes: R53.1 - Weakness SNOMED: 59240070 (7) GERD (gastroesophageal reflux disease) ICD Codes: K21.9 - Gastro-esophageal reflux disease without esophagitis SNOMED: 737749044 (8) HTN (hypertension) ICD Codes: I10 - Essential (primary) hypertension SNOMED: 86108220 (9) CVA (cerebral vascular accident) ICD Codes: I63.9 - Cerebral infarction, unspecified SNOMED: 355123507 (10) Suspected COVID-19 virus infection ICD Codes: R68.89 - Other general symptoms and signs SNOMED: 327942959 Status: unchanged Assessment/Plan: o2 pulm tx abx cbc bmp am Subjective Constitutional: Reports: weakness Allergies: Coded Allergies: ASPIRIN (Verified Allergy, Intermediate, Rash, 09/02/19) coating MORPHINE (Verified Allergy, Unknown, 10/14/19) Uncoded Allergies: TETANUS TOXOID (Allergy, Unknown, 10/14/19) All Systems: reviewed and negative except above Subjective o2nc calm Objective Last 24 Hour Vital Signs Date Time Temp Pulse Resp B/P (MAP) Pulse Ox O2 Delivery O2 Flow Rate FiO2 10/31/19 04:00 84 10/31/19 04:00 98.2 90 20 140/70 (93) 97 10/31/19 00:00 98.1 94 24 137/74 (95) 88 10/31/19 00:00 78 10/30/19 21:00 Nasal Cannula 3.0 10/30/19 20:00 98.5 87 25 141/67 (91) 85 4/21/20 16:00 99.9 80 20 126/52 (76) 97 10/30/19 16:00 84 10/30/19 13:41 100.0 10/30/19 12:00 97 10/30/19 12:00 101.8 87 21 118/96 (103) 96 10/30/19 09:00 Nasal Cannula 3.0 Intake and Output 10/30/19 10/31/19 19:00 07:00 Intake Total 300 ml Balance 300 ml Intake Oral 300 ml # Voids 1 # Bowel Movements 2 2 Laboratory Tests 10/31/19 06:28: White Blood Count 5.2, Red Blood Count 3.30L, Hemoglobin 9.9L, Hematocrit 29.8L , Mean Corpuscular Volume 90, Mean Corpuscular Hemoglobin 29.9, Mean Corpuscular Hemoglobin Concent 33.1, Red Cell Distribution Width 13.7, Platelet Count 161, Mean Platelet Volume 6.1L, Neutrophils (%) (Auto) , Lymphocytes (%) ( Auto) , Monocytes (%) (Auto) , Eosinophils (%) (Auto) , Basophils (%) (Auto) , Differential Total Cells Counted 100, Neutrophils % (Manual) 91H, Lymphocytes % (Manual) 3L, Monocytes % (Manual) 5, Eosinophils % (Manual) 1, Basophils % ( Manual) 0, Band Neutrophils 0, Platelet Estimate Adequate, Platelet Morphology Normal, Sodium Level 143, Potassium Level 3.5, Chloride Level 106, Carbon Dioxide Level 30, Anion Gap 7, Blood Urea Nitrogen 17, Creatinine 0.8, Estimat Glomerular Filtration Rate > 60, Glucose Level 91, Calcium Level 8.3L Height (Feet): 5 Height (Inches): 8.00 Weight (Pounds): 178 General Appearance: lethargic EENT: normal ENT inspection Neck: normal alignment Cardiovascular: normal rate, regular rhythm Respiratory/Chest: no respiratory distress, no accessory muscle use Skin: normal pigmentation Earle Whaley DO Oct 31, 2019 08:56
[2019-10-31] MEDS: Memantine 10mg tab ORAL SCH ×2 (09:00→18:39)
[2019-10-31] MEDS: Vitamin B-12 500mcg tab ORAL SCH (09:00)
[2019-10-31] MEDS: Azithromycin 250mg tab ORAL SCH (09:00)
--- NOTE | 2019-10-31 09:56 | NUR ---
RADIOLOGY: PCXR COMPLETED 0950HRS. NF
--- NOTE | 2019-10-31 10:08 | NUR ---
CASE MANAGEMENT:REVIEW 10/31/19 SI: COVID 19 PNEUMONIA 98.1 94 24 137/74 97% ON 3L/NC H/H-9.9/29.8 CA-8.3 IS: AZITHROMYCIN PO QD IV LASIX QD PRAMIPEXOLE PO QD PLAVIX PO QD B12 PO QD NAMENDA PO BID VESICARE PO QD RISPERDAL PO BID SYNTHROID PO QD PROTONIX PO QAM REQUIP PO Q12 : TELEMETRY STATUS DCP: FROM [facility] DISCHARGE PLANNING PER HEALTH DEPARTMENT GUIDELINES ~ PATIENT WILL NEED TO REMAIN HOSPITALIZED FOR A MINIMUM OF 10 DAYS AND BE AFEBRILE X72HRS PRIOR TO RETURNING TO SNF
--- NOTE | 2019-10-31 10:15 | NUR ---
INSURANCE FAXED CLINICALS TO [facility] T: [phone] AND T: [phone] OPT #1 F: [phone]
--- NOTE | 2019-10-31 10:20 | Diagnostic Imaging Report ---
Indication: Cough Technique: One view of the chest Comparison: 10/28/2019 Findings: There is increased consolidation of the right upper lobe, with persistent medial dense consolidation and increasing hazy peripheral opacity. Peripheral infiltrates in the left mid and lower lung have increased also. There is some atelectasis at the right lung base. Impression: Increasing bilateral infiltrates, as described, likely pneumonia.
--- NOTE | 2019-10-31 10:44 | Pulmonology Progress Note ---
Assessment/Plan Assessment/Plan IMPRESSION: 1. Suspect pulmonary edema. 2. CHF. 3. COPD. 4. Positive COVID-19. DISCUSSION: Continue home medications. I will follow carefully. Ordered oxygen and pulmonary hygiene. Broad-spectrum antibiotics. Yonny Ware M.D. Subjective Interval Events: None new reproted Constitutional: Reports: no symptoms HEENT: Repors: no symptoms Respiratory: Reports: no symptoms Cardiovascular: Reports: no symptoms Gastrointestinal/Abdominal: Reports: no symptoms Allergies: Coded Allergies: ASPIRIN (Verified Allergy, Intermediate, Rash, 09/02/19) coating MORPHINE (Verified Allergy, Unknown, 10/14/19) Uncoded Allergies: TETANUS TOXOID (Allergy, Unknown, 10/14/19) All Systems: reviewed and negative except above Objective Last 24 Hour Vital Signs Date Time Temp Pulse Resp B/P (MAP) Pulse Ox O2 Delivery O2 Flow Rate FiO2 10/31/19 04:00 84 10/31/19 04:00 98.2 90 20 140/70 (93) 97 10/31/19 00:00 98.1 94 24 137/74 (95) 88 10/31/19 00:00 78 10/30/19 21:00 Nasal Cannula 3.0 10/30/19 20:00 98.5 87 25 141/67 (91) 85 10/30/19 16:00 99.9 80 20 126/52 (76) 97 10/30/19 16:00 84 10/30/19 13:41 100.0 10/30/19 12:00 97 10/30/19 12:00 101.8 87 21 118/96 (103) 96 Intake and Output 10/30/19 10/31/19 19:00 07:00 Intake Total 300 ml Balance 300 ml Intake Oral 300 ml # Voids 1 # Bowel Movements 2 2 General Appearance: no acute distress HEENT: normocephalic Respiratory/Chest: chest wall non-tender, lungs clear Cardiovascular: normal peripheral pulses Abdomen: normal bowel sounds Microbiology Date/Time Source Procedure Growth Status 10/29/19 23:00 Stool Clostridium difficile Toxin Assay - Final Complete Laboratory Tests 10/31/19 06:28: White Blood Count 5.2, Red Blood Count 3.30L, Hemoglobin 9.9L, Hematocrit 29.8L , Mean Corpuscular Volume 90, Mean Corpuscular Hemoglobin 29.9, Mean Corpuscular Hemoglobin Concent 33.1, Red Cell Distribution Width 13.7, Platelet Count 161, Mean Platelet Volume 6.1L, Neutrophils (%) (Auto) , Lymphocytes (%) ( Auto) , Monocytes (%) (Auto) , Eosinophils (%) (Auto) , Basophils (%) (Auto) , Differential Total Cells Counted 100, Neutrophils % (Manual) 91H, Lymphocytes % (Manual) 3L, Monocytes % (Manual) 5, Eosinophils % (Manual) 1, Basophils % ( Manual) 0, Band Neutrophils 0, Platelet Estimate Adequate, Platelet Morphology Normal, Sodium Level 143, Potassium Level 3.5, Chloride Level 106, Carbon Dioxide Level 30, Anion Gap 7, Blood Urea Nitrogen 17, Creatinine 0.8, Estimat Glomerular Filtration Rate > 60, Glucose Level 91, Calcium Level 8.3L Current Medications Medications (Trade) Dose Ordered Sig/Jerome Route PRN Reason Start Time Stop Time Status Last Admin Dose Admin Acetaminophen (Tylenol) 650 mg Q6H PRN ORAL Temp >100.5 10/29/19 08:30 11/28/19 08:29 10/30/19 13:11 Azithromycin (Zithromax) 500 mg DAILY ORAL 10/29/19 12:15 11/05/19 12:14 10/30/19 08:32 Clopidogrel Bisulfate (Plavix) 75 mg DAILY ORAL 10/29/19 09:00 11/28/19 08:59 10/30/19 08:32 Cyanocobalamin (Vitamin B-12) 1,000 mcg DAILY ORAL 10/29/19 09:00 11/28/19 08:59 10/30/19 08:33 Furosemide (Lasix) 40 mg DAILY IV 10/30/19 09:00 11/29/19 08:59 10/30/19 08:32 Guaifenesin/ Dextromethorphan (Robitussin DM Syrup) 15 ml Q6H PRN ORAL For Cough 10/30/19 01:45 01/28/20 01:44 10/31/19 06:58 Levothyroxine Sodium (Synthroid) 25 mcg DAILY@0630 ORAL 10/29/19 06:30 11/28/19 06:29 10/31/19 06:52 Lorazepam (Ativan) 0.5 mg Q6H PRN ORAL For Anxiety 10/29/19 06:00 11/05/19 05:59 Memantine (Namenda) 10 mg BID ORAL 10/29/19 09:00 11/28/19 08:59 10/30/19 16:57 Pantoprazole (Protonix) 40 mg ACBREAKFAST ORAL 10/29/19 06:30 11/28/19 06:29 10/31/19 06:52 Pramipexole (Mirapex) 0.5 mg DAILY@1700 ORAL 10/29/19 17:00 11/28/19 16:59 10/30/19 16:57 Risperidone (RisperDAL) 0.5 mg BID ORAL 10/29/19 09:00 12/13/19 08:59 10/30/19 16:57 Ropinirole HCl (Requip) 2 mg Q12HR ORAL 10/28/19 21:00 11/27/19 20:59 10/30/19 22:15 Solifenacin (Vesicare) 5 mg DAILY ORAL 10/29/19 09:00 11/28/19 08:59 10/30/19 08:32 Zolpidem Tartrate (Ambien) 5 mg HSPRN PRN ORAL Insomnia 10/28/19 21:00 11/04/19 20:59 10/30/19 22:16 Yonny Ware MD Oct 31, 2019 10:44
--- NOTE | 2019-10-31 11:14 | Progress Note ---
DATE: 10/31/2019 SUBJECTIVE: This is an 89-year-old female patient with cough, fever, and some depression and mood lability. So, basically because of cough and fever, she has increased mood lability, agitation, and then mood lability worsened by stress of her medical illness. That is why, she does require acute psychiatric inpatient treatment at this time. MENTAL STATUS EXAMINATION: This is an 89-year-old female patient. Appearance is disheveled. Attitude, irritable and agitated. Affect, guarded and restricted. Intellect poor because she does not know current events and does not know last four presidents. Mood, depressed and anxious. Motor activity, psychomotor agitation. Attention span is poor. Orientation x2. Speech is low volume and slurred. Thought process, disorganized and illogical. Insight and judgment is poor. DIAGNOSIS: Major depressive disorder, mild, recurrent with psychotic features, rule out dementia with psychosis. PLAN: Treat her with Namenda 10 mg twice a day, Risperdal 0.5 twice a day, Ativan 0.5 mg every 6 hours p.r.n. anxiety and agitation. A 20 minutes of reality-based supportive psychotherapy provided. Chart reviewed. Discussed with staff. Seen and assessed at bedside. Jeannette Velasquez M.D. DR: OVIDIO JOB#: [id number] CC:
--- NOTE | 2019-10-31 11:56 | Cardiac Electrophysiology PN ---
Assessment/Plan Assessment/Plan 1. Shortness of breath and history of congestive heart failure. BNP 800. Echocardiogram is pending Also has positive COVID-19 2. Hypertension. On Lasix 40 mg IV daily. 3. Nonsustained ventricular tachycardia looked like artifact. However, the echocardiogram is pending. 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 5. Dementia. 6. Hypothyroidism, on Synthroid. DW RN Subjective Subjective Alert in NAD in isolation. No CP Objective Last 24 Hour Vital Signs Date Time Temp Pulse Resp B/P (MAP) Pulse Ox O2 Delivery O2 Flow Rate FiO2 10/31/19 04:00 84 10/31/19 04:00 98.2 90 20 140/70 (93) 97 10/31/19 00:00 98.1 94 24 137/74 (95) 88 10/31/19 00:00 78 10/30/19 21:00 Nasal Cannula 3.0 10/30/19 20:00 98.5 87 25 141/67 (91) 85 10/30/19 16:00 99.9 80 20 126/52 (76) 97 10/30/19 16:00 84 10/30/19 13:41 100.0 10/30/19 12:00 97 10/30/19 12:00 101.8 87 21 118/96 (103) 96 Intake and Output 10/30/19 10/31/19 19:00 07:00 Intake Total 300 ml Balance 300 ml Intake Oral 300 ml # Voids 1 # Bowel Movements 2 2 Laboratory Tests Test 10/31/19 06:28 White Blood Count 5.2 K/UL (4.8-10.8) Red Blood Count 3.30 M/UL (4.20-5.40) L Hemoglobin 9.9 G/DL (12.0-16.0) L Hematocrit 29.8 % (37.0-47.0) L Mean Corpuscular Volume 90 FL (80-99) Mean Corpuscular Hemoglobin 29.9 PG (27.0-31.0) Mean Corpuscular Hemoglobin Concent 33.1 G/DL (32.0-36.0) Red Cell Distribution Width 13.7 % (11.6-14.8) Platelet Count 161 K/UL (150-450) Mean Platelet Volume 6.1 FL (6.5-10.1) L Neutrophils (%) (Auto) % (45.0-75.0) Lymphocytes (%) (Auto) % (20.0-45.0) Monocytes (%) (Auto) % (1.0-10.0) Eosinophils (%) (Auto) % (0.0-3.0) Basophils (%) (Auto) % (0.0-2.0) Differential Total Cells Counted 100 Neutrophils % (Manual) 91 % (45-75) H Lymphocytes % (Manual) 3 % (20-45) L Monocytes % (Manual) 5 % (1-10) Eosinophils % (Manual) 1 % (0-3) Basophils % (Manual) 0 % (0-2) Band Neutrophils 0 % (0-8) Platelet Estimate Adequate Platelet Morphology Normal Sodium Level 143 MMOL/L (136-145) Potassium Level 3.5 MMOL/L (3.5-5.1) Chloride Level 106 MMOL/L (98-107) Carbon Dioxide Level 30 MMOL/L (21-32) Anion Gap 7 mmol/L (5-15) Blood Urea Nitrogen 17 mg/dL (7-18) Creatinine 0.8 MG/DL (0.55-1.30) Estimat Glomerular Filtration Rate > 60 mL/min (>60) Glucose Level 91 MG/DL (74-106) Calcium Level 8.3 MG/DL (8.5-10.1) L Microbiology Date/Time Source Procedure Growth Status 10/29/19 23:00 Stool Clostridium difficile Toxin Assay - Final Complete Objective HEAD AND NECK: Showed no JVD. LUNGS: Coarse rhonchi. CARDIOVASCULAR: Shows regular S1 and S2 with no gallop. ABDOMEN: Soft. EXTREMITIES: No pitting edema. Robin Layne MD Oct 31, 2019 11:56
--- NOTE | 2019-10-31 12:21 | Infectious Diseases Prog Note ---
Assessment/Plan Assessment/Plan Assessment: Confirmed COVID19 (resident of [facility] with confirmed cases per [facility] website) Pulmonary edema vs PNA-on 3l NC -CXR: Pulmonary vascular congestion.Patchy perihilar opacities which may represent pulmonary edema versus pneumonia. No significant change in prominent left hilar shadow previously characterized as tortuous ectatic descending aorta. Linear markings in the right midlung region, possibly atelectasis versus infiltrate. -SARS-COV2 PCR + Fever; improving No leukocytosis Lymphopenia Thrombocytopenia -u/a neg -Bcx NTD Recent R>L LE cellulitis in the setting of lymphedema COPD CHF CVA Alzheimer's Dementia hypothyroidism HLD anemia GERD [place] resident ([facility] Plan: -Azithromycin #/ -Will hold off on Plaquenil as unclear benefit (not recommended by IDSA and NIH guidelines) and risk for increased seizures when combined with risperidone -10/29 SP Cefepime #3 -f/u cx -Monitor CBC/CMP, temperature -COVID19 isolation -aspiration precautions Thank you for consulting [facility]. Will continue to follow along with you Subjective Allergies: Coded Allergies: ASPIRIN (Verified Allergy, Intermediate, Rash, 09/02/19) coating MORPHINE (Verified Allergy, Unknown, 10/14/19) Uncoded Allergies: TETANUS TOXOID (Allergy, Unknown, 10/14/19) Subjective afebrile in ~24hrs on 3l NC no leukocytosis Bcx NTD Objective Vital Signs Last 24 Hour Vital Signs Date Time Temp Pulse Resp B/P (MAP) Pulse Ox O2 Delivery O2 Flow Rate FiO2 10/31/19 04:00 84 10/31/19 04:00 98.2 90 20 140/70 (93) 97 10/31/19 00:00 98.1 94 24 137/74 (95) 88 10/31/19 00:00 78 10/30/19 21:00 Nasal Cannula 3.0 10/30/19 20:00 98.5 87 25 141/67 (91) 85 10/30/19 16:00 99.9 80 20 126/52 (76) 97 10/30/19 16:00 84 10/30/19 13:41 100.0 Height (Feet): 5 Height (Inches): 8.00 Weight (Pounds): 178 Objective not examined to limit COVID 19 exposure Microbiology Date/Time Source Procedure Growth Status 10/29/19 23:00 Stool Clostridium difficile Toxin Assay - Final Complete Laboratory Tests Test 10/31/19 06:28 White Blood Count 5.2 K/UL (4.8-10.8) Red Blood Count 3.30 M/UL (4.20-5.40) L Hemoglobin 9.9 G/DL (12.0-16.0) L Hematocrit 29.8 % (37.0-47.0) L Mean Corpuscular Volume 90 FL (80-99) Mean Corpuscular Hemoglobin 29.9 PG (27.0-31.0) Mean Corpuscular Hemoglobin Concent 33.1 G/DL (32.0-36.0) Red Cell Distribution Width 13.7 % (11.6-14.8) Platelet Count 161 K/UL (150-450) Mean Platelet Volume 6.1 FL (6.5-10.1) L Neutrophils (%) (Auto) % (45.0-75.0) Lymphocytes (%) (Auto) % (20.0-45.0) Monocytes (%) (Auto) % (1.0-10.0) Eosinophils (%) (Auto) % (0.0-3.0) Basophils (%) (Auto) % (0.0-2.0) Differential Total Cells Counted 100 Neutrophils % (Manual) 91 % (45-75) H Lymphocytes % (Manual) 3 % (20-45) L Monocytes % (Manual) 5 % (1-10) Eosinophils % (Manual) 1 % (0-3) Basophils % (Manual) 0 % (0-2) Band Neutrophils 0 % (0-8) Platelet Estimate Adequate Platelet Morphology Normal Sodium Level 143 MMOL/L (136-145) Potassium Level 3.5 MMOL/L (3.5-5.1) Chloride Level 106 MMOL/L (98-107) Carbon Dioxide Level 30 MMOL/L (21-32) Anion Gap 7 mmol/L (5-15) Blood Urea Nitrogen 17 mg/dL (7-18) Creatinine 0.8 MG/DL (0.55-1.30) Estimat Glomerular Filtration Rate > 60 mL/min (>60) Glucose Level 91 MG/DL (74-106) Calcium Level 8.3 MG/DL (8.5-10.1) L Current Medications Medications (Trade) Dose Ordered Sig/Jerome Route PRN Reason Start Time Stop Time Status Last Admin Dose Admin Acetaminophen (Tylenol) 650 mg Q6H PRN ORAL Temp >100.5 10/29/19 08:30 11/28/19 08:29 10/30/19 13:11 Azithromycin (Zithromax) 500 mg DAILY ORAL 10/29/19 12:15 11/05/19 12:14 10/31/19 09:00 Clopidogrel Bisulfate (Plavix) 75 mg DAILY ORAL 10/29/19 09:00 11/28/19 08:59 10/31/19 09:00 Cyanocobalamin (Vitamin B-12) 1,000 mcg DAILY ORAL 10/29/19 09:00 11/28/19 08:59 10/31/19 09:00 Furosemide (Lasix) 40 mg DAILY IV 10/30/19 09:00 11/29/19 08:59 10/31/19 09:00 Guaifenesin/ Dextromethorphan (Robitussin DM Syrup) 15 ml Q6H PRN ORAL For Cough 10/30/19 01:45 01/28/20 01:44 10/31/19 06:58 Levothyroxine Sodium (Synthroid) 25 mcg DAILY@0630 ORAL 10/29/19 06:30 11/28/19 06:29 10/31/19 06:52 Lorazepam (Ativan) 0.5 mg Q6H PRN ORAL For Anxiety 10/29/19 06:00 11/05/19 05:59 Memantine (Namenda) 10 mg BID ORAL 10/29/19 09:00 11/28/19 08:59 10/31/19 09:00 Pantoprazole (Protonix) 40 mg ACBREAKFAST ORAL 10/29/19 06:30 11/28/19 06:29 10/31/19 06:52 Pramipexole (Mirapex) 0.5 mg DAILY@1700 ORAL 10/29/19 17:00 11/28/19 16:59 10/30/19 16:57 Risperidone (RisperDAL) 0.5 mg BID ORAL 10/29/19 09:00 12/13/19 08:59 10/31/19 09:00 Ropinirole HCl (Requip) 2 mg Q12HR ORAL 10/28/19 21:00 11/27/19 20:59 10/31/19 09:00 Solifenacin (Vesicare) 5 mg DAILY ORAL 10/29/19 09:00 11/28/19 08:59 10/31/19 09:00 Zolpidem Tartrate (Ambien) 5 mg HSPRN PRN ORAL Insomnia 10/28/19 21:00 11/04/19 20:59 10/30/19 22:16 Sandy Colin M.D. Oct 31, 2019 12:21
--- NOTE | 2019-10-31 12:30 | NUR ---
RD ASSESSMENT & RECOMMENDATIONS SEE CARE ACTIVITY FOR COMPLETE ASSESSMENT DAILY ESTIMATED NEEDS: Needs based on Obesity, wound/ 54kg abw 30-35 kcals/kg 1563-2161 total kcals 1.25-1.5 g protein/kg 68-81 g total protein Fluid per MD, on lasix NUTRITION DIAGNOSIS: Increased kcal and pro needs r/t wound healing as evidenced by sacral partial thickness wound. CURRENT DIET: BAILEY PO DIET RECOMMENDATIONS: BAILEY / texture as tolerated ADDITIONAL RECOMMENDATIONS: * Standing wt for accurate CBW (stated wt 220# vs current wt 177#) * Check lytes daily on lasix * Obtain a daily wt on lasix * Wound care: (f/up w/ WC eval) Add LILIA BID * Check A1C- mildly elev FBGs .
[2019-10-31] MEDS: Pramipexole 0.5mg tab ORAL SCH (18:39)
--- NOTE | 2019-10-31 19:49 | NUR ---
HAND-OFF: Report given to Keyur, pt in stable condition and covid rule out. Endorsed to RN to collect stool when pt has BM. Addendum: 10/31/19 at 1958 by Nani Callahan RN HAND-OFF: Report given to Tino pt is in stable condition and is sitting in chair.
[2019-10-31] MEDS: Zolpidem 5mg tab ORAL PRN (21:33)
[2019-11-01 00:04] VITALS: BP 126/68
[2019-11-01 04:00] VITALS: BP 121/63
[2019-11-01] MEDS: Levothyroxine 25mcg tab ORAL SCH (06:36)
[2019-11-01] MEDS: Guaifenesin/DM 10ml syrup ORAL PRN (06:54)
[2019-11-01 07:21] LABS: HEMATOCRIT 31.9 % (37.0-47.0); HEMOGLOBIN 10.6 G/DL (12.0-16.0); MEAN CORPUSCULAR VOLUME 89 FL (80-99); PLATELET COUNT 185 K/UL (150-450); RED BLOOD COUNT 3.57 M/UL (4.20-5.40); RED CELL DISTRIBUTION WIDTH 13.3 % (11.6-14.8); WHITE BLOOD COUNT 5.6 K/UL (4.8-10.8)
--- NOTE | 2019-11-01 07:26 | NUR ---
HAND-OFF: Report given to DANILO Cardoza. Pt stable.
[2019-11-01 07:44] LABS: ANION GAP 7 mmol/L (5-15); BLOOD UREA NITROGEN 18 mg/dL (7-18); CALCIUM 9.1 MG/DL (8.5-10.1); CARBON DIOXIDE 31 MMOL/L (21-32); CHLORIDE 104 MMOL/L (98-107); CREATININE 0.8 MG/DL (0.55-1.30); POTASSIUM 3.3 MMOL/L (3.5-5.1); SODIUM 142 MMOL/L (136-145)
[2019-11-01 08:00] VITALS: BP 121/71
[2019-11-01] MEDS: Memantine 10mg tab ORAL SCH ×2 (09:46→18:15)
[2019-11-01] MEDS: Vitamin B-12 500mcg tab ORAL SCH (09:47)
[2019-11-01] MEDS: Azithromycin 250mg tab ORAL SCH (09:47)
--- NOTE | 2019-11-01 11:02 | Cardiac Electrophysiology PN ---
Assessment/Plan Assessment/Plan 1. Shortness of breath and history of congestive heart failure. BNP 800. Echo not done as is positive COVID-19 2. Hypertension. On Lasix 40 mg IV daily. 3. Nonsustained ventricular tachycardia looked like artifact. Echocardiogram is pending. 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 5. COVID 19 positive on 10/27 6. Dementia. 7. Hypothyroidism, on Synthroid. DW RN Subjective Subjective Alert in NAD in isolation. No CP. DNR Objective Last 24 Hour Vital Signs Date Time Temp Pulse Resp B/P (MAP) Pulse Ox O2 Delivery O2 Flow Rate FiO2 11/01/19 04:00 87 11/01/19 04:00 98.6 85 23 121/63 (82) 96 11/01/19 00:04 99.3 84 22 126/68 (87) 97 11/01/19 00:00 90 10/31/19 21:00 Non-Rebreather 15.0 10/31/19 20:00 99.5 83 22 99/58 (72) 92 10/31/19 20:00 87 10/31/19 17:28 92 10/31/19 16:10 97.8 90 22 103/62 (76) 92 10/31/19 12:00 94 10/31/19 12:00 97.9 92 22 103/62 (76) 92 Intake and Output 10/31/19 11/01/19 19:00 07:00 Intake Total 320 ml Balance 320 ml Intake Oral 320 ml # Voids 3 2 # Bowel Movements 2 1 Laboratory Tests Test 11/01/19 06:35 White Blood Count 5.6 K/UL (4.8-10.8) Red Blood Count 3.57 M/UL (4.20-5.40) L Hemoglobin 10.6 G/DL (12.0-16.0) L Hematocrit 31.9 % (37.0-47.0) L Mean Corpuscular Volume 89 FL (80-99) Mean Corpuscular Hemoglobin 29.6 PG (27.0-31.0) Mean Corpuscular Hemoglobin Concent 33.2 G/DL (32.0-36.0) Red Cell Distribution Width 13.3 % (11.6-14.8) Platelet Count 185 K/UL (150-450) Mean Platelet Volume 5.2 FL (6.5-10.1) L Neutrophils (%) (Auto) % (45.0-75.0) Lymphocytes (%) (Auto) % (20.0-45.0) Monocytes (%) (Auto) % (1.0-10.0) Eosinophils (%) (Auto) % (0.0-3.0) Basophils (%) (Auto) % (0.0-2.0) Differential Total Cells Counted 100 Neutrophils % (Manual) 86 % (45-75) H Lymphocytes % (Manual) 8 % (20-45) L Monocytes % (Manual) 4 % (1-10) Eosinophils % (Manual) 2 % (0-3) Basophils % (Manual) 0 % (0-2) Band Neutrophils 0 % (0-8) Platelet Estimate Adequate Platelet Morphology Normal Hypochromasia 1+ Sodium Level 142 MMOL/L (136-145) Potassium Level 3.3 MMOL/L (3.5-5.1) L Chloride Level 104 MMOL/L (98-107) Carbon Dioxide Level 31 MMOL/L (21-32) Anion Gap 7 mmol/L (5-15) Blood Urea Nitrogen 18 mg/dL (7-18) Creatinine 0.8 MG/DL (0.55-1.30) Estimat Glomerular Filtration Rate > 60 mL/min (>60) Glucose Level 97 MG/DL (74-106) Calcium Level 9.1 MG/DL (8.5-10.1) Microbiology Date/Time Source Procedure Growth Status 10/29/19 23:00 Stool Clostridium difficile Toxin Assay - Final Complete Objective HEAD AND NECK: Showed no JVD. LUNGS: Coarse rhonchi. CARDIOVASCULAR: Shows regular S1 and S2 with no gallop. ABDOMEN: Soft. EXTREMITIES: No pitting edema. Robin Layne MD Nov 01, 2019 11:02
[2019-11-01 12:00] VITALS: BP 133/74
--- NOTE | 2019-11-01 12:00 | Infectious Diseases Prog Note ---
Assessment/Plan Assessment/Plan Assessment: Confirmed COVID19 (resident of SNF with confirmed cases per [facility] website) Pulmonary edema vs PNA-on 3l NC -CXR: Pulmonary vascular congestion.Patchy perihilar opacities which may represent pulmonary edema versus pneumonia. No significant change in prominent left hilar shadow previously characterized as tortuous ectatic descending aorta. Linear markings in the right midlung region, possibly atelectasis versus infiltrate. -SARS-COV2 PCR + Fever; improving No leukocytosis Lymphopenia Thrombocytopenia -u/a neg -Bcx NTD Recent R>L LE cellulitis in the setting of lymphedema COPD CHF CVA Alzheimer's Dementia hypothyroidism HLD anemia GERD NH resident ([facility].) Plan: -Azithromycin #5/ -Will hold off on Plaquenil as unclear benefit (not recommended by IDSA and NIH guidelines) and risk for increased seizures when combined with risperidone -10/29 SP Cefepime #3 -f/u cx -Monitor CBC/CMP, temperature -COVID19 isolation -aspiration precautions Thank you for consulting [facility]. Will continue to follow along with you Subjective Allergies: Coded Allergies: ASPIRIN (Verified Allergy, Intermediate, Rash, 09/02/19) coating MORPHINE (Verified Allergy, Unknown, 10/14/19) Uncoded Allergies: TETANUS TOXOID (Allergy, Unknown, 10/14/19) Subjective afebrile in >36hrs now on NRB no leukocytosis Bcx NTD Objective Vital Signs Last 24 Hour Vital Signs Date Time Temp Pulse Resp B/P (MAP) Pulse Ox O2 Delivery O2 Flow Rate FiO2 11/01/19 04:00 87 11/01/19 04:00 98.6 85 23 121/63 (82) 96 11/01/19 00:04 99.3 84 22 126/68 (87) 97 11/01/19 00:00 90 10/31/19 21:00 Non-Rebreather 15.0 10/31/19 20:00 99.5 83 22 99/58 (72) 92 10/31/19 20:00 87 10/31/19 17:28 92 10/31/19 16:10 97.8 90 22 103/62 (76) 92 10/31/19 12:00 94 10/31/19 12:00 97.9 92 22 103/62 (76) 92 Height (Feet): 5 Height (Inches): 8.00 Weight (Pounds): 178 Objective not examined to limit COVID 19 exposure Microbiology Date/Time Source Procedure Growth Status 10/29/19 23:00 Stool Clostridium difficile Toxin Assay - Final Complete Laboratory Tests Test 11/01/19 06:35 White Blood Count 5.6 K/UL (4.8-10.8) Red Blood Count 3.57 M/UL (4.20-5.40) L Hemoglobin 10.6 G/DL (12.0-16.0) L Hematocrit 31.9 % (37.0-47.0) L Mean Corpuscular Volume 89 FL (80-99) Mean Corpuscular Hemoglobin 29.6 PG (27.0-31.0) Mean Corpuscular Hemoglobin Concent 33.2 G/DL (32.0-36.0) Red Cell Distribution Width 13.3 % (11.6-14.8) Platelet Count 185 K/UL (150-450) Mean Platelet Volume 5.2 FL (6.5-10.1) L Neutrophils (%) (Auto) % (45.0-75.0) Lymphocytes (%) (Auto) % (20.0-45.0) Monocytes (%) (Auto) % (1.0-10.0) Eosinophils (%) (Auto) % (0.0-3.0) Basophils (%) (Auto) % (0.0-2.0) Differential Total Cells Counted 100 Neutrophils % (Manual) 86 % (45-75) H Lymphocytes % (Manual) 8 % (20-45) L Monocytes % (Manual) 4 % (1-10) Eosinophils % (Manual) 2 % (0-3) Basophils % (Manual) 0 % (0-2) Band Neutrophils 0 % (0-8) Platelet Estimate Adequate Platelet Morphology Normal Hypochromasia 1+ Sodium Level 142 MMOL/L (136-145) Potassium Level 3.3 MMOL/L (3.5-5.1) L Chloride Level 104 MMOL/L (98-107) Carbon Dioxide Level 31 MMOL/L (21-32) Anion Gap 7 mmol/L (5-15) Blood Urea Nitrogen 18 mg/dL (7-18) Creatinine 0.8 MG/DL (0.55-1.30) Estimat Glomerular Filtration Rate > 60 mL/min (>60) Glucose Level 97 MG/DL (74-106) Calcium Level 9.1 MG/DL (8.5-10.1) Current Medications Medications (Trade) Dose Ordered Sig/Jerome Route PRN Reason Start Time Stop Time Status Last Admin Dose Admin Acetaminophen (Tylenol) 650 mg Q6H PRN ORAL Temp >100.5 10/29/19 08:30 11/28/19 08:29 10/30/19 13:11 Azithromycin (Zithromax) 500 mg DAILY ORAL 10/29/19 12:15 11/05/19 12:14 11/01/19 09:47 Clopidogrel Bisulfate (Plavix) 75 mg DAILY ORAL 10/29/19 09:00 11/28/19 08:59 11/01/19 09:47 Cyanocobalamin (Vitamin B-12) 1,000 mcg DAILY ORAL 10/29/19 09:00 11/28/19 08:59 11/01/19 09:47 Furosemide (Lasix) 40 mg DAILY IV 10/30/19 09:00 11/29/19 08:59 11/01/19 09:48 Guaifenesin/ Dextromethorphan (Robitussin DM Syrup) 15 ml Q6H PRN ORAL For Cough 10/30/19 01:45 01/28/20 01:44 11/01/19 06:54 Levothyroxine Sodium (Synthroid) 25 mcg DAILY@0630 ORAL 10/29/19 06:30 11/28/19 06:29 11/01/19 06:36 Lorazepam (Ativan) 0.5 mg Q6H PRN ORAL For Anxiety 10/29/19 06:00 11/05/19 05:59 Memantine (Namenda) 10 mg BID ORAL 10/29/19 09:00 11/28/19 08:59 11/01/19 09:46 Pantoprazole (Protonix) 40 mg ACBREAKFAST ORAL 10/29/19 06:30 11/28/19 06:29 11/01/19 06:36 Potassium Chloride (K-Dur) 40 meq ONCE ORAL 11/01/19 11:15 11/01/19 13:00 Pramipexole (Mirapex) 0.5 mg DAILY@1700 ORAL 10/29/19 17:00 11/28/19 16:59 10/31/19 18:39 Risperidone (RisperDAL) 0.5 mg BID ORAL 10/29/19 09:00 12/13/19 08:59 11/01/19 09:48 Ropinirole HCl (Requip) 2 mg Q12HR ORAL 10/28/19 21:00 11/27/19 20:59 11/01/19 09:47 Solifenacin (Vesicare) 5 mg DAILY ORAL 10/29/19 09:00 11/28/19 08:59 11/01/19 09:47 Zolpidem Tartrate (Ambien) 5 mg HSPRN PRN ORAL Insomnia 10/28/19 21:00 11/04/19 20:59 10/31/19 21:33 Sandy Colin M.D. Nov 01, 2019 12:00
--- NOTE | 2019-11-01 12:27 | General Progress Note ---
Assessment/Plan Problem List: (1) UTI (urinary tract infection) ICD Codes: N39.0 - Urinary tract infection, site not specified SNOMED: 01337858 (2) Hypoxia ICD Codes: R09.02 - Hypoxemia SNOMED: 092316422 (3) Edema ICD Codes: R60.9 - Edema, unspecified SNOMED: 837672452, 069861117 (4) COPD (chronic obstructive pulmonary disease) ICD Codes: J44.9 - Chronic obstructive pulmonary disease, unspecified SNOMED: 59066206 (5) Alzheimer disease ICD Codes: G30.9 - Alzheimer's disease, unspecified; F02.80 - Dementia in other diseases classified elsewhere without behavioral disturbance SNOMED: 42216276 (6) Weak ICD Codes: R53.1 - Weakness SNOMED: 50088672 (7) GERD (gastroesophageal reflux disease) ICD Codes: K21.9 - Gastro-esophageal reflux disease without esophagitis SNOMED: 738546157 (8) HTN (hypertension) ICD Codes: I10 - Essential (primary) hypertension SNOMED: 89764593 (9) CVA (cerebral vascular accident) ICD Codes: I63.9 - Cerebral infarction, unspecified SNOMED: 522160604 (10) Suspected COVID-19 virus infection ICD Codes: R68.89 - Other general symptoms and signs SNOMED: 981489431 Status: unchanged Assessment/Plan: o2 pulm tx abx cbc bmp am aru eval Subjective Constitutional: Reports: weakness Allergies: Coded Allergies: ASPIRIN (Verified Allergy, Intermediate, Rash, 09/02/19) coating MORPHINE (Verified Allergy, Unknown, 10/14/19) Uncoded Allergies: TETANUS TOXOID (Allergy, Unknown, 10/14/19) All Systems: reviewed and negative except above Subjective o2nc calm Objective Last 24 Hour Vital Signs Date Time Temp Pulse Resp B/P (MAP) Pulse Ox O2 Delivery O2 Flow Rate FiO2 11/01/19 04:00 87 11/01/19 04:00 98.6 85 23 121/63 (82) 96 11/01/19 00:04 99.3 84 22 126/68 (87) 97 11/01/19 00:00 90 10/31/19 21:00 Non-Rebreather 15.0 10/31/19 20:00 99.5 83 22 99/58 (72) 92 10/31/19 20:00 87 10/31/19 17:28 92 10/31/19 16:10 97.8 90 22 103/62 (76) 92 Intake and Output 10/31/19 11/01/19 19:00 07:00 Intake Total 320 ml Balance 320 ml Intake Oral 320 ml # Voids 3 2 # Bowel Movements 2 1 Laboratory Tests 11/01/19 06:35: White Blood Count 5.6, Red Blood Count 3.57L, Hemoglobin 10.6L, Hematocrit 31.9L , Mean Corpuscular Volume 89, Mean Corpuscular Hemoglobin 29.6, Mean Corpuscular Hemoglobin Concent 33.2, Red Cell Distribution Width 13.3, Platelet Count 185, Mean Platelet Volume 5.2L, Neutrophils (%) (Auto) , Lymphocytes (%) ( Auto) , Monocytes (%) (Auto) , Eosinophils (%) (Auto) , Basophils (%) (Auto) , Differential Total Cells Counted 100, Neutrophils % (Manual) 86H, Lymphocytes % (Manual) 8L, Monocytes % (Manual) 4, Eosinophils % (Manual) 2, Basophils % ( Manual) 0, Band Neutrophils 0, Platelet Estimate Adequate, Platelet Morphology Normal, Hypochromasia 1+, Sodium Level 142, Potassium Level 3.3L, Chloride Level 104, Carbon Dioxide Level 31, Anion Gap 7, Blood Urea Nitrogen 18, Creatinine 0.8, Estimat Glomerular Filtration Rate > 60, Glucose Level 97, Calcium Level 9.1 Height (Feet): 5 Height (Inches): 8.00 Weight (Pounds): 178 General Appearance: lethargic EENT: normal ENT inspection Neck: normal alignment Cardiovascular: normal rate, regular rhythm Respiratory/Chest: no respiratory distress, no accessory muscle use Extremities: normal inspection Skin: normal pigmentation Earle Whaley DO Nov 01, 2019 12:27
--- NOTE | 2019-11-01 13:49 | Pulmonology Progress Note ---
Assessment/Plan Assessment/Plan IMPRESSION: 1. Suspect pulmonary edema. On diuretics; will increase 2. CHF. 3. COPD. 4. Positive COVID-19. DISCUSSION: Continue home medications. I will follow carefully. Ordered oxygen and pulmonary hygiene. Broad-spectrum antibiotics. Increase LAsix Continue NRBM Check labs and CXR in AM Discussed with daughter Yonny Ware M.D. Subjective Interval Events: None new reproted Constitutional: Reports: no symptoms HEENT: Repors: no symptoms Respiratory: Reports: no symptoms Cardiovascular: Reports: no symptoms Gastrointestinal/Abdominal: Reports: no symptoms Allergies: Coded Allergies: ASPIRIN (Verified Allergy, Intermediate, Rash, 09/02/19) coating MORPHINE (Verified Allergy, Unknown, 10/14/19) Uncoded Allergies: TETANUS TOXOID (Allergy, Unknown, 10/14/19) All Systems: reviewed and negative except above Objective Last 24 Hour Vital Signs Date Time Temp Pulse Resp B/P (MAP) Pulse Ox O2 Delivery O2 Flow Rate FiO2 11/01/19 04:00 87 11/01/19 04:00 98.6 85 23 121/63 (82) 96 11/01/19 00:04 99.3 84 22 126/68 (87) 97 11/01/19 00:00 90 10/31/19 21:00 Non-Rebreather 15.0 10/31/19 20:00 99.5 83 22 99/58 (72) 92 10/31/19 20:00 87 10/31/19 17:28 92 10/31/19 16:10 97.8 90 22 103/62 (76) 92 Intake and Output 10/31/19 11/01/19 19:00 07:00 Intake Total 320 ml Balance 320 ml Intake Oral 320 ml # Voids 3 2 # Bowel Movements 2 1 General Appearance: no acute distress HEENT: normocephalic Respiratory/Chest: chest wall non-tender, lungs clear Cardiovascular: normal peripheral pulses Abdomen: normal bowel sounds Microbiology Date/Time Source Procedure Growth Status 10/29/19 23:00 Stool Clostridium difficile Toxin Assay - Final Complete Laboratory Tests 11/01/19 06:35: White Blood Count 5.6, Red Blood Count 3.57L, Hemoglobin 10.6L, Hematocrit 31.9L , Mean Corpuscular Volume 89, Mean Corpuscular Hemoglobin 29.6, Mean Corpuscular Hemoglobin Concent 33.2, Red Cell Distribution Width 13.3, Platelet Count 185, Mean Platelet Volume 5.2L, Neutrophils (%) (Auto) , Lymphocytes (%) ( Auto) , Monocytes (%) (Auto) , Eosinophils (%) (Auto) , Basophils (%) (Auto) , Differential Total Cells Counted 100, Neutrophils % (Manual) 86H, Lymphocytes % (Manual) 8L, Monocytes % (Manual) 4, Eosinophils % (Manual) 2, Basophils % ( Manual) 0, Band Neutrophils 0, Platelet Estimate Adequate, Platelet Morphology Normal, Hypochromasia 1+, Sodium Level 142, Potassium Level 3.3L, Chloride Level 104, Carbon Dioxide Level 31, Anion Gap 7, Blood Urea Nitrogen 18, Creatinine 0.8, Estimat Glomerular Filtration Rate > 60, Glucose Level 97, Calcium Level 9.1 Current Medications Medications (Trade) Dose Ordered Sig/Jerome Route PRN Reason Start Time Stop Time Status Last Admin Dose Admin Acetaminophen (Tylenol) 650 mg Q6H PRN ORAL Temp >100.5 10/29/19 08:30 11/28/19 08:29 10/30/19 13:11 Clopidogrel Bisulfate (Plavix) 75 mg DAILY ORAL 10/29/19 09:00 11/28/19 08:59 11/01/19 09:47 Cyanocobalamin (Vitamin B-12) 1,000 mcg DAILY ORAL 10/29/19 09:00 11/28/19 08:59 11/01/19 09:47 Furosemide (Lasix) 40 mg DAILY IV 10/30/19 09:00 11/29/19 08:59 11/01/19 09:48 Guaifenesin/ Dextromethorphan (Robitussin DM Syrup) 15 ml Q6H PRN ORAL For Cough 10/30/19 01:45 01/28/20 01:44 11/01/19 06:54 Levothyroxine Sodium (Synthroid) 25 mcg DAILY@0630 ORAL 10/29/19 06:30 11/28/19 06:29 11/01/19 06:36 Lorazepam (Ativan) 0.5 mg Q6H PRN ORAL For Anxiety 10/29/19 06:00 11/05/19 05:59 Memantine (Namenda) 10 mg BID ORAL 10/29/19 09:00 11/28/19 08:59 11/01/19 09:46 Pantoprazole (Protonix) 40 mg ACBREAKFAST ORAL 10/29/19 06:30 11/28/19 06:29 11/01/19 06:36 Pramipexole (Mirapex) 0.5 mg DAILY@1700 ORAL 10/29/19 17:00 11/28/19 16:59 10/31/19 18:39 Risperidone (RisperDAL) 0.5 mg BID ORAL 10/29/19 09:00 12/13/19 08:59 11/01/19 09:48 Ropinirole HCl (Requip) 2 mg Q12HR ORAL 10/28/19 21:00 11/27/19 20:59 11/01/19 09:47 Solifenacin (Vesicare) 5 mg DAILY ORAL 10/29/19 09:00 11/28/19 08:59 11/01/19 09:47 Zolpidem Tartrate (Ambien) 5 mg HSPRN PRN ORAL Insomnia 10/28/19 21:00 11/04/19 20:59 10/31/19 21:33 Yonny Ware MD Nov 01, 2019 13:49
--- NOTE | 2019-11-01 14:18 | NUR ---
CASE MANAGEMENT:REVIEW 11/01/19 SI: COVID 19 PNEUMONIA LAST NIGHT T~99.5 BP~99/58 98.6 85 23 121/63 121/63 96% ON NON REBREATHER 15L H/H-10.3/31.9 K-3.3 IS: IV LASIX QD PRAMIPEXOLE PO QD PLAVIX PO QD B12 PO QD NAMENDA PO BID VESICARE PO QD RISPERDAL PO BID SYNTHROID PO QD PROTONIX PO QAM REQUIP PO Q12 : TELEMETRY STATUS DCP: FROM [facility] DISCHARGE PLANNING PER HEALTH DEPARTMENT GUIDELINES ~ PATIENT WILL NEED TO REMAIN HOSPITALIZED FOR A MINIMUM OF 10 DAYS AND BE AFEBRILE X72HRS PRIOR TO RETURNING TO SNF
--- NOTE | 2019-11-01 14:28 | NUR ---
*-*DISCHARGE PLANNING*-* PATIENT HAS BEEN REFERRED TO: [facility] P: [phone] OR P: [id number] F: [phone] OR F: F: [phone] ~~~~~~~~~~~~~~~~~~CLINICALS FAXED~~~~~~~~~~~~~~
--- NOTE | 2019-11-01 14:39 | NUR ---
DISCHARGE PLANNING PER HEALTH DEPARTMENT GUIDELINES ~ PATIENT NEEDS TO REMAIN HOSPITALIZED FOR A MINIMUM OF 10 DAYS AND BE AFEBRILE X72HRS PRIOR TO RETURNING TO SNF [facility] WILL PROBABLY NOT AUTHORIZE PLACEMENT AT [facility] PATIENT SHOULD RETURN TO [facility] AT TIME OF DISCHARGE DR CORLEY IS THE ATTENDING ON THIS CASE, NOT DR CARMONA
--- NOTE | 2019-11-01 14:55 | NUR ---
*-* INSURANCE *-* ALL CLINICALS AND REVIEWS HAVE BEEN FAXED TO: [facility] P: [phone] p: [phone] opt .1 F: [phone] (FAX ALL CLINICALS)
[2019-11-01 16:00] VITALS: BP 115/65
[2019-11-01] MEDS: Pramipexole 0.5mg tab ORAL SCH (18:15)
--- NOTE | 2019-11-01 19:53 | NUR ---
NURSE NOTES: RECEIVED REPORT FROM DANILO HOWARD. PATIENT ASLEEP IN BED, AROUSABLE TO VOICE. ALERT, OX3, VERBALLY RESPONSIVE AND ABLE TO MAKE NEEDS KNOWN. NO COMPLAINTS OF PAIN OR DISCOMFORT AT THIS TIME. BREATHING EVEN AND UNLABORED ON 15L VIA NON-REBREATHER MASK WITH HOB ELEVATED, NO S/SX OF DISTRESS AT THIS TIME. IV SITE RAC SALINE LOCKED, ASYMPTOMATIC, PATENT AND INTACT. CONTACT AND DROPLET PRECAUTIONS IMPLEMENTED. FALL PRECAUTIONS IMPLEMENTED. BED LOCKED AND IN LOWEST POSITION WITH SIDERAILS UP X 2. CALL LIGHT WITHIN REACH. WILL CONTINUE TO MONITOR FOR ANY CHANGES.
--- NOTE | 2019-11-01 19:53 | NUR ---
HAND-OFF: Report given to Tanna/RN pt in stable condition. Pt keeps taking off mask, educated pt multiple times to keep mask on, also spoke to family to talk to pt about this as well.
[2019-11-01 20:00] VITALS: BP 113/70
--- NOTE | 2019-11-01 21:45 | Progress Note ---
DATE: 11/01/2019 SUBJECTIVE: This is an 89-year-old female with cough, fever, confusion, altered mental status. She is confused and disorganized. She has altered mental status and decline in cognition below her baseline. DIAGNOSIS: Major depressive disorder, mild, recurrent with psychotic features, rule out dementia with psychosis. PLAN: Plan for this patient is to treat her with medication regimen consisting of Namenda 10 twice a day, Ativan 0.5 mg every 6 hours p.r.n. anxiety or agitation, and Risperdal 0.5 twice a day. Twenty minutes of reality-based supportive psychotherapy provided. Chart was reviewed. Discussed with staff. Seen and assessed at bedside. I encouraged her to interact appropriately with the staff and other patients. Jeannette Velasquez M.D. DR: OVIDIO JOB#: [id number] CC:
--- NOTE | 2019-11-01 23:30 | Progress Note ---
DATE: 11/01/2019 SUBJECTIVE: This is an 89-year-old female. She still has some mood lability. She has confusion, altered mental status, significant decline in cognition below baseline. MENTAL STATUS EXAMINATION: This is an 89-year-old female patient. Appearance is disheveled. Attitude, irritable and agitated. Affect, guarded and restricted. Intellect poor. Mood, depressed and anxious. Motor activity, psychomotor agitation. Attention span is poor. Orientation x2. Speech is nonsensical. Thought process, disorganized and illogical. Insight and judgment poor. Speech is low volume, but slightly hyperverbal. DIAGNOSIS: Major depressive disorder, mild, recurrent with psychotic features, rule out dementia with psychosis. PLAN: Plan for this patient treat with Risperdal 0.5 mg twice a day, Namenda 10 twice a day, Ativan 0.5 mg every 6 hours p.r.n. anxiety and agitation. A 20 minutes of cognitive behavioral therapy to help her identify automatic negative thoughts and help her convert negative thoughts to more positive thoughts to reduce depression, anxiety, mood lability. Chart reviewed. Discussed with staff. Patient was seen and assessed in the room. Jeannette Velasquez M.D. DR: ROLANDO JOB#: [id number] CC:
[2019-11-02] VITALS: BP 125/75
[2019-11-02] MEDS: Zolpidem 5mg tab ORAL PRN ×2 (00:16→21:02)
[2019-11-02 04:00] VITALS: BP 115/56
--- NOTE | 2019-11-02 04:49 | NUR ---
NURSE NOTES: ATTEMPTED TO DRAW BLOOD X 3, PATIENT REFUSED. PER PATIENT SHE WANTS TO SLEEP. WILL TRY AGAIN IN AT A LATER TIME.
[2019-11-02] MEDS: Levothyroxine 25mcg tab ORAL SCH (05:57)
--- NOTE | 2019-11-02 06:00 | NUR ---
NURSE NOTES: ATTEMPTED TO DRAW BLOOD X 1, PATIENT REFUSED. EDUCATED PATIENT ON PURPOSE AND IMPORTANCE OF BLOOD DRAW FOR ORDERED TESTS, BUT PATIENT STILL REFUSED.
--- NOTE | 2019-11-02 07:42 | NUR ---
HAND-OFF: Report given to DANILO SHAW. PLAN OF CARE ENDORSED.
[2019-11-02 08:00] VITALS: BP 131/61
--- NOTE | 2019-11-02 08:00 | NUR ---
NURSE NOTES: Patient received from Kaykay CARRASCO. Patient stable AOx4 with no complaints of pain and no ssx of distress. Tachypnea noted with SOB. RR even and unlabored on NRB. Side rails upx2, call light within reach, bed low and loced. Will continue to monitor.
[2019-11-02 08:53] LABS: BASOPHILS % (AUTO) 0.6 % (0.0-2.0); EOSINOPHILS % (AUTO) 1.5 % (0.0-3.0); HEMATOCRIT 30.8 % (37.0-47.0); HEMOGLOBIN 9.9 G/DL (12.0-16.0); LYMPHOCYTES % (AUTO) 7.9 % (20.0-45.0); MEAN CORPUSCULAR VOLUME 89 FL (80-99); PLATELET COUNT 196 K/UL (150-450); RED BLOOD COUNT 3.44 M/UL (4.20-5.40); WHITE BLOOD COUNT 6.4 K/UL (4.8-10.8)
[2019-11-02] MEDS: Vitamin B-12 500mcg tab ORAL SCH (09:07)
[2019-11-02] MEDS: Memantine 10mg tab ORAL SCH ×2 (09:07→17:50)
--- NOTE | 2019-11-02 09:11 | General Progress Note ---
Assessment/Plan Problem List: (1) UTI (urinary tract infection) ICD Codes: N39.0 - Urinary tract infection, site not specified SNOMED: 26076961 (2) Hypoxia ICD Codes: R09.02 - Hypoxemia SNOMED: 690973481 (3) Edema ICD Codes: R60.9 - Edema, unspecified SNOMED: 467503497, 050515785 (4) COPD (chronic obstructive pulmonary disease) ICD Codes: J44.9 - Chronic obstructive pulmonary disease, unspecified SNOMED: 97831466 (5) Alzheimer disease ICD Codes: G30.9 - Alzheimer's disease, unspecified; F02.80 - Dementia in other diseases classified elsewhere without behavioral disturbance SNOMED: 64549103 (6) Weak ICD Codes: R53.1 - Weakness SNOMED: 34832637 (7) GERD (gastroesophageal reflux disease) ICD Codes: K21.9 - Gastro-esophageal reflux disease without esophagitis SNOMED: 534444245 (8) HTN (hypertension) ICD Codes: I10 - Essential (primary) hypertension SNOMED: 89263983 (9) CVA (cerebral vascular accident) ICD Codes: I63.9 - Cerebral infarction, unspecified SNOMED: 856159400 (10) Suspected COVID-19 virus infection ICD Codes: R68.89 - Other general symptoms and signs SNOMED: 726760366 Status: unchanged Assessment/Plan: o2 pulm tx abx cbc bmp am Subjective Constitutional: Reports: weakness Allergies: Coded Allergies: ASPIRIN (Verified Allergy, Intermediate, Rash, 09/02/19) coating MORPHINE (Verified Allergy, Unknown, 10/14/19) Uncoded Allergies: TETANUS TOXOID (Allergy, Unknown, 10/14/19) All Systems: reviewed and negative except above Subjective o2nc calm Objective Last 24 Hour Vital Signs Date Time Temp Pulse Resp B/P (MAP) Pulse Ox O2 Delivery O2 Flow Rate FiO2 11/02/19 04:00 98.0 80 20 115/56 (75) 96 11/02/19 04:00 77 11/02/19 00:00 86 11/02/19 00:00 98.0 80 23 125/75 (92) 96 11/01/19 21:00 Non-Rebreather 15.0 11/01/19 20:00 98.2 83 23 113/70 (84) 97 11/01/19 20:00 78 11/01/19 16:00 73 11/01/19 16:00 97.9 79 22 115/65 (82) 96 11/01/19 12:00 72 11/01/19 12:00 97.7 79 22 133/74 (93) 96 Intake and Output 11/01/19 11/02/19 19:00 07:00 Intake Total 600 ml 480 ml Balance 600 ml 480 ml Intake Oral 600 ml 480 ml # Voids 2 4 # Bowel Movements 2 2 Laboratory Tests 11/02/19 08:20: White Blood Count 6.4, Red Blood Count 3.44L, Hemoglobin 9.9L, Hematocrit 30.8L , Mean Corpuscular Volume 89, Mean Corpuscular Hemoglobin 28.9, Mean Corpuscular Hemoglobin Concent 32.3, Red Cell Distribution Width 13.0, Platelet Count 196, Mean Platelet Volume 5.1L, Neutrophils (%) (Auto) 84.0H, Lymphocytes (%) (Auto) 7.9L, Monocytes (%) (Auto) 6.0, Eosinophils (%) (Auto) 1.5, Basophils (%) (Auto) 0.6, Sodium Level [Pending], Potassium Level [Pending], Chloride Level [Pending], Carbon Dioxide Level [Pending], Blood Urea Nitrogen [ Pending], Creatinine [Pending], Estimat Glomerular Filtration Rate [Pending], Glucose Level [Pending], Calcium Level [Pending] 11/02/19 08:22: Arterial Blood pH 7.413, Arterial Blood Partial Pressure CO2 51.1H, Arterial Blood Partial Pressure O2 66.0L, Arterial Blood HCO3 31.9H, Arterial Blood Oxygen Saturation 92.8L, Arterial Blood Base Excess 6.1H, Ryland Test Positive Height (Feet): 5 Height (Inches): 8.00 Weight (Pounds): 178 General Appearance: lethargic EENT: normal ENT inspection Neck: normal alignment Cardiovascular: normal rate, regular rhythm Respiratory/Chest: no respiratory distress, no accessory muscle use Extremities: normal inspection Skin: normal pigmentation Earle Whaley DO Nov 02, 2019 09:11
[2019-11-02 09:18] LABS: ANION GAP 4 mmol/L (5-15); BLOOD UREA NITROGEN 15 mg/dL (7-18); CALCIUM 9.2 MG/DL (8.5-10.1); CARBON DIOXIDE 33 MMOL/L (21-32); CHLORIDE 107 MMOL/L (98-107); CREATININE 0.7 MG/DL (0.55-1.30); POTASSIUM 3.5 MMOL/L (3.5-5.1); SODIUM 144 MMOL/L (136-145)
--- NOTE | 2019-11-02 09:57 | NUR ---
*-* INSURANCE *-* UPDATED CLINICALS AND REVIEWS HAVE BEEN FAXED TO: [facility] P: [phone] p: [phone] opt .1 F: [phone] (FAX ALL CLINICALS)
--- NOTE | 2019-11-02 10:18 | NUR ---
CASE MANAGEMENT:REVIEW 11/02/19 SI: COVID 19 PNEUMONIA LAST TEMP 11/01/19 98.0 77 20 115/56 96% ON NON REBREATHER 15L H/H-9.9/30.8 CO2+33 PCO2+51.1 PO2-66.0 HCO3+31.9 IS: K-DUR PO QD IV LASIX QD PRAMIPEXOLE PO QD PLAVIX PO QD B12 PO QD NAMENDA PO BID VESICARE PO QD RISPERDAL PO BID SYNTHROID PO QD PROTONIX PO QAM REQUIP PO Q12 : TELEMETRY STATUS DCP: FROM [facility] DISCHARGE PLANNING PER HEALTH DEPARTMENT GUIDELINES ~ PATIENT WILL NEED TO REMAIN HOSPITALIZED FOR A MINIMUM OF 10 DAYS AND BE AFEBRILE X72HRS PRIOR TO RETURNING TO SNF
--- NOTE | 2019-11-02 10:33 | NUR ---
DISCHARGE PLANNING PER HEALTH DEPARTMENT GUIDELINES ~ PATIENT WILL NEED TO REMAIN HOSPITALIZED FOR A MINIMUM OF 10 DAYS AND BE AFEBRILE X72HRS PRIOR TO RETURNING TO SNF ([facility])
--- NOTE | 2019-11-02 11:24 | Pulmonology Progress Note ---
Assessment/Plan Assessment/Plan IMPRESSION: 1. Suspect pulmonary edema. On diuretics; will increase 2. CHF. 3. COPD. 4. Positive COVID-19. DISCUSSION: Continue home medications. I will follow carefully. Ordered oxygen and pulmonary hygiene. Broad-spectrum antibiotics. Increase LAsix Continue NRBM Check labs and CXR in AM Discussed with daughter Yonny Ware M.D. Subjective Interval Events: None new reproted Constitutional: Reports: no symptoms HEENT: Repors: no symptoms Respiratory: Reports: no symptoms Cardiovascular: Reports: no symptoms Gastrointestinal/Abdominal: Reports: no symptoms Allergies: Coded Allergies: ASPIRIN (Verified Allergy, Intermediate, Rash, 09/02/19) coating MORPHINE (Verified Allergy, Unknown, 10/14/19) Uncoded Allergies: TETANUS TOXOID (Allergy, Unknown, 10/14/19) All Systems: reviewed and negative except above Objective Last 24 Hour Vital Signs Date Time Temp Pulse Resp B/P (MAP) Pulse Ox O2 Delivery O2 Flow Rate FiO2 11/02/19 04:00 98.0 80 20 115/56 (75) 96 11/02/19 04:00 77 11/02/19 00:00 86 11/02/19 00:00 98.0 80 23 125/75 (92) 96 11/01/19 21:00 Non-Rebreather 15.0 11/01/19 20:00 98.2 83 23 113/70 (84) 97 11/01/19 20:00 78 11/01/19 16:00 73 11/01/19 16:00 97.9 79 22 115/65 (82) 96 11/01/19 12:00 72 11/01/19 12:00 97.7 79 22 133/74 (93) 96 Intake and Output 11/01/19 11/02/19 19:00 07:00 Intake Total 600 ml 480 ml Balance 600 ml 480 ml Intake Oral 600 ml 480 ml # Voids 2 4 # Bowel Movements 2 2 General Appearance: no acute distress HEENT: normocephalic Respiratory/Chest: chest wall non-tender, lungs clear Cardiovascular: normal peripheral pulses Abdomen: normal bowel sounds Laboratory Tests 11/02/19 08:20: White Blood Count 6.4, Red Blood Count 3.44L, Hemoglobin 9.9L, Hematocrit 30.8L , Mean Corpuscular Volume 89, Mean Corpuscular Hemoglobin 28.9, Mean Corpuscular Hemoglobin Concent 32.3, Red Cell Distribution Width 13.0, Platelet Count 196, Mean Platelet Volume 5.1L, Neutrophils (%) (Auto) 84.0H, Lymphocytes (%) (Auto) 7.9L, Monocytes (%) (Auto) 6.0, Eosinophils (%) (Auto) 1.5, Basophils (%) (Auto) 0.6, Sodium Level 144, Potassium Level 3.5, Chloride Level 107, Carbon Dioxide Level 33H, Anion Gap 4L, Blood Urea Nitrogen 15, Creatinine 0.7, Estimat Glomerular Filtration Rate > 60, Glucose Level 101, Calcium Level 9.2 11/02/19 08:22: Arterial Blood pH 7.413, Arterial Blood Partial Pressure CO2 51.1H, Arterial Blood Partial Pressure O2 66.0L, Arterial Blood HCO3 31.9H, Arterial Blood Oxygen Saturation 92.8L, Arterial Blood Base Excess 6.1H, Ryland Test Positive Current Medications Medications (Trade) Dose Ordered Sig/Jerome Route PRN Reason Start Time Stop Time Status Last Admin Dose Admin Acetaminophen (Tylenol) 650 mg Q6H PRN ORAL Temp >100.5 10/29/19 08:30 11/28/19 08:29 10/30/19 13:11 Clopidogrel Bisulfate (Plavix) 75 mg DAILY ORAL 10/29/19 09:00 11/28/19 08:59 11/02/19 09:07 Cyanocobalamin (Vitamin B-12) 1,000 mcg DAILY ORAL 10/29/19 09:00 11/28/19 08:59 11/02/19 09:07 Furosemide (Lasix) 40 mg DAILY IV 10/30/19 09:00 11/29/19 08:59 11/02/19 09:06 Guaifenesin/ Dextromethorphan (Robitussin DM Syrup) 15 ml Q6H PRN ORAL For Cough 10/30/19 01:45 01/28/20 01:44 11/01/19 06:54 Levothyroxine Sodium (Synthroid) 25 mcg DAILY@0630 ORAL 10/29/19 06:30 11/28/19 06:29 11/02/19 05:57 Lorazepam (Ativan) 0.5 mg Q6H PRN ORAL For Anxiety 10/29/19 06:00 11/05/19 05:59 Memantine (Namenda) 10 mg BID ORAL 10/29/19 09:00 11/28/19 08:59 11/02/19 09:07 Pantoprazole (Protonix) 40 mg ACBREAKFAST ORAL 10/29/19 06:30 11/28/19 06:29 11/02/19 05:57 Potassium Chloride (K-Dur) 40 meq DAILY ORAL 11/02/19 09:00 01/31/20 08:59 11/02/19 09:07 Pramipexole (Mirapex) 0.5 mg DAILY@1700 ORAL 10/29/19 17:00 11/28/19 16:59 11/01/19 18:15 Risperidone (RisperDAL) 0.5 mg BID ORAL 10/29/19 09:00 12/13/19 08:59 11/02/19 09:07 Ropinirole HCl (Requip) 2 mg Q12HR ORAL 10/28/19 21:00 11/27/19 20:59 11/02/19 09:07 Solifenacin (Vesicare) 5 mg DAILY ORAL 10/29/19 09:00 11/28/19 08:59 11/02/19 09:08 Zolpidem Tartrate (Ambien) 5 mg HSPRN PRN ORAL Insomnia 10/28/19 21:00 11/04/19 20:59 11/02/19 00:16 Yonny Ware MD Nov 02, 2019 11:24
[2019-11-02 12:00] VITALS: BP 133/69
--- NOTE | 2019-11-02 12:20 | Diagnostic Imaging Report ---
Indication: Dyspnea Technique: One view of the chest Comparison: 10/31/2019 Findings: Dense consolidation of the left mid and lower lung and right upper lobe and especially the right suprahilar region are unchanged. There may be some pleural fluid on the right which is new or increased from prior study. Impression: Possible new or increased small right pleural effusion. Otherwise stable dense bilateral infiltrates, over 2 days
--- NOTE | 2019-11-02 12:39 | Cardiac Electrophysiology PN ---
Assessment/Plan Assessment/Plan 1. Shortness of breath and history of CHF with BNP 800. Echo still not done as is positive COVID-19 2. Hypertension. On Lasix 40 mg IV daily. 3. Nonsustained ventricular tachycardia looked like artifact. Echocardiogram is pending. 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 5. COVID 19 positive on 10/27 6. Dementia. 7. Hypothyroidism, on Synthroid. SHANITA RN Subjective Subjective Alert in NAD in isolation. No CP. DNR Objective Last 24 Hour Vital Signs Date Time Temp Pulse Resp B/P (MAP) Pulse Ox O2 Delivery O2 Flow Rate FiO2 11/02/19 12:00 98.8 84 17 133/69 (90) 98 11/02/19 09:00 Non-Rebreather 15.0 11/02/19 08:00 72 11/02/19 08:00 98.1 82 18 131/61 (84) 98 11/02/19 04:00 98.0 80 20 115/56 (75) 96 11/02/19 04:00 77 11/02/19 00:00 86 11/02/19 00:00 98.0 80 23 125/75 (92) 96 11/01/19 21:00 Non-Rebreather 15.0 11/01/19 20:00 98.2 83 23 113/70 (84) 97 11/01/19 20:00 78 11/01/19 16:00 73 11/01/19 16:00 97.9 79 22 115/65 (82) 96 Intake and Output 11/01/19 11/02/19 19:00 07:00 Intake Total 600 ml 480 ml Balance 600 ml 480 ml Intake Oral 600 ml 480 ml # Voids 2 4 # Bowel Movements 2 2 Laboratory Tests Test 11/02/19 08:20 11/02/19 08:22 White Blood Count 6.4 K/UL (4.8-10.8) Red Blood Count 3.44 M/UL (4.20-5.40) L Hemoglobin 9.9 G/DL (12.0-16.0) L Hematocrit 30.8 % (37.0-47.0) L Mean Corpuscular Volume 89 FL (80-99) Mean Corpuscular Hemoglobin 28.9 PG (27.0-31.0) Mean Corpuscular Hemoglobin Concent 32.3 G/DL (32.0-36.0) Red Cell Distribution Width 13.0 % (11.6-14.8) Platelet Count 196 K/UL (150-450) Mean Platelet Volume 5.1 FL (6.5-10.1) L Neutrophils (%) (Auto) 84.0 % (45.0-75.0) H Lymphocytes (%) (Auto) 7.9 % (20.0-45.0) L Monocytes (%) (Auto) 6.0 % (1.0-10.0) Eosinophils (%) (Auto) 1.5 % (0.0-3.0) Basophils (%) (Auto) 0.6 % (0.0-2.0) Sodium Level 144 MMOL/L (136-145) Potassium Level 3.5 MMOL/L (3.5-5.1) Chloride Level 107 MMOL/L (98-107) Carbon Dioxide Level 33 MMOL/L (21-32) H Anion Gap 4 mmol/L (5-15) L Blood Urea Nitrogen 15 mg/dL (7-18) Creatinine 0.7 MG/DL (0.55-1.30) Estimat Glomerular Filtration Rate > 60 mL/min (>60) Glucose Level 101 MG/DL (74-106) Calcium Level 9.2 MG/DL (8.5-10.1) Arterial Blood pH 7.413 (7.350-7.450) Arterial Blood Partial Pressure CO2 51.1 mmHg (35.0-45.0) H Arterial Blood Partial Pressure O2 66.0 mmHg (75.0-100.0) L Arterial Blood HCO3 31.9 mmol/L (22.0-26.0) H Arterial Blood Oxygen Saturation 92.8 % (95-100) L Arterial Blood Base Excess 6.1 (-2-2) H Ryland Test Positive Objective HEAD AND NECK: Showed no JVD. LUNGS: Coarse rhonchi. CARDIOVASCULAR: Shows regular S1 and S2 with no gallop. ABDOMEN: Soft. EXTREMITIES: No pitting edema. Robin Layne MD Nov 02, 2019 12:39
--- NOTE | 2019-11-02 12:50 | NUR ---
RADIOLOGY DEPT., CHEST X-RAY DONE.-P.DYE
[2019-11-02] MEDS: LORazepam 1mg tab ORAL PRN ×2 (12:58→21:36)
--- NOTE | 2019-11-02 13:31 | NUR ---
DISCHARGE PLANNING F/U CALL MADE TO [facility] IN RE TO REFERRAL FOR ARU. S/W JESE WHO INFORMED CM THAT PATIENT IS DENIED AT THIS TIME [facility] IS CURRENTLY NOT ACCEPTING PATIENTS WHO ARE COVID-19 POSITIVE.
--- NOTE | 2019-11-02 13:45 | NUR ---
RESPIRATORY NOTE: Pt refused ABG draw. Primary RnGayle made aware.
[2019-11-02 16:00] VITALS: BP 129/71
[2019-11-02] MEDS: Pramipexole 0.5mg tab ORAL SCH (17:50)
--- NOTE | 2019-11-02 19:00 | Progress Note ---
DATE: 11/02/2019 SUBJECTIVE: This is an 89-year-old female patient. She has cough, fever, confusion, disorganized thought process, decline in cognition below her baseline. That is why, her attending physician has requested daily psychiatric consultation at this time. She is confused and disorganized. She has mood labile. She has got no logical plan for her own self-care at this time. She still has some mood lability. That is why, her attending physician has requested daily psychiatric consultation for this patient. MENTAL STATUS EXAMINATION: An 89-year-old female patient. Appearance is disheveled. Attitude, irritable and agitated. Affect, guarded and restricted. Intellect poor. Mood, depressed and anxious. Motor activity, psychomotor agitation. Attention span is poor. Orientation x2. Speech is low volume, slurred. Thought process, disorganized and illogical. Insight and judgment is poor. DIAGNOSIS: Major depressive disorder, mild, recurrent with psychotic features, rule out dementia with psychosis. PLAN: Treat her with a medication regimen of Risperdal 0.5 mg twice a day and Namenda 10 mg twice a day and then also treat her with Ativan 0.5 mg every 6 hours p.r.n. anxiety or agitation. Twenty minutes of reality-based supportive psychotherapy at this time. Twenty minutes of cognitive behavioral therapy to help her identify automatic negative thoughts and help her convert negative thoughts to more positive thoughts to reduce depression, anxiety, and mood lability. Chart was reviewed. Discussed with staff. Seen and assessed in her room. Jeannette Velasquez M.D. DR: Aubrey JOB#: [id number] CC:
--- NOTE | 2019-11-02 19:56 | NUR ---
NURSE NOTES: RECEIVED REPORT FROM DANILO SHAW. PATIENT AWAKE IN BED, ALERT, OX3 WITH FORGETFULNESS, VERBALLY RESPONSIVE AND ABLE TO MAKE NEEDS KNOWN. NO COMPLAINTS OF PAIN OR DISCOMFORT AT THIS TIME. BREATHING IS EVEN AND UNLABORED ON 15L VIA NON-REBREATHER MASK, NO S/SX OF DISTRESS. IV SITE ON RAC SALINE-LOCKED, ASYMPTOMATIC, PATENT AND INTACT. BILATERAL HEELS COVERED IN OPTIFOAM. FALL PRECAUTIONS IMPLEMENTED. DROPLET AND CONTACT PRECAUTIONS IMPLEMENTED. BED LOCKED AND IN LOWEST POSITION WITH SIDERAILS UP X 2- PATIENT REFUSES TO HAVE RIGHT UPPER SIDERAIL RAISED. CALL LIGHT WITHIN REACH. WILL CONTINUE TO MONITOR. Addendum: 11/02/19 at 2204 by Kaykay Garcia RN IV SITE ON RFA, 22G
[2019-11-02 20:00] VITALS: BP 135/64
--- NOTE | 2019-11-02 20:42 | NUR ---
HAND-OFF: Report given to Kaykay CARRASCO. Patient stable at this time. Endorsed that pt had an episode of marked SOB. Order was received for stat ABG but pt refused. Episode resolved after ativan administration.
--- NOTE | 2019-11-02 21:00 | NUR ---
NURSE NOTES: PATIENT NOTED TO BE WITHOUT NON-REBREATHER MASK, THROWING ITEMS AROUND IN ROOM, STATING SHE CANNOT BREATHE. NON-REBREATHER MASK PLACED BACK ON PATIENT, EDUCATED HER ON THE IMPORTANCE OF KEEPING MASK ON TO MAINTAIN ADEQUATE OXYGENATION, ENCOURAGED DEEP BREATHING EXERCISES. PATIENT'S OXYGEN SATURATION 97% ON 15L VIA NON-REBREATHER, PATIENT CALM AND COMFORTABLE. WILL CONTINUE TO MONITOR CLOSELY.
[2019-11-03] VITALS: BP 138/61
[2019-11-03] MEDS: LORazepam 1mg tab ORAL PRN (03:24)
[2019-11-03 04:00] VITALS: BP 130/64
--- NOTE | 2019-11-03 05:00 | NUR ---
NURSE NOTES: PATIENT REFUSED BLOOD DRAW X 3. INFORMED PATIENT ON THE IMPORTANCE OF ORDERED TESTS, BUT PATIENT STILL REFUSED, STATING SHE WANTS TO SLEEP. WILL TRY AGAIN AT A LATER TIME.
[2019-11-03] MEDS: Levothyroxine 25mcg tab ORAL SCH (06:06)
--- NOTE | 2019-11-03 06:25 | NUR ---
NURSE NOTES: PATIENT REQUESTED HOB BE COMPLETELY FLAT- INFORMED PATIENT HOB NEEDS TO BE ELEVATED FOR BETTER LUNG EXPANSION. PATIENT STILL INSISTED ON BEING LAID FLAT WITHOUT A PILLOW. RE-EDUCATED PATIENT ON THE IMPORTANCE OF HOB ELEVATED GIVEN HER CONDITION. BLANKET WAS FOLDED AND PUT UNDERNEATH HER HEAD, HOB ELEVATED 20 DEGREES. PATIENT TOLERATING POSITION WELL.
--- NOTE | 2019-11-03 07:21 | NUR ---
HAND-OFF: Report given to DANILO SHAW. PATIENT IN STABLE CONDITION. PLAN OF CARE ENDORSED.
[2019-11-03 08:00] VITALS: BP 105/53
[2019-11-03 08:22] LABS: BASOPHILS % (AUTO) 1.5 % (0.0-2.0); EOSINOPHILS % (AUTO) 1.2 % (0.0-3.0); HEMATOCRIT 35.9 % (37.0-47.0); HEMOGLOBIN 11.5 G/DL (12.0-16.0); LYMPHOCYTES % (AUTO) 9.4 % (20.0-45.0); MEAN CORPUSCULAR VOLUME 91 FL (80-99); MONOCYTES % (AUTO) 5.8 % (1.0-10.0); NEUTROPHILS % (AUTO) 82.1 % (45.0-75.0); PLATELET COUNT 278 K/UL (150-450); RED BLOOD COUNT 3.94 M/UL (4.20-5.40); RED CELL DISTRIBUTION WIDTH 13.7 % (11.6-14.8); WHITE BLOOD COUNT 9.8 K/UL (4.8-10.8)
--- NOTE | 2019-11-03 08:50 | NUR ---
NURSE NOTES: Patient found to be gasping for air without NRB mask on. On further assessment patient found to be tachypnic with shallow respirations with O2 sat 82%. Patient immediately placed on mask. After 5 min O2 sat 85% with no improvement in WOB. Change in mental status as well with patient being lethargic, and not responding to name. Skin ashen, cold and clammy. HI LIFT OPERATOR called. BP 117/52 with HR103 O2 85 RR 30 and temp 95.6F. ABG collected. At 0915 HI LIFT OPERATOR terminated with O2 saturation 92%.
[2019-11-03 08:54] LABS: ANION GAP 13 mmol/L (5-15); BLOOD UREA NITROGEN 15 mg/dL (7-18); CALCIUM 9.7 MG/DL (8.5-10.1); CARBON DIOXIDE 26 MMOL/L (21-32); CHLORIDE 105 MMOL/L (98-107); CREATININE 0.8 MG/DL (0.55-1.30); POTASSIUM 3.6 MMOL/L (3.5-5.1); SODIUM 144 MMOL/L (136-145)
--- NOTE | 2019-11-03 09:09 | General Progress Note ---
Assessment/Plan Problem List: (1) UTI (urinary tract infection) ICD Codes: N39.0 - Urinary tract infection, site not specified SNOMED: 89644973 (2) Hypoxia ICD Codes: R09.02 - Hypoxemia SNOMED: 939425698 (3) Edema ICD Codes: R60.9 - Edema, unspecified SNOMED: 298094292, 187599174 (4) COPD (chronic obstructive pulmonary disease) ICD Codes: J44.9 - Chronic obstructive pulmonary disease, unspecified SNOMED: 88041215 (5) Alzheimer disease ICD Codes: G30.9 - Alzheimer's disease, unspecified; F02.80 - Dementia in other diseases classified elsewhere without behavioral disturbance SNOMED: 12213783 (6) Weak ICD Codes: R53.1 - Weakness SNOMED: 99039888 (7) GERD (gastroesophageal reflux disease) ICD Codes: K21.9 - Gastro-esophageal reflux disease without esophagitis SNOMED: 971276196 (8) HTN (hypertension) ICD Codes: I10 - Essential (primary) hypertension SNOMED: 03919309 (9) CVA (cerebral vascular accident) ICD Codes: I63.9 - Cerebral infarction, unspecified SNOMED: 542645313 (10) Suspected COVID-19 virus infection ICD Codes: R68.89 - Other general symptoms and signs SNOMED: 803961535 Status: unchanged Assessment/Plan: o2 pulm tx abx cbc bmp am Subjective Constitutional: Reports: weakness Allergies: Coded Allergies: ASPIRIN (Verified Allergy, Intermediate, Rash, 09/02/19) coating MORPHINE (Verified Allergy, Unknown, 10/14/19) Uncoded Allergies: TETANUS TOXOID (Allergy, Unknown, 10/14/19) All Systems: reviewed and negative except above Subjective o2nc calm Objective Last 24 Hour Vital Signs Date Time Temp Pulse Resp B/P (MAP) Pulse Ox O2 Delivery O2 Flow Rate FiO2 11/03/19 04:00 88 11/03/19 04:00 98.4 95 20 130/64 (86) 94 11/03/19 00:00 87 11/03/19 00:00 98.2 18 138/61 (86) 94 11/02/19 21:00 Non-Rebreather 15.0 11/02/19 20:00 98.3 93 21 135/64 (87) 92 11/02/19 20:00 75 11/02/19 16:00 97.6 81 18 129/71 (90) 95 11/02/19 16:00 73 11/02/19 12:00 98.8 84 17 133/69 (90) 98 11/02/19 12:00 76 Intake and Output 11/02/19 11/03/19 19:00 07:00 Intake Total 800 ml 720 ml Balance 800 ml 720 ml Intake Oral 720 ml Other 800 ml # Voids 4 # Bowel Movements 1 3 Laboratory Tests 11/03/19 07:50: White Blood Count 9.8#, Red Blood Count 3.94L, Hemoglobin 11.5L, Hematocrit 35.9L, Mean Corpuscular Volume 91, Mean Corpuscular Hemoglobin 29.3, Mean Corpuscular Hemoglobin Concent 32.1, Red Cell Distribution Width 13.7, Platelet Count 278, Mean Platelet Volume 5.6L, Neutrophils (%) (Auto) 82.1H, Lymphocytes (%) (Auto) 9.4L, Monocytes (%) (Auto) 5.8, Eosinophils (%) (Auto) 1.2, Basophils (%) (Auto) 1.5, Sodium Level 144, Potassium Level 3.6, Chloride Level 105, Carbon Dioxide Level 26, Anion Gap 13, Blood Urea Nitrogen 15, Creatinine 0.8, Estimat Glomerular Filtration Rate > 60, Glucose Level 201#H, Calcium Level 9.7 Height (Feet): 5 Height (Inches): 8.00 Weight (Pounds): 178 General Appearance: lethargic EENT: normal ENT inspection Neck: normal alignment Cardiovascular: normal rate, regular rhythm Respiratory/Chest: normal breath sounds, no respiratory distress Neurologic: motor weakness Skin: normal pigmentation Earle Whaley DO Nov 03, 2019 09:08
--- NOTE | 2019-11-03 09:30 | NUR ---
RAPID RESPONSE: See Rapid Response sheet which remains on paper.Dr. Ware called and message left informing him of PROCESSING ASSOCIATE and of STAT ABG resuting with CL O2 sat of 86.2.
--- NOTE | 2019-11-03 10:00 | NUR ---
NURSE NOTES: Patient now stable with o2 sat 95% on NRB. Patient now alert and responsive but difficult to understand due to mumbling and patient is [place]. Patient cleaned and repositioned. Will continue to monitor.
[2019-11-03] MEDS: Vitamin B-12 500mcg tab ORAL SCH (10:55)
[2019-11-03] MEDS: Memantine 10mg tab ORAL SCH ×2 (10:56→18:52)
[2019-11-03] MEDS ORDERED: Zolpidem 5mg tab ORAL PRN (11:00)
--- NOTE | 2019-11-03 11:46 | Diagnostic Imaging Report ---
EXAM: XR Chest, 1 View CLINICAL HISTORY: COUGH TECHNIQUE: Frontal view of the chest. COMPARISON: Chest radiograph on 11/02/2019 FINDINGS: Hardware: None. Lungs/pleura: Similar patchy consolidations throughout the lungs. No significant pleural effusion or pneumothorax. Heart/mediastinum: Normal. No cardiomegaly. Soft tissues: Unremarkable. Bones: No acute fracture. Upper abdomen: Normal. IMPRESSION: Similar patchy consolidation throughout the lungs, concerning for infectious/inflammatory process.
[2019-11-03 12:00] VITALS: BP 131/58
--- NOTE | 2019-11-03 12:57 | Pulmonology Progress Note ---
Assessment/Plan Assessment/Plan IMPRESSION: 1. Suspect pulmonary edema. On diuretics; will increase 2. CHF. 3. COPD. 4. Positive COVID-19. DISCUSSION: Continue home medications. I will follow carefully. Ordered oxygen and pulmonary hygiene. Broad-spectrum antibiotics. Increase LAsix Continue NRBM reviewed labs and CXR Discussed with daughter Yonny Ware M.D. Subjective Interval Events: None new reproted Constitutional: Reports: no symptoms HEENT: Repors: no symptoms Respiratory: Reports: no symptoms Cardiovascular: Reports: no symptoms Gastrointestinal/Abdominal: Reports: no symptoms Allergies: Coded Allergies: ASPIRIN (Verified Allergy, Intermediate, Rash, 09/02/19) coating MORPHINE (Verified Allergy, Unknown, 10/14/19) Uncoded Allergies: TETANUS TOXOID (Allergy, Unknown, 10/14/19) All Systems: reviewed and negative except above Objective Last 24 Hour Vital Signs Date Time Temp Pulse Resp B/P (MAP) Pulse Ox O2 Delivery O2 Flow Rate FiO2 11/03/19 12:00 97.0 96 20 131/58 (82) 96 11/03/19 12:00 94 11/03/19 08:00 94 11/03/19 08:00 96.3 112 20 105/53 (70) 92 11/03/19 04:00 88 11/03/19 04:00 98.4 95 20 130/64 (86) 94 11/03/19 00:00 87 11/03/19 00:00 98.2 18 138/61 (86) 94 11/02/19 21:00 Non-Rebreather 15.0 11/02/19 20:00 98.3 93 21 135/64 (87) 92 11/02/19 20:00 75 11/02/19 16:00 97.6 81 18 129/71 (90) 95 11/02/19 16:00 73 Intake and Output 11/02/19 11/03/19 19:00 07:00 Intake Total 800 ml 720 ml Balance 800 ml 720 ml Intake Oral 720 ml Other 800 ml # Voids 4 # Bowel Movements 1 3 General Appearance: no acute distress HEENT: normocephalic Respiratory/Chest: chest wall non-tender, lungs clear Cardiovascular: normal peripheral pulses Abdomen: normal bowel sounds Laboratory Tests 11/03/19 07:50: White Blood Count 9.8#, Red Blood Count 3.94L, Hemoglobin 11.5L, Hematocrit 35.9L, Mean Corpuscular Volume 91, Mean Corpuscular Hemoglobin 29.3, Mean Corpuscular Hemoglobin Concent 32.1, Red Cell Distribution Width 13.7, Platelet Count 278, Mean Platelet Volume 5.6L, Neutrophils (%) (Auto) 82.1H, Lymphocytes (%) (Auto) 9.4L, Monocytes (%) (Auto) 5.8, Eosinophils (%) (Auto) 1.2, Basophils (%) (Auto) 1.5, Sodium Level 144, Potassium Level 3.6, Chloride Level 105, Carbon Dioxide Level 26, Anion Gap 13, Blood Urea Nitrogen 15, Creatinine 0.8, Estimat Glomerular Filtration Rate > 60, Glucose Level 201#H, Calcium Level 9.7 Current Medications Medications (Trade) Dose Ordered Sig/Jerome Route PRN Reason Start Time Stop Time Status Last Admin Dose Admin Acetaminophen (Tylenol) 650 mg Q6H PRN ORAL Temp >100.5 10/29/19 08:30 11/28/19 08:29 10/30/19 13:11 Clopidogrel Bisulfate (Plavix) 75 mg DAILY ORAL 10/29/19 09:00 11/28/19 08:59 11/03/19 10:55 Cyanocobalamin (Vitamin B-12) 1,000 mcg DAILY ORAL 10/29/19 09:00 11/28/19 08:59 11/03/19 10:55 Furosemide (Lasix) 40 mg DAILY IV 10/30/19 09:00 11/29/19 08:59 11/03/19 10:56 Guaifenesin/ Dextromethorphan (Robitussin DM Syrup) 15 ml Q6H PRN ORAL For Cough 10/30/19 01:45 01/28/20 01:44 11/01/19 06:54 Levothyroxine Sodium (Synthroid) 25 mcg DAILY@0630 ORAL 10/29/19 06:30 11/28/19 06:29 11/03/19 06:06 Lorazepam (Ativan) 0.5 mg Q6H PRN ORAL For Anxiety 10/29/19 06:00 11/05/19 05:59 11/03/19 03:24 Memantine (Namenda) 10 mg BID ORAL 10/29/19 09:00 11/28/19 08:59 11/03/19 10:56 Pantoprazole (Protonix) 40 mg ACBREAKFAST ORAL 10/29/19 06:30 11/28/19 06:29 11/03/19 06:07 Potassium Chloride (K-Dur) 40 meq DAILY ORAL 11/02/19 09:00 01/31/20 08:59 11/03/19 10:55 Pramipexole (Mirapex) 0.5 mg DAILY@1700 ORAL 10/29/19 17:00 11/28/19 16:59 11/02/19 17:50 Risperidone (RisperDAL) 0.5 mg BID ORAL 10/29/19 09:00 12/13/19 08:59 11/03/19 10:55 Ropinirole HCl (Requip) 2 mg Q12HR ORAL 10/28/19 21:00 11/27/19 20:59 11/03/19 10:55 Solifenacin (Vesicare) 5 mg DAILY ORAL 10/29/19 09:00 11/28/19 08:59 11/03/19 10:56 Zolpidem Tartrate (Ambien) 5 mg HSPRN PRN ORAL Insomnia 11/03/19 11:00 11/10/19 10:59 Yonny Ware MD Nov 03, 2019 12:57
--- NOTE | 2019-11-03 13:01 | NUR ---
RADIOLOGY DEPT., CHEST X-RAY DONE.-P.DYE
--- NOTE | 2019-11-03 13:47 | Infectious Diseases Prog Note ---
Assessment/Plan Assessment/Plan Assessment: Confirmed COVID19 (resident of SNF with confirmed cases per [facility] website) Pulmonary edema vs PNA-on NRB -11/02 CXR: Similar patchy consolidation throughout the lungs, concerning for infectious/inflammatory process. -CXR: Pulmonary vascular congestion.Patchy perihilar opacities which may represent pulmonary edema versus pneumonia. No significant change in prominent left hilar shadow previously characterized as tortuous ectatic descending aorta. Linear markings in the right midlung region, possibly atelectasis versus infiltrate. -SARS-COV2 PCR + Fever; SP No leukocytosis Lymphopenia Thrombocytopenia -u/a neg -Bcx Neg Recent R>L LE cellulitis in the setting of lymphedema COPD CHF CVA Alzheimer's Dementia hypothyroidism HLD anemia GERD NH resident (Derrick Souza ) Plan: -Will hold off on Plaquenil as unclear benefit (not recommended by IDSA and NIH guidelines) and risk for increased seizures when combined with risperidone -10/31 SP Azithromycin #5 -10/29 SP Cefepime #3 -f/u cx -Monitor CBC/CMP, temperature -COVID19 isolation -aspiration precautions -Inflammatory markers Thank you for consulting [facility]. Will continue to follow along with you Subjective Allergies: Coded Allergies: ASPIRIN (Verified Allergy, Intermediate, Rash, 09/02/19) coating MORPHINE (Verified Allergy, Unknown, 10/14/19) Uncoded Allergies: TETANUS TOXOID (Allergy, Unknown, 10/14/19) Subjective afebrile in >72hrs remains on NRB no leukocytosis Bcx Neg Objective Vital Signs Last 24 Hour Vital Signs Date Time Temp Pulse Resp B/P (MAP) Pulse Ox O2 Delivery O2 Flow Rate FiO2 11/03/19 12:00 97.0 96 20 131/58 (82) 96 11/03/19 12:00 94 11/03/19 09:00 Non-Rebreather 15.0 11/03/19 08:00 94 11/03/19 08:00 96.3 112 20 105/53 (70) 92 11/03/19 04:00 88 11/03/19 04:00 98.4 95 20 130/64 (86) 94 11/03/19 00:00 87 11/03/19 00:00 98.2 18 138/61 (86) 94 11/02/19 21:00 Non-Rebreather 15.0 11/02/19 20:00 98.3 93 21 135/64 (87) 92 11/02/19 20:00 75 11/02/19 16:00 97.6 81 18 129/71 (90) 95 11/02/19 16:00 73 Height (Feet): 5 Height (Inches): 8.00 Weight (Pounds): 178 Objective not examined to limit COVID 19 exposure Laboratory Tests Test 11/03/19 07:50 White Blood Count 9.8 K/UL (4.8-10.8) # Red Blood Count 3.94 M/UL (4.20-5.40) L Hemoglobin 11.5 G/DL (12.0-16.0) L Hematocrit 35.9 % (37.0-47.0) L Mean Corpuscular Volume 91 FL (80-99) Mean Corpuscular Hemoglobin 29.3 PG (27.0-31.0) Mean Corpuscular Hemoglobin Concent 32.1 G/DL (32.0-36.0) Red Cell Distribution Width 13.7 % (11.6-14.8) Platelet Count 278 K/UL (150-450) Mean Platelet Volume 5.6 FL (6.5-10.1) L Neutrophils (%) (Auto) 82.1 % (45.0-75.0) H Lymphocytes (%) (Auto) 9.4 % (20.0-45.0) L Monocytes (%) (Auto) 5.8 % (1.0-10.0) Eosinophils (%) (Auto) 1.2 % (0.0-3.0) Basophils (%) (Auto) 1.5 % (0.0-2.0) Sodium Level 144 MMOL/L (136-145) Potassium Level 3.6 MMOL/L (3.5-5.1) Chloride Level 105 MMOL/L (98-107) Carbon Dioxide Level 26 MMOL/L (21-32) Anion Gap 13 mmol/L (5-15) Blood Urea Nitrogen 15 mg/dL (7-18) Creatinine 0.8 MG/DL (0.55-1.30) Estimat Glomerular Filtration Rate > 60 mL/min (>60) Glucose Level 201 MG/DL (74-106) #H Calcium Level 9.7 MG/DL (8.5-10.1) Current Medications Medications (Trade) Dose Ordered Sig/Jerome Route PRN Reason Start Time Stop Time Status Last Admin Dose Admin Acetaminophen (Tylenol) 650 mg Q6H PRN ORAL Temp >100.5 10/29/19 08:30 11/28/19 08:29 10/30/19 13:11 Clopidogrel Bisulfate (Plavix) 75 mg DAILY ORAL 10/29/19 09:00 11/28/19 08:59 11/03/19 10:55 Cyanocobalamin (Vitamin B-12) 1,000 mcg DAILY ORAL 10/29/19 09:00 11/28/19 08:59 11/03/19 10:55 Furosemide (Lasix) 40 mg BID IV 11/03/19 18:00 11/29/19 08:59 Guaifenesin/ Dextromethorphan (Robitussin DM Syrup) 15 ml Q6H PRN ORAL For Cough 10/30/19 01:45 01/28/20 01:44 11/01/19 06:54 Levothyroxine Sodium (Synthroid) 25 mcg DAILY@0630 ORAL 10/29/19 06:30 11/28/19 06:29 11/03/19 06:06 Lorazepam (Ativan) 0.5 mg Q6H PRN ORAL For Anxiety 10/29/19 06:00 11/05/19 05:59 11/03/19 03:24 Memantine (Namenda) 10 mg BID ORAL 10/29/19 09:00 11/28/19 08:59 11/03/19 10:56 Pantoprazole (Protonix) 40 mg ACBREAKFAST ORAL 10/29/19 06:30 11/28/19 06:29 11/03/19 06:07 Potassium Chloride (K-Dur) 40 meq DAILY ORAL 11/02/19 09:00 01/31/20 08:59 11/03/19 10:55 Pramipexole (Mirapex) 0.5 mg DAILY@1700 ORAL 10/29/19 17:00 11/28/19 16:59 11/02/19 17:50 Risperidone (RisperDAL) 0.5 mg BID ORAL 10/29/19 09:00 12/13/19 08:59 11/03/19 10:55 Ropinirole HCl (Requip) 2 mg Q12HR ORAL 10/28/19 21:00 11/27/19 20:59 11/03/19 10:55 Solifenacin (Vesicare) 5 mg DAILY ORAL 10/29/19 09:00 11/28/19 08:59 11/03/19 10:56 Zolpidem Tartrate (Ambien) 5 mg HSPRN PRN ORAL Insomnia 11/03/19 11:00 11/10/19 10:59 Sandy Colin M.D. Nov 03, 2019 13:47
--- NOTE | 2019-11-03 14:16 | NUR ---
NURSE NOTES:WOUND CARE NOTES: Pt presented on admission with non-blanching erythema without induration sacrum,R and L gluteal cheeks..Both heels are boggy with Non-blanching erythema. Pt has been identified as at high risks for skin breakdown secondary to multiple comorbidities, Mulugeta Score of 11,and pt is resistive to being repositioned. Moisture Barrier paste with Optifoam drsg applied to Sacrum. Cavilon Skin Barrier to both heels and each heel covered with Optifoam drsg. Tx.Plan:Apply Moisture Barrier Paste to buttocks. Cover Sacrum with Optifoam drsg. Change every 3 days and prn. Apply Cavilon Skin Barrier to both heels. Cover each heel with Optifoam drsg. Change every 7 days and prn. APM/FLORENTIN Mattress overlay. Reposition at least every hours or as tolerated. Off-load heels with pillow.
--- NOTE | 2019-11-03 15:00 | NUR ---
P.T. NOTES S/P: U/A TO TREAT SECONDARY TO NO PPE. NO GOWN AVAILABLE. AN RN STATED, "WE HAVE A GOWN SHORTAGE. WE ARE RATIONING" WILL F/U NEXT TX. TIME. RSABADO.
--- NOTE | 2019-11-03 15:01 | Cardiac Electrophysiology PN ---
Assessment/Plan Assessment/Plan 1. Shortness of breath and CHF with BNP 800. Echo still not done as is positive COVID-19 2. Hypertension. On Lasix 40 mg IV daily. 3. Nonsustained ventricular tachycardia looked like artifact. Echocardiogram is pending. 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 5. COVID 19 positive PNA on 10/27. S/P RR for desaturation today 6. Dementia. 7. Hypothyroidism, on Synthroid. DW RN Subjective Subjective Had rapid response as wasn't wearing her monitor and had LOC and desaturation that resolved with applying O2 again. DNR Objective Last 24 Hour Vital Signs Date Time Temp Pulse Resp B/P (MAP) Pulse Ox O2 Delivery O2 Flow Rate FiO2 11/03/19 12:00 97.0 96 20 131/58 (82) 96 11/03/19 12:00 94 11/03/19 09:00 Non-Rebreather 15.0 11/03/19 08:00 94 11/03/19 08:00 96.3 112 20 105/53 (70) 92 11/03/19 04:00 88 11/03/19 04:00 98.4 95 20 130/64 (86) 94 11/03/19 00:00 87 11/03/19 00:00 98.2 18 138/61 (86) 94 11/02/19 21:00 Non-Rebreather 15.0 11/02/19 20:00 98.3 93 21 135/64 (87) 92 11/02/19 20:00 75 11/02/19 16:00 97.6 81 18 129/71 (90) 95 11/02/19 16:00 73 Intake and Output 11/02/19 11/03/19 19:00 07:00 Intake Total 800 ml 720 ml Balance 800 ml 720 ml Intake Oral 720 ml Other 800 ml # Voids 4 # Bowel Movements 1 3 Laboratory Tests Test 11/03/19 07:50 White Blood Count 9.8 K/UL (4.8-10.8) # Red Blood Count 3.94 M/UL (4.20-5.40) L Hemoglobin 11.5 G/DL (12.0-16.0) L Hematocrit 35.9 % (37.0-47.0) L Mean Corpuscular Volume 91 FL (80-99) Mean Corpuscular Hemoglobin 29.3 PG (27.0-31.0) Mean Corpuscular Hemoglobin Concent 32.1 G/DL (32.0-36.0) Red Cell Distribution Width 13.7 % (11.6-14.8) Platelet Count 278 K/UL (150-450) Mean Platelet Volume 5.6 FL (6.5-10.1) L Neutrophils (%) (Auto) 82.1 % (45.0-75.0) H Lymphocytes (%) (Auto) 9.4 % (20.0-45.0) L Monocytes (%) (Auto) 5.8 % (1.0-10.0) Eosinophils (%) (Auto) 1.2 % (0.0-3.0) Basophils (%) (Auto) 1.5 % (0.0-2.0) Sodium Level 144 MMOL/L (136-145) Potassium Level 3.6 MMOL/L (3.5-5.1) Chloride Level 105 MMOL/L (98-107) Carbon Dioxide Level 26 MMOL/L (21-32) Anion Gap 13 mmol/L (5-15) Blood Urea Nitrogen 15 mg/dL (7-18) Creatinine 0.8 MG/DL (0.55-1.30) Estimat Glomerular Filtration Rate > 60 mL/min (>60) Glucose Level 201 MG/DL (74-106) #H Calcium Level 9.7 MG/DL (8.5-10.1) Objective HEAD AND NECK: No JVD. LUNGS: Coarse rhonchi. CARDIOVASCULAR: Shows regular S1 and S2 with no gallop. ABDOMEN: Soft. EXTREMITIES: No pitting edema. Robin Layne MD Nov 03, 2019 15:01
[2019-11-03 16:00] VITALS: BP 128/56
--- NOTE | 2019-11-03 16:14 | Progress Note ---
DATE: 11/03/2019 SUBJECTIVE: This is an 89-year-old female patient with cough, rule out COVID-19. She states she continues to have some confusion, disorganized thought process, altered mental status , mood lability worsened by stress of her medical illness. That is why, her attending has requested daily psychiatric consultation at this time. MENTAL STATUS EXAMINATION: This is an 89-year-old female. Appearance is disheveled. Attitude, irritable and agitated. Affect, guarded and restricted. Intellect, poor. Mood, depressed and anxious. Motor activity, psychomotor agitation. Attention span is poor. Orientation x2. Speech is pressured, nonsensical. Thought process, disorganized and illogical. Insight and judgment is poor. DIAGNOSIS: Major depressive disorder, mild, recurrent with psychotic features, rule out dementia with psychosis. PLAN: Treat her with Namenda 10 mg twice a day, Risperdal 0.5 twice a day, and Ativan 0.5 mg every 6 hours p.r.n. anxiety and agitation. A 20 minutes of reality-based supportive psychotherapy. A 20 minutes of cognitive behavioral therapy to help her identify automatic negative thoughts and help her convert negative thoughts to more positive thoughts to reduce depression, anxiety, and mood lability. Chart was reviewed. Discussed with staff. Seen and assessed at bedside. Jeannette Velasquez M.D. DR: OVIDIO JOB#: [id number] CC:
[2019-11-03] MEDS: Pramipexole 0.5mg tab ORAL SCH (18:52)
--- NOTE | 2019-11-03 19:53 | NUR ---
HAND-OFF: Report given to Clarissa Garrett RN. Patient stable got herself up to chair after episode of diarrhea. Linen changed. Endorsed that patient will need to be cleaned prior to returning to bed. Plan of care endorsed.
[2019-11-03 20:00] VITALS: BP 153/94
--- NOTE | 2019-11-03 20:02 | NUR ---
NURSE NOTES: Received report from DANILO Grissom. Patient is awake sitting chairfast; resting comfortably. No signs of acute distress noted; denies pain at this time. AOx2; able to make needs known with periods of confusion. Checked IV site; patent and flushed. No erythema, bleeding, or infiltration noted. Bed at lowest position, brakes on, siderails up x3. Call light within reach. Will continue to monitor. Addendum: 11/04/19 at 0152 by DORITA MARTELL RN RN On 15L non-rebreather mask.
[2019-11-04] VITALS: BP 142/89
[2019-11-04 04:00] VITALS: BP 148/91
[2019-11-04] MEDS: Levothyroxine 25mcg tab ORAL SCH (06:42)
--- NOTE | 2019-11-04 07:05 | NUR ---
HAND-OFF: Report given to DANILO Grissom. Patient is asleep lying semi-lowery's; resting comfortably. On 15L non-rebreather mask. Reinforced to patient the importance of keeping mask on; verbalized understanding.
[2019-11-04 08:00] VITALS: BP 130/76
--- NOTE | 2019-11-04 08:00 | NUR ---
NURSE NOTES: Patient stable sleeping at this time. No s/sx of pain or distress. RR even and unlabored on NRB. Side rails upx2, call light within reach, bed low and locked. Will continue monitor.
[2019-11-04 08:02] LABS: BASOPHILS % (AUTO) 0.3 % (0.0-2.0); EOSINOPHILS % (AUTO) 1.9 % (0.0-3.0); HEMATOCRIT 30.1 % (37.0-47.0); HEMOGLOBIN 9.9 G/DL (12.0-16.0); MEAN CORPUSCULAR VOLUME 90 FL (80-99); MONOCYTES % (AUTO) 9.6 % (1.0-10.0); NEUTROPHILS % (AUTO) 80.1 % (45.0-75.0); PLATELET COUNT 201 K/UL (150-450); RED BLOOD COUNT 3.34 M/UL (4.20-5.40); RED CELL DISTRIBUTION WIDTH 13.6 % (11.6-14.8); WHITE BLOOD COUNT 6.7 K/UL (4.8-10.8)
--- NOTE | 2019-11-04 08:37 | General Progress Note ---
Assessment/Plan Problem List: (1) UTI (urinary tract infection) ICD Codes: N39.0 - Urinary tract infection, site not specified SNOMED: 52279786 (2) Hypoxia ICD Codes: R09.02 - Hypoxemia SNOMED: 751136404 (3) Edema ICD Codes: R60.9 - Edema, unspecified SNOMED: 786059079, 258584739 (4) COPD (chronic obstructive pulmonary disease) ICD Codes: J44.9 - Chronic obstructive pulmonary disease, unspecified SNOMED: 75035319 (5) Alzheimer disease ICD Codes: G30.9 - Alzheimer's disease, unspecified; F02.80 - Dementia in other diseases classified elsewhere without behavioral disturbance SNOMED: 84552730 (6) Weak ICD Codes: R53.1 - Weakness SNOMED: 13061624 (7) GERD (gastroesophageal reflux disease) ICD Codes: K21.9 - Gastro-esophageal reflux disease without esophagitis SNOMED: 603235351 (8) HTN (hypertension) ICD Codes: I10 - Essential (primary) hypertension SNOMED: 50168336 (9) CVA (cerebral vascular accident) ICD Codes: I63.9 - Cerebral infarction, unspecified SNOMED: 435861327 (10) Suspected COVID-19 virus infection ICD Codes: R68.89 - Other general symptoms and signs SNOMED: 234504998 Status: unchanged Assessment/Plan: o2 pulm tx abx cbc bmp am Subjective Allergies: Coded Allergies: ASPIRIN (Verified Allergy, Intermediate, Rash, 09/02/19) coating MORPHINE (Verified Allergy, Unknown, 10/14/19) Uncoded Allergies: TETANUS TOXOID (Allergy, Unknown, 10/14/19) All Systems: reviewed and negative except above Subjective o2nc calm Objective Last 24 Hour Vital Signs Date Time Temp Pulse Resp B/P (MAP) Pulse Ox O2 Delivery O2 Flow Rate FiO2 11/04/19 04:00 97.9 110 19 148/91 (110) 98 11/04/19 04:00 86 11/04/19 00:00 79 11/04/19 00:00 98.0 103 18 142/89 (106) 94 11/03/19 21:00 Non-Rebreather 15.0 11/03/19 20:00 97.7 111 20 153/94 (113) 95 11/03/19 20:00 80 11/03/19 16:00 81 11/03/19 16:00 97.1 101 20 128/56 (80) 95 11/03/19 12:00 97.0 96 20 131/58 (82) 96 11/03/19 12:00 94 11/03/19 09:00 Non-Rebreather 15.0 Intake and Output 11/03/19 11/04/19 19:00 07:00 Output Total 400 ml Balance -400 ml Output Urine Total 400 ml # Voids 1 # Bowel Movements 1 1 Laboratory Tests 11/04/19 06:53: White Blood Count 6.7, Red Blood Count 3.34L, Hemoglobin 9.9L, Hematocrit 30.1L , Mean Corpuscular Volume 90, Mean Corpuscular Hemoglobin 29.5, Mean Corpuscular Hemoglobin Concent 32.8, Red Cell Distribution Width 13.6, Platelet Count 201, Mean Platelet Volume 5.3L, Neutrophils (%) (Auto) 80.1H, Lymphocytes (%) (Auto) 8.0L, Monocytes (%) (Auto) 9.6, Eosinophils (%) (Auto) 1.9, Basophils (%) (Auto) 0.3, Sodium Level [Pending], Potassium Level [Pending], Chloride Level [Pending], Carbon Dioxide Level [Pending], Blood Urea Nitrogen [ Pending], Creatinine [Pending], Estimat Glomerular Filtration Rate [Pending], Glucose Level [Pending], Calcium Level [Pending], Ferritin [Pending], Total Bilirubin [Pending], Aspartate Amino Transf (AST/SGOT) [Pending], Alanine Aminotransferase (ALT/SGPT) [Pending], Alkaline Phosphatase [Pending], Lactate Dehydrogenase [Pending], C-Reactive Protein, Quantitative [Pending], Total Protein [Pending], Albumin [Pending], Globulin [Pending] Height (Feet): 5 Height (Inches): 8.00 Weight (Pounds): 178 General Appearance: lethargic EENT: normal ENT inspection Neck: normal alignment Cardiovascular: normal rate, regular rhythm Respiratory/Chest: no respiratory distress, no accessory muscle use Extremities: normal inspection Skin: normal pigmentation Earle Whaley DO Nov 04, 2019 08:37
[2019-11-04 09:23] LABS: ALANINE AMINOTRANSFERASE 21 U/L (12-78); ALBUMIN 2.1 G/DL (3.4-5.0); ALBUMIN/GLOBULIN RATIO 0.5 (1.0-2.7); ALKALINE PHOSPHATASE 74 U/L (46-116); ANION GAP 7 mmol/L (5-15); ASPARTATE AMINO TRANSFERASE 35 U/L (15-37); BILIRUBIN,TOTAL 0.4 MG/DL (0.2-1.0); BLOOD UREA NITROGEN 20 mg/dL (7-18); CALCIUM 9.1 MG/DL (8.5-10.1); CARBON DIOXIDE 35 MMOL/L (21-32); CHLORIDE 107 MMOL/L (98-107); CREATININE 0.8 MG/DL (0.55-1.30); FERRITIN 219 NG/ML (8-388); POTASSIUM 3.5 MMOL/L (3.5-5.1); SODIUM 149 MMOL/L (136-145)
[2019-11-04] MEDS: Memantine 10mg tab ORAL SCH ×2 (09:42→17:42)
[2019-11-04] MEDS: Vitamin B-12 500mcg tab ORAL SCH (09:43)
[2019-11-04 12:00] VITALS: BP 132/74
--- NOTE | 2019-11-04 12:00 | NUR ---
NURSE NOTES: Patient placed on P200 mattress. Patient cleaned after BM, diarrhea in consistency. 1400mL of urine removed from purewick. Sacrum and heels covered for protection. Batteries changed in her hearing aids and placed on patient.
--- NOTE | 2019-11-04 12:31 | Pulmonology Progress Note ---
Assessment/Plan Assessment/Plan IMPRESSION: 1. Suspect pulmonary edema. On diuretics; will increase 2. CHF. 3. COPD. 4. Positive COVID-19. DISCUSSION: Continue home medications. I will follow carefully. Ordered oxygen and pulmonary hygiene. Broad-spectrum antibiotics. Increase LAsix Continue NRBM reviewed labs and CXR Discussed with daughter Yonny Ware M.D. Subjective Interval Events: None new reproted Constitutional: Reports: no symptoms HEENT: Repors: no symptoms Respiratory: Reports: no symptoms Cardiovascular: Reports: no symptoms Gastrointestinal/Abdominal: Reports: no symptoms Allergies: Coded Allergies: ASPIRIN (Verified Allergy, Intermediate, Rash, 09/02/19) coating MORPHINE (Verified Allergy, Unknown, 10/14/19) Uncoded Allergies: TETANUS TOXOID (Allergy, Unknown, 10/14/19) All Systems: reviewed and negative except above Objective Last 24 Hour Vital Signs Date Time Temp Pulse Resp B/P (MAP) Pulse Ox O2 Delivery O2 Flow Rate FiO2 11/04/19 10:16 95 Non-Rebreather 15.0 100 11/04/19 09:00 Non-Rebreather 15.0 11/04/19 08:00 96.4 84 20 130/76 (94) 97 11/04/19 04:00 97.9 110 19 148/91 (110) 98 11/04/19 04:00 86 11/04/19 00:00 79 11/04/19 00:00 98.0 103 18 142/89 (106) 94 11/03/19 21:00 Non-Rebreather 15.0 11/03/19 20:00 97.7 111 20 153/94 (113) 95 11/03/19 20:00 80 11/03/19 16:00 81 11/03/19 16:00 97.1 101 20 128/56 (80) 95 Intake and Output 11/03/19 11/04/19 19:00 07:00 Output Total 400 ml Balance -400 ml Output Urine Total 400 ml # Voids 1 # Bowel Movements 1 1 General Appearance: no acute distress HEENT: normocephalic Respiratory/Chest: chest wall non-tender, lungs clear Cardiovascular: normal peripheral pulses Abdomen: normal bowel sounds Laboratory Tests 11/04/19 06:53: White Blood Count 6.7, Red Blood Count 3.34L, Hemoglobin 9.9L, Hematocrit 30.1L , Mean Corpuscular Volume 90, Mean Corpuscular Hemoglobin 29.5, Mean Corpuscular Hemoglobin Concent 32.8, Red Cell Distribution Width 13.6, Platelet Count 201, Mean Platelet Volume 5.3L, Neutrophils (%) (Auto) 80.1H, Lymphocytes (%) (Auto) 8.0L, Monocytes (%) (Auto) 9.6, Eosinophils (%) (Auto) 1.9, Basophils (%) (Auto) 0.3, Sodium Level 149H, Potassium Level 3.5, Chloride Level 107, Carbon Dioxide Level 35H, Anion Gap 7, Blood Urea Nitrogen 20H, Creatinine 0.8, Estimat Glomerular Filtration Rate > 60, Glucose Level 87#, Calcium Level 9.1, Ferritin 219, Total Bilirubin 0.4, Aspartate Amino Transf ( AST/SGOT) 35, Alanine Aminotransferase (ALT/SGPT) 21, Alkaline Phosphatase 74, Lactate Dehydrogenase 368H, C-Reactive Protein, Quantitative 19.6H, Total Protein 6.1L, Albumin 2.1L, Globulin 4.0, Albumin/Globulin Ratio 0.5L 11/04/19 08:06: Arterial Blood pH 7.419, Arterial Blood Partial Pressure CO2 52.3H, Arterial Blood Partial Pressure O2 76.8, Arterial Blood HCO3 33.1H, Arterial Blood Oxygen Saturation 95.6, Arterial Blood Base Excess 7.5H, Ryland Test Positive Current Medications Medications (Trade) Dose Ordered Sig/Jerome Route PRN Reason Start Time Stop Time Status Last Admin Dose Admin Acetaminophen (Tylenol) 650 mg Q6H PRN ORAL Temp >100.5 10/29/19 08:30 11/28/19 08:29 10/30/19 13:11 Clopidogrel Bisulfate (Plavix) 75 mg DAILY ORAL 10/29/19 09:00 11/28/19 08:59 11/04/19 09:42 Cyanocobalamin (Vitamin B-12) 1,000 mcg DAILY ORAL 10/29/19 09:00 11/28/19 08:59 11/04/19 09:43 Furosemide (Lasix) 40 mg BID IV 11/03/19 18:00 11/29/19 08:59 11/04/19 09:43 Guaifenesin/ Dextromethorphan (Robitussin DM Syrup) 15 ml Q6H PRN ORAL For Cough 10/30/19 01:45 01/28/20 01:44 11/01/19 06:54 Levothyroxine Sodium (Synthroid) 25 mcg DAILY@0630 ORAL 10/29/19 06:30 11/28/19 06:29 11/04/19 06:42 Lorazepam (Ativan) 0.5 mg Q6H PRN ORAL For Anxiety 11/04/19 18:00 11/11/19 17:59 Memantine (Namenda) 10 mg BID ORAL 10/29/19 09:00 11/28/19 08:59 11/04/19 09:42 Pantoprazole (Protonix) 40 mg ACBREAKFAST ORAL 10/29/19 06:30 11/28/19 06:29 11/04/19 06:42 Potassium Chloride (K-Dur) 40 meq DAILY ORAL 11/02/19 09:00 01/31/20 08:59 11/04/19 09:44 Pramipexole (Mirapex) 0.5 mg DAILY@1700 ORAL 10/29/19 17:00 11/28/19 16:59 11/03/19 18:52 Risperidone (RisperDAL) 0.5 mg BID ORAL 10/29/19 09:00 12/13/19 08:59 11/04/19 09:42 Ropinirole HCl (Requip) 2 mg Q12HR ORAL 10/28/19 21:00 11/27/19 20:59 11/04/19 09:43 Solifenacin (Vesicare) 5 mg DAILY ORAL 10/29/19 09:00 11/28/19 08:59 11/04/19 09:43 Zolpidem Tartrate (Ambien) 5 mg HSPRN PRN ORAL Insomnia 11/03/19 11:00 11/10/19 10:59 Yonny Ware MD Nov 04, 2019 12:31
[2019-11-04 16:00] VITALS: BP 132/65
--- NOTE | 2019-11-04 16:30 | Progress Note ---
DATE: 11/04/2019 SUBJECTIVE: This is an 89-year-old female patient with cough, fever, rule out COVID-19. This patient still has some confusion, some disorganized thought process, and decline in cognition below baseline. That is why, her attending physician has requested daily psychiatric consultation at this time. MENTAL STATUS EXAMINATION: This is an 89-year-old female. Appearance is disheveled. Attitude, irritable and agitated. Affect, guarded and restricted. Intellect poor. Mood, depressed and anxious. Motor activity, psychomotor agitation. Attention span is poor. Orientation x3. Speech is low volume, slurred. Thought process, disorganized and illogical. Insight and judgment is poor. DIAGNOSIS: Major depressive disorder, mild, recurrent with psychotic features, rule out dementia with psychosis. PLAN: Namenda 10 mg twice a day and then also on Risperdal 0.5 mg twice a day. Twenty minutes of cognitive behavioral therapy, which will help her identify automatic negative thoughts, help her convert negative thoughts to more positive thoughts to reduce depression, anxiety, mood lability. Chart reviewed. Discussed with staff. Seen and assessed in her room. Jeannette Velasquez M.D. DR: MARTINEZ JOB#: [id number] CC:
[2019-11-04] MEDS: Pramipexole 0.5mg tab ORAL SCH (17:41)
[2019-11-04] MEDS ORDERED: LORazepam 1mg tab ORAL PRN (18:00)
--- NOTE | 2019-11-04 19:17 | NUR ---
HAND-OFF: Report given to Clarissa Garrett RN. Patient stable. Plan of care endorsed. Patient is wearing her BL hearing aids.
--- NOTE | 2019-11-04 19:26 | NUR ---
NURSE NOTES: Received report from DANILO Grissom. Patient is asleep lying semi-lowery's; resting comfortably. Arousable to verbal and tactile stimuli. No signs of acute distress noted; denies pain at this time. On 15L non-rebreather mask. AOx2-3; able to make needs known with periods of confusion. Checked IV site; patent and flushed. No erythema, bleeding, or infiltration noted. On p200, low air loss mattress for wound prevention. Bed at lowest position, brakes on, siderails up x3. Call light within reach. Will continue to monitor.
[2019-11-04 20:00] VITALS: BP 132/75
[2019-11-05] VITALS: BP 138/78
--- NOTE | 2019-11-05 03:36 | NUR ---
NURSE NOTES: Patient is asleep lying semi-lowery's; resting comfortably. No signs of acute distress or pain noted at this time.
[2019-11-05 04:00] VITALS: BP 131/64
[2019-11-05] MEDS: Levothyroxine 25mcg tab ORAL SCH (05:36)
[2019-11-05 07:14] LABS: BASOPHILS % (AUTO) 0.7 % (0.0-2.0); EOSINOPHILS % (AUTO) 2.3 % (0.0-3.0); HEMATOCRIT 32.1 % (37.0-47.0); HEMOGLOBIN 10.2 G/DL (12.0-16.0); LYMPHOCYTES % (AUTO) 6.6 % (20.0-45.0); MEAN CORPUSCULAR VOLUME 91 FL (80-99); MONOCYTES % (AUTO) 8.4 % (1.0-10.0); NEUTROPHILS % (AUTO) 81.9 % (45.0-75.0); PLATELET COUNT 208 K/UL (150-450); RED BLOOD COUNT 3.52 M/UL (4.20-5.40); RED CELL DISTRIBUTION WIDTH 13.7 % (11.6-14.8); WHITE BLOOD COUNT 6.9 K/UL (4.8-10.8)
[2019-11-05 07:38] LABS: ANION GAP 7 mmol/L (5-15); BLOOD UREA NITROGEN 19 mg/dL (7-18); CARBON DIOXIDE 36 MMOL/L (21-32); CHLORIDE 106 MMOL/L (98-107); SODIUM 149 MMOL/L (136-145)
--- NOTE | 2019-11-05 07:42 | NUR ---
HAND-OFF: Report given to DANILO Grissom. Patient is asleep lying semi-lowery's; resting comfortably. On 15L non-rebreather mask. In stable condition
[2019-11-05 08:00] VITALS: BP 139/86
--- NOTE | 2019-11-05 08:22 | NUR ---
NURSE NOTES: Patient stable AOx4 with no complaints and no s/sx of distress. RR even and unlabored on RA. BL hearing aids on. Patient repositioned and provided brakfast for her. Side rails upx2, call light within reach, bed low and locked. Will continue monitor.
--- NOTE | 2019-11-05 08:57 | General Progress Note ---
Assessment/Plan Problem List: (1) UTI (urinary tract infection) ICD Codes: N39.0 - Urinary tract infection, site not specified SNOMED: 71666031 (2) Hypoxia ICD Codes: R09.02 - Hypoxemia SNOMED: 295637877 (3) Edema ICD Codes: R60.9 - Edema, unspecified SNOMED: 128288864, 592932269 (4) COPD (chronic obstructive pulmonary disease) ICD Codes: J44.9 - Chronic obstructive pulmonary disease, unspecified SNOMED: 00362647 (5) Alzheimer disease ICD Codes: G30.9 - Alzheimer's disease, unspecified; F02.80 - Dementia in other diseases classified elsewhere without behavioral disturbance SNOMED: 84011228 (6) Weak ICD Codes: R53.1 - Weakness SNOMED: 69726562 (7) GERD (gastroesophageal reflux disease) ICD Codes: K21.9 - Gastro-esophageal reflux disease without esophagitis SNOMED: 104540189 (8) HTN (hypertension) ICD Codes: I10 - Essential (primary) hypertension SNOMED: 40335863 (9) CVA (cerebral vascular accident) ICD Codes: I63.9 - Cerebral infarction, unspecified SNOMED: 088536864 (10) Suspected COVID-19 virus infection ICD Codes: R68.89 - Other general symptoms and signs SNOMED: 206446115 Status: unchanged Assessment/Plan: o2 pulm tx abx cbc bmp am Subjective Constitutional: Reports: weakness Allergies: Coded Allergies: ASPIRIN (Verified Allergy, Intermediate, Rash, 09/02/19) coating MORPHINE (Verified Allergy, Unknown, 10/14/19) Uncoded Allergies: TETANUS TOXOID (Allergy, Unknown, 10/14/19) All Systems: reviewed and negative except above Subjective o2nc calm Objective Last 24 Hour Vital Signs Date Time Temp Pulse Resp B/P (MAP) Pulse Ox O2 Delivery O2 Flow Rate FiO2 11/05/19 08:00 98.6 90 20 139/86 (103) 94 11/05/19 04:00 98.0 82 18 131/64 (86) 96 11/05/19 04:00 76 11/05/19 00:00 97.7 87 19 138/78 (98) 94 11/05/19 00:00 85 11/04/19 21:00 Non-Rebreather 15.0 11/04/19 20:00 97.7 91 19 132/75 (94) 95 11/04/19 20:00 91 11/04/19 16:00 97.9 90 19 132/65 (87) 98 11/04/19 16:00 91 11/04/19 12:00 96.3 98 20 132/74 (93) 94 11/04/19 12:00 101 11/04/19 10:16 95 Non-Rebreather 15.0 100 11/04/19 09:00 Non-Rebreather 15.0 Intake and Output 11/04/19 11/05/19 19:00 07:00 Intake Total 510 ml 360 ml Output Total 1400 ml 300 ml Balance -890 ml 60 ml Intake Oral 510 ml 360 ml Output Urine Total 1400 ml 300 ml # Bowel Movements 1 Laboratory Tests 11/05/19 06:40: White Blood Count 6.9, Red Blood Count 3.52L, Hemoglobin 10.2L, Hematocrit 32.1L , Mean Corpuscular Volume 91, Mean Corpuscular Hemoglobin 28.9, Mean Corpuscular Hemoglobin Concent 31.7L, Red Cell Distribution Width 13.7, Platelet Count 208, Mean Platelet Volume 4.8L, Neutrophils (%) (Auto) 81.9H, Lymphocytes (%) (Auto) 6.6L, Monocytes (%) (Auto) 8.4, Eosinophils (%) (Auto) 2.3, Basophils (%) (Auto) 0.7, Sodium Level 149H, Potassium Level 3.0L, Chloride Level 106, Carbon Dioxide Level 36H, Anion Gap 7, Blood Urea Nitrogen 19H, Creatinine 1.0, Estimat Glomerular Filtration Rate 52.5, Glucose Level 141H , Calcium Level 9.0, TB Test (T-Spot) [Pending], TB Test Nil Control (T-Spot) [ Pending], TB Test Panel A (T-Spot) [Pending], TB Test Panel B (T-Spot) [Pending] , TB Test Positive Control (T-Spot) [Pending] Height (Feet): 5 Height (Inches): 8.00 Weight (Pounds): 178 General Appearance: lethargic EENT: normal ENT inspection Neck: normal inspection Cardiovascular: normal rate, regular rhythm Respiratory/Chest: no respiratory distress, no accessory muscle use Extremities: normal inspection Skin: normal pigmentation Earle Whaley DO Nov 05, 2019 08:57
--- NOTE | 2019-11-05 09:10 | NUR ---
CASE MANAGEMENT:REVIEW 11/05/19 SI: COVID 19 PNEUMONIA LAST TEMP 10/31/19 98.6 90 20 139/86 94% ON 15L NON REBREATHER 10.2/32.1 NA+149 K-3.0 PCO2+52.3 HCO3+33.1 IS: K-DUR PO QD IV LASIX QD PRAMIPEXOLE PO QD PLAVIX PO QD B12 PO QD NAMENDA PO BID VESICARE PO QD RISPERDAL PO BID SYNTHROID PO QD PROTONIX PO QAM REQUIP PO Q12 : TELEMETRY STATUS DCP: FROM [facility] DISCHARGE PLANNING TSPOT ORDERED PER HEALTH DEPARTMENT GUIDELINES ~ PATIENT WILL NEED TO REMAIN HOSPITALIZED FOR A MINIMUM OF 10 DAYS AND BE AFEBRILE X72HRS PRIOR TO RETURNING TO SNF
[2019-11-05] MEDS: Memantine 10mg tab ORAL SCH ×2 (10:34→17:51)
[2019-11-05] MEDS: Vitamin B-12 500mcg tab ORAL SCH (10:34)
--- NOTE | 2019-11-05 11:16 | Pulmonology Progress Note ---
Assessment/Plan Assessment/Plan IMPRESSION: 1. Suspect pulmonary edema. On diuretics; continue 2. CHF. 3. COPD. 4. Positive COVID-19. DISCUSSION: Continue home medications. I will follow carefully. Ordered oxygen and pulmonary hygiene. Broad-spectrum antibiotics. Increased LAsix Continue NRBM reviewed labs and CXR Will need CT chest once able to do so (after COVID 19 pcr negative) Discussed with daughter Yonny Ware M.D. Subjective Interval Events: None new reproted Constitutional: Reports: no symptoms HEENT: Repors: no symptoms Respiratory: Reports: no symptoms Cardiovascular: Reports: no symptoms Gastrointestinal/Abdominal: Reports: no symptoms Allergies: Coded Allergies: ASPIRIN (Verified Allergy, Intermediate, Rash, 09/02/19) coating MORPHINE (Verified Allergy, Unknown, 10/14/19) Uncoded Allergies: TETANUS TOXOID (Allergy, Unknown, 10/14/19) All Systems: reviewed and negative except above Objective Last 24 Hour Vital Signs Date Time Temp Pulse Resp B/P (MAP) Pulse Ox O2 Delivery O2 Flow Rate FiO2 11/05/19 09:00 Non-Rebreather 15.0 11/05/19 08:00 86 11/05/19 08:00 98.6 90 20 139/86 (103) 94 11/05/19 04:00 98.0 82 18 131/64 (86) 96 11/05/19 04:00 76 11/05/19 00:00 97.7 87 19 138/78 (98) 94 11/05/19 00:00 85 11/04/19 21:00 Non-Rebreather 15.0 11/04/19 20:00 97.7 91 19 132/75 (94) 95 11/04/19 20:00 91 11/04/19 16:00 97.9 90 19 132/65 (87) 98 11/04/19 16:00 91 11/04/19 12:00 96.3 98 20 132/74 (93) 94 11/04/19 12:00 101 Intake and Output 11/04/19 11/05/19 19:00 07:00 Intake Total 510 ml 360 ml Output Total 1400 ml 300 ml Balance -890 ml 60 ml Intake Oral 510 ml 360 ml Output Urine Total 1400 ml 300 ml # Bowel Movements 1 General Appearance: no acute distress HEENT: normocephalic Respiratory/Chest: chest wall non-tender, lungs clear Cardiovascular: normal peripheral pulses Abdomen: normal bowel sounds Laboratory Tests 11/05/19 06:40: White Blood Count 6.9, Red Blood Count 3.52L, Hemoglobin 10.2L, Hematocrit 32.1L , Mean Corpuscular Volume 91, Mean Corpuscular Hemoglobin 28.9, Mean Corpuscular Hemoglobin Concent 31.7L, Red Cell Distribution Width 13.7, Platelet Count 208, Mean Platelet Volume 4.8L, Neutrophils (%) (Auto) 81.9H, Lymphocytes (%) (Auto) 6.6L, Monocytes (%) (Auto) 8.4, Eosinophils (%) (Auto) 2.3, Basophils (%) (Auto) 0.7, Sodium Level 149H, Potassium Level 3.0L, Chloride Level 106, Carbon Dioxide Level 36H, Anion Gap 7, Blood Urea Nitrogen 19H, Creatinine 1.0, Estimat Glomerular Filtration Rate 52.5, Glucose Level 141H , Calcium Level 9.0, TB Test (T-Spot) [Pending], TB Test Nil Control (T-Spot) [ Pending], TB Test Panel A (T-Spot) [Pending], TB Test Panel B (T-Spot) [Pending] , TB Test Positive Control (T-Spot) [Pending] Current Medications Medications (Trade) Dose Ordered Sig/Jerome Route PRN Reason Start Time Stop Time Status Last Admin Dose Admin Acetaminophen (Tylenol) 650 mg Q6H PRN ORAL Temp >100.5 10/29/19 08:30 11/28/19 08:29 10/30/19 13:11 Clopidogrel Bisulfate (Plavix) 75 mg DAILY ORAL 10/29/19 09:00 11/28/19 08:59 11/05/19 10:34 Cyanocobalamin (Vitamin B-12) 1,000 mcg DAILY ORAL 10/29/19 09:00 11/28/19 08:59 11/05/19 10:34 Furosemide (Lasix) 40 mg BID IV 11/03/19 18:00 11/29/19 08:59 11/05/19 10:35 Guaifenesin/ Dextromethorphan (Robitussin DM Syrup) 15 ml Q6H PRN ORAL For Cough 10/30/19 01:45 01/28/20 01:44 11/01/19 06:54 Levothyroxine Sodium (Synthroid) 25 mcg DAILY@0630 ORAL 10/29/19 06:30 11/28/19 06:29 11/05/19 05:36 Lorazepam (Ativan) 0.5 mg Q6H PRN ORAL For Anxiety 11/04/19 18:00 11/11/19 17:59 11/04/19 17:41 Memantine (Namenda) 10 mg BID ORAL 10/29/19 09:00 11/28/19 08:59 11/05/19 10:34 Pantoprazole (Protonix) 40 mg ACBREAKFAST ORAL 10/29/19 06:30 11/28/19 06:29 11/05/19 05:35 Potassium Chloride (K-Dur) 40 meq DAILY ORAL 11/02/19 09:00 01/31/20 08:59 11/05/19 10:34 Pramipexole (Mirapex) 0.5 mg DAILY@1700 ORAL 10/29/19 17:00 11/28/19 16:59 11/04/19 17:41 Risperidone (RisperDAL) 0.5 mg BID ORAL 10/29/19 09:00 12/13/19 08:59 11/05/19 10:35 Ropinirole HCl (Requip) 2 mg Q12HR ORAL 10/28/19 21:00 11/27/19 20:59 11/05/19 10:34 Solifenacin (Vesicare) 5 mg DAILY ORAL 10/29/19 09:00 11/28/19 08:59 11/05/19 10:33 Zolpidem Tartrate (Ambien) 5 mg HSPRN PRN ORAL Insomnia 11/03/19 11:00 11/10/19 10:59 Yonny Ware MD Nov 05, 2019 11:16
[2019-11-05 12:00] VITALS: BP 136/80
--- NOTE | 2019-11-05 12:30 | Progress Note ---
DATE: 11/05/2019 SUBJECTIVE: This is an 89-year-old female patient with cough, rule out COVID. That is why, she is in the hospital, but she continues to have altered mental status, confusion, decline in cognition below her baseline. MENTAL STATUS EXAMINATION: This is an 89-year-old female. Appearance is disheveled. Attitude, irritable and agitated. Affect, guarded and restricted. Intellect poor. Mood, depressed and anxious. Motor activity, psychomotor agitation. Attention span is poor. Orientation x3. Speech is low volume, slurred. Thought process, disorganized and illogical. Insight and judgment is poor. DIAGNOSIS: . PLAN: Treat with Namenda 10 twice a day, Risperdal 0.5 twice a day, Ativan 0.5 mg every 6 hours p.r.n. anxiety and agitation. Twenty minutes of cognitive behavioral therapy, will help her identify automatic negative thoughts, help her convert negative thoughts to more positive thoughts to reduce depression, anxiety, and mood lability. Chart reviewed. Discussed with staff. Seen and assessed at bedside. Jeannette Velasquez M.D. DR: OVIDIO JOB#: [id number] CC:
--- NOTE | 2019-11-05 12:45 | Infectious Diseases Prog Note ---
Assessment/Plan Assessment/Plan Assessment: Confirmed COVID19 (resident of SNF with confirmed cases per [facility] website) Pulmonary edema vs PNA-on NRB -11/02 CXR: Similar patchy consolidation throughout the lungs, concerning for infectious/inflammatory process. -CXR: Pulmonary vascular congestion.Patchy perihilar opacities which may represent pulmonary edema versus pneumonia. No significant change in prominent left hilar shadow previously characterized as tortuous ectatic descending aorta. Linear markings in the right midlung region, possibly atelectasis versus infiltrate. -SARS-COV2 PCR + Fever; SP No leukocytosis Lymphopenia Thrombocytopenia -u/a neg -Bcx Neg Recent R>L LE cellulitis in the setting of lymphedema COPD CHF CVA Alzheimer's Dementia hypothyroidism HLD anemia GERD NH resident (Derrick Souza ) Plan: -Will hold off on Plaquenil as unclear benefit (not recommended by IDSA and NIH guidelines) and risk for increased seizures when combined with risperidone -May consider steroids if worsening -10/31 SP Azithromycin #5 -10/29 SP Cefepime #3 -f/u cx -Monitor CBC/CMP, temperature -COVID19 isolation -aspiration precautions -Inflammatory markers -CXR am Thank you for consulting [facility]. Will continue to follow along with you Subjective Allergies: Coded Allergies: ASPIRIN (Verified Allergy, Intermediate, Rash, 09/02/19) coating MORPHINE (Verified Allergy, Unknown, 10/14/19) Uncoded Allergies: TETANUS TOXOID (Allergy, Unknown, 10/14/19) Subjective afebrile remains on NRB no leukocytosis Objective Vital Signs Last 24 Hour Vital Signs Date Time Temp Pulse Resp B/P (MAP) Pulse Ox O2 Delivery O2 Flow Rate FiO2 11/05/19 09:00 Non-Rebreather 15.0 11/05/19 08:00 86 11/05/19 08:00 98.6 90 20 139/86 (103) 94 11/05/19 04:00 98.0 82 18 131/64 (86) 96 11/05/19 04:00 76 11/05/19 00:00 97.7 87 19 138/78 (98) 94 11/05/19 00:00 85 11/04/19 21:00 Non-Rebreather 15.0 11/04/19 20:00 97.7 91 19 132/75 (94) 95 11/04/19 20:00 91 11/04/19 16:00 97.9 90 19 132/65 (87) 98 11/04/19 16:00 91 Height (Feet): 5 Height (Inches): 8.00 Weight (Pounds): 178 Objective not examined to limit COVID 19 exposure Laboratory Tests Test 11/05/19 06:40 White Blood Count 6.9 K/UL (4.8-10.8) Red Blood Count 3.52 M/UL (4.20-5.40) L Hemoglobin 10.2 G/DL (12.0-16.0) L Hematocrit 32.1 % (37.0-47.0) L Mean Corpuscular Volume 91 FL (80-99) Mean Corpuscular Hemoglobin 28.9 PG (27.0-31.0) Mean Corpuscular Hemoglobin Concent 31.7 G/DL (32.0-36.0) L Red Cell Distribution Width 13.7 % (11.6-14.8) Platelet Count 208 K/UL (150-450) Mean Platelet Volume 4.8 FL (6.5-10.1) L Neutrophils (%) (Auto) 81.9 % (45.0-75.0) H Lymphocytes (%) (Auto) 6.6 % (20.0-45.0) L Monocytes (%) (Auto) 8.4 % (1.0-10.0) Eosinophils (%) (Auto) 2.3 % (0.0-3.0) Basophils (%) (Auto) 0.7 % (0.0-2.0) Sodium Level 149 MMOL/L (136-145) H Potassium Level 3.0 MMOL/L (3.5-5.1) L Chloride Level 106 MMOL/L (98-107) Carbon Dioxide Level 36 MMOL/L (21-32) H Anion Gap 7 mmol/L (5-15) Blood Urea Nitrogen 19 mg/dL (7-18) H Creatinine 1.0 MG/DL (0.55-1.30) Estimat Glomerular Filtration Rate 52.5 mL/min (>60) Glucose Level 141 MG/DL (74-106) H Calcium Level 9.0 MG/DL (8.5-10.1) TB Test (T-Spot) Pending TB Test Nil Control (T-Spot) Pending TB Test Panel A (T-Spot) Pending TB Test Panel B (T-Spot) Pending TB Test Positive Control (T-Spot) Pending Current Medications Medications (Trade) Dose Ordered Sig/Jerome Route PRN Reason Start Time Stop Time Status Last Admin Dose Admin Acetaminophen (Tylenol) 650 mg Q6H PRN ORAL Temp >100.5 10/29/19 08:30 11/28/19 08:29 10/30/19 13:11 Clopidogrel Bisulfate (Plavix) 75 mg DAILY ORAL 10/29/19 09:00 11/28/19 08:59 11/05/19 10:34 Cyanocobalamin (Vitamin B-12) 1,000 mcg DAILY ORAL 10/29/19 09:00 11/28/19 08:59 11/05/19 10:34 Furosemide (Lasix) 40 mg BID IV 11/03/19 18:00 11/29/19 08:59 11/05/19 10:35 Guaifenesin/ Dextromethorphan (Robitussin DM Syrup) 15 ml Q6H PRN ORAL For Cough 10/30/19 01:45 01/28/20 01:44 11/01/19 06:54 Levothyroxine Sodium (Synthroid) 25 mcg DAILY@0630 ORAL 10/29/19 06:30 11/28/19 06:29 11/05/19 05:36 Lorazepam (Ativan) 0.5 mg Q6H PRN ORAL For Anxiety 11/04/19 18:00 11/11/19 17:59 11/04/19 17:41 Memantine (Namenda) 10 mg BID ORAL 10/29/19 09:00 11/28/19 08:59 11/05/19 10:34 Pantoprazole (Protonix) 40 mg ACBREAKFAST ORAL 10/29/19 06:30 11/28/19 06:29 11/05/19 05:35 Potassium Chloride (K-Dur) 40 meq DAILY ORAL 11/02/19 09:00 01/31/20 08:59 11/05/19 10:34 Pramipexole (Mirapex) 0.5 mg DAILY@1700 ORAL 10/29/19 17:00 11/28/19 16:59 11/04/19 17:41 Risperidone (RisperDAL) 0.5 mg BID ORAL 10/29/19 09:00 12/13/19 08:59 11/05/19 10:35 Ropinirole HCl (Requip) 2 mg Q12HR ORAL 10/28/19 21:00 11/27/19 20:59 11/05/19 10:34 Solifenacin (Vesicare) 5 mg DAILY ORAL 10/29/19 09:00 11/28/19 08:59 11/05/19 10:33 Zolpidem Tartrate (Ambien) 5 mg HSPRN PRN ORAL Insomnia 11/03/19 11:00 11/10/19 10:59 Sandy Colin M.D. Nov 05, 2019 12:45
--- NOTE | 2019-11-05 15:31 | Cardiac Electrophysiology PN ---
Assessment/Plan Assessment/Plan 1. CHF with BNP 800. Echo still not done as is positive COVID-19 2. Hypertension. On Lasix 40 mg IV bid. 3. NSVT looked like artifact. Echocardiogram is pending DC isolation. 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 5. COVID 19 positive PNA on 10/27. S/P RR for desaturation 6. Dementia. 7. Hypothyroidism, on Synthroid. SHANITA RN Subjective Subjective S/P rapid response as wasn't wearing her Mask and had LOC and desaturation that resolved with applying O2 again. DNR. No events Objective Last 24 Hour Vital Signs Date Time Temp Pulse Resp B/P (MAP) Pulse Ox O2 Delivery O2 Flow Rate FiO2 11/05/19 12:00 97.3 94 20 136/80 (98) 96 11/05/19 09:00 Non-Rebreather 15.0 11/05/19 08:00 86 11/05/19 08:00 98.6 90 20 139/86 (103) 94 11/05/19 04:00 98.0 82 18 131/64 (86) 96 11/05/19 04:00 76 11/05/19 00:00 97.7 87 19 138/78 (98) 94 11/05/19 00:00 85 11/04/19 21:00 Non-Rebreather 15.0 11/04/19 20:00 97.7 91 19 132/75 (94) 95 11/04/19 20:00 91 11/04/19 16:00 97.9 90 19 132/65 (87) 98 11/04/19 16:00 91 Intake and Output 11/04/19 11/05/19 19:00 07:00 Intake Total 510 ml 360 ml Output Total 1400 ml 300 ml Balance -890 ml 60 ml Intake Oral 510 ml 360 ml Output Urine Total 1400 ml 300 ml # Bowel Movements 1 Laboratory Tests Test 11/05/19 06:40 White Blood Count 6.9 K/UL (4.8-10.8) Red Blood Count 3.52 M/UL (4.20-5.40) L Hemoglobin 10.2 G/DL (12.0-16.0) L Hematocrit 32.1 % (37.0-47.0) L Mean Corpuscular Volume 91 FL (80-99) Mean Corpuscular Hemoglobin 28.9 PG (27.0-31.0) Mean Corpuscular Hemoglobin Concent 31.7 G/DL (32.0-36.0) L Red Cell Distribution Width 13.7 % (11.6-14.8) Platelet Count 208 K/UL (150-450) Mean Platelet Volume 4.8 FL (6.5-10.1) L Neutrophils (%) (Auto) 81.9 % (45.0-75.0) H Lymphocytes (%) (Auto) 6.6 % (20.0-45.0) L Monocytes (%) (Auto) 8.4 % (1.0-10.0) Eosinophils (%) (Auto) 2.3 % (0.0-3.0) Basophils (%) (Auto) 0.7 % (0.0-2.0) Sodium Level 149 MMOL/L (136-145) H Potassium Level 3.0 MMOL/L (3.5-5.1) L Chloride Level 106 MMOL/L (98-107) Carbon Dioxide Level 36 MMOL/L (21-32) H Anion Gap 7 mmol/L (5-15) Blood Urea Nitrogen 19 mg/dL (7-18) H Creatinine 1.0 MG/DL (0.55-1.30) Estimat Glomerular Filtration Rate 52.5 mL/min (>60) Glucose Level 141 MG/DL (74-106) H Calcium Level 9.0 MG/DL (8.5-10.1) TB Test (T-Spot) Pending TB Test Nil Control (T-Spot) Pending TB Test Panel A (T-Spot) Pending TB Test Panel B (T-Spot) Pending TB Test Positive Control (T-Spot) Pending Objective HEAD AND NECK: No JVD. LUNGS: Coarse rhonchi. CARDIOVASCULAR: Regular S1 and S2 with no gallop. ABDOMEN: Soft. EXTREMITIES: No pitting edema. Robin Layne MD Nov 05, 2019 15:31
--- NOTE | 2019-11-05 15:57 | NUR ---
*-* INSURANCE *-* UPDATED CLINICALS AND REVIEWS HAVE BEEN FAXED TO: [facility] P: [phone] p: [phone] opt .1 F: [phone] (FAX ALL CLINICALS)
[2019-11-05 16:00] VITALS: BP 140/77
[2019-11-05] MEDS: Pramipexole 0.5mg tab ORAL SCH (17:51)
[2019-11-05 20:00] VITALS: BP 115/70
--- NOTE | 2019-11-05 20:29 | NUR ---
HAND-OFF: Report given to Herminio Ko RN. Patient stable. Plan of care endorsed. Hearing aids now in purse.
--- NOTE | 2019-11-05 20:30 | NUR ---
NURSE NOTES: Got report from Emperatriz CARRASCO. Pt in stable condition. Denies any pain. Denies any n/v or SOB. No s/s of distress or discomfort noted. Pt resting in bed comfortably. Bed in low and locked position, call light within reach, bedside table within reach. Continue to monitor.
[2019-11-06] VITALS: BP 127/74
[2019-11-06 04:00] VITALS: BP 133/70
[2019-11-06] MEDS: Levothyroxine 25mcg tab ORAL SCH (06:26)
[2019-11-06 07:27] LABS: BASOPHILS % (AUTO) 0.4 % (0.0-2.0); EOSINOPHILS % (AUTO) 1.8 % (0.0-3.0); HEMATOCRIT 31.3 % (37.0-47.0); HEMOGLOBIN 10.1 G/DL (12.0-16.0); LYMPHOCYTES % (AUTO) 6.8 % (20.0-45.0); MEAN CORPUSCULAR VOLUME 90 FL (80-99); MONOCYTES % (AUTO) 7.3 % (1.0-10.0); NEUTROPHILS % (AUTO) 83.8 % (45.0-75.0); PLATELET COUNT 209 K/UL (150-450); RED BLOOD COUNT 3.46 M/UL (4.20-5.40); RED CELL DISTRIBUTION WIDTH 13.7 % (11.6-14.8); WHITE BLOOD COUNT 7.8 K/UL (4.8-10.8)
--- NOTE | 2019-11-06 07:40 | NUR ---
HAND-OFF: Report given to Emperatriz CARRASCO.
[2019-11-06 08:00] VITALS: BP 115/60
[2019-11-06 08:14] LABS: ANION GAP 4 mmol/L (5-15); BLOOD UREA NITROGEN 22 mg/dL (7-18); CALCIUM 8.7 MG/DL (8.5-10.1); CARBON DIOXIDE 39 MMOL/L (21-32); CHLORIDE 107 MMOL/L (98-107); CREATININE 0.8 MG/DL (0.55-1.30); FERRITIN 225 NG/ML (8-388); POTASSIUM 3.4 MMOL/L (3.5-5.1); SODIUM 150 MMOL/L (136-145)
--- NOTE | 2019-11-06 08:24 | NUR ---
NURSE NOTES: Patient stable, sleeping at this time. No s/sx of distress or pain. RR even and unlabored on NRB. Side rails upx2, call light within reach, bed low and locked. Will continue monitor.
--- NOTE | 2019-11-06 09:24 | NUR ---
CASE MANAGEMENT:REVIEW 11/06/19 SI: COVID 19 PNEUMONIA LAST TEMP 10/31/19 97.9 79 20 115/60 96% ON 15L NON REBREATHER 10.1/32.3 NA+150 K-3.4 CO2+39 IS: K-DUR PO BID IV LASIX BID PRAMIPEXOLE PO QD PLAVIX PO QD B12 PO QD NAMENDA PO BID VESICARE PO QD RISPERDAL PO BID SYNTHROID PO QD PROTONIX PO QAM REQUIP PO Q12 : TELEMETRY STATUS DCP: FROM [facility] DISCHARGE PLANNING TSPOT ORDERED
--- NOTE | 2019-11-06 09:28 | NUR ---
DISCHARGE PLANNING PATIENT IS FROM [facility] AND COVID 19 POSITIVE AT TIME OF DISCHARGE PATIENT WILL RETURN TO [facility] *NOT READY FOR DISCHARGE TODAY D/T NON REBREATHER AND NA+150
[2019-11-06] MEDS: Vitamin B-12 500mcg tab ORAL SCH (10:12)
[2019-11-06] MEDS: Memantine 10mg tab ORAL SCH ×2 (10:12→17:58)
--- NOTE | 2019-11-06 10:46 | NUR ---
RD ASSESSMENT & RECOMMENDATIONS SEE CARE ACTIVITY FOR COMPLETE ASSESSMENT DAILY ESTIMATED NEEDS: Needs based on Obesity, wound/ 54kg abw 30-35 kcals/kg 2034-6391 total kcals 1.25-1.5 g protein/kg 68-81 g total protein Fluid per MD, on lasix NUTRITION DIAGNOSIS: Increased kcal and pro needs r/t wound healing as evidenced by admitted w/ non-blanching erythema @ sacrum,R L gluteal cheeks, and R L heels, w/ decreased PO intake at this time. CURRENT DIET: BAILEY PO DIET RECOMMENDATIONS: BAILEY / texture as tolerated or per [employer] ADDITIONAL RECOMMENDATIONS: * Standing wt for accurate CBW (stated wt 220# vs current wt 177#) * Check lytes daily on lasix * Obtain a daily wt on lasix * Wound care: MVI x1 and Vit C 250mg QD/ [place] BID as tolerated * Check A1C- mildly elev FBGs * Add Ensure Enlive BID w/ decreased PO -> monitor PO intake closely: decreased at this time(0-25%)
--- NOTE | 2019-11-06 10:56 | Pulmonology Progress Note ---
Assessment/Plan Assessment/Plan IMPRESSION: 1. Suspect pulmonary edema. On diuretics; continue 2. CHF. 3. COPD. 4. Positive COVID-19. DISCUSSION: Continue home medications. I will follow carefully. Ordered oxygen and pulmonary hygiene. Broad-spectrum antibiotics. Increased LAsix Continue NRBM reviewed labs and CXR Will need CT chest once able to do so (after COVID 19 pcr negative) Discussed with daughter Yonny Ware M.D. Subjective Interval Events: None new reproted Constitutional: Reports: no symptoms HEENT: Repors: no symptoms Respiratory: Reports: no symptoms Cardiovascular: Reports: no symptoms Gastrointestinal/Abdominal: Reports: no symptoms Allergies: Coded Allergies: ASPIRIN (Verified Allergy, Intermediate, Rash, 09/02/19) coating MORPHINE (Verified Allergy, Unknown, 10/14/19) Uncoded Allergies: TETANUS TOXOID (Allergy, Unknown, 10/14/19) All Systems: reviewed and negative except above Objective Last 24 Hour Vital Signs Date Time Temp Pulse Resp B/P (MAP) Pulse Ox O2 Delivery O2 Flow Rate FiO2 11/06/19 08:00 97.9 79 20 115/60 (78) 96 11/06/19 08:00 78 11/06/19 04:00 78 11/06/19 04:00 98.1 84 20 133/70 (91) 98 11/06/19 00:00 97.9 95 20 127/74 (91) 96 11/06/19 00:00 90 11/05/19 21:00 Non-Rebreather 15.0 11/05/19 20:00 91 11/05/19 20:00 98.1 93 20 115/70 (85) 98 11/05/19 16:00 98.1 87 20 140/77 (98) 94 11/05/19 16:00 94 11/05/19 12:00 89 11/05/19 12:00 97.3 94 20 136/80 (98) 96 Intake and Output 11/05/19 11/06/19 19:00 07:00 Intake Total 480 ml Output Total 800 ml Balance 480 ml -800 ml Intake Oral 480 ml Output Urine Total 800 ml # Voids 3 # Bowel Movements 1 General Appearance: no acute distress HEENT: normocephalic Respiratory/Chest: chest wall non-tender, lungs clear Cardiovascular: normal peripheral pulses Abdomen: normal bowel sounds Laboratory Tests 11/06/19 06:05: White Blood Count 7.8, Red Blood Count 3.46L, Hemoglobin 10.1L, Hematocrit 31.3L , Mean Corpuscular Volume 90, Mean Corpuscular Hemoglobin 29.3, Mean Corpuscular Hemoglobin Concent 32.4, Red Cell Distribution Width 13.7, Platelet Count 209, Mean Platelet Volume 5.1L, Neutrophils (%) (Auto) 83.8H, Lymphocytes (%) (Auto) 6.8L, Monocytes (%) (Auto) 7.3, Eosinophils (%) (Auto) 1.8, Basophils (%) (Auto) 0.4, Sodium Level 150H, Potassium Level 3.4L, Chloride Level 107, Carbon Dioxide Level 39H, Anion Gap 4L, Blood Urea Nitrogen 22H, Creatinine 0.8, Estimat Glomerular Filtration Rate > 60, Glucose Level 105, Calcium Level 8.7, Ferritin 225, Lactate Dehydrogenase 409H, C-Reactive Protein , Quantitative 18.1H Current Medications Medications (Trade) Dose Ordered Sig/Jerome Route PRN Reason Start Time Stop Time Status Last Admin Dose Admin Acetaminophen (Tylenol) 650 mg Q6H PRN ORAL Temp >100.5 10/29/19 08:30 11/28/19 08:29 10/30/19 13:11 Clopidogrel Bisulfate (Plavix) 75 mg DAILY ORAL 10/29/19 09:00 11/28/19 08:59 11/06/19 10:12 Cyanocobalamin (Vitamin B-12) 1,000 mcg DAILY ORAL 10/29/19 09:00 11/28/19 08:59 11/06/19 10:12 Furosemide (Lasix) 40 mg BID IV 11/03/19 18:00 11/29/19 08:59 11/06/19 10:08 Guaifenesin/ Dextromethorphan (Robitussin DM Syrup) 15 ml Q6H PRN ORAL For Cough 10/30/19 01:45 01/28/20 01:44 11/01/19 06:54 Levothyroxine Sodium (Synthroid) 25 mcg DAILY@0630 ORAL 10/29/19 06:30 11/28/19 06:29 11/06/19 06:26 Lorazepam (Ativan) 0.5 mg Q6H PRN ORAL For Anxiety 11/04/19 18:00 11/11/19 17:59 11/04/19 17:41 Memantine (Namenda) 10 mg BID ORAL 10/29/19 09:00 11/28/19 08:59 11/06/19 10:12 Pantoprazole (Protonix) 40 mg ACBREAKFAST ORAL 10/29/19 06:30 11/28/19 06:29 11/06/19 06:26 Potassium Chloride (K-Dur) 40 meq BID ORAL 11/05/19 18:00 02/03/20 17:59 11/06/19 10:08 Pramipexole (Mirapex) 0.5 mg DAILY@1700 ORAL 10/29/19 17:00 11/28/19 16:59 11/05/19 17:51 Risperidone (RisperDAL) 0.5 mg BID ORAL 10/29/19 09:00 12/13/19 08:59 11/06/19 10:12 Ropinirole HCl (Requip) 2 mg Q12HR ORAL 10/28/19 21:00 11/27/19 20:59 11/06/19 10:08 Solifenacin (Vesicare) 5 mg DAILY ORAL 10/29/19 09:00 11/28/19 08:59 11/06/19 10:08 Zolpidem Tartrate (Ambien) 5 mg HSPRN PRN ORAL Insomnia 11/03/19 11:00 11/10/19 10:59 Yonny Ware MD Nov 06, 2019 10:56
--- NOTE | 2019-11-06 11:15 | Cardiac Electrophysiology PN ---
Assessment/Plan Assessment/Plan 1. CHF with BNP 800. Echo still not done as is positive COVID-19 2. Hypertension. On Lasix 40 mg IV bid. Change to 40 po daily 3. NSVT looked like artifact. Echocardiogram is pending DC isolation. 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 5. COVID 19 positive PNA on 10/27. S/P RR for desaturation 6. Dementia. 7. Hypothyroidism, on Synthroid. 8. Hypernatremia and Azotemia. DC IV Lasix. Change to po DW RN Subjective Subjective S/P rapid response as wasn't wearing her Mask and had LOC and desaturation that resolved with applying O2 again. DNR. No events. Still on 15 liter NRB face Mask Objective Last 24 Hour Vital Signs Date Time Temp Pulse Resp B/P (MAP) Pulse Ox O2 Delivery O2 Flow Rate FiO2 11/06/19 09:00 Non-Rebreather 15.0 11/06/19 08:00 97.9 79 20 115/60 (78) 96 11/06/19 08:00 78 11/06/19 04:00 78 11/06/19 04:00 98.1 84 20 133/70 (91) 98 11/06/19 00:00 97.9 95 20 127/74 (91) 96 11/06/19 00:00 90 11/05/19 21:00 Non-Rebreather 15.0 11/05/19 20:00 91 11/05/19 20:00 98.1 93 20 115/70 (85) 98 11/05/19 16:00 98.1 87 20 140/77 (98) 94 11/05/19 16:00 94 11/05/19 12:00 89 11/05/19 12:00 97.3 94 20 136/80 (98) 96 Intake and Output 11/05/19 11/06/19 19:00 07:00 Intake Total 480 ml Output Total 800 ml Balance 480 ml -800 ml Intake Oral 480 ml Output Urine Total 800 ml # Voids 3 # Bowel Movements 1 Laboratory Tests Test 11/06/19 06:05 White Blood Count 7.8 K/UL (4.8-10.8) Red Blood Count 3.46 M/UL (4.20-5.40) L Hemoglobin 10.1 G/DL (12.0-16.0) L Hematocrit 31.3 % (37.0-47.0) L Mean Corpuscular Volume 90 FL (80-99) Mean Corpuscular Hemoglobin 29.3 PG (27.0-31.0) Mean Corpuscular Hemoglobin Concent 32.4 G/DL (32.0-36.0) Red Cell Distribution Width 13.7 % (11.6-14.8) Platelet Count 209 K/UL (150-450) Mean Platelet Volume 5.1 FL (6.5-10.1) L Neutrophils (%) (Auto) 83.8 % (45.0-75.0) H Lymphocytes (%) (Auto) 6.8 % (20.0-45.0) L Monocytes (%) (Auto) 7.3 % (1.0-10.0) Eosinophils (%) (Auto) 1.8 % (0.0-3.0) Basophils (%) (Auto) 0.4 % (0.0-2.0) Sodium Level 150 MMOL/L (136-145) H Potassium Level 3.4 MMOL/L (3.5-5.1) L Chloride Level 107 MMOL/L (98-107) Carbon Dioxide Level 39 MMOL/L (21-32) H Anion Gap 4 mmol/L (5-15) L Blood Urea Nitrogen 22 mg/dL (7-18) H Creatinine 0.8 MG/DL (0.55-1.30) Estimat Glomerular Filtration Rate > 60 mL/min (>60) Glucose Level 105 MG/DL (74-106) Calcium Level 8.7 MG/DL (8.5-10.1) Ferritin 225 NG/ML (8-388) Lactate Dehydrogenase 409 U/L (81-234) H C-Reactive Protein, Quantitative 18.1 mg/dL (0.00-0.90) H Objective HEAD AND NECK: No JVD. LUNGS: Coarse rhonchi. CARDIOVASCULAR: Regular S1 and S2 with no gallop. ABDOMEN: Soft. EXTREMITIES: No pitting edema. Robin Layne MD Nov 06, 2019 11:15
--- NOTE | 2019-11-06 11:21 | NUR ---
*-* INSURANCE *-* UPDATED CLINICALS AND REVIEWS HAVE BEEN FAXED TO: [facility] P: [phone] p: [phone] opt .1 F: [phone] (FAX ALL CLINICALS)
--- NOTE | 2019-11-06 11:37 | Infectious Diseases Prog Note ---
Assessment/Plan Assessment/Plan Assessment: Confirmed COVID19 (resident of SNF with confirmed cases per [facility] website) Pulmonary edema vs PNA-on NRB -11/02 CXR: Similar patchy consolidation throughout the lungs, concerning for infectious/inflammatory process. -CXR: Pulmonary vascular congestion.Patchy perihilar opacities which may represent pulmonary edema versus pneumonia. No significant change in prominent left hilar shadow previously characterized as tortuous ectatic descending aorta. Linear markings in the right midlung region, possibly atelectasis versus infiltrate. -SARS-COV2 PCR + Fever; SP No leukocytosis Lymphopenia Thrombocytopenia -u/a neg -Bcx Neg Recent R>L LE cellulitis in the setting of lymphedema COPD CHF CVA Alzheimer's Dementia hypothyroidism HLD anemia GERD NH resident (Derrick Souza ) Plan: -Will hold off on Plaquenil as unclear benefit (not recommended by IDSA and NIH guidelines) and risk for increased seizures when combined with risperidone -May consider steroids if worsening -10/31 SP Azithromycin #5 -10/29 SP Cefepime #3 -f/u cx -Monitor CBC/CMP, temperature -COVID19 isolation -aspiration precautions -Inflammatory markers -f/u CXR -ABG Thank you for consulting [facility]. Will continue to follow along with you Subjective Allergies: Coded Allergies: ASPIRIN (Verified Allergy, Intermediate, Rash, 09/02/19) coating MORPHINE (Verified Allergy, Unknown, 10/14/19) Uncoded Allergies: TETANUS TOXOID (Allergy, Unknown, 10/14/19) Subjective afebrile remains on NRB no leukocytosis Objective Vital Signs Last 24 Hour Vital Signs Date Time Temp Pulse Resp B/P (MAP) Pulse Ox O2 Delivery O2 Flow Rate FiO2 11/06/19 09:00 Non-Rebreather 15.0 11/06/19 08:00 97.9 79 20 115/60 (78) 96 11/06/19 08:00 78 11/06/19 04:00 78 11/06/19 04:00 98.1 84 20 133/70 (91) 98 11/06/19 00:00 97.9 95 20 127/74 (91) 96 11/06/19 00:00 90 11/05/19 21:00 Non-Rebreather 15.0 11/05/19 20:00 91 11/05/19 20:00 98.1 93 20 115/70 (85) 98 11/05/19 16:00 98.1 87 20 140/77 (98) 94 11/05/19 16:00 94 11/05/19 12:00 89 11/05/19 12:00 97.3 94 20 136/80 (98) 96 Height (Feet): 5 Height (Inches): 8.00 Weight (Pounds): 178 Objective not examined to limit COVID 19 exposure Laboratory Tests Test 11/06/19 06:05 White Blood Count 7.8 K/UL (4.8-10.8) Red Blood Count 3.46 M/UL (4.20-5.40) L Hemoglobin 10.1 G/DL (12.0-16.0) L Hematocrit 31.3 % (37.0-47.0) L Mean Corpuscular Volume 90 FL (80-99) Mean Corpuscular Hemoglobin 29.3 PG (27.0-31.0) Mean Corpuscular Hemoglobin Concent 32.4 G/DL (32.0-36.0) Red Cell Distribution Width 13.7 % (11.6-14.8) Platelet Count 209 K/UL (150-450) Mean Platelet Volume 5.1 FL (6.5-10.1) L Neutrophils (%) (Auto) 83.8 % (45.0-75.0) H Lymphocytes (%) (Auto) 6.8 % (20.0-45.0) L Monocytes (%) (Auto) 7.3 % (1.0-10.0) Eosinophils (%) (Auto) 1.8 % (0.0-3.0) Basophils (%) (Auto) 0.4 % (0.0-2.0) Sodium Level 150 MMOL/L (136-145) H Potassium Level 3.4 MMOL/L (3.5-5.1) L Chloride Level 107 MMOL/L (98-107) Carbon Dioxide Level 39 MMOL/L (21-32) H Anion Gap 4 mmol/L (5-15) L Blood Urea Nitrogen 22 mg/dL (7-18) H Creatinine 0.8 MG/DL (0.55-1.30) Estimat Glomerular Filtration Rate > 60 mL/min (>60) Glucose Level 105 MG/DL (74-106) Calcium Level 8.7 MG/DL (8.5-10.1) Ferritin 225 NG/ML (8-388) Lactate Dehydrogenase 409 U/L (81-234) H C-Reactive Protein, Quantitative 18.1 mg/dL (0.00-0.90) H Current Medications Medications (Trade) Dose Ordered Sig/Jerome Route PRN Reason Start Time Stop Time Status Last Admin Dose Admin Acetaminophen (Tylenol) 650 mg Q6H PRN ORAL Temp >100.5 10/29/19 08:30 11/28/19 08:29 10/30/19 13:11 Clopidogrel Bisulfate (Plavix) 75 mg DAILY ORAL 10/29/19 09:00 11/28/19 08:59 11/06/19 10:12 Cyanocobalamin (Vitamin B-12) 1,000 mcg DAILY ORAL 10/29/19 09:00 11/28/19 08:59 11/06/19 10:12 Furosemide (Lasix) 40 mg DAILY ORAL 11/07/19 09:00 12/07/19 08:59 Guaifenesin/ Dextromethorphan (Robitussin DM Syrup) 15 ml Q6H PRN ORAL For Cough 10/30/19 01:45 01/28/20 01:44 11/01/19 06:54 Levothyroxine Sodium (Synthroid) 25 mcg DAILY@0630 ORAL 10/29/19 06:30 11/28/19 06:29 11/06/19 06:26 Lorazepam (Ativan) 0.5 mg Q6H PRN ORAL For Anxiety 11/04/19 18:00 11/11/19 17:59 11/04/19 17:41 Memantine (Namenda) 10 mg BID ORAL 10/29/19 09:00 11/28/19 08:59 11/06/19 10:12 Pantoprazole (Protonix) 40 mg ACBREAKFAST ORAL 10/29/19 06:30 11/28/19 06:29 11/06/19 06:26 Potassium Chloride (K-Dur) 40 meq BID ORAL 11/05/19 18:00 02/03/20 17:59 11/06/19 10:08 Pramipexole (Mirapex) 0.5 mg DAILY@1700 ORAL 10/29/19 17:00 11/28/19 16:59 11/05/19 17:51 Risperidone (RisperDAL) 0.5 mg BID ORAL 10/29/19 09:00 12/13/19 08:59 11/06/19 10:12 Ropinirole HCl (Requip) 2 mg Q12HR ORAL 10/28/19 21:00 11/27/19 20:59 11/06/19 10:08 Solifenacin (Vesicare) 5 mg DAILY ORAL 10/29/19 09:00 11/28/19 08:59 11/06/19 10:08 Zolpidem Tartrate (Ambien) 5 mg HSPRN PRN ORAL Insomnia 11/03/19 11:00 11/10/19 10:59 Sandy Colin M.D. Nov 06, 2019 11:37
--- NOTE | 2019-11-06 11:40 | Diagnostic Imaging Report ---
Indication: Shortness of breath Technique: One view of the chest Comparison: 11/03/2019 Findings: Patient is markedly rotated to the right. Left lung interstitial and airspace opacities are unchanged. Infiltrates in the right upper lobe may be slightly increased. 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 The heart is borderline enlarged. Impression: Bilateral infiltrates, left greater than right. Perhaps slightly worse in the right upper lobe, otherwise little pack changer 3 days
[2019-11-06 12:00] VITALS: BP 100/60
--- NOTE | 2019-11-06 12:43 | General Progress Note ---
Assessment/Plan Problem List: (1) UTI (urinary tract infection) ICD Codes: N39.0 - Urinary tract infection, site not specified SNOMED: 58363529 (2) Hypoxia ICD Codes: R09.02 - Hypoxemia SNOMED: 434031479 (3) Edema ICD Codes: R60.9 - Edema, unspecified SNOMED: 041017120, 610271943 (4) COPD (chronic obstructive pulmonary disease) ICD Codes: J44.9 - Chronic obstructive pulmonary disease, unspecified SNOMED: 01634940 (5) Alzheimer disease ICD Codes: G30.9 - Alzheimer's disease, unspecified; F02.80 - Dementia in other diseases classified elsewhere without behavioral disturbance SNOMED: 55917547 (6) Weak ICD Codes: R53.1 - Weakness SNOMED: 85020674 (7) GERD (gastroesophageal reflux disease) ICD Codes: K21.9 - Gastro-esophageal reflux disease without esophagitis SNOMED: 046949376 (8) HTN (hypertension) ICD Codes: I10 - Essential (primary) hypertension SNOMED: 45181379 (9) CVA (cerebral vascular accident) ICD Codes: I63.9 - Cerebral infarction, unspecified SNOMED: 784980473 (10) Suspected COVID-19 virus infection ICD Codes: R68.89 - Other general symptoms and signs SNOMED: 275832446 Status: unchanged Assessment/Plan: o2 pulm tx abx cbc bmp am Subjective Constitutional: Reports: weakness Allergies: Coded Allergies: ASPIRIN (Verified Allergy, Intermediate, Rash, 09/02/19) coating MORPHINE (Verified Allergy, Unknown, 10/14/19) Uncoded Allergies: TETANUS TOXOID (Allergy, Unknown, 10/14/19) All Systems: reviewed and negative except above Subjective o2 mask sleepy Objective Last 24 Hour Vital Signs Date Time Temp Pulse Resp B/P (MAP) Pulse Ox O2 Delivery O2 Flow Rate FiO2 11/06/19 09:00 Non-Rebreather 15.0 11/06/19 08:00 97.9 79 20 115/60 (78) 96 11/06/19 08:00 78 11/06/19 04:00 78 11/06/19 04:00 98.1 84 20 133/70 (91) 98 11/06/19 00:00 97.9 95 20 127/74 (91) 96 11/06/19 00:00 90 4/27/20 21:00 Non-Rebreather 15.0 11/05/19 20:00 91 11/05/19 20:00 98.1 93 20 115/70 (85) 98 11/05/19 16:00 98.1 87 20 140/77 (98) 94 11/05/19 16:00 94 Intake and Output 11/05/19 11/06/19 19:00 07:00 Intake Total 480 ml Output Total 800 ml Balance 480 ml -800 ml Intake Oral 480 ml Output Urine Total 800 ml # Voids 3 # Bowel Movements 1 Laboratory Tests 11/06/19 06:05: White Blood Count 7.8, Red Blood Count 3.46L, Hemoglobin 10.1L, Hematocrit 31.3L , Mean Corpuscular Volume 90, Mean Corpuscular Hemoglobin 29.3, Mean Corpuscular Hemoglobin Concent 32.4, Red Cell Distribution Width 13.7, Platelet Count 209, Mean Platelet Volume 5.1L, Neutrophils (%) (Auto) 83.8H, Lymphocytes (%) (Auto) 6.8L, Monocytes (%) (Auto) 7.3, Eosinophils (%) (Auto) 1.8, Basophils (%) (Auto) 0.4, Sodium Level 150H, Potassium Level 3.4L, Chloride Level 107, Carbon Dioxide Level 39H, Anion Gap 4L, Blood Urea Nitrogen 22H, Creatinine 0.8, Estimat Glomerular Filtration Rate > 60, Glucose Level 105, Calcium Level 8.7, Ferritin 225, Lactate Dehydrogenase 409H, C-Reactive Protein , Quantitative 18.1H 11/06/19 11:45: Arterial Blood pH 7.480H, Arterial Blood Partial Pressure CO2 56.9*H, Arterial Blood Partial Pressure O2 93.4, Arterial Blood HCO3 41.4*H, Arterial Blood Oxygen Saturation 97.3, Arterial Blood Base Excess 15.6*H, Ryland Test Positive Height (Feet): 5 Height (Inches): 8.00 Weight (Pounds): 178 General Appearance: lethargic EENT: normal ENT inspection Neck: normal alignment Cardiovascular: normal rate, regular rhythm Respiratory/Chest: no respiratory distress, no accessory muscle use Extremities: normal inspection Skin: normal pigmentation Earle Whaley DO Nov 06, 2019 12:43
--- NOTE | 2019-11-06 14:00 | NUR ---
NURSE NOTES: Critical results for ABG drawn reported to Dr. Ware. No new orders.
[2019-11-06 16:00] VITALS: BP 104/78
[2019-11-06] MEDS: Pramipexole 0.5mg tab ORAL SCH (17:58)
--- NOTE | 2019-11-06 17:59 | Progress Note ---
DATE: 11/06/2019 SUBJECTIVE: The patient is an 89-year-old female, rule out COVID. She is confused, disorganized, altered mental status. DIAGNOSIS: . PLAN: Continue treatment with medications to stabilize her mood. Provided with 20 minutes of reality-based supportive psychotherapy and 20 minutes of cognitive behavioral therapy, will help her identify automatic negative thoughts, help her convert negative thoughts to more positive thoughts to reduce depression, anxiety, and mood lability. Chart reviewed. Discussed with staff. Seen and assessed at bedside. Jeannette Velasquez M.D. DR: OVIDIO JOB#: [id number] CC:
[2019-11-06 20:00] VITALS: BP 103/58
--- NOTE | 2019-11-06 20:05 | NUR ---
HAND-OFF: Report given to Celine Villalobos RN. Patient stable. Plan of care endorsed.
--- NOTE | 2019-11-06 20:10 | NUR ---
NURSE NOTES: Received report from Emperatriz Toussaint RN. Pt in stable condition; will continue monitoring and plan of care.
[2019-11-07] VITALS: BP 124/72
[2019-11-07 04:00] VITALS: BP 110/51
[2019-11-07] MEDS: Levothyroxine 25mcg tab ORAL SCH (05:43)
--- NOTE | 2019-11-07 07:08 | NUR ---
HAND-OFF: Report given to Emperatriz Toussaint RN. Pt in stable condtion.
[2019-11-07 08:00] VITALS: BP 114/56
--- NOTE | 2019-11-07 08:17 | NUR ---
CASE MANAGEMENT:REVIEW 11/06/19 SI: COVID 19 PNEUMONIA LAST TEMP 10/31/19 97.1 101 22 110/51 94% ON 15L NON REBREATHER PH+7.48 PCO2+56.9 HC03+41.4 IS: K-DUR PO BID LASIX PO BID PRAMIPEXOLE PO QD PLAVIX PO QD B12 PO QD NAMENDA PO BID VESICARE PO QD RISPERDAL PO BID SYNTHROID PO QD PROTONIX PO QAM REQUIP PO Q12 : TELEMETRY STATUS DCP: FROM [facility] DISCHARGE PLANNING TSPOT RESULTS PENDING TITRATE OXYGEN WHEN ABLE
[2019-11-07] MEDS: Vitamin B-12 500mcg tab ORAL SCH (08:41)
[2019-11-07] MEDS: Memantine 10mg tab ORAL SCH ×2 (08:41→18:00)
--- NOTE | 2019-11-07 08:45 | General Progress Note ---
Assessment/Plan Problem List: (1) UTI (urinary tract infection) ICD Codes: N39.0 - Urinary tract infection, site not specified SNOMED: 10670334 (2) Hypoxia ICD Codes: R09.02 - Hypoxemia SNOMED: 634347277 (3) Edema ICD Codes: R60.9 - Edema, unspecified SNOMED: 319684874, 090787102 (4) COPD (chronic obstructive pulmonary disease) ICD Codes: J44.9 - Chronic obstructive pulmonary disease, unspecified SNOMED: 58901526 (5) Alzheimer disease ICD Codes: G30.9 - Alzheimer's disease, unspecified; F02.80 - Dementia in other diseases classified elsewhere without behavioral disturbance SNOMED: 33551589 (6) Weak ICD Codes: R53.1 - Weakness SNOMED: 03402720 (7) GERD (gastroesophageal reflux disease) ICD Codes: K21.9 - Gastro-esophageal reflux disease without esophagitis SNOMED: 744713445 (8) HTN (hypertension) ICD Codes: I10 - Essential (primary) hypertension SNOMED: 90434846 (9) CVA (cerebral vascular accident) ICD Codes: I63.9 - Cerebral infarction, unspecified SNOMED: 299360981 (10) Suspected COVID-19 virus infection ICD Codes: R68.89 - Other general symptoms and signs SNOMED: 291962077 Status: unchanged Assessment/Plan: o2 pulm tx abx cbc bmp am, sign off to dr nelson Subjective Constitutional: Reports: weakness Allergies: Coded Allergies: ASPIRIN (Verified Allergy, Intermediate, Rash, 09/02/19) coating MORPHINE (Verified Allergy, Unknown, 10/14/19) Uncoded Allergies: TETANUS TOXOID (Allergy, Unknown, 10/14/19) All Systems: reviewed and negative except above Subjective o2 mask sleepy Objective Last 24 Hour Vital Signs Date Time Temp Pulse Resp B/P (MAP) Pulse Ox O2 Delivery O2 Flow Rate FiO2 11/07/19 08:24 Non-Rebreather 15.0 11/07/19 07:49 94 Non-Rebreather 15.0 100 11/07/19 04:00 97.1 100 22 110/51 (70) 96 11/07/19 04:00 95 11/07/19 00:00 101 11/07/19 00:00 98.1 101 19 124/72 (89) 96 11/06/19 21:53 95 Non-Rebreather 15.0 100 11/06/19 21:00 Non-Rebreather 15.0 11/06/19 20:00 97.5 110 24 103/58 (73) 94 11/06/19 20:00 110 11/06/19 16:00 98 11/06/19 16:00 97.7 68 19 104/78 (87) 96 11/06/19 12:00 98.8 59 20 100/60 (73) 97 11/06/19 12:00 98 11/06/19 09:00 Non-Rebreather 15.0 Intake and Output 11/06/19 11/07/19 19:00 07:00 Intake Total 275 ml Output Total 1200 ml Balance -1200 ml 275 ml Intake Oral 275 ml Output Urine Total 1200 ml # Voids 3 3 # Bowel Movements 3 Laboratory Tests 11/06/19 11:45: Arterial Blood pH 7.480H, Arterial Blood Partial Pressure CO2 56.9*H, Arterial Blood Partial Pressure O2 93.4, Arterial Blood HCO3 41.4*H, Arterial Blood Oxygen Saturation 97.3, Arterial Blood Base Excess 15.6*H, Ryland Test Positive Height (Feet): 5 Height (Inches): 8.00 Weight (Pounds): 178 General Appearance: lethargic EENT: normal ENT inspection Neck: normal alignment Cardiovascular: normal rate, regular rhythm Respiratory/Chest: no respiratory distress, no accessory muscle use Extremities: normal inspection Skin: normal pigmentation Earle Whaley DO Nov 07, 2019 08:45
[2019-11-07 08:59] LABS: HEMATOCRIT 33.4 % (37.0-47.0); HEMOGLOBIN 10.9 G/DL (12.0-16.0); MEAN CORPUSCULAR VOLUME 91 FL (80-99); PLATELET COUNT 238 K/UL (150-450); RED BLOOD COUNT 3.69 M/UL (4.20-5.40); RED CELL DISTRIBUTION WIDTH 13.7 % (11.6-14.8); WHITE BLOOD COUNT 10.1 K/UL (4.8-10.8)
[2019-11-07] MEDS ORDERED: Furosemide 40mg tab ORAL SCH (09:00)
--- NOTE | 2019-11-07 09:00 | NUR ---
NURSE NOTES: On assessment patient found to be extremely weak and lethargic. BL strength in arms 2/5 and cannot turn in bed compared to baseline. Patient also not responding verbally. When asked if she was to weak to respond she nodded her head yes. Will notify .
[2019-11-07 09:16] LABS: ANION GAP 4 mmol/L (5-15); BLOOD UREA NITROGEN 24 mg/dL (7-18); CALCIUM 9.3 MG/DL (8.5-10.1); CARBON DIOXIDE 39 MMOL/L (21-32); CHLORIDE 107 MMOL/L (98-107); CREATININE 0.7 MG/DL (0.55-1.30); POTASSIUM 4.1 MMOL/L (3.5-5.1); SODIUM 150 MMOL/L (136-145)
--- NOTE | 2019-11-07 10:24 | Pulmonology Progress Note ---
Assessment/Plan Assessment/Plan IMPRESSION: 1. Mild pulmonary edema. On diuretics; continue 2. CHF. 3. COPD. 4. Positive COVID-19. DISCUSSION: Continue home medications. I will follow carefully. Continue oxygen and pulmonary hygiene. Broad-spectrum antibiotics. On NRBM; SaO2 99% Increased LAsix reviewed labs and CXR Will need CT chest once able to do so (after COVID 19 pcr negative) Discussed with daughter Yonny Ware M.D. Subjective Interval Events: None new reproted Constitutional: Reports: no symptoms HEENT: Repors: no symptoms Respiratory: Reports: no symptoms Cardiovascular: Reports: no symptoms Gastrointestinal/Abdominal: Reports: no symptoms Allergies: Coded Allergies: ASPIRIN (Verified Allergy, Intermediate, Rash, 09/02/19) coating MORPHINE (Verified Allergy, Unknown, 10/14/19) Uncoded Allergies: TETANUS TOXOID (Allergy, Unknown, 10/14/19) All Systems: reviewed and negative except above Objective Last 24 Hour Vital Signs Date Time Temp Pulse Resp B/P (MAP) Pulse Ox O2 Delivery O2 Flow Rate FiO2 11/07/19 08:24 Non-Rebreather 15.0 11/07/19 07:49 94 Non-Rebreather 15.0 100 11/07/19 04:00 97.1 100 22 110/51 (70) 96 11/07/19 04:00 95 11/07/19 00:00 101 11/07/19 00:00 98.1 101 19 124/72 (89) 96 11/06/19 21:53 95 Non-Rebreather 15.0 100 11/06/19 21:00 Non-Rebreather 15.0 11/06/19 20:00 97.5 110 24 103/58 (73) 94 11/06/19 20:00 110 11/06/19 16:00 98 11/06/19 16:00 97.7 68 19 104/78 (87) 96 11/06/19 12:00 98.8 59 20 100/60 (73) 97 11/06/19 12:00 98 Intake and Output 11/06/19 11/07/19 19:00 07:00 Intake Total 275 ml Output Total 1200 ml Balance -1200 ml 275 ml Intake Oral 275 ml Output Urine Total 1200 ml # Voids 3 3 # Bowel Movements 3 General Appearance: no acute distress HEENT: normocephalic Respiratory/Chest: chest wall non-tender, lungs clear Cardiovascular: normal peripheral pulses Abdomen: normal bowel sounds Laboratory Tests 11/06/19 11:45: Arterial Blood pH 7.480H, Arterial Blood Partial Pressure CO2 56.9*H, Arterial Blood Partial Pressure O2 93.4, Arterial Blood HCO3 41.4*H, Arterial Blood Oxygen Saturation 97.3, Arterial Blood Base Excess 15.6*H, Ryland Test Positive 11/07/19 08:05: White Blood Count 10.1, Red Blood Count 3.69L, Hemoglobin 10.9L, Hematocrit 33.4L, Mean Corpuscular Volume 91, Mean Corpuscular Hemoglobin 29.5, Mean Corpuscular Hemoglobin Concent 32.6, Red Cell Distribution Width 13.7, Platelet Count 238, Mean Platelet Volume 4.7L, Neutrophils (%) (Auto) , Lymphocytes (%) ( Auto) , Monocytes (%) (Auto) , Eosinophils (%) (Auto) , Basophils (%) (Auto) , Neutrophils % (Manual) [Pending], Lymphocytes % (Manual) [Pending], Platelet Estimate [Pending], Platelet Morphology [Pending], Sodium Level 150H, Potassium Level 4.1, Chloride Level 107, Carbon Dioxide Level 39H, Anion Gap 4L, Blood Urea Nitrogen 24H, Creatinine 0.7, Estimat Glomerular Filtration Rate > 60, Glucose Level 117H, Calcium Level 9.3 Current Medications Medications (Trade) Dose Ordered Sig/Jerome Route PRN Reason Start Time Stop Time Status Last Admin Dose Admin Acetaminophen (Tylenol) 650 mg Q6H PRN ORAL Temp >100.5 10/29/19 08:30 11/28/19 08:29 10/30/19 13:11 Clopidogrel Bisulfate (Plavix) 75 mg DAILY ORAL 10/29/19 09:00 11/28/19 08:59 11/07/19 08:41 Cyanocobalamin (Vitamin B-12) 1,000 mcg DAILY ORAL 10/29/19 09:00 11/28/19 08:59 11/07/19 08:41 Furosemide (Lasix) 40 mg DAILY ORAL 11/07/19 09:00 12/07/19 08:59 11/07/19 08:41 Guaifenesin/ Dextromethorphan (Robitussin DM Syrup) 15 ml Q6H PRN ORAL For Cough 10/30/19 01:45 01/28/20 01:44 11/01/19 06:54 Levothyroxine Sodium (Synthroid) 25 mcg DAILY@0630 ORAL 10/29/19 06:30 11/28/19 06:29 11/07/19 05:43 Lorazepam (Ativan) 0.5 mg Q6H PRN ORAL For Anxiety 11/04/19 18:00 11/11/19 17:59 11/04/19 17:41 Memantine (Namenda) 10 mg BID ORAL 10/29/19 09:00 11/28/19 08:59 11/07/19 08:41 Pantoprazole (Protonix) 40 mg ACBREAKFAST ORAL 10/29/19 06:30 11/28/19 06:29 11/07/19 05:43 Potassium Chloride (K-Dur) 40 meq BID ORAL 11/05/19 18:00 02/03/20 17:59 11/07/19 08:42 Pramipexole (Mirapex) 0.5 mg DAILY@1700 ORAL 10/29/19 17:00 11/28/19 16:59 11/06/19 17:58 Risperidone (RisperDAL) 0.5 mg BID ORAL 10/29/19 09:00 12/13/19 08:59 11/07/19 08:41 Ropinirole HCl (Requip) 2 mg Q12HR ORAL 10/28/19 21:00 11/27/19 20:59 11/07/19 08:42 Solifenacin (Vesicare) 5 mg DAILY ORAL 10/29/19 09:00 11/28/19 08:59 11/07/19 08:39 Zolpidem Tartrate (Ambien) 5 mg HSPRN PRN ORAL Insomnia 11/03/19 11:00 11/10/19 10:59 Yonny Ware MD Nov 07, 2019 10:24
--- NOTE | 2019-11-07 11:19 | Cardiac Electrophysiology PN ---
Assessment/Plan Assessment/Plan 1. CHF with BNP 800. Echo was just done and results pending. 2. Hypertension. VANI Loya 3. NSVT looked like artifact. Echocardiogram pending results 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 5. COVID 19 positive PNA on 10/27. S/P RR for desaturation Repeat COVID test? 6. Dementia. 7. Hypothyroidism, on Synthroid. 8. Hypernatremia and Azotemia. VANI DIEHL RN Subjective Subjective S/P rapid response as wasn't wearing her Mask and had LOC and desaturation on that resolved with applying O2 again. DNR. No events. Still on 15 liter NRB face Mask. No new events Objective Last 24 Hour Vital Signs Date Time Temp Pulse Resp B/P (MAP) Pulse Ox O2 Delivery O2 Flow Rate FiO2 11/07/19 08:24 Non-Rebreather 15.0 11/07/19 08:00 97.2 90 24 114/56 (75) 99 11/07/19 08:00 94 11/07/19 07:49 94 Non-Rebreather 15.0 100 11/07/19 04:00 97.1 100 22 110/51 (70) 96 11/07/19 04:00 95 11/07/19 00:00 101 11/07/19 00:00 98.1 101 19 124/72 (89) 96 11/06/19 21:53 95 Non-Rebreather 15.0 100 11/06/19 21:00 Non-Rebreather 15.0 11/06/19 20:00 97.5 110 24 103/58 (73) 94 11/06/19 20:00 110 11/06/19 16:00 98 11/06/19 16:00 97.7 68 19 104/78 (87) 96 11/06/19 12:00 98.8 59 20 100/60 (73) 97 11/06/19 12:00 98 Intake and Output 11/06/19 11/07/19 19:00 07:00 Intake Total 275 ml Output Total 1200 ml Balance -1200 ml 275 ml Intake Oral 275 ml Output Urine Total 1200 ml # Voids 3 3 # Bowel Movements 3 Laboratory Tests Test 11/06/19 11:45 11/07/19 08:05 Arterial Blood pH 7.480 (7.350-7.450) Arterial Blood Partial Pressure CO2 56.9 mmHg (35.0-45.0) *H Arterial Blood Partial Pressure O2 93.4 mmHg (75.0-100.0) Arterial Blood HCO3 41.4 mmol/L (22.0-26.0) *H Arterial Blood Oxygen Saturation 97.3 % (95-100) Arterial Blood Base Excess 15.6 (-2-2) *H Ryland Test Positive White Blood Count 10.1 K/UL (4.8-10.8) Red Blood Count 3.69 M/UL (4.20-5.40) L Hemoglobin 10.9 G/DL (12.0-16.0) L Hematocrit 33.4 % (37.0-47.0) L Mean Corpuscular Volume 91 FL (80-99) Mean Corpuscular Hemoglobin 29.5 PG (27.0-31.0) Mean Corpuscular Hemoglobin Concent 32.6 G/DL (32.0-36.0) Red Cell Distribution Width 13.7 % (11.6-14.8) Platelet Count 238 K/UL (150-450) Mean Platelet Volume 4.7 FL (6.5-10.1) L Neutrophils (%) (Auto) % (45.0-75.0) Lymphocytes (%) (Auto) % (20.0-45.0) Monocytes (%) (Auto) % (1.0-10.0) Eosinophils (%) (Auto) % (0.0-3.0) Basophils (%) (Auto) % (0.0-2.0) Differential Total Cells Counted 100 Neutrophils % (Manual) 91 % (45-75) H Lymphocytes % (Manual) 4 % (20-45) L Monocytes % (Manual) 3 % (1-10) Eosinophils % (Manual) 2 % (0-3) Basophils % (Manual) 0 % (0-2) Band Neutrophils 0 % (0-8) Platelet Estimate Adequate Platelet Morphology Normal Hypochromasia 1+ Anisocytosis 1+ Sodium Level 150 MMOL/L (136-145) H Potassium Level 4.1 MMOL/L (3.5-5.1) Chloride Level 107 MMOL/L (98-107) Carbon Dioxide Level 39 MMOL/L (21-32) H Anion Gap 4 mmol/L (5-15) L Blood Urea Nitrogen 24 mg/dL (7-18) H Creatinine 0.7 MG/DL (0.55-1.30) Estimat Glomerular Filtration Rate > 60 mL/min (>60) Glucose Level 117 MG/DL (74-106) H Calcium Level 9.3 MG/DL (8.5-10.1) Objective HEAD AND NECK: No JVD. LUNGS: Coarse rhonchi. CARDIOVASCULAR: Regular S1 and S2 with no gallop. ABDOMEN: Soft. EXTREMITIES: No pitting edema. Robin Layne MD Nov 07, 2019 11:19
--- NOTE | 2019-11-07 11:55 | Diagnostic Imaging Report ---
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 There is interstitial and bilateral airspace disease, left greater than right. Findings are not significantly changed compared to the prior exam. No evidence of pneumothorax. Osseous structures are stable. Impression: No significant interval change in the radiographic appearance of the chest compared to one day prior. Persistent bilateral airspace disease, left greater than right.
[2019-11-07 12:00] VITALS: BP 111/60
--- NOTE | 2019-11-07 12:00 | NUR ---
NURSE NOTES: Daughter called and updated on patient's condition and notified that there has been a significant change in status. Per daughter in the event that patient is passing, she would not like to visit due to COVID status.
--- NOTE | 2019-11-07 14:10 | NUR ---
RADIOLOGY DEPT., CHEST X-RAY DONE.-P.DYE
--- NOTE | 2019-11-07 15:10 | NUR ---
DISCHARGE PLANNING COVID 19 DETECTED. PATIENT IS FROM AND WILL RETURN TO [facility] UPON DISCHARGE CURRENTLY ON 15L O2 VIA NON REBREATHER WITH PCO2+56.9 NOT STABLE FOR DISCHARGE TODAY
--- NOTE | 2019-11-07 15:27 | NUR ---
*-* INSURANCE *-* UPDATED CLINICALS AND REVIEWS HAVE BEEN FAXED TO: [facility] P: [phone] p: [phone] opt .1 F: [phone] (FAX ALL CLINICALS)
--- NOTE | 2019-11-07 15:59 | Progress Note ---
DATE: 11/07/2019 SUBJECTIVE: The patient is an 89-year-old female patient with Parkinson disease, fever, pneumonia, COPD, Alzheimer's, , urinary tract infection the reason why she was admitted to the hospital, also rule out COVID but she has some confusion, altered mental status, and decline in cognition below baseline that is why her attending physician has requested daily psychiatric consultation. MENTAL STATUS EXAMINATION: The patient is an 89-year-old female. Appearance is disheveled. Attitude, irritable and agitated. Affect, guarded and restricted. Intellect poor. Mood, depressed and anxious. Motor activity, psychomotor agitation. Attention span is poor. Orientation x2. Speech is low volume, slurred. Thought process, disorganized and illogical. Insight and judgment is poor. DIAGNOSIS: Major depressive disorder, mild, recurrent with psychotic features rule out dementia with psychosis. PLAN: Treat with Risperdal 0.5 twice a day, Namenda 10 twice a day, Ativan 0.5 mg every 6 hours p.r.n. anxiety and agitation. A 20 minutes of reality-based supportive psychotherapy. Chart reviewed and discussed with staff. Seen and assessed at bedside. Jeannette Velasquez M.D. DR: Aubrey JOB#: [id number] CC:
[2019-11-07 16:00] VITALS: BP 119/60
[2019-11-07] MEDS: Pramipexole 0.5mg tab ORAL SCH (17:00)
--- NOTE | 2019-11-07 19:35 | NUR ---
NURSE NOTES: Received report from Emepratriz Toussaint RN. Pt is in stable condtion, FLACC 0, no signs or symptoms of pain or distress noted at this time. Pt appears to be resting comfortably, will continue close monitoring and plan of care.
[2019-11-07 20:00] VITALS: BP 100/72
--- NOTE | 2019-11-07 20:00 | NUR ---
HAND-OFF: Report given to Celine Villalobos RN. Updated on patient's declining health. Plan of care endorsed.
[2019-11-08] VITALS: BP 126/69
--- NOTE | 2019-11-08 04:00 | NUR ---
NURSE NOTES: Pt experienced 12 beats of v tach and episodes of bradycardia as low as [address] Layne, no new orders received. Will continue close monitoring and plan of care.
--- NOTE | 2019-11-08 04:33 | NUR ---
PRONOUNCEMENT:late entry, Ist entry did not save. No Code. Called to pronounce patient. Absence of spontaneous respirations, no cardiac or breath sounds on auscultation. Pupils fixed and dilated. No carotid pulse or chest movement. Patient at 0433, []. [Chaz ] notified PER Macy Zhang Rn[[employer] Former].and daughter also notified by battery charger conveyor line, all belongings sent to [facility] as per [facility] policy, daughter aware and family will cherry picker operator at a later scott
--- NOTE | 2019-11-08 04:33 | NUR ---
NURSE NOTES: Informed by alarm security or surveillance monitor that pt was experience severe bradycardia. On assessment, pt had no respirations, very weak pulse, no BP. Pt then went into asystole. Pt is DNR/DNI. Pt had . Reported expiration to Dr. Layne, Dr. Ware, and pt next of kin by charge nurse Macy Petty RN. Pt remains cleaned in dignified manner according to protocol. Pt belongings accounted for and tagged per protocol. Pt then transported to [facility] with security personnel.
--- NOTE | 2019-11-08 11:05 | NUR ---
*-* NO DISCHARGE SUMMARY IN THE SYSTEM UNABLE TO FAX
--- NOTE | 2019-11-08 16:22 | NUR ---
NURSE NOTES: Daughter called and updated on patient's condition and notified that there has been a significant change in status. Per daughter in the event that patient is passing, she would not like to visit due to COVID status. Addendum: 11/08/19 at 1625 by RIVERA RINCON RN INCORRECT TIME STAMP
--- NOTE | 2019-11-08 22:16 | CDS Physician Query ---
Clarification is required for compliance, coding accuracy, and to reflect severity of illness for this patient Dear Dr. Whaley Date: 11/08/19 CDS: Faina Rubio "CHF" is documented in medical records. On admission: BNP: 767 Rx: IV Furosemide Please clarify acuity and type of CHF: Acuity [ ] Acute [ ] Chronic [ ] Acute on Chronic Type [ ] Systolic [ ] Diastolic [ ] Systolic & Diastolic (Combined) Present on Admission: [ ] Yes [ ] No [ ] Clinically Undetermined Physician signature Date Please also document in your Progress Notes and/or Discharge Summary and indicate if the condition was present on admission. MAXIM
--- NOTE | 2019-11-09 10:45 | NUR ---
*-* NO DISCHARGE SUMMARY IN THE SYSTEM UNABLE TO FAX
--- NOTE | 2019-11-09 17:34 | Discharge Summary ---
Discharge Summary Discharge Summary _ SUMMARY DATE OF ADMISSION: 10/28/2019 DATE OF EXPIRATION: 11/08/2019 REASON FOR ADMISSION: 89 years old female, resident of nursing home facility, with DNR/DNI status, with past medical history significant for COPD, congestive heart failure, CVA, hyperlipidemia, hypothyroidism, Alzheimer dementia, presented to emergency department with fever and cough for 1 day. In triage patient was afebrile. She denied chest pain AND shortness of breath. Laboratory work-up revealed no leukocytosis ,hemoglobin 11, hematocrit 32.9 , platelet count 128. Urinalysis revealed +2 protein ,borderline pyuria, and few bacteria. Stable electrolytes, BUN 18, creatinine 1.0. Glucose 94. Lactic acid 1.2. Stable LFT. pro BNP 7767. EKG revealED sinus rhythm , no acute ischemic changes. Chest x-ray demonstrated pulmonary vascular congestion. Patchy perihilar opacities, representing pulmonary edema versus pneumonia. Patient was a resident of nursing home [facility] with confirmed COVID 19 cases per [facility] website. In ED patient was swabbed for COVID , and admitted to isolation room to telemetry floor for further management. CONSULTANTS: assembler leather goods Dr. Asif pulmonary ID specialist Dr. Colin psychiatrist Dr. Velasquez [facility]SE: Patient admitted to telemetry floor to isolation room. Patient started on empiric antibiotic. Supplemental oxygen provided and titrated to keep pulse oximetry above 92%. Pulmonary toilet provided. Blood cultures were negative. SARS-CoV-2 by PCR on 10/27 was detected. Isolation continued. Stool for C. difficile was negative. Supplemental oxygen provided and titrated to keep pulse oximetry above 92%. Pulmonary toilet provided. Patient was followed-up with chest x-ray, which revealed suspected pulmonary edema. Echocardiogram revealed preserved ejection fraction of 60%. No evidence of pericardial effusion. No evidence of wall motion abnormality. Right ventricular systolic pressure of 13. Patient started on diuretic due to suspected pulmonary edema. Volumes were closely monitored. Patient was followed-up with ABG. ABG progressively revealed hypoxemia and hypercapnia. Patient was becoming progressively more hypoxic and on 10/30 required nonrebreather mask. Chest x-ray revealed bilateral patchy consolidation throughout the lungs. Diuretics continued. Patient condition was slowly deteriorating. Patient was pronounced at 04:33 am on 11/07. Cause of : cardiopulmonary arrest secondary to confirmed COVID-19 infection. FINAL DIAGNOSES: Confirmed COVID-19 infection Probably pneumonia Pulmonary edema Hypoxia COPD CHF Hypertension History of CVA Right bundle branch block and left anterior fascicular block Hypernatremia Dementia Hypothyroidism Major depressive disorder mild recurrent with psychotic features I have been assigned to dictate discharge summary for this account. I was not involved in the patient's management. Nita Whitley NP November 09, 2019 17:34
--- NOTE | 2019-11-12 14:47 | NUR ---
*-* INSURANCE *-* DISCHARGE SUMMARY HAS BEEN FAXED TO: [facility] P: [phone] p: [phone] opt .1 F: [phone] (FAX ALL CLINICALS)
== END 2019-11-08 04:33 | disposition expired | DRG 177 ==
LOC: EDBD 09:24 → EMR 10:08 → EDBEDREQSVC 10:21 → 2E 11:20 → EDBEDREQ 15:08 → 2E 11-05 20:58
DX: U07.1 COVID-19 (principal); J12.89 Other viral pneumonia; N39.0 Urinary tract infection, site not specified; F33.0 Major depressive disorder, recurrent, mild; I47.2 Ventricular tachycardia; I45.2 Bifascicular block; E87.0 Hyperosmolality and hypernatremia; Z88.6 Allergy status to analgesic agent; Z88.7 Allergy status to serum and vaccine; J44.9 Chronic obstructive pulmonary disease, unspecified; G30.9 Alzheimer's disease, unspecified; F02.80 Dementia in other diseases classified elsewhere, unspecified severity, without behavioral disturbance, psychotic disturbance, mood disturbance, and anxiety; E03.9 Hypothyroidism, unspecified; E78.5 Hyperlipidemia, unspecified; D64.9 Anemia, unspecified; K21.9 Gastro-esophageal reflux disease without esophagitis; Z86.73 Personal history of transient ischemic attack (TIA), and cerebral infarction without residual deficits; R09.02 Hypoxemia
CPT/HCPCS: 36415; 36600; 71045; 80048; 80053; 81003; 82728; 82803; 82962; 83605; 83615; 83880; 85007; 85025; 86140; 87040; 87081; 87324; 87635; 93005; 93306; 96365; 96368; 97803; 99285; J8499